=== PATIENT | female | born 1945 | race African-American/Black ===

== ENCOUNTER 2019-10-29 15:20 | Inpatient (IN) | payer MEDICAID, OTHER ==
[~2019-10-29] VITALS: Ht 157.5 cm; Wt 71.7 kg
[2019-10-29 15:49] LABS: BASO % 0 % (0-3); EOS # 0.1 x10^3/uL (0.0-0.7); EOS % 1 % (0-3); HEMATOCRIT 35.1 % (36.0-47.0); HEMOGLOBIN 12.1 g/dL (12.0-15.5); LYMPH # 2.5 x10^3/uL (1.0-4.8); LYMPH % 31 % (24-48); MEAN CORPUSCULAR HEMOGLOBIN 34 pg (25-35); MEAN CORPUSCULAR HGB CONC 34 g/dL (31-37); MEAN CORPUSCULAR VOLUME 97 fL (79-100); MONO # 0.8 x10^3/uL (0.0-1.1); MONO % 10 % (0-9); NEUT # 4.8 x10^3/uL (1.8-7.7); NEUT % 58 % (31-73); PLATELET COUNT 272 x10^3/uL (140-400); RED CELL DISTRIBUTION WIDTH 11.8 % (11.5-14.5); WHITE BLOOD COUNT 8.3 x10^3/uL (4.0-11.0)
--- NOTE | 2019-10-29 15:59 | RAD ---
CT CODE STROKE HEAD WO Clinical indications: Confusion and aphasia. Code stroke COMPARISON: None available. Technique: Noncontrast axial cross sectional scanning of the head was performed. PQRS compliance Statement One or more of the following individualized dose reduction techniques were utilized for this study: 1. Automated exposure control 2. Adjustment of the mA and/or kV according to patient size 3. Use of iterative reconstruction technique Findings: There is diffuse edema of the right cerebral hemisphere mainly involving the temporal and parietal lobes but also the posterior right frontal lobe and anterior right occipital lobe. Within the inferior aspect of this area of edema specifically within the right temporal lobe, there is hyperdense intraparenchymal hemorrhage measuring 23 mm in greatest transverse dimension. There is effacement of the right lateral ventricle. There is midline shift from right to left of 6 mm. No extra-axial fluid collection or hemorrhage is seen. No hyperdense MCA sign is evident. There is complete opacification of the upper left maxillary sinus with erosion of the medial wall and soft tissue extension into the lateral aspect of the left nasal passageway. The maxillary sinuses are not completely seen in this study. This could represent a mucocele or neoplasm. Mastoid sinuses and middle ear cavities are clear. No skull fracture or pneumocephalus is seen. IMPRESSION: Diffuse cerebral edema of the right cerebral hemisphere with an acute hemorrhagic component. Dependent on the clinical history, this could represent a hemorrhagic infarct in the MCA distribution (acute symptomatology only) or could represent hemorrhage within a glioblastoma (subacute or chronic symptomatology with acute onset of new neurologic findings related to hemorrhage). Complete opacification left maxillary sinus which may be due to mucocele or neoplasm. FOR INTERNAL CODING PURPOSES Critical result: Findings discussed with OWEN TELLEZ at 10/29/2019 3:49 PM. RESULT CODE: (C) Electronically signed by: Rufus Ríos MD (10/29/2019 3:56 PM) [facility]
[2019-10-29 16:06] LABS: PROTHROMBIN TIME PATIENT 13.2 SEC (11.7-14.0)
--- NOTE | 2019-10-29 16:16 | EKG ---
[facility] [address] [place] [address] Test Date: 2019-10-29 Test Time: 16:06:16 Pat Name: JEYSON KIM Department: Room: Gender: F [employer]er: : 1945 Requested By: OWEN TELLEZ Order Number: [id number] Reading MD: Measurements Intervals [place] Rate: 60 P: 48 NH: 178 QRS: 2 QRSD: 88 T: 82 QT: 448 QTc: 448 Interpretive Statements SINUS RHYTHM NO SPECIFIC ECG ABNORMALITIES RI6.01 No previous ECG available for comparison
--- NOTE | 2019-10-29 16:19 | PHYS DOC ---
Past Medical History Past Medical History: Hypertension Adult General Chief Complaint Chief Complaint: NEURO SYMPTOMS/DEFICITS HPI HPI Patient is a 74 year old female patient with history of hypertension who presents POV with complaint of confusion. Patient's granddaughter stated that she was confused while she was at work since 10 AM today but she did not have any focal neuro deficit. Patient did not have complaining of headache and blurred vision, fever and chills, nausea and vomiting. Patient had mild confusion several days ago after having cold symptom. Review of Systems Review of Systems Constitutional: Denies fever or chills [] Eyes: Denies change in visual acuity, redness, or eye pain [] HENT: Denies nasal congestion or sore throat [] Respiratory: Denies cough or shortness of breath [] Cardiovascular: No additional information not addressed in HPI [] GI: Denies abdominal pain, nausea, vomiting, bloody stools or diarrhea [] : Denies dysuria or hematuria [] Musculoskeletal: Denies back pain or joint pain [] Integument: Denies rash or skin lesions [] Neurologic: Denies headache, focal weakness or sensory changes [] Endocrine: Denies polyuria or polydipsia [] All other systems were reviewed and found to be within normal limits, except as documented in this note. Current Medications Current Medications Current Medications Medications (Trade) Dose Ordered Sig/[facility] Start Time Stop Time Status Last Admin Dose Admin Dexamethasone Sodium Phosphate (Decadron) 4 mg 1X ONCE 10/29/19 16:45 10/29/19 16:46 DC Allergies Allergies Allergies Coded Allergies Type Severity Reaction Last Updated Verified No Known Drug Allergies 10/29/19 No Physical Exam Physical Exam Constitutional: Well developed, well nourished, no acute distress, non-toxic appearance. [] HENT: Normocephalic, atraumatic, bilateral external ears normal, oropharynx moist, no oral exudates, nose normal. [] Eyes: PERRLA, EOMI, conjunctiva normal, no discharge. [] Neck: Normal range of motion, no tenderness, supple, no stridor. [] Cardiovascular:Heart rate regular rhythm, no murmur [] Lungs & Thorax: Bilateral breath sounds clear to auscultation [] Abdomen: Bowel sounds normal, soft, no tenderness, no masses, no pulsatile masses. [] Skin: Warm, dry, no erythema, no rash. [] Back: No tenderness, no CVA tenderness. [] Extremities: No tenderness, no cyanosis, no clubbing, ROM intact, no edema. [] Neurologic: Alert and oriented X 3 but slow to respond, normal motor function, normal sensory function, no focal deficits noted, NIHS of 3. [] Psychologic: Affect normal, mood normal. [] Current Patient Data Vital Signs Vital Signs Date Time Temp Pulse Resp B/P (MAP) Pulse Ox O2 Delivery O2 Flow Rate FiO2 10/29/19 15:30 98.6 64 16 128/69 (88) 100 Room Air 98.6 Lab Values Laboratory Tests Test 10/29/19 15:37 White Blood Count 8.3 x10^3/uL (4.0-11.0) Red Blood Count 3.60 x10^6/uL (3.50-5.40) Hemoglobin 12.1 g/dL (12.0-15.5) Hematocrit 35.1 % (36.0-47.0) L Mean Corpuscular Volume 97 fL (79-100) Mean Corpuscular Hemoglobin 34 pg (25-35) Mean Corpuscular Hemoglobin Concent 34 g/dL (31-37) Red Cell Distribution Width 11.8 % (11.5-14.5) Platelet Count 272 x10^3/uL (140-400) Neutrophils (%) (Auto) 58 % (31-73) Lymphocytes (%) (Auto) 31 % (24-48) Monocytes (%) (Auto) 10 % (0-9) H Eosinophils (%) (Auto) 1 % (0-3) Basophils (%) (Auto) 0 % (0-3) Neutrophils # (Auto) 4.8 x10^3/uL (1.8-7.7) Lymphocytes # (Auto) 2.5 x10^3/uL (1.0-4.8) Monocytes # (Auto) 0.8 x10^3/uL (0.0-1.1) Eosinophils # (Auto) 0.1 x10^3/uL (0.0-0.7) Basophils # (Auto) 0.0 x10^3/uL (0.0-0.2) Prothrombin Time 13.2 SEC (11.7-14.0) Prothrombin Time INR 1.0 (0.8-1.1) Activated Partial Thromboplast Time 30 SEC (24-38) Sodium Level 128 mmol/L (136-145) L Potassium Level 3.5 mmol/L (3.5-5.1) Chloride Level 90 mmol/L (98-107) L Carbon Dioxide Level 27 mmol/L (21-32) Anion Gap 11 (6-14) Blood Urea Nitrogen 16 mg/dL (7-20) Creatinine 1.2 mg/dL (0.6-1.0) H Estimated GFR (Cockcroft-Gault) 53.0 BUN/Creatinine Ratio 13 (6-20) Glucose Level 97 mg/dL (70-99) Calcium Level 9.3 mg/dL (8.5-10.1) Total Bilirubin 0.4 mg/dL (0.2-1.0) Aspartate Amino Transferase (AST) 20 U/L (15-37) Alanine Aminotransferase (ALT) 19 U/L (14-59) Alkaline Phosphatase 57 U/L (46-116) Troponin I Quantitative < 0.017 ng/mL (0.000-0.055) OK-Zzj-[id number]-Type Natriuretic Peptide 111 pg/mL (0-449) Total Protein 8.3 g/dL (6.4-8.2) H Albumin 3.7 g/dL (3.4-5.0) Albumin/Globulin Ratio 0.8 (1.0-1.7) L Laboratory Tests 10/29/19 15:37 Laboratory Tests 10/29/19 15:37 EKG EKG EKG interpreted at high she by me. EKG at 1606 showed normal sinus rhythm at rate of 60, normal LA and QT intervals, no acute ST and T-wave abnormalities. Radiology/Procedures Radiology/Procedures [][facility] [address] [place], [place] [id number] IMAGING REPORT Signed PATIENT: JEYSON KIM ACCOUNT: [id number] : 1945 LOCATION: ER AGE: 74 SEX: F EXAM STATUS: REG ER ORD. PHYSICIAN: OWEN TELLEZ MD REASON: CONFUSION, APHASIA. CODE STROKE PROCEDURE: CT CODE STROKE HEAD WO CT CODE STROKE HEAD WO Clinical indications: Confusion and aphasia. Code stroke COMPARISON: None available. Technique: Noncontrast axial cross sectional scanning of the head was performed. PQRS compliance Statement One or more of the following individualized dose reduction techniques were utilized for this study: 1. Automated exposure control 2. Adjustment of the mA and/or kV according to patient size 3. Use of iterative reconstruction technique Findings: There is diffuse edema of the right cerebral hemisphere mainly involving the temporal and parietal lobes but also the posterior right frontal lobe and anterior right occipital lobe. Within the inferior aspect of this area of edema specifically within the right temporal lobe, there is hyperdense intraparenchymal hemorrhage measuring 23 mm in greatest transverse dimension. There is effacement of the right lateral ventricle. There is midline shift from right to left of 6 mm. No extra-axial fluid collection or hemorrhage is seen. No hyperdense MCA sign is evident. There is complete opacification of the upper left maxillary sinus with erosion of the medial wall and soft tissue extension into the lateral aspect of the left nasal passageway. The maxillary sinuses are not completely seen in this study. This could represent a mucocele or neoplasm. Mastoid sinuses and middle ear cavities are clear. No skull fracture or pneumocephalus is seen. IMPRESSION: Diffuse cerebral edema of the right cerebral hemisphere with an acute hemorrhagic component. Dependent on the clinical history, this could represent a hemorrhagic infarct in the MCA distribution (acute symptomatology only) or could represent hemorrhage within a glioblastoma (subacute or chronic symptomatology with acute onset of new neurologic findings related to hemorrhage). Complete opacification left maxillary sinus which may be due to mucocele or neoplasm. FOR INTERNAL CODING PURPOSES Critical result: Findings discussed with OWEN TELLEZ at 10/29/2019 3:49 PM. RESULT CODE: (C) Electronically signed by: Kia Ríos MD (10/29/2019 3:56 PM) [facility] DICTATED and SIGNED BY: KIA RÍOS MD DATE: 10/29/19 1556 Course & Med Decision Making Course & Med Decision Making Pertinent Labs and Imaging studies reviewed. (See chart for details) Evaluation of patient in ER showed 74-year-old female patient with sudden onset of confusion for several hours earlier prior to arrival to ER. Patient had indigestion of PE without focal neuro deficit. CT of head showed intracranial he morrhage and cerebral edema and 6 mm midline shift with possible brain tumor or hemorrhagic CVA. On-call neurosurgeon Dr. Lopez was consulted at 16 0 to and recommended to admit patient to ICU, obtain with and without contrast and consult neurologist. Also he commented to keep Decadron 4 mg IV every [address] Meeks was consulted at 1648. Patient requiring admission for further evaluation and treatment. Discussed with Dr. Stevens who is in agreement with admission. Discussed findings and plan with patient and family, who acknowledge understanding and agreement. Dragon Disclaimer Dragon Disclaimer This electronic medical record was generated, in whole or in part, using a voice recognition dictation system. Departure Departure Impression: Primary Impression: Intracranial hemorrhage Additional Impressions: Confusion Hyponatremia Disposition: ADMITTED INPATIENT (at 1606) Admitting Physician: MANSI (Dr. Stevens accepted admission at 1605) Condition: GUARDED Referrals: LOLIS HURTADO MD (PCP) Critical Care Time Critical care time was 70 minutes exclusive of procedures. NIHSS Stroke Scale NIH Stroke Scale: NIH Stroke Scale Response (Comments) Value Level of Consciousness: 0 Alert/Responsive 0 LOC Questions: 0 Answers both correctly 0 LOC Commands: 0 Performs both tasks 0 Best Gaze: 0 Normal 0 Visual: 0 No visual loss 0 Facial Palsy: 0 Normal, symmetrical 0 Motor - Left Arm 0 No drift 0 Motor - Right Arm 0 No drift 0 Motor - Left Leg 0 No drift 0 Motor: Right Leg 0 No drift 0 Limb Ataxia: 1 One limb 1 Sensory: 0 No loss 0 Best Language: 1 Mild to mod aphasia 1 Dysathria: 1 Mild to moderate 1 Extinction and Inattention: 0 Normal 0 Total 3 Problem Qualifiers OWEN TELLEZ MD Oct 29, 2019 16:19
[2019-10-29 16:20] LABS: CALCIUM 9.3 mg/dL (8.5-10.1); CREATININE 1.2 mg/dL (0.6-1.0); POTASSIUM 3.5 mmol/L (3.5-5.1)
[2019-10-29 16:24] LABS: ALBUMIN 3.7 g/dL (3.4-5.0); ALBUMIN/GLOBULIN RATIO 0.8 (1.0-1.7); TOTAL BILIRUBIN 0.4 mg/dL (0.2-1.0); TOTAL PROTEIN 8.3 g/dL (6.4-8.2)
[2019-10-29] MEDS ORDERED: DEXAMETHASONE SOD PHOS 4 MG/ML VIAL IVP ONE (16:45)
[2019-10-29] MEDS ORDERED: ONDANSETRON PF 4 MG/2 ML VIAL. IVP PRN (17:00)
[2019-10-29] MEDS ORDERED: GADOTERATE 7.5 MMOL/15ML VIAL. IVP ONE (17:30)
[2019-10-29] MEDS: DEXAMETHASONE SOD PHOS 4 MG/ML VIAL IVP SCH (18:00)
[2019-10-29] MEDS ORDERED: IOHEXOL 350 MG/ML 100 ML VIAL. IV ONE (18:30)
[2019-10-29] MEDS ORDERED: CONTRAST GIVEN. MC PRN (18:30)
--- NOTE | 2019-10-29 18:45 | RAD ---
BRAIN WO/W CONTRAST History: Brain tumor possible. Intracranial hemorrhage Technique: Multiplanar, multi sequential pre and postcontrast MR imaging was performed of the brain. Comparison: CT October 29, 2019. Findings: Heterogeneously peripherally enhancing necrotic tumor within the right temporal lobe measures 5.7 x 4.1 cm. Enhancement extends towards the lateral ventricle. Decompressed right temporal horn. There is internal hemorrhage. T2/FLAIR hyperintensity adjacent to the mass extending into the right frontal lobe and basal ganglia region. Additional T2/FLAIR hyperintensity extends to the right middle cerebral peduncle. There is adjacent local mass effect. Additionally leftward midline shift measures up to 8 mm. Additional mild foci of T2/FLAIR hyperintensity within the hemispheric white matter, most often due to chronic microvascular ischemia. Imaged orbits are unremarkable. Moderate left maxillary sinus mucosal thickening. Scattered mild ethmoid sinus mucosal thickening. Mastoid air cells are clear. Impression: 1. 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 Electronically signed by: Zhao Choudhary DO (10/29/2019 6:42 PM) [facility]
[2019-10-29] MEDS: IV NORMAL SALINE 1000ML BAG 1,000 ML IV SCH (18:52)
[2019-10-29 19:01] LABS: BILIRUBIN,URINE NEGATIVE (NEG); CLARITY,URINE CLEAR; COLOR,URINE YELLOW; NITRITE,URINE NEGATIVE (NEG); PROTEIN,URINE NEGATIVE (NEG-TRACE); UROBILINOGEN,URINE 0.2 mg/dL (0.2 mg/dL)
--- NOTE | 2019-10-29 19:01 | RAD ---
CT ANGIOGRAPHY HEAD AND NECK History: Intracranial hemorrhage. Technique: After bolus of intravenous contrast, volumetric CT data acquisition was acquired of the head and neck. Multiplanar reconstruction images to include MIP and 3-D reconstruction images are submitted. Exposure: One or more of the following individualized dose reduction techniques were utilized for this examination: 1. Automated exposure control 2. Adjustment of the mA and/or kV according to patient size 3. Use of iterative reconstruction technique. Comparison: None Any determination of stenosis is based on NASCET criteria. Head CTA: ICA: No stenosis, occlusion or aneurysm. MCA: No stenosis, occlusion or aneurysm. SENAIT: 2 mm anterior communicating artery aneurysm (series 3 image #[id number] and series 6 image #24) MOLD STACKER: No stenosis, occlusion or aneurysm. Predominantly origin of the right posterior cerebral artery. Basilar artery: No stenosis, occlusion or aneurysm. Distal vertebral arteries: No stenosis, occlusion or aneurysm. Right temporal lobe a mass better characterized on prior imaging. Leftward midline shift, unchanged. There is displacement of right MCA branches anteriorly by the mass. Complete opacification of the left maxillary sinus Increased density material within the sinus, may represent specific secretions or fungal colonization. Mild ethmoid sinus mucosal thickening. Mastoid air cells are clear. CT angiogram neck: Aortic arch: Conventional arch anatomy. Common carotid arteries: No stenosis, occlusion or dissection. Internal carotid arteries: No stenosis, occlusion or dissection. External carotid arteries: Patent Vertebral arteries: No stenosis, occlusion or dissection. Left lower lobe calcified granuloma. Small subcentimeter thyroid nodules. Bones: No pathologic osseous lesions. Impression: 1. No intracranial arterial stenosis or occlusion. 2. 2 mm anterior communicating artery aneurysm. 3. Right temporal lobe mass with this placement of MCA branches anteriorly. The mass is better characterize on recently performed MRI. 4. Left maxillary sinus disease, as described. Electronically signed by: Zhao Choudhary DO (10/29/2019 6:58 PM) [facility]
[2019-10-29 19:12] LABS: BACTERIA,URINE 0 /HPF (0-FEW); RBC,URINE 0 /HPF (0-2); SQUAMOUS EPITHELIAL CELL,UR MOD /LPF; WBC,URINE OCC /HPF (0-4)
--- NOTE | 2019-10-29 19:20 | PDOC1 ---
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 CT shows hemorrhagic stroke with brain edema, MCA distribution, CT angio brain neck and MRI done at ER stat pending, IF CT angio neg, admit here, IF we find something, might need tertiary care where intervention can be done, Family at bedside, knows the plan, 1 younger individual seems familiar with medical field, Weak all 4s, no facial asymmetry, SLurring seems better but still difficulty finding words. Neuro and nS aware of the consults Past Medical History Cardiovascular: HTN Past Surgical History Past Surgical History: No pertinent history Family History Family History: Hypertension Social History Smoke: No ALCOHOL: none Drugs: None Current Problem List Problem List Problems Medical Problems: (1) Confusion Status: Acute (2) Hyponatremia Status: Acute (3) Intracranial hemorrhage Status: Acute Current Medications Current Medications Current Medications Dexamethasone Sodium Phosphate (Decadron) 4 mg 1X ONCE IVP Last administered on 10/29/19at 18:52; Start 10/29/19 at 16:45; Stop 10/29/19 at 16:46; Status DC Acetaminophen (Tylenol) 500 mg PRN Q6HRS PRN PO MILD PAIN / TEMP; Start 10/29/19 at 17:00 Ondansetron HCl (Zofran) 4 mg PRN Q6HRS PRN IVP NAUSEA/VOMITING; Start 10/29/19 at 17:00 Sodium Chloride 1,000 ml @ 80 mls/hr [id number] IV Last administered on 10/29/19at 18:52; Start 10/29/19 at 17:00 Famotidine (Pepcid Vial) 20 mg QHS IVP ; Start 10/29/19 at 21:00 Hydralazine HCl (Apresoline Inj) 10 mg PRN Q4HRS PRN IVP ELEVATED BP, SEE COMMENTS; Start 10/29/19 at 17:00 Dexamethasone Sodium Phosphate (Decadron) 4 mg Q6HRS IVP ; Start 10/29/19 at 18:00 Gadoterate Meglumine (Dotarem) 14 ml 1X ONCE IVP Last administered on 10/29/19at 17:55; Start 10/29/19 at 17:30; Stop 10/29/19 at 17:40; Status DC Iohexol (Omnipaque 350 Mg/ml) 60 ml 1X ONCE IV Last administered on 10/29/19at 18:46; Start 10/29/19 at 18:30; Stop 10/29/19 at 18:31; Status DC Info (CONTRAST GIVEN -- Rx MONITORING) 1 each PRN DAILY PRN MC SEE COMMENTS; Start 10/29/19 at 18:30; Stop 10/31/19 at 18:29 Allergies Allergies: Coded Allergies: No Known Drug Allergies (Unverified , 10/29/19) ROS Review of System headache , all else is limited Physical Exam General: Alert, Cooperative, No acute distress HEENT: Atraumatic, PERRLA, EOMI Lungs: Clear to auscultation, Normal air movement Heart: S1S2, RRR, no thrills, no rubs, no gallops, no murmurs Cardiovascular: S1, S2 Breasts: Normal, Rt breast nml w/o mass, Lt breast nml w/o mass, Nipples normal Abdomen: Normal bowel sounds, Soft, No tenderness, No hepatosplenomegaly, No masses Rectal Exam: not examined PELVIC: Nml ext genitalia Extremities: No clubbing, No cyanosis, No edema, Normal pulses Skin: No rashes, No breakdown, No significant lesion Neuro: Normal tone, Sensation intact, Reflexes 2+, Other (MMT 4.5 all 4s, no facial droop, weak shoulder shrug, difficulty finding words) Vitals Vitals Vital Signs Date Time Temp Pulse Resp B/P (MAP) Pulse Ox O2 Delivery O2 Flow Rate FiO2 10/29/19 18:55 65 16 100 10/29/19 15:30 98.6 128/69 (88) Room Air 98.6 Labs Labs Laboratory Tests Test 10/29/19 15:32 10/29/19 15:37 10/29/19 18:25 Glucose (Fingerstick) 95 mg/dL (70-99) White Blood Count 8.3 x10^3/uL (4.0-11.0) Red Blood Count 3.60 x10^6/uL (3.50-5.40) Hemoglobin 12.1 g/dL (12.0-15.5) Hematocrit 35.1 % (36.0-47.0) Mean Corpuscular Volume 97 fL (79-100) Mean Corpuscular Hemoglobin 34 pg (25-35) Mean Corpuscular Hemoglobin Concent 34 g/dL (31-37) Red Cell Distribution Width 11.8 % (11.5-14.5) Platelet Count 272 x10^3/uL (140-400) Neutrophils (%) (Auto) 58 % (31-73) Lymphocytes (%) (Auto) 31 % (24-48) Monocytes (%) (Auto) 10 % (0-9) Eosinophils (%) (Auto) 1 % (0-3) Basophils (%) (Auto) 0 % (0-3) Neutrophils # (Auto) 4.8 x10^3/uL (1.8-7.7) Lymphocytes # (Auto) 2.5 x10^3/uL (1.0-4.8) Monocytes # (Auto) 0.8 x10^3/uL (0.0-1.1) Eosinophils # (Auto) 0.1 x10^3/uL (0.0-0.7) Basophils # (Auto) 0.0 x10^3/uL (0.0-0.2) Prothrombin Time 13.2 SEC (11.7-14.0) Prothromb Time International Ratio 1.0 (0.8-1.1) Activated Partial Thromboplast Time 30 SEC (24-38) Sodium Level 128 mmol/L (136-145) Potassium Level 3.5 mmol/L (3.5-5.1) Chloride Level 90 mmol/L (98-107) Carbon Dioxide Level 27 mmol/L (21-32) Anion Gap 11 (6-14) Blood Urea Nitrogen 16 mg/dL (7-20) Creatinine 1.2 mg/dL (0.6-1.0) Estimated GFR (Cockcroft-Gault) 53.0 BUN/Creatinine Ratio 13 (6-20) Glucose Level 97 mg/dL (70-99) Calcium Level 9.3 mg/dL (8.5-10.1) Total Bilirubin 0.4 mg/dL (0.2-1.0) Aspartate Amino Transf (AST/SGOT) 20 U/L (15-37) Alanine Aminotransferase (ALT/SGPT) 19 U/L (14-59) Alkaline Phosphatase 57 U/L (46-116) Troponin I Quantitative < 0.017 ng/mL (0.000-0.055) DH-Xxg-Y-Type Natriuretic Peptide 111 pg/mL (0-449) Total Protein 8.3 g/dL (6.4-8.2) Albumin 3.7 g/dL (3.4-5.0) Albumin/Globulin Ratio 0.8 (1.0-1.7) Urine Collection Type Void Urine Color Yellow Urine Clarity Clear Urine pH 6.0 Urine Specific [place] 1.015 Urine Protein Negative mg/dL (NEG-TRACE) Urine Glucose (UA) Negative mg/dL (NEG) Urine Ketones (Stick) Negative mg/dL (NEG) Urine Blood Negative (NEG) Urine Nitrite Negative (NEG) Urine Bilirubin Negative (NEG) Urine Urobilinogen Dipstick 0.2 mg/dL (0.2 mg/dL) Urine Leukocyte Esterase Negative (NEG) Urine RBC 0 /HPF (0-2) Urine WBC Occ /HPF (0-4) Urine Squamous Epithelial Cells Mod /LPF Urine Bacteria 0 /HPF (0-FEW) Urine Mucus Slight /LPF Laboratory Tests Test 10/29/19 15:32 10/29/19 15:37 10/29/19 18:25 Glucose (Fingerstick) 95 mg/dL (70-99) White Blood Count 8.3 x10^3/uL (4.0-11.0) Red Blood Count 3.60 x10^6/uL (3.50-5.40) Hemoglobin 12.1 g/dL (12.0-15.5) Hematocrit 35.1 % (36.0-47.0) Mean Corpuscular Volume 97 fL (79-100) Mean Corpuscular Hemoglobin 34 pg (25-35) Mean Corpuscular Hemoglobin Concent 34 g/dL (31-37) Red Cell Distribution Width 11.8 % (11.5-14.5) Platelet Count 272 x10^3/uL (140-400) Neutrophils (%) (Auto) 58 % (31-73) Lymphocytes (%) (Auto) 31 % (24-48) Monocytes (%) (Auto) 10 % (0-9) Eosinophils (%) (Auto) 1 % (0-3) Basophils (%) (Auto) 0 % (0-3) Neutrophils # (Auto) 4.8 x10^3/uL (1.8-7.7) Lymphocytes # (Auto) 2.5 x10^3/uL (1.0-4.8) Monocytes # (Auto) 0.8 x10^3/uL (0.0-1.1) Eosinophils # (Auto) 0.1 x10^3/uL (0.0-0.7) Basophils # (Auto) 0.0 x10^3/uL (0.0-0.2) Prothrombin Time 13.2 SEC (11.7-14.0) Prothromb Time International Ratio 1.0 (0.8-1.1) Activated Partial Thromboplast Time 30 SEC (24-38) Sodium Level 128 mmol/L (136-145) Potassium Level 3.5 mmol/L (3.5-5.1) Chloride Level 90 mmol/L (98-107) Carbon Dioxide Level 27 mmol/L (21-32) Anion Gap 11 (6-14) Blood Urea Nitrogen 16 mg/dL (7-20) Creatinine 1.2 mg/dL (0.6-1.0) Estimated GFR (Cockcroft-Gault) 53.0 BUN/Creatinine Ratio 13 (6-20) Glucose Level 97 mg/dL (70-99) Calcium Level 9.3 mg/dL (8.5-10.1) Total Bilirubin 0.4 mg/dL (0.2-1.0) Aspartate Amino Transf (AST/SGOT) 20 U/L (15-37) Alanine Aminotransferase (ALT/SGPT) 19 U/L (14-59) Alkaline Phosphatase 57 U/L (46-116) Troponin I Quantitative < 0.017 ng/mL (0.000-0.055) YA-Nlt-D-Type Natriuretic Peptide 111 pg/mL (0-449) Total Protein 8.3 g/dL (6.4-8.2) Albumin 3.7 g/dL (3.4-5.0) Albumin/Globulin Ratio 0.8 (1.0-1.7) Urine Collection Type Void Urine Color Yellow Urine Clarity Clear Urine pH 6.0 Urine Specific [place] 1.015 Urine Protein Negative mg/dL (NEG-TRACE) Urine Glucose (UA) Negative mg/dL (NEG) Urine Ketones (Stick) Negative mg/dL (NEG) Urine Blood Negative (NEG) Urine Nitrite Negative (NEG) Urine Bilirubin Negative (NEG) Urine Urobilinogen Dipstick 0.2 mg/dL (0.2 mg/dL) Urine Leukocyte Esterase Negative (NEG) Urine RBC 0 /HPF (0-2) Urine WBC Occ /HPF (0-4) Urine Squamous Epithelial Cells Mod /LPF Urine Bacteria 0 /HPF (0-FEW) Urine Mucus Slight /LPF VTE Prophylaxis Ordered VTE Prophylaxis Devices: Contraindicated VTE Pharmacological Prophylaxi: Contraindicated Assessment/Plan Assessment/Plan HUge hemorrhagic CVA, MCA distribution with brain edema HTN controlled PLAN: ICU, decadron 4mg IV nestor NPO for now PT OT MARKETING CONTENT COORDINATOR IVF while NPO Await CTA brain neck and MRI brain Might need tertiary level pending above scans Dw ER, NS and neuro consulted dw dtr Seen at ER full code JANNET OCONNOR MD Oct 29, 2019 19:20
[2019-10-29 20:00] VITALS: BP 146/66
--- NOTE | 2019-10-29 20:35 | PDOC2 ---
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 Tumor necrotic hemorrhage. Cerebral vasogenic edema with midline shift 8 mm. Intermittent recurrent confusional episodes. Complex partial seizure likely. Left temporal field deficits. 2 mm anterior communicating artery aneurysm. Metabolic encephalopathy. Headaches x 1-2 weeks. HTN. Over weight. RECOMMENDATIONS/PLAN: Decadron 4 mg IV q6h. Keppra 500 mg IV bid. Treat medical diseases. Monitoring HR, BP, glucose level, and signs of GI bleeding. EEG. Lab: see orders. Please consult Neurosurgery. 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 He was at work today but developed symptoms of mental status changes, confusion, then slurred speech. She was brought to the ER of [facility] but she was still confused. Her HCT reveled a large low density changes with hemorrhage in right temporal area. Further evaluation revealed brain tumor as described above. Patient stated she has been having headaches that started before . Past Medical History Cardiovascular: HTN Past Surgical History No pertinent history Family History Hypertension Social History Smoke: No ALCOHOL: none Drugs: None ALLERGY: Unknown MEDICATIONS: Refer to MAR REVIEW OF SYSTEMS: Constitutional: No malnutrition, weight loss, cachexia. Head: No traumatic brain or head injury. Skin: No edema, or rash. Ear: No infection. Eyes: No vision loss or color blindness. Nose: No bleeding or purulent discharges. Hearing: No hearing decrease. Neck: No injury. Breast: No history of cancer, masses,or discharges. Cardiac: HTN. Pulmonary: No COPD. GI: No GI ulcer, GI bleeding. Urinary/genital: UTI. Endocrinologic: No cousin face, craniofacial dysmorphism, polydactyly. Skeletomuscular: No muscular atrophy. Neurological: see HP. Psychiatric: Denies drug use/abuse. Otherwise, not [id number] review of systems. PHYSICAL EXAMINATION: General appearance is in acute distress. HEENT: Normocephalic and nontraumatic. Eyes, nose, ears, and throat are unremarkable. Neck is supple. No lymphadenopathy. No crepitus. Cardiovascular: S1, S2, regular rate and rhythm. Pulmonary: Clear to auscultation bilaterally. Abdomen: Bowel sounds are positive. Extremities: No rash, lesions, or edema. No restriction of range of motion NEUROLOGICAL EXAMINATION: Awake. Intermittent confusion episodes noted. Not fully oriented to time, place and person. PERRL. EOMI. Left temporal field deficits. CN: no focal findings. Muscle tone: within normal. Muscle strength: 4 DTR: 1-2 Plantar reflex: Neutral response bilaterally Gait: not examined in bed. Sensory exam: no abnormal findings due to not able to answer questions accurately. No cerebellar signs elicited. F-T-N test fine. Current Medications Current Medications Current Medications Dexamethasone Sodium Phosphate (Decadron) 4 mg 1X ONCE IVP Last administered on 10/29/19at 18:52; Start 10/29/19 at 16:45; Stop 10/29/19 at 16:46; Status DC Acetaminophen (Tylenol) 500 mg PRN Q6HRS PRN PO MILD PAIN / TEMP; Start 10/29/19 at 17:00 Ondansetron HCl (Zofran) 4 mg PRN Q6HRS PRN IVP NAUSEA/VOMITING; Start 10/29/19 at 17:00 Sodium Chloride 1,000 ml @ 80 mls/hr [id number] IV Last administered on 10/29/19at 18:52; Start 10/29/19 at 17:00 Famotidine (Pepcid Vial) 20 mg QHS IVP ; Start 10/29/19 at 21:00 Hydralazine HCl (Apresoline Inj) 10 mg PRN Q4HRS PRN IVP ELEVATED BP, SEE COMMENTS; Start 10/29/19 at 17:00 Dexamethasone Sodium Phosphate (Decadron) 4 mg Q6HRS IVP ; Start 10/29/19 at 18:00 Gadoterate Meglumine (Dotarem) 14 ml 1X ONCE IVP Last administered on 10/29/19at 17:55; Start 10/29/19 at 17:30; Stop 10/29/19 at 17:40; Status DC Iohexol (Omnipaque 350 Mg/ml) 60 ml 1X ONCE IV Last administered on 10/29/19at 18:46; Start 10/29/19 at 18:30; Stop 10/29/19 at 18:31; Status DC Info (CONTRAST GIVEN -- Rx MONITORING) 1 each PRN DAILY PRN MC SEE COMMENTS; Start 10/29/19 at 18:30; Stop 10/31/19 at 18:29 Allergies Allergies: Allergies Coded Allergies Type Severity Reaction Last Updated Verified No Known Drug Allergies 10/29/19 No ROS Review of System The patient denies any associated fevers, chills, headache, ear pain, rhinorrhea, sore throat, stiff neck, productive cough, chest pain, shortness of breath, back or flank pain, abdominal pain, nausea, vomiting, diarrhea, constipation, dysuria, rash, numbness, weakness, tingling, incontinence, difficulty ambulating, or diaphoresis. Physical Exam Physical Exam General: Well developed, well nourished, no acute distress, well appearing HEENT: Pupils equally round and reactive to light, EOMI, no discharge, normal conjunctiva Neck: Supple, no nuchal rigidity, no JVD, trachea midline, no tenderness Cardiac: RRR, no murmurs, no gallops, no rubs Chest/Lungs: CTAB, no wheeze, no rhonchi, no crackles Abdomen: soft, non-distended, no guarding, no peritoneal signs, non-tender Back: No tenderness Extremities: no edema, pulses intact, non-tender,capillary refill <3 sec bilateral upper and lower extremities, Neuro: Alert and oriented x 4, no focal deficits, normal speech Vitals Vitals: Vital Signs Date Time Temp Pulse Resp B/P (MAP) Pulse Ox O2 Delivery O2 Flow Rate FiO2 10/29/19 18:55 65 16 100 10/29/19 15:30 98.6 128/69 (88) Room Air 98.6 Labs Labs Laboratory Tests Test 10/29/19 15:32 10/29/19 15:37 10/29/19 18:25 Glucose (Fingerstick) 95 mg/dL (70-99) White Blood Count 8.3 x10^3/uL (4.0-11.0) Red Blood Count 3.60 x10^6/uL (3.50-5.40) Hemoglobin 12.1 g/dL (12.0-15.5) Hematocrit 35.1 % (36.0-47.0) Mean Corpuscular Volume 97 fL (79-100) Mean Corpuscular Hemoglobin 34 pg (25-35) Mean Corpuscular Hemoglobin Concent 34 g/dL (31-37) Red Cell Distribution Width 11.8 % (11.5-14.5) Platelet Count 272 x10^3/uL (140-400) Neutrophils (%) (Auto) 58 % (31-73) Lymphocytes (%) (Auto) 31 % (24-48) Monocytes (%) (Auto) 10 % (0-9) Eosinophils (%) (Auto) 1 % (0-3) Basophils (%) (Auto) 0 % (0-3) Neutrophils # (Auto) 4.8 x10^3/uL (1.8-7.7) Lymphocytes # (Auto) 2.5 x10^3/uL (1.0-4.8) Monocytes # (Auto) 0.8 x10^3/uL (0.0-1.1) Eosinophils # (Auto) 0.1 x10^3/uL (0.0-0.7) Basophils # (Auto) 0.0 x10^3/uL (0.0-0.2) Prothrombin Time 13.2 SEC (11.7-14.0) Prothromb Time International Ratio 1.0 (0.8-1.1) Activated Partial Thromboplast Time 30 SEC (24-38) Sodium Level 128 mmol/L (136-145) Potassium Level 3.5 mmol/L (3.5-5.1) Chloride Level 90 mmol/L (98-107) Carbon Dioxide Level 27 mmol/L (21-32) Anion Gap 11 (6-14) Blood Urea Nitrogen 16 mg/dL (7-20) Creatinine 1.2 mg/dL (0.6-1.0) Estimated GFR (Cockcroft-Gault) 53.0 BUN/Creatinine Ratio 13 (6-20) Glucose Level 97 mg/dL (70-99) Calcium Level 9.3 mg/dL (8.5-10.1) Total Bilirubin 0.4 mg/dL (0.2-1.0) Aspartate Amino Transf (AST/SGOT) 20 U/L (15-37) Alanine Aminotransferase (ALT/SGPT) 19 U/L (14-59) Alkaline Phosphatase 57 U/L (46-116) Troponin I Quantitative < 0.017 ng/mL (0.000-0.055) VL-Lbk-A-Type Natriuretic Peptide 111 pg/mL (0-449) Total Protein 8.3 g/dL (6.4-8.2) Albumin 3.7 g/dL (3.4-5.0) Albumin/Globulin Ratio 0.8 (1.0-1.7) Urine Collection Type Void Urine Color Yellow Urine Clarity Clear Urine pH 6.0 Urine Specific [place] 1.015 Urine Protein Negative mg/dL (NEG-TRACE) Urine Glucose (UA) Negative mg/dL (NEG) Urine Ketones (Stick) Negative mg/dL (NEG) Urine Blood Negative (NEG) Urine Nitrite Negative (NEG) Urine Bilirubin Negative (NEG) Urine Urobilinogen Dipstick 0.2 mg/dL (0.2 mg/dL) Urine Leukocyte Esterase Negative (NEG) Urine RBC 0 /HPF (0-2) Urine WBC Occ /HPF (0-4) Urine Squamous Epithelial Cells Mod /LPF Urine Bacteria 0 /HPF (0-FEW) Urine Mucus Slight /LPF Laboratory Tests Test 10/29/19 15:32 10/29/19 15:37 10/29/19 18:25 Glucose (Fingerstick) 95 mg/dL (70-99) White Blood Count 8.3 x10^3/uL (4.0-11.0) Red Blood Count 3.60 x10^6/uL (3.50-5.40) Hemoglobin 12.1 g/dL (12.0-15.5) Hematocrit 35.1 % (36.0-47.0) Mean Corpuscular Volume 97 fL (79-100) Mean Corpuscular Hemoglobin 34 pg (25-35) Mean Corpuscular Hemoglobin Concent 34 g/dL (31-37) Red Cell Distribution Width 11.8 % (11.5-14.5) Platelet Count 272 x10^3/uL (140-400) Neutrophils (%) (Auto) 58 % (31-73) Lymphocytes (%) (Auto) 31 % (24-48) Monocytes (%) (Auto) 10 % (0-9) Eosinophils (%) (Auto) 1 % (0-3) Basophils (%) (Auto) 0 % (0-3) Neutrophils # (Auto) 4.8 x10^3/uL (1.8-7.7) Lymphocytes # (Auto) 2.5 x10^3/uL (1.0-4.8) Monocytes # (Auto) 0.8 x10^3/uL (0.0-1.1) Eosinophils # (Auto) 0.1 x10^3/uL (0.0-0.7) Basophils # (Auto) 0.0 x10^3/uL (0.0-0.2) Prothrombin Time 13.2 SEC (11.7-14.0) Prothromb Time International Ratio 1.0 (0.8-1.1) Activated Partial Thromboplast Time 30 SEC (24-38) Sodium Level 128 mmol/L (136-145) Potassium Level 3.5 mmol/L (3.5-5.1) Chloride Level 90 mmol/L (98-107) Carbon Dioxide Level 27 mmol/L (21-32) Anion Gap 11 (6-14) Blood Urea Nitrogen 16 mg/dL (7-20) Creatinine 1.2 mg/dL (0.6-1.0) Estimated GFR (Cockcroft-Gault) 53.0 BUN/Creatinine Ratio 13 (6-20) Glucose Level 97 mg/dL (70-99) Calcium Level 9.3 mg/dL (8.5-10.1) Total Bilirubin 0.4 mg/dL (0.2-1.0) Aspartate Amino Transf (AST/SGOT) 20 U/L (15-37) Alanine Aminotransferase (ALT/SGPT) 19 U/L (14-59) Alkaline Phosphatase 57 U/L (46-116) Troponin I Quantitative < 0.017 ng/mL (0.000-0.055) KP-Pqj-U-Type Natriuretic Peptide 111 pg/mL (0-449) Total Protein 8.3 g/dL (6.4-8.2) Albumin 3.7 g/dL (3.4-5.0) Albumin/Globulin Ratio 0.8 (1.0-1.7) Urine Collection Type Void Urine Color Yellow Urine Clarity Clear Urine pH 6.0 Urine Specific [place] 1.015 Urine Protein Negative mg/dL (NEG-TRACE) Urine Glucose (UA) Negative mg/dL (NEG) Urine Ketones (Stick) Negative mg/dL (NEG) Urine Blood Negative (NEG) Urine Nitrite Negative (NEG) Urine Bilirubin Negative (NEG) Urine Urobilinogen Dipstick 0.2 mg/dL (0.2 mg/dL) Urine Leukocyte Esterase Negative (NEG) Urine RBC 0 /HPF (0-2) Urine WBC Occ /HPF (0-4) Urine Squamous Epithelial Cells Mod /LPF Urine Bacteria 0 /HPF (0-FEW) Urine Mucus Slight /LPF CHELO SAVAGE MD Oct 29, 2019 20:35
[2019-10-29 21:00] VITALS: BP 132/65
--- NOTE | 2019-10-29 21:00 | NUR ---
Pt arrived to unit at 194, accompanied by an ED RN via patricio. Pt A&Ox2 but slightly drowsy, follows commands, reporting pain in her neck and head. VSS with heart rate bradycardic. Lung sounds clear in all perez and bowel sounds present in all four quadrants. Pt strength +2 in BUE aswell as +2 in BLE. Pt attached to monitor and settled into bed, while NS @ 80 mL/ hr was resumed. O2 saturation in high 90's and heart rhythm portrayed Sinus Bradycardia. Pt was educated on ICU routines, no smoking policy, safety policy, call light usage, security and visitation policy, food/ nutrition policy. Provider paged for brief update at 2053. Provider returned call at 2055. This RN updated provider on pt condition, vital signs, objective assessment data, pt's diet, medications taken at home, and pt's slight pain. Provider ordered for the pt to be on light liquid diet until 0000 12/04, after midnight, pt is supposed to be NPO. Provider also ordered 1 mg morphine IVP Q2H PRN. Will continue to assess and monitor for significant change in pt condition.
[2019-10-29] MEDS ORDERED: MORPHINE SULFATE 2 MG/ML VIAL. IV PRN (21:15)
[2019-10-29] MEDS: levETIRAcetam 500 MG in IV DEXTROSE 5% 100ML 100 ML IV SCH (21:24)
[2019-10-29] MEDS: FAMOTIDINE 20 MG/2 ML VIAL IVP SCH (21:25)
[2019-10-29 22:00] VITALS: BP 137/69
[2019-10-29 23:00] VITALS: BP 111/61
[2019-10-30] VITALS (14 sets, daily range): BP systolic 107–150; BP diastolic 55–73
[2019-10-30] MEDS: DEXAMETHASONE SOD PHOS 4 MG/ML VIAL IVP SCH ×5 (01:03→23:39)
--- NOTE | 2019-10-30 02:40 | NUR ---
NIH scale and finding went from original score in ER at 4 to repeat score in ICU at 8. NIH conducted again after suspicion of decline in mentation. This RN advised from charge nurse to repeat NIH and if a significant change, to notify the provider. Provider paged at 0224, provider called back 0230. Provider updated on mental status change and new NIH findings. Provider questioned this RN if the NIH score update was the only intent of the call. This RN confirmed and proceeded to mention the differences in areas of the NIH scales from the original to the most recent. Provider expressed to not call again in regards to change in NIH tonight, and expressed that all can be done for pt through the interventions already completed for the pt. Will continue to assess and monitor pt status and mentation for future significant negative changes.
[2019-10-30 08:03] LABS: BASO % 0 % (0-3); EOS % 0 % (0-3); HEMOGLOBIN 12.4 g/dL (12.0-15.5); LYMPH # 1.6 x10^3/uL (1.0-4.8); LYMPH % 23 % (24-48); MEAN CORPUSCULAR HEMOGLOBIN 34 pg (25-35); MEAN CORPUSCULAR HGB CONC 34 g/dL (31-37); MEAN CORPUSCULAR VOLUME 98 fL (79-100); MONO # 0.1 x10^3/uL (0.0-1.1); MONO % 2 % (0-9); NEUT # 5.3 x10^3/uL (1.8-7.7); NEUT % 75 % (31-73); PLATELET COUNT 272 x10^3/uL (140-400); RED BLOOD COUNT 3.67 x10^6/uL (3.50-5.40); RED CELL DISTRIBUTION WIDTH 11.9 % (11.5-14.5)
[2019-10-30 08:10] LABS: CALCIUM 8.9 mg/dL (8.5-10.1); CREATININE 1.1 mg/dL (0.6-1.0); GFR 58.6; POTASSIUM 3.8 mmol/L (3.5-5.1)
[2019-10-30] MEDS ORDERED: METOPROLOL TART IMMED RELEASE 50 MG TABLET. PO SCH (09:00)
--- NOTE | 2019-10-30 10:20 | PDOC ---
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74 PLAn: NPO, await NS rounds Cont decadron IV COnt keppra q12 started by neuro FULL CODE We resumed home BP regimen Close neuro checks Explained GBM< as a malignant brain tumor, will wait NS recs for tx signif time, pleasant family Vitals Vitals Vital Signs Date Time Temp Pulse Resp B/P (MAP) Pulse Ox O2 Delivery O2 Flow Rate FiO2 10/30/19 06:00 56 20 120/63 (82) 10/30/19 04:00 97.0 97.0 10/30/19 04:00 Room Air 10/29/19 18:55 100 Physical Exam General: Alert, Cooperative, No acute distress Abdomen: Normal bowel sounds, Soft, No tenderness, No hepatosplenomegaly, No masses Extremities: No clubbing, No cyanosis, No edema, Normal pulses Skin: No rashes, No breakdown, No significant lesion Labs LABS Laboratory Tests Test 10/29/19 15:32 10/29/19 15:37 10/29/19 18:25 10/30/19 07:40 Glucose (Fingerstick) 95 mg/dL (70-99) White Blood Count 8.3 x10^3/uL (4.0-11.0) 7.0 x10^3/uL (4.0-11.0) Red Blood Count 3.60 x10^6/uL (3.50-5.40) 3.67 x10^6/uL (3.50-5.40) Hemoglobin 12.1 g/dL (12.0-15.5) 12.4 g/dL (12.0-15.5) Hematocrit 35.1 % (36.0-47.0) 36.0 % (36.0-47.0) Mean Corpuscular Volume 97 fL (79-100) 98 fL (79-100) Mean Corpuscular Hemoglobin 34 pg (25-35) 34 pg (25-35) Mean Corpuscular Hemoglobin Concent 34 g/dL (31-37) 34 g/dL (31-37) Red Cell Distribution Width 11.8 % (11.5-14.5) 11.9 % (11.5-14.5) Platelet Count 272 x10^3/uL (140-400) 272 x10^3/uL (140-400) Neutrophils (%) (Auto) 58 % (31-73) 75 % (31-73) Lymphocytes (%) (Auto) 31 % (24-48) 23 % (24-48) Monocytes (%) (Auto) 10 % (0-9) 2 % (0-9) Eosinophils (%) (Auto) 1 % (0-3) 0 % (0-3) Basophils (%) (Auto) 0 % (0-3) 0 % (0-3) Neutrophils # (Auto) 4.8 x10^3/uL (1.8-7.7) 5.3 x10^3/uL (1.8-7.7) Lymphocytes # (Auto) 2.5 x10^3/uL (1.0-4.8) 1.6 x10^3/uL (1.0-4.8) Monocytes # (Auto) 0.8 x10^3/uL (0.0-1.1) 0.1 x10^3/uL (0.0-1.1) Eosinophils # (Auto) 0.1 x10^3/uL (0.0-0.7) 0.0 x10^3/uL (0.0-0.7) Basophils # (Auto) 0.0 x10^3/uL (0.0-0.2) 0.0 x10^3/uL (0.0-0.2) Prothrombin Time 13.2 SEC (11.7-14.0) Prothromb Time International Ratio 1.0 (0.8-1.1) Activated Partial Thromboplast Time 30 SEC (24-38) Sodium Level 128 mmol/L (136-145) 133 mmol/L (136-145) Potassium Level 3.5 mmol/L (3.5-5.1) 3.8 mmol/L (3.5-5.1) Chloride Level 90 mmol/L (98-107) 97 mmol/L (98-107) Carbon Dioxide Level 27 mmol/L (21-32) 24 mmol/L (21-32) Anion Gap 11 (6-14) 12 (6-14) Blood Urea Nitrogen 16 mg/dL (7-20) 14 mg/dL (7-20) Creatinine 1.2 mg/dL (0.6-1.0) 1.1 mg/dL (0.6-1.0) Estimated GFR (Cockcroft-Gault) 53.0 58.6 BUN/Creatinine Ratio 13 (6-20) Glucose Level 97 mg/dL (70-99) 143 mg/dL (70-99) Calcium Level 9.3 mg/dL (8.5-10.1) 8.9 mg/dL (8.5-10.1) Total Bilirubin 0.4 mg/dL (0.2-1.0) Aspartate Amino Transf (AST/SGOT) 20 U/L (15-37) Alanine Aminotransferase (ALT/SGPT) 19 U/L (14-59) Alkaline Phosphatase 57 U/L (46-116) Troponin I Quantitative < 0.017 ng/mL (0.000-0.055) [id number]-[id number]-Type Natriuretic Peptide 111 pg/mL (0-449) Total Protein 8.3 g/dL (6.4-8.2) Albumin 3.7 g/dL (3.4-5.0) Albumin/Globulin Ratio 0.8 (1.0-1.7) Urine Collection Type Void Urine Color Yellow Urine Clarity Clear Urine pH 6.0 Urine Specific Saline 1.015 Urine Protein Negative mg/dL (NEG-TRACE) Urine Glucose (UA) Negative mg/dL (NEG) Urine Ketones (Stick) Negative mg/dL (NEG) Urine Blood Negative (NEG) Urine Nitrite Negative (NEG) Urine Bilirubin Negative (NEG) Urine Urobilinogen Dipstick 0.2 mg/dL (0.2 mg/dL) Urine Leukocyte Esterase Negative (NEG) Urine RBC 0 /HPF (0-2) Urine WBC Occ /HPF (0-4) Urine Squamous Epithelial Cells Mod /LPF Urine Bacteria 0 /HPF (0-FEW) Urine Mucus Slight /LPF Review of Systems Review of Systems headache, alll else neg, neuro exma non focal Assessment and Plan Assessmemt and Plan Problems Medical Problems: (1) Confusion Status: Acute (2) Hyponatremia Status: Acute (3) Intracranial hemorrhage Status: Acute Comment Review of Relevant I have reviewed the following items ramin (where applicable) has been applied. Labs Laboratory Tests Test 10/29/19 15:32 10/29/19 15:37 10/29/19 18:25 10/30/19 07:40 Glucose (Fingerstick) 95 mg/dL (70-99) White Blood Count 8.3 x10^3/uL (4.0-11.0) 7.0 x10^3/uL (4.0-11.0) Red Blood Count 3.60 x10^6/uL (3.50-5.40) 3.67 x10^6/uL (3.50-5.40) Hemoglobin 12.1 g/dL (12.0-15.5) 12.4 g/dL (12.0-15.5) Hematocrit 35.1 % (36.0-47.0) 36.0 % (36.0-47.0) Mean Corpuscular Volume 97 fL (79-100) 98 fL (79-100) Mean Corpuscular Hemoglobin 34 pg (25-35) 34 pg (25-35) Mean Corpuscular Hemoglobin Concent 34 g/dL (31-37) 34 g/dL (31-37) Red Cell Distribution Width 11.8 % (11.5-14.5) 11.9 % (11.5-14.5) Platelet Count 272 x10^3/uL (140-400) 272 x10^3/uL (140-400) Neutrophils (%) (Auto) 58 % (31-73) 75 % (31-73) Lymphocytes (%) (Auto) 31 % (24-48) 23 % (24-48) Monocytes (%) (Auto) 10 % (0-9) 2 % (0-9) Eosinophils (%) (Auto) 1 % (0-3) 0 % (0-3) Basophils (%) (Auto) 0 % (0-3) 0 % (0-3) Neutrophils # (Auto) 4.8 x10^3/uL (1.8-7.7) 5.3 x10^3/uL (1.8-7.7) Lymphocytes # (Auto) 2.5 x10^3/uL (1.0-4.8) 1.6 x10^3/uL (1.0-4.8) Monocytes # (Auto) 0.8 x10^3/uL (0.0-1.1) 0.1 x10^3/uL (0.0-1.1) Eosinophils # (Auto) 0.1 x10^3/uL (0.0-0.7) 0.0 x10^3/uL (0.0-0.7) Basophils # (Auto) 0.0 x10^3/uL (0.0-0.2) 0.0 x10^3/uL (0.0-0.2) Prothrombin Time 13.2 SEC (11.7-14.0) Prothromb Time International Ratio 1.0 (0.8-1.1) Activated Partial Thromboplast Time 30 SEC (24-38) Sodium Level 128 mmol/L (136-145) 133 mmol/L (136-145) Potassium Level 3.5 mmol/L (3.5-5.1) 3.8 mmol/L (3.5-5.1) Chloride Level 90 mmol/L (98-107) 97 mmol/L (98-107) Carbon Dioxide Level 27 mmol/L (21-32) 24 mmol/L (21-32) Anion Gap 11 (6-14) 12 (6-14) Blood Urea Nitrogen 16 mg/dL (7-20) 14 mg/dL (7-20) Creatinine 1.2 mg/dL (0.6-1.0) 1.1 mg/dL (0.6-1.0) Estimated GFR (Cockcroft-Gault) 53.0 58.6 BUN/Creatinine Ratio 13 (6-20) Glucose Level 97 mg/dL (70-99) 143 mg/dL (70-99) Calcium Level 9.3 mg/dL (8.5-10.1) 8.9 mg/dL (8.5-10.1) Total Bilirubin 0.4 mg/dL (0.2-1.0) Aspartate Amino Transf (AST/SGOT) 20 U/L (15-37) Alanine Aminotransferase (ALT/SGPT) 19 U/L (14-59) Alkaline Phosphatase 57 U/L (46-116) Troponin I Quantitative < 0.017 ng/mL (0.000-0.055) NI-Pmr-S-Type Natriuretic Peptide 111 pg/mL (0-449) Total Protein 8.3 g/dL (6.4-8.2) Albumin 3.7 g/dL (3.4-5.0) Albumin/Globulin Ratio 0.8 (1.0-1.7) Urine Collection Type Void Urine Color Yellow Urine Clarity Clear Urine pH 6.0 Urine Specific [place] 1.015 Urine Protein Negative mg/dL (NEG-TRACE) Urine Glucose (UA) Negative mg/dL (NEG) Urine Ketones (Stick) Negative mg/dL (NEG) Urine Blood Negative (NEG) Urine Nitrite Negative (NEG) Urine Bilirubin Negative (NEG) Urine Urobilinogen Dipstick 0.2 mg/dL (0.2 mg/dL) Urine Leukocyte Esterase Negative (NEG) Urine RBC 0 /HPF (0-2) Urine WBC Occ /HPF (0-4) Urine Squamous Epithelial Cells Mod /LPF Urine Bacteria 0 /HPF (0-FEW) Urine Mucus Slight /LPF Laboratory Tests Test 10/29/19 15:32 10/29/19 15:37 10/29/19 18:25 10/30/19 07:40 Glucose (Fingerstick) 95 mg/dL (70-99) White Blood Count 8.3 x10^3/uL (4.0-11.0) 7.0 x10^3/uL (4.0-11.0) Red Blood Count 3.60 x10^6/uL (3.50-5.40) 3.67 x10^6/uL (3.50-5.40) Hemoglobin 12.1 g/dL (12.0-15.5) 12.4 g/dL (12.0-15.5) Hematocrit 35.1 % (36.0-47.0) 36.0 % (36.0-47.0) Mean Corpuscular Volume 97 fL (79-100) 98 fL (79-100) Mean Corpuscular Hemoglobin 34 pg (25-35) 34 pg (25-35) Mean Corpuscular Hemoglobin Concent 34 g/dL (31-37) 34 g/dL (31-37) Red Cell Distribution Width 11.8 % (11.5-14.5) 11.9 % (11.5-14.5) Platelet Count 272 x10^3/uL (140-400) 272 x10^3/uL (140-400) Neutrophils (%) (Auto) 58 % (31-73) 75 % (31-73) Lymphocytes (%) (Auto) 31 % (24-48) 23 % (24-48) Monocytes (%) (Auto) 10 % (0-9) 2 % (0-9) Eosinophils (%) (Auto) 1 % (0-3) 0 % (0-3) Basophils (%) (Auto) 0 % (0-3) 0 % (0-3) Neutrophils # (Auto) 4.8 x10^3/uL (1.8-7.7) 5.3 x10^3/uL (1.8-7.7) Lymphocytes # (Auto) 2.5 x10^3/uL (1.0-4.8) 1.6 x10^3/uL (1.0-4.8) Monocytes # (Auto) 0.8 x10^3/uL (0.0-1.1) 0.1 x10^3/uL (0.0-1.1) Eosinophils # (Auto) 0.1 x10^3/uL (0.0-0.7) 0.0 x10^3/uL (0.0-0.7) Basophils # (Auto) 0.0 x10^3/uL (0.0-0.2) 0.0 x10^3/uL (0.0-0.2) Prothrombin Time 13.2 SEC (11.7-14.0) Prothromb Time International Ratio 1.0 (0.8-1.1) Activated Partial Thromboplast Time 30 SEC (24-38) Sodium Level 128 mmol/L (136-145) 133 mmol/L (136-145) Potassium Level 3.5 mmol/L (3.5-5.1) 3.8 mmol/L (3.5-5.1) Chloride Level 90 mmol/L (98-107) 97 mmol/L (98-107) Carbon Dioxide Level 27 mmol/L (21-32) 24 mmol/L (21-32) Anion Gap 11 (6-14) 12 (6-14) Blood Urea Nitrogen 16 mg/dL (7-20) 14 mg/dL (7-20) Creatinine 1.2 mg/dL (0.6-1.0) 1.1 mg/dL (0.6-1.0) Estimated GFR (Cockcroft-Gault) 53.0 58.6 BUN/Creatinine Ratio 13 (6-20) Glucose Level 97 mg/dL (70-99) 143 mg/dL (70-99) Calcium Level 9.3 mg/dL (8.5-10.1) 8.9 mg/dL (8.5-10.1) Total Bilirubin 0.4 mg/dL (0.2-1.0) Aspartate Amino Transf (AST/SGOT) 20 U/L (15-37) Alanine Aminotransferase (ALT/SGPT) 19 U/L (14-59) Alkaline Phosphatase 57 U/L (46-116) Troponin I Quantitative < 0.017 ng/mL (0.000-0.055) HV-Uou-U-Type Natriuretic Peptide 111 pg/mL (0-449) Total Protein 8.3 g/dL (6.4-8.2) Albumin 3.7 g/dL (3.4-5.0) Albumin/Globulin Ratio 0.8 (1.0-1.7) Urine Collection Type Void Urine Color Yellow Urine Clarity Clear Urine pH 6.0 Urine Specific [place] 1.015 Urine Protein Negative mg/dL (NEG-TRACE) Urine Glucose (UA) Negative mg/dL (NEG) Urine Ketones (Stick) Negative mg/dL (NEG) Urine Blood Negative (NEG) Urine Nitrite Negative (NEG) Urine Bilirubin Negative (NEG) Urine Urobilinogen Dipstick 0.2 mg/dL (0.2 mg/dL) Urine Leukocyte Esterase Negative (NEG) Urine RBC 0 /HPF (0-2) Urine WBC Occ /HPF (0-4) Urine Squamous Epithelial Cells Mod /LPF Urine Bacteria 0 /HPF (0-FEW) Urine Mucus Slight /LPF Medications Current Medications Dexamethasone Sodium Phosphate (Decadron) 4 mg 1X ONCE IVP Last administered on 10/29/19at 18:52; Start 10/29/19 at 16:45; Stop 10/29/19 at 16:46; Status DC Acetaminophen (Tylenol) 500 mg PRN Q6HRS PRN PO MILD PAIN / TEMP; Start 10/29/19 at 17:00 Ondansetron HCl (Zofran) 4 mg PRN Q6HRS PRN IVP NAUSEA/VOMITING; Start 10/29/19 at 17:00 Sodium Chloride 1,000 ml @ 80 mls/hr [id number] IV Last administered on 10/29/19at 18:52; Start 10/29/19 at 17:00 Famotidine (Pepcid Vial) 20 mg QHS IVP Last administered on 10/29/19at 21:25; Start 10/29/19 at 21:00 Hydralazine HCl (Apresoline Inj) 10 mg PRN Q4HRS PRN IVP ELEVATED BP, SEE COMMENTS; Start 10/29/19 at 17:00 Dexamethasone Sodium Phosphate (Decadron) 4 mg Q6HRS IVP Last administered on 10/30/19at 06:40; Start 10/29/19 at 18:00 Gadoterate Meglumine (Dotarem) 14 ml 1X ONCE IVP Last administered on 10/29/19at 17:55; Start 10/29/19 at 17:30; Stop 10/29/19 at 17:40; Status DC Iohexol (Omnipaque 350 Mg/ml) 60 ml 1X ONCE IV Last administered on 10/29/19at 18:46; Start 10/29/19 at 18:30; Stop 10/29/19 at 18:31; Status DC Info (CONTRAST GIVEN -- Rx MONITORING) 1 each PRN DAILY PRN MC SEE COMMENTS; Start 10/29/19 at 18:30; Stop 10/31/19 at 18:29 Levetiracetam 500 mg/Dextrose 105 ml @ 440 mls/hr Q12HR IV Last administered o n 10/29/19at 21:24; Start 10/29/19 at 21:00 Metoprolol Tartrate (Lopressor) 50 mg DAILY PO ; Start 10/30/19 at 09:00 Hydrochlorothiazide (Microzide) 12.5 mg DAILY PO ; Start 10/30/19 at 09:00 Fish Oil (Fish Oil) 1,000 mg DAILY PO ; Start 10/30/19 at 09:00 Multivitamins (Thera M Plus) 1 tab DAILY PO ; Start 10/30/19 at 09:00 Morphine Sulfate (Morphine Sulfate) 1 mg PRN Q2HR PRN IV PAIN; Start 10/29/19 at 21:15 Vitals/I & O Vital Sign - Last 24 Hours 10/29/19 10/29/19 10/29/19 10/29/19 15:30 15:40 15:49 16:04 Temp 98.6 98.6 Pulse 64 64 64 60 Resp 16 16 16 16 B/P (MAP) 128/69 (88) Pulse Ox 100 100 100 97 O2 Delivery Room Air 10/29/19 10/29/19 10/29/19 10/29/19 16:19 16:34 16:49 17:04 Pulse 60 60 64 62 Resp 16 20 20 16 Pulse Ox 99 100 100 100 10/29/19 10/29/19 10/29/19 10/29/19 18:27 18:40 18:55 20:00 Temp 98.3 98.3 Pulse 64 65 65 Resp 16 16 16 16 B/P (MAP) 146/66 (92) Pulse Ox 100 100 100 10/29/19 10/29/19 10/29/19 10/29/19 20:00 21:00 22:00 23:00 Pulse 58 58 56 Resp 17 17 18 B/P (MAP) 132/65 (87) 137/69 (91) 111/61 (78) O2 Delivery Room Air 10/30/19 10/30/19 10/30/19 10/30/19 00:00 00:00 01:00 02:00 Temp 98.1 98.1 Pulse 56 60 60 Resp 17 19 B/P (MAP) 109/65 (80) 110/60 (77) 128/73 (91) O2 Delivery Room Air 10/30/19 10/30/19 10/30/19 10/30/19 03:00 04:00 04:00 05:00 Temp 97.0 97.0 Pulse 58 56 54 Resp 20 20 20 B/P (MAP) 110/57 (74) 113/55 (74) 107/55 (72) O2 Delivery Room Air 10/30/19 06:00 Pulse 56 Resp 20 B/P (MAP) 120/63 (82) Intake and Output 10/29/19 10/29/19 10/30/19 15:00 23:00 07:00 Intake Total 190 ml Output Total 0 ml Balance 190 ml 0 ml JANNET OCONNOR MD Oct 30, 2019 10:19
[2019-10-30] MEDS ORDERED: METO50TA4 PO (10:53)
[2019-10-30] MEDS ORDERED: LOSA1TAB25 PO (10:53)
[2019-10-30] MEDS: levETIRAcetam 500 MG in IV DEXTROSE 5% 100ML 100 ML IV SCH ×2 (11:09→20:54)
--- NOTE | 2019-10-30 12:00 | NUR ---
Pt has been up to void with standby only necessary. Balance ok. Family at bedside. Bedside swallow done and normal results. Pt ssen earlier by Dr osorio. DR Mcdonnell at bedside and viewed CT with family. Morphine for c/o headache. Pt went to sleep afterwards. DR Fenton and John called for consults.
[2019-10-30] MEDS ORDERED: MULT-245 PO (13:38)
[2019-10-30] MEDS ORDERED: OMEG1CAP38 PO (13:38)
--- NOTE | 2019-10-30 13:56 | NUR ---
SS following for discharge planning. SS reviewed pt chart. Pt is from home and is currently on room air. PT/OT ordered. SS will continue to follow for discharge planning.
--- NOTE | 2019-10-30 13:58 | PDOC ---
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 Tumor necrotic hemorrhage. Cerebral vasogenic edema with midline shift 8 mm. Intermittent recurrent confusional episodes. Complex partial seizure likely. Left temporal field deficits. 2 mm anterior communicating artery aneurysm. Metabolic encephalopathy. Headaches x 1-2 weeks. HTN. Over weight. RECOMMENDATIONS/PLAN: Continue Decadron 4 mg IV q6h. Continue Keppra 500 mg IV bid. Treat medical diseases. Monitoring HR, BP, glucose level, and signs of GI bleeding. EEG. Please consult Neurosurgery. Please consult Oncology. Discussed with her son, daughter, sisters, granddaughters in all detail in ICU and showed them MRI findings on 10/30/19. 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 He was at work today but developed symptoms of mental status changes, confusion, then slurred speech. She was brought to the ER of [facility] but she was still confused. Her HCT reveled a large low density changes with hemorrhage in right temporal area. Further evaluation revealed brain tumor as described above. Patient stated she has been having headaches that started before . Past Medical History Cardiovascular: HTN Past Surgical History No pertinent history Family History Hypertension Social History Smoke: No ALCOHOL: none Drugs: None ALLERGY: Unknown MEDICATIONS: Refer to MAR REVIEW OF SYSTEMS: Constitutional: No malnutrition, weight loss, cachexia. Head: No traumatic brain or head injury. Skin: No edema, or rash. Ear: No infection. Eyes: No vision loss or color blindness. Nose: No bleeding or purulent discharges. Hearing: No hearing decrease. Neck: No injury. Breast: No history of cancer, masses,or discharges. Cardiac: HTN. Pulmonary: No COPD. GI: No GI ulcer, GI bleeding. Urinary/genital: UTI. Endocrinologic: No cousin face, craniofacial dysmorphism, polydactyly. Skeletomuscular: No muscular atrophy. Neurological: see HP. Psychiatric: Denies drug use/abuse. Otherwise, not [id number] review of systems. PHYSICAL EXAMINATION: General appearance is in subacute distress. HEENT: Normocephalic and nontraumatic. Eyes, nose, ears, and throat are unremarkable. Neck is supple. No lymphadenopathy. No crepitus. Cardiovascular: S1, S2, regular rate and rhythm. Pulmonary: Clear to auscultation bilaterally. Abdomen: Bowel sounds are positive. Extremities: No rash, lesions, or edema. No restriction of range of motion NEUROLOGICAL EXAMINATION: Awake. Intermittent confusion improved. Not fully oriented to time, but knew place and person. PERRL. EOMI. Left temporal field deficits. CN: no focal findings. Muscle tone: within normal. Muscle strength: 4 DTR: 1-2 Plantar reflex: Neutral response bilaterally Gait: not examined in bed. Sensory exam: no acute abnormal findings due to not able to answer questions accurately. No cerebellar signs elicited. F-T-N test fine. Objective Objective Vital Signs Date Time Temp Pulse Resp B/P (MAP) Pulse Ox O2 Delivery O2 Flow Rate FiO2 10/30/19 12:00 62 18 10/30/19 11:00 150/70 (96) 10/30/19 08:00 98.3 98.3 10/30/19 04:00 Room Air 10/29/19 18:55 100 Intake and Output 10/30/19 07:00 Intake Total 190 ml Output Total 0 ml Balance 190 ml Intake Oral 140 ml IV Total 50 ml Output Urine Total 0 ml # Voids 3 Vitals Signs Vitals VS - Last 72 Hours, by Label Date Time Temp Pulse Resp B/P (MAP) Pulse Ox O2 Delivery O2 Flow Rate FiO2 10/30/19 12:00 62 18 10/30/19 11:00 62 18 150/70 (96) 10/30/19 10:00 64 18 10/30/19 09:00 60 18 10/30/19 08:00 98.3 60 18 128/65 (86) 98.3 10/30/19 07:00 58 20 109/57 (74) 10/30/19 06:00 56 20 120/63 (82) 10/30/19 05:00 54 20 107/55 (72) 10/30/19 04:00 97.0 56 20 113/55 (74) 97.0 10/30/19 04:00 Room Air 10/30/19 03:00 58 20 110/57 (74) 10/30/19 02:00 60 19 128/73 (91) 10/30/19 01:00 60 19 110/60 (77) 10/30/19 00:00 Room Air 10/30/19 00:00 98.1 56 17 109/65 (80) 98.1 10/29/19 23:00 56 18 111/61 (78) 10/29/19 22:00 58 17 137/69 (91) 10/29/19 21:00 58 17 132/65 (87) 10/29/19 20:00 Room Air 10/29/19 20:00 98.3 16 146/66 (92) 98.3 10/29/19 18:55 65 16 100 10/29/19 18:40 65 16 100 10/29/19 18:27 64 16 100 10/29/19 17:04 62 16 100 10/29/19 16:49 64 20 100 10/29/19 16:34 60 20 100 10/29/19 16:19 60 16 99 10/29/19 16:04 60 16 97 10/29/19 15:49 64 16 100 10/29/19 15:40 64 16 100 10/29/19 15:30 98.6 64 16 128/69 (88) 100 Room Air 98.6 Laboratory Laboratory Laboratory Tests Test 10/29/19 15:32 10/29/19 15:37 10/29/19 18:25 10/30/19 07:40 Glucose (Fingerstick) 95 mg/dL (70-99) White Blood Count 8.3 x10^3/uL (4.0-11.0) 7.0 x10^3/uL (4.0-11.0) Red Blood Count 3.60 x10^6/uL (3.50-5.40) 3.67 x10^6/uL (3.50-5.40) Hemoglobin 12.1 g/dL (12.0-15.5) 12.4 g/dL (12.0-15.5) Hematocrit 35.1 % (36.0-47.0) 36.0 % (36.0-47.0) Mean Corpuscular Volume 97 fL (79-100) 98 fL (79-100) Mean Corpuscular Hemoglobin 34 pg (25-35) 34 pg (25-35) Mean Corpuscular Hemoglobin Concent 34 g/dL (31-37) 34 g/dL (31-37) Red Cell Distribution Width 11.8 % (11.5-14.5) 11.9 % (11.5-14.5) Platelet Count 272 x10^3/uL (140-400) 272 x10^3/uL (140-400) Neutrophils (%) (Auto) 58 % (31-73) 75 % (31-73) Lymphocytes (%) (Auto) 31 % (24-48) 23 % (24-48) Monocytes (%) (Auto) 10 % (0-9) 2 % (0-9) Eosinophils (%) (Auto) 1 % (0-3) 0 % (0-3) Basophils (%) (Auto) 0 % (0-3) 0 % (0-3) Neutrophils # (Auto) 4.8 x10^3/uL (1.8-7.7) 5.3 x10^3/uL (1.8-7.7) Lymphocytes # (Auto) 2.5 x10^3/uL (1.0-4.8) 1.6 x10^3/uL (1.0-4.8) Monocytes # (Auto) 0.8 x10^3/uL (0.0-1.1) 0.1 x10^3/uL (0.0-1.1) Eosinophils # (Auto) 0.1 x10^3/uL (0.0-0.7) 0.0 x10^3/uL (0.0-0.7) Basophils # (Auto) 0.0 x10^3/uL (0.0-0.2) 0.0 x10^3/uL (0.0-0.2) Prothrombin Time 13.2 SEC (11.7-14.0) Prothromb Time International Ratio 1.0 (0.8-1.1) Activated Partial Thromboplast Time 30 SEC (24-38) Sodium Level 128 mmol/L (136-145) 133 mmol/L (136-145) Potassium Level 3.5 mmol/L (3.5-5.1) 3.8 mmol/L (3.5-5.1) Chloride Level 90 mmol/L (98-107) 97 mmol/L (98-107) Carbon Dioxide Level 27 mmol/L (21-32) 24 mmol/L (21-32) Anion Gap 11 (6-14) 12 (6-14) Blood Urea Nitrogen 16 mg/dL (7-20) 14 mg/dL (7-20) Creatinine 1.2 mg/dL (0.6-1.0) 1.1 mg/dL (0.6-1.0) Estimated GFR (Cockcroft-Gault) 53.0 58.6 BUN/Creatinine Ratio 13 (6-20) Glucose Level 97 mg/dL (70-99) 143 mg/dL (70-99) Calcium Level 9.3 mg/dL (8.5-10.1) 8.9 mg/dL (8.5-10.1) Total Bilirubin 0.4 mg/dL (0.2-1.0) Aspartate Amino Transf (AST/SGOT) 20 U/L (15-37) Alanine Aminotransferase (ALT/SGPT) 19 U/L (14-59) Alkaline Phosphatase 57 U/L (46-116) Troponin I Quantitative < 0.017 ng/mL (0.000-0.055) [id number]-[id number]-Type Natriuretic Peptide 111 pg/mL (0-449) Total Protein 8.3 g/dL (6.4-8.2) Albumin 3.7 g/dL (3.4-5.0) Albumin/Globulin Ratio 0.8 (1.0-1.7) Urine Collection Type Void Urine Color Yellow Urine Clarity Clear Urine pH 6.0 Urine Specific [place] 1.015 Urine Protein Negative mg/dL (NEG-TRACE) Urine Glucose (UA) Negative mg/dL (NEG) Urine Ketones (Stick) Negative mg/dL (NEG) Urine Blood Negative (NEG) Urine Nitrite Negative (NEG) Urine Bilirubin Negative (NEG) Urine Urobilinogen Dipstick 0.2 mg/dL (0.2 mg/dL) Urine Leukocyte Esterase Negative (NEG) Urine RBC 0 /HPF (0-2) Urine WBC Occ /HPF (0-4) Urine Squamous Epithelial Cells Mod /LPF Urine Bacteria 0 /HPF (0-FEW) Urine Mucus Slight /LPF Medication Medications Current Medications Acetaminophen (Tylenol) 500 mg PRN Q6HRS PRN PO MILD PAIN / TEMP; Start 10/29/19 at 17:00 Dexamethasone Sodium Phosphate (Decadron) 4 mg 1X ONCE IVP Last administered on 10/29/19at 18:52; Start 10/29/19 at 16:45; Stop 10/29/19 at 16:46; Status DC Dexamethasone Sodium Phosphate (Decadron) 4 mg Q6HRS IVP Last administered on 10/30/19at 06:40; Start 10/29/19 at 18:00 Famotidine (Pepcid Vial) 20 mg QHS IVP Last administered on 10/29/19at 21:25; Start 10/29/19 at 21:00 Fish Oil (Fish Oil) 1,000 mg DAILY PO ; Start 10/30/19 at 09:00 Gadoterate Meglumine (Dotarem) 14 ml 1X ONCE IVP Last administered on 10/29/19at 17:55; Start 10/29/19 at 17:30; Stop 10/29/19 at 17:40; Status DC Hydralazine HCl (Apresoline Inj) 10 mg PRN Q4HRS PRN IVP ELEVATED BP, SEE COMMENTS; Start 10/29/19 at 17:00 Hydrochlorothiazide (Microzide) 12.5 mg DAILY PO ; Start 10/30/19 at 09:00 Info (CONTRAST GIVEN -- Rx MONITORING) 1 each PRN DAILY PRN MC SEE COMMENTS; Start 10/29/19 at 18:30; Stop 10/31/19 at 18:29 Iohexol (Omnipaque 350 Mg/ml) 60 ml 1X ONCE IV Last administered on 10/29/19at 18:46; Start 10/29/19 at 18:30; Stop 10/29/19 at 18:31; Status DC Levetiracetam 500 mg/Dextrose 105 ml @ 440 mls/hr Q12HR IV Last administered on 10/30/19at 11:09; Start 10/29/19 at 21:00 Losartan Potassium (Cozaar) 100 mg DAILY PO ; Start 10/31/19 at 09:00 Metoprolol Succinate (Toprol Xl) 50 mg DAILY PO ; Start 10/31/19 at 09:00 Metoprolol Tartrate (Lopressor) 50 mg DAILY PO ; Start 10/30/19 at 09:00; Status Cancel Morphine Sulfate (Morphine Sulfate) 1 mg PRN Q2HR PRN IV PAIN; Start 10/29/19 at 21:15 Multivitamins (Thera M Plus) 1 tab DAILY PO ; Start 10/30/19 at 09:00 Non-Formulary Medication (Multivitamin (Multi Vitamin Daily)) 1 tab DAILY PO ; Start 10/31/19 at 09:00; Status UNV Non-Formulary Medication ([place]-3 Fatty Acids/Fish Oil ([place] 3 Fish Oil Softgel)) 1 each DAILY PO ; Start 10/31/19 at 09:00; Status UNV Ondansetron HCl (Zofran) 4 mg PRN Q6HRS PRN IVP NAUSEA/VOMITING; Start 10/29/19 at 17:00 Sodium Chloride 1,000 ml @ 80 mls/hr [id number] IV Last administered on 10/29/19at 18:52; Start 10/29/19 at 17:00 Comment Review of Relevant I have reviewed the following items ramin (where applicable) has been applied. CHELO SAVAGE MD Oct 30, 2019 13:58
--- NOTE | 2019-10-30 14:05 | PDOC ---
PROGRESS NOTES Subjective Subjective patient seen and examined admitted with slurred speech, headache and confusion Objective Objective Vital Signs Date Time Temp Pulse Resp B/P (MAP) Pulse Ox O2 Delivery O2 Flow Rate FiO2 10/30/19 13:49 Room Air 10/30/19 12:00 62 18 10/30/19 11:00 150/70 (96) 10/30/19 08:00 98.3 98.3 10/29/19 18:55 100 Intake and Output 10/30/19 07:00 Intake Total 190 ml Output Total 0 ml Balance 190 ml Intake Oral 140 ml IV Total 50 ml Output Urine Total 0 ml # Voids 3 Physical Exam General: Alert, Other (confused conversation) MUSCULOSKELETAL: Other (CONTRERAS right > left) Assessment Assessment Problems Medical Problems: (1) Confusion Status: Acute (2) Hyponatremia Status: Acute (3) Intracranial hemorrhage Status: Acute Plan Plan of Care CT/ MRI with 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 Contreras has been consulted, will consult Dr. Lambert d/w family and nurse Comment Review of Relevant I have reviewed the following items ramin (where applicable) has been applied. Labs Laboratory Tests Test 10/29/19 15:32 10/29/19 15:37 10/29/19 18:25 10/30/19 07:40 Glucose (Fingerstick) 95 mg/dL (70-99) White Blood Count 8.3 x10^3/uL (4.0-11.0) 7.0 x10^3/uL (4.0-11.0) Red Blood Count 3.60 x10^6/uL (3.50-5.40) 3.67 x10^6/uL (3.50-5.40) Hemoglobin 12.1 g/dL (12.0-15.5) 12.4 g/dL (12.0-15.5) Hematocrit 35.1 % (36.0-47.0) 36.0 % (36.0-47.0) Mean Corpuscular Volume 97 fL (79-100) 98 fL (79-100) Mean Corpuscular Hemoglobin 34 pg (25-35) 34 pg (25-35) Mean Corpuscular Hemoglobin Concent 34 g/dL (31-37) 34 g/dL (31-37) Red Cell Distribution Width 11.8 % (11.5-14.5) 11.9 % (11.5-14.5) Platelet Count 272 x10^3/uL (140-400) 272 x10^3/uL (140-400) Neutrophils (%) (Auto) 58 % (31-73) 75 % (31-73) Lymphocytes (%) (Auto) 31 % (24-48) 23 % (24-48) Monocytes (%) (Auto) 10 % (0-9) 2 % (0-9) Eosinophils (%) (Auto) 1 % (0-3) 0 % (0-3) Basophils (%) (Auto) 0 % (0-3) 0 % (0-3) Neutrophils # (Auto) 4.8 x10^3/uL (1.8-7.7) 5.3 x10^3/uL (1.8-7.7) Lymphocytes # (Auto) 2.5 x10^3/uL (1.0-4.8) 1.6 x10^3/uL (1.0-4.8) Monocytes # (Auto) 0.8 x10^3/uL (0.0-1.1) 0.1 x10^3/uL (0.0-1.1) Eosinophils # (Auto) 0.1 x10^3/uL (0.0-0.7) 0.0 x10^3/uL (0.0-0.7) Basophils # (Auto) 0.0 x10^3/uL (0.0-0.2) 0.0 x10^3/uL (0.0-0.2) Prothrombin Time 13.2 SEC (11.7-14.0) Prothromb Time International Ratio 1.0 (0.8-1.1) Activated Partial Thromboplast Time 30 SEC (24-38) Sodium Level 128 mmol/L (136-145) 133 mmol/L (136-145) Potassium Level 3.5 mmol/L (3.5-5.1) 3.8 mmol/L (3.5-5.1) Chloride Level 90 mmol/L (98-107) 97 mmol/L (98-107) Carbon Dioxide Level 27 mmol/L (21-32) 24 mmol/L (21-32) Anion Gap 11 (6-14) 12 (6-14) Blood Urea Nitrogen 16 mg/dL (7-20) 14 mg/dL (7-20) Creatinine 1.2 mg/dL (0.6-1.0) 1.1 mg/dL (0.6-1.0) Estimated GFR (Cockcroft-Gault) 53.0 58.6 BUN/Creatinine Ratio 13 (6-20) Glucose Level 97 mg/dL (70-99) 143 mg/dL (70-99) Calcium Level 9.3 mg/dL (8.5-10.1) 8.9 mg/dL (8.5-10.1) Total Bilirubin 0.4 mg/dL (0.2-1.0) Aspartate Amino Transf (AST/SGOT) 20 U/L (15-37) Alanine Aminotransferase (ALT/SGPT) 19 U/L (14-59) Alkaline Phosphatase 57 U/L (46-116) Troponin I Quantitative < 0.017 ng/mL (0.000-0.055) FW-Ydd-O-Type Natriuretic Peptide 111 pg/mL (0-449) Total Protein 8.3 g/dL (6.4-8.2) Albumin 3.7 g/dL (3.4-5.0) Albumin/Globulin Ratio 0.8 (1.0-1.7) Urine Collection Type Void Urine Color Yellow Urine Clarity Clear Urine pH 6.0 Urine Specific [place] 1.015 Urine Protein Negative mg/dL (NEG-TRACE) Urine Glucose (UA) Negative mg/dL (NEG) Urine Ketones (Stick) Negative mg/dL (NEG) Urine Blood Negative (NEG) Urine Nitrite Negative (NEG) Urine Bilirubin Negative (NEG) Urine Urobilinogen Dipstick 0.2 mg/dL (0.2 mg/dL) Urine Leukocyte Esterase Negative (NEG) Urine RBC 0 /HPF (0-2) Urine WBC Occ /HPF (0-4) Urine Squamous Epithelial Cells Mod /LPF Urine Bacteria 0 /HPF (0-FEW) Urine Mucus Slight /LPF Laboratory Tests Test 10/29/19 15:32 10/29/19 15:37 10/29/19 18:25 10/30/19 07:40 Glucose (Fingerstick) 95 mg/dL (70-99) White Blood Count 8.3 x10^3/uL (4.0-11.0) 7.0 x10^3/uL (4.0-11.0) Red Blood Count 3.60 x10^6/uL (3.50-5.40) 3.67 x10^6/uL (3.50-5.40) Hemoglobin 12.1 g/dL (12.0-15.5) 12.4 g/dL (12.0-15.5) Hematocrit 35.1 % (36.0-47.0) 36.0 % (36.0-47.0) Mean Corpuscular Volume 97 fL (79-100) 98 fL (79-100) Mean Corpuscular Hemoglobin 34 pg (25-35) 34 pg (25-35) Mean Corpuscular Hemoglobin Concent 34 g/dL (31-37) 34 g/dL (31-37) Red Cell Distribution Width 11.8 % (11.5-14.5) 11.9 % (11.5-14.5) Platelet Count 272 x10^3/uL (140-400) 272 x10^3/uL (140-400) Neutrophils (%) (Auto) 58 % (31-73) 75 % (31-73) Lymphocytes (%) (Auto) 31 % (24-48) 23 % (24-48) Monocytes (%) (Auto) 10 % (0-9) 2 % (0-9) Eosinophils (%) (Auto) 1 % (0-3) 0 % (0-3) Basophils (%) (Auto) 0 % (0-3) 0 % (0-3) Neutrophils # (Auto) 4.8 x10^3/uL (1.8-7.7) 5.3 x10^3/uL (1.8-7.7) Lymphocytes # (Auto) 2.5 x10^3/uL (1.0-4.8) 1.6 x10^3/uL (1.0-4.8) Monocytes # (Auto) 0.8 x10^3/uL (0.0-1.1) 0.1 x10^3/uL (0.0-1.1) Eosinophils # (Auto) 0.1 x10^3/uL (0.0-0.7) 0.0 x10^3/uL (0.0-0.7) Basophils # (Auto) 0.0 x10^3/uL (0.0-0.2) 0.0 x10^3/uL (0.0-0.2) Prothrombin Time 13.2 SEC (11.7-14.0) Prothromb Time International Ratio 1.0 (0.8-1.1) Activated Partial Thromboplast Time 30 SEC (24-38) Sodium Level 128 mmol/L (136-145) 133 mmol/L (136-145) Potassium Level 3.5 mmol/L (3.5-5.1) 3.8 mmol/L (3.5-5.1) Chloride Level 90 mmol/L (98-107) 97 mmol/L (98-107) Carbon Dioxide Level 27 mmol/L (21-32) 24 mmol/L (21-32) Anion Gap 11 (6-14) 12 (6-14) Blood Urea Nitrogen 16 mg/dL (7-20) 14 mg/dL (7-20) Creatinine 1.2 mg/dL (0.6-1.0) 1.1 mg/dL (0.6-1.0) Estimated GFR (Cockcroft-Gault) 53.0 58.6 BUN/Creatinine Ratio 13 (6-20) Glucose Level 97 mg/dL (70-99) 143 mg/dL (70-99) Calcium Level 9.3 mg/dL (8.5-10.1) 8.9 mg/dL (8.5-10.1) Total Bilirubin 0.4 mg/dL (0.2-1.0) Aspartate Amino Transf (AST/SGOT) 20 U/L (15-37) Alanine Aminotransferase (ALT/SGPT) 19 U/L (14-59) Alkaline Phosphatase 57 U/L (46-116) Troponin I Quantitative < 0.017 ng/mL (0.000-0.055) VH-Xzh-[id number]-Type Natriuretic Peptide 111 pg/mL (0-449) Total Protein 8.3 g/dL (6.4-8.2) Albumin 3.7 g/dL (3.4-5.0) Albumin/Globulin Ratio 0.8 (1.0-1.7) Urine Collection Type Void Urine Color Yellow Urine Clarity Clear Urine pH 6.0 Urine Specific [place] 1.015 Urine Protein Negative mg/dL (NEG-TRACE) Urine Glucose (UA) Negative mg/dL (NEG) Urine Ketones (Stick) Negative mg/dL (NEG) Urine Blood Negative (NEG) Urine Nitrite Negative (NEG) Urine Bilirubin Negative (NEG) Urine Urobilinogen Dipstick 0.2 mg/dL (0.2 mg/dL) Urine Leukocyte Esterase Negative (NEG) Urine RBC 0 /HPF (0-2) Urine WBC Occ /HPF (0-4) Urine Squamous Epithelial Cells Mod /LPF Urine Bacteria 0 /HPF (0-FEW) Urine Mucus Slight /LPF Medications Current Medications Dexamethasone Sodium Phosphate (Decadron) 4 mg 1X ONCE IVP Last administered on 10/29/19 18:52; Start 10/29/19 at 16:45; Stop 10/29/19 at 16:46; Status DC Acetaminophen (Tylenol) 500 mg PRN Q6HRS PRN PO MILD PAIN / TEMP; Start 10/29/19 at 17:00 Ondansetron HCl (Zofran) 4 mg PRN Q6HRS PRN IVP NAUSEA/VOMITING; Start 10/29/19 at 17:00 Sodium Chloride 1,000 ml @ 80 mls/hr [id number] IV Last administered on 10/29/19at 18:52; Start 10/29/19 at 17:00 Famotidine (Pepcid Vial) 20 mg QHS IVP Last administered on 10/29/19at 21:25; Start 10/29/19 at 21:00 Hydralazine HCl (Apresoline Inj) 10 mg PRN Q4HRS PRN IVP ELEVATED BP, SEE COMMENTS; Start 10/29/19 at 17:00 Dexamethasone Sodium Phosphate (Decadron) 4 mg Q6HRS IVP Last administered on 10/30/19at 13:49; Start 10/29/19 at 18:00 Gadoterate Meglumine (Dotarem) 14 ml 1X ONCE IVP Last administered on 10/29/19at 17:55; Start 10/29/19 at 17:30; Stop 10/29/19 at 17:40; Status DC Iohexol (Omnipaque 350 Mg/ml) 60 ml 1X ONCE IV Last administered on 10/29/19at 18:46; Start 10/29/19 at 18:30; Stop 10/29/19 at 18:31; Status DC Info (CONTRAST GIVEN -- Rx MONITORING) 1 each PRN DAILY PRN MC SEE COMMENTS; Start 10/29/19 at 18:30; Stop 10/31/19 at 18:29 Levetiracetam 500 mg/Dextrose 105 ml @ 440 mls/hr Q12HR IV Last administered on 10/30/19at 11:09; Start 10/29/19 at 21:00 Metoprolol Tartrate (Lopressor) 50 mg DAILY PO ; Start 10/30/19 at 09:00; Status Cancel Hydrochlorothiazide (Microzide) 12.5 mg DAILY PO ; Start 10/30/19 at 09:00 Fish Oil (Fish Oil) 1,000 mg DAILY PO ; Start 10/30/19 at 09:00 Multivitamins (Thera M Plus) 1 tab DAILY PO ; Start 10/30/19 at 09:00 Morphine Sulfate (Morphine Sulfate) 1 mg PRN Q2HR PRN IV PAIN Last administered on 10/30/19at 13:49; Start 10/29/19 at 21:15 Metoprolol Succinate (Toprol Xl) 50 mg DAILY PO ; Start 10/31/19 at 09:00 Losartan Potassium (Cozaar) 100 mg DAILY PO ; Start 10/31/19 at 09:00 Non-Formulary Medication (Multivitamin (Multi Vitamin Daily)) 1 tab DAILY PO ; Start 10/31/19 at 09:00; Status UNV Non-Formulary Medication (Phelan-3 Fatty Acids/Fish Oil (Phelan 3 Fish Oil Softgel)) 1 each DAILY PO ; Start 10/31/19 at 09:00; Status UNV Active Scripts Active Reported Multi Vitamin Daily (Multivitamin) 1 Each Tablet 1 Tab PO DAILY 30 Days Phelan 3 Fish Oil Softgel (Phelan-3 Fatty Acids/Fish Oil) 1 Each Capsule. 1 Each PO DAILY Losartan-Hctz 100-12.5 Mg Tab (Losartan/Hydrochlorothiazide) 1 Each Tablet 1 Tab PO DAILY Toprol XL (Metoprolol Succinate) 50 Mg Tab.er.24h 50 Mg PO DAILY Vitals/I & O Vital Sign - Last 24 Hours 10/29/19 10/29/19 10/29/19 12/3/19 15:30 15:40 15:49 16:04 Temp 98.6 98.6 Pulse 64 64 64 60 Resp 16 16 16 16 B/P (MAP) 128/69 (88) Pulse Ox 100 100 100 97 O2 Delivery Room Air 10/29/19 10/29/19 10/29/19 10/29/19 16:19 16:34 16:49 17:04 Pulse 60 60 64 62 Resp 16 20 20 16 Pulse Ox 99 100 100 100 10/29/19 10/29/19 10/29/19 10/29/19 18:27 18:40 18:55 20:00 Temp 98.3 98.3 Pulse 64 65 65 Resp 16 16 16 16 B/P (MAP) 146/66 (92) Pulse Ox 100 100 100 10/29/19 10/29/19 10/29/19 10/29/19 20:00 21:00 22:00 23:00 Pulse 58 58 56 Resp 17 17 18 B/P (MAP) 132/65 (87) 137/69 (91) 111/61 (78) O2 Delivery Room Air 10/30/19 10/30/19 10/30/19 10/30/19 00:00 00:00 01:00 02:00 Temp 98.1 98.1 Pulse 56 60 60 Resp 17 19 19 B/P (MAP) 109/65 (80) 110/60 (77) 128/73 (91) O2 Delivery Room Air 10/30/19 10/30/19 10/30/19 10/30/19 03:00 04:00 04:00 05:00 Temp 97.0 97.0 Pulse 58 56 54 Resp 20 20 20 B/P (MAP) 110/57 (74) 113/55 (74) 107/55 (72) O2 Delivery Room Air 10/30/19 10/30/19 10/30/19 10/30/19 06:00 07:00 08:00 09:00 Temp 98.3 98.3 Pulse 56 58 60 60 Resp 20 20 18 18 B/P (MAP) 120/63 (82) 109/57 (74) 128/65 (86) 10/30/19 10/30/19 10/30/19 10/30/19 10:00 11:00 12:00 13:49 Pulse 64 62 62 Resp 18 18 18 B/P (MAP) 150/70 (96) O2 Delivery Room Air Intake and Output 10/29/19 10/29/19 10/30/19 15:00 23:00 07:00 Intake Total 190 ml Output Total 0 ml Balance 190 ml 0 ml CHRISTIE CASILLAS MD Oct 30, 2019 14:04
[2019-10-30] MEDS: hydroCHLOROthiazide 12.5 MG CAPSULE PO SCH (16:21)
[2019-10-30] MEDS: MULTIVITAMIN with MINERAL TABLET. PO SCH (16:21)
[2019-10-30] MEDS: OMEGA-3 FATTY ACIDS/FISH OIL 1,000 MG CAPSULE. PO SCH (16:21)
--- NOTE | 2019-10-30 16:30 | NUR ---
transferred by w/c to 574 with glasses and cell phone and family. [facility]
[2019-10-30] MEDS: IV NORMAL SALINE 1000ML BAG 1,000 ML IV SCH ×2 (18:00→20:54)
--- NOTE | 2019-10-30 20:01 | PDOC2 ---
CONSULT Date of Consult Date of Consult DATE: 10/30/19 TIME: 19:53 Reason for consultation: Suspected GBM Consult: Hematology oncology, Dr. 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 We were consulted due to the concern for GBM. 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 Physical exam: Vitals reviewed Gen.: Elderly female resting in bed, having difficulty speaking HEENT: mucous membranes moist, head normocephalic atraumatic Neck: Supple, no lymphadenopathy Lymph nodes: No palpable lymphadenopathy neck or axilla Lungs: Breathing comfortably w/o respiratory distress Abdomen: Soft, nontender, nondistended Extremities: No cyanosis or signif edema Skin: No obvious rashes or skin breakdown Neuro: Alert but not oriented and unable to express her thoughts adequately, can get a few words out Psych: pleasant mood and affect Lab reviewed: White count 7, hemoglobin 12.4, platelets 272, INR 1.0, PTT 30, creatinine 1.1 Rads reviewed: Brain MRI showed heterogeneous peripherally enhancing centrally necrotic hemorrhagic tumor of the right temporal lobe with left midline shift Head and neck CT angio showed no arterial stenosis or occlusion, 2 mm SENAIT aneurysm, right temporal lobe mass, left maxillary sinus disease Case discussed with: Pt and her family, records reviewed in [email or web address] as available, including labs and radiology, please see note for summary details. Assessment and Plan: She is a 74-year-old female with suspected GBM on steroids, neurosurgery and neurology are involved and radiation oncology as well, w/ plans for debulking likely on Monday Suspected GBM: We will follow-up adjuvantly for treatment as able based on tumor characteristics and performance status postoperatively Memory loss, Aphasia: On dexamethasone, neurology is involved Thank you kindly for this consultation, I will return on Monday but Dr. Contreras is available in the interim should any questions arise between now and then. Past Medical History Cardiovascular: HTN Past Surgical History Past Surgical History: No pertinent history Family History Family History: Hypertension Social History No ALCOHOL: none Drugs: None Current Problem List Problem List Problems Medical Problems: (1) Confusion Status: Acute (2) Hyponatremia Status: Acute (3) Intracranial hemorrhage Status: Acute Current Medications Current Medications Current Medications Dexamethasone Sodium Phosphate (Decadron) 4 mg 1X ONCE IVP Last administered on 10/29/19 18:52; Start 10/29/19 at 16:45; Stop 10/29/19 at 16:46; Status DC Acetaminophen (Tylenol) 500 mg PRN Q6HRS PRN PO MILD PAIN / TEMP; Start 10/29/19 at 17:00 Ondansetron HCl (Zofran) 4 mg PRN Q6HRS PRN IVP NAUSEA/VOMITING; Start 10/29/19 at 17:00 Sodium Chloride 1,000 ml @ 80 mls/hr [id number] IV Last administered on 10/29/19 18:52; Start 10/29/19 at 17:00 Famotidine (Pepcid Vial) 20 mg QHS IVP Last administered on 10/29/19at 21:25; Start 10/29/19 at 21:00 Hydralazine HCl (Apresoline Inj) 10 mg PRN Q4HRS PRN IVP ELEVATED BP, SEE COMMENTS; Start 10/29/19 at 17:00 Dexamethasone Sodium Phosphate (Decadron) 4 mg Q6HRS IVP Last administered on 10/30/19 17:09; Start 10/29/19 at 18:00 Gadoterate Meglumine (Dotarem) 14 ml 1X ONCE IVP Last administered on 10/29/19at 17:55; Start 10/29/19 at 17:30; Stop 10/29/19 at 17:40; Status DC Iohexol (Omnipaque 350 Mg/ml) 60 ml 1X ONCE IV Last administered on 12/3/19at 18:46; Start 10/29/19 at 18:30; Stop 10/29/19 at 18:31; Status DC Info (CONTRAST GIVEN -- Rx MONITORING) 1 each PRN DAILY PRN MC SEE COMMENTS; Start 10/29/19 at 18:30; Stop 10/31/19 at 18:29 Levetiracetam 500 mg/Dextrose 105 ml @ 440 mls/hr Q12HR IV Last administered on 10/30/19at 11:09; Start 10/29/19 at 21:00 Metoprolol Tartrate (Lopressor) 50 mg DAILY PO ; Start 10/30/19 at 09:00; Status Cancel Hydrochlorothiazide (Microzide) 12.5 mg DAILY PO Last administered on 10/30/19 16:21; Start 10/30/19 at 09:00 Fish Oil (Fish Oil) 1,000 mg DAILY PO Last administered on 10/30/19 16:21; Start 10/30/19 at 09:00 Multivitamins (Thera M Plus) 1 tab DAILY PO Last administered on 10/30/19at 16:21; Start 10/30/19 at 09:00 Morphine Sulfate (Morphine Sulfate) 1 mg PRN Q2HR PRN IV PAIN Last administered on 10/30/19 13:49; Start 10/29/19 at 21:15 Metoprolol Succinate (Toprol Xl) 50 mg DAILY PO ; Start 10/31/19 at 09:00 Losartan Potassium (Cozaar) 100 mg DAILY PO ; Start 10/31/19 at 09:00 Non-Formulary Medication (Multivitamin (Multi Vitamin Daily)) 1 tab DAILY PO ; Start 10/31/19 at 09:00; Status UNV Non-Formulary Medication (Dewitt-3 Fatty Acids/Fish Oil (Dewitt 3 Fish Oil Softgel)) 1 each DAILY PO ; Start 10/31/19 at 09:00; Status UNV Active Scripts Active Reported Multi Vitamin Daily (Multivitamin) 1 Each Tablet 1 Tab PO DAILY 30 Days Dewitt 3 Fish Oil Softgel (Dewitt-3 Fatty Acids/Fish Oil) 1 Each Capsule. 1 Each PO DAILY Losartan-Hctz 100-12.5 Mg Tab (Losartan/Hydrochlorothiazide) 1 Each Tablet 1 Tab PO DAILY Toprol XL (Metoprolol Succinate) 50 Mg Tab.er.24h 50 Mg PO DAILY Allergies Allergies: Coded Allergies: No Known Drug Allergies (Unverified , 10/29/19) Vitals VITALS Vital Signs Date Time Temp Pulse Resp B/P (MAP) Pulse Ox O2 Delivery O2 Flow Rate FiO2 10/30/19 19:43 98.5 62 18 137/66 (89) 98 Room Air 98.5 Labs Labs Laboratory Tests Test 10/29/19 15:32 10/29/19 15:37 10/29/19 18:25 10/30/19 07:40 Glucose (Fingerstick) 95 mg/dL (70-99) White Blood Count 8.3 x10^3/uL (4.0-11.0) 7.0 x10^3/uL (4.0-11.0) Red Blood Count 3.60 x10^6/uL (3.50-5.40) 3.67 x10^6/uL (3.50-5.40) Hemoglobin 12.1 g/dL (12.0-15.5) 12.4 g/dL (12.0-15.5) Hematocrit 35.1 % (36.0-47.0) 36.0 % (36.0-47.0) Mean Corpuscular Volume 97 fL (79-100) 98 fL (79-100) Mean Corpuscular Hemoglobin 34 pg (25-35) 34 pg (25-35) Mean Corpuscular Hemoglobin Concent 34 g/dL (31-37) 34 g/dL (31-37) Red Cell Distribution Width 11.8 % (11.5-14.5) 11.9 % (11.5-14.5) Platelet Count 272 x10^3/uL (140-400) 272 x10^3/uL (140-400) Neutrophils (%) (Auto) 58 % (31-73) 75 % (31-73) Lymphocytes (%) (Auto) 31 % (24-48) 23 % (24-48) Monocytes (%) (Auto) 10 % (0-9) 2 % (0-9) Eosinophils (%) (Auto) 1 % (0-3) 0 % (0-3) Basophils (%) (Auto) 0 % (0-3) 0 % (0-3) Neutrophils # (Auto) 4.8 x10^3/uL (1.8-7.7) 5.3 x10^3/uL (1.8-7.7) Lymphocytes # (Auto) 2.5 x10^3/uL (1.0-4.8) 1.6 x10^3/uL (1.0-4.8) Monocytes # (Auto) 0.8 x10^3/uL (0.0-1.1) 0.1 x10^3/uL (0.0-1.1) Eosinophils # (Auto) 0.1 x10^3/uL (0.0-0.7) 0.0 x10^3/uL (0.0-0.7) Basophils # (Auto) 0.0 x10^3/uL (0.0-0.2) 0.0 x10^3/uL (0.0-0.2) Prothrombin Time 13.2 SEC (11.7-14.0) Prothromb Time International Ratio 1.0 (0.8-1.1) Activated Partial Thromboplast Time 30 SEC (24-38) Sodium Level 128 mmol/L (136-145) 133 mmol/L (136-145) Potassium Level 3.5 mmol/L (3.5-5.1) 3.8 mmol/L (3.5-5.1) Chloride Level 90 mmol/L (98-107) 97 mmol/L (98-107) Carbon Dioxide Level 27 mmol/L (21-32) 24 mmol/L (21-32) Anion Gap 11 (6-14) 12 (6-14) Blood Urea Nitrogen 16 mg/dL (7-20) 14 mg/dL (7-20) Creatinine 1.2 mg/dL (0.6-1.0) 1.1 mg/dL (0.6-1.0) Estimated GFR (Cockcroft-Gault) 53.0 58.6 BUN/Creatinine Ratio 13 (6-20) Glucose Level 97 mg/dL (70-99) 143 mg/dL (70-99) Calcium Level 9.3 mg/dL (8.5-10.1) 8.9 mg/dL (8.5-10.1) Total Bilirubin 0.4 mg/dL (0.2-1.0) Aspartate Amino Transf (AST/SGOT) 20 U/L (15-37) Alanine Aminotransferase (ALT/SGPT) 19 U/L (14-59) Alkaline Phosphatase 57 U/L (46-116) Troponin I Quantitative < 0.017 ng/mL (0.000-0.055) DL-[id number]-Type Natriuretic Peptide 111 pg/mL (0-449) Total Protein 8.3 g/dL (6.4-8.2) Albumin 3.7 g/dL (3.4-5.0) Albumin/Globulin Ratio 0.8 (1.0-1.7) Urine Collection Type Void Urine Color Yellow Urine Clarity Clear Urine pH 6.0 Urine Specific [place] 1.015 Urine Protein Negative mg/dL (NEG-TRACE) Urine Glucose (UA) Negative mg/dL (NEG) Urine Ketones (Stick) Negative mg/dL (NEG) Urine Blood Negative (NEG) Urine Nitrite Negative (NEG) Urine Bilirubin Negative (NEG) Urine Urobilinogen Dipstick 0.2 mg/dL (0.2 mg/dL) Urine Leukocyte Esterase Negative (NEG) Urine RBC 0 /HPF (0-2) Urine WBC Occ /HPF (0-4) Urine Squamous Epithelial Cells Mod /LPF Urine Bacteria 0 /HPF (0-FEW) Urine Mucus Slight /LPF Laboratory Tests Test 10/30/19 07:40 White Blood Count 7.0 x10^3/uL (4.0-11.0) Red Blood Count 3.67 x10^6/uL (3.50-5.40) Hemoglobin 12.4 g/dL (12.0-15.5) Hematocrit 36.0 % (36.0-47.0) Mean Corpuscular Volume 98 fL (79-100) Mean Corpuscular Hemoglobin 34 pg (25-35) Mean Corpuscular Hemoglobin Concent 34 g/dL (31-37) Red Cell Distribution Width 11.9 % (11.5-14.5) Platelet Count 272 x10^3/uL (140-400) Neutrophils (%) (Auto) 75 % (31-73) Lymphocytes (%) (Auto) 23 % (24-48) Monocytes (%) (Auto) 2 % (0-9) Eosinophils (%) (Auto) 0 % (0-3) Basophils (%) (Auto) 0 % (0-3) Neutrophils # (Auto) 5.3 x10^3/uL (1.8-7.7) Lymphocytes # (Auto) 1.6 x10^3/uL (1.0-4.8) Monocytes # (Auto) 0.1 x10^3/uL (0.0-1.1) Eosinophils # (Auto) 0.0 x10^3/uL (0.0-0.7) Basophils # (Auto) 0.0 x10^3/uL (0.0-0.2) Sodium Level 133 mmol/L (136-145) Potassium Level 3.8 mmol/L (3.5-5.1) Chloride Level 97 mmol/L (98-107) Carbon Dioxide Level 24 mmol/L (21-32) Anion Gap 12 (6-14) Blood Urea Nitrogen 14 mg/dL (7-20) Creatinine 1.1 mg/dL (0.6-1.0) Estimated GFR (Cockcroft-Gault) 58.6 Glucose Level 143 mg/dL (70-99) Calcium Level 8.9 mg/dL (8.5-10.1) JJ FENTON MD Oct 30, 2019 20:01
[2019-10-30] MEDS: FAMOTIDINE 20 MG/2 ML VIAL IVP SCH (20:54)
[2019-10-30] MEDS: ACETAMINOPHEN 500 MG TABLET PO PRN (20:54)
--- NOTE | 2019-10-30 22:48 | CONS ---
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 She developed a new onset of headaches, dizziness, slurred speech and confusion. Symptoms now have been stabilized with dexamethasone and prophylactic Keppra. She had no seizures, nausea or vomiting, headaches have improved. Her family actually noted some level of confusion as early as Monday when they all were in restoration together. CT angiogram of the head and neck from 10/29/2019 revealed no intracranial arterial stenosis or occlusion, 2 mm anterior communicating artery aneurysm, poorly seen enhancing right temporal lobe mass. MRI scan from 10/29/2019 with gadolinium revealed an irregular ring enhancing temporal lobe mass measuring approximately 6 x 4 x 4 cm associated with internal hemorrhage extending into the right frontal and basal ganglion regions with some leftward midline shift. Currently, she is oriented x 3 and has clear speech. She is unable to give much history outside of noting a previous history of dizziness and confusion. PAST MEDICAL HISTORY: Remarkable for hypertension. FAMILY HISTORY: Not obtained. ALLERGIES: Unknown. MEDICATIONS: See hospital list. 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 She is and was previously living alone. She has been a school admissions representative for 2 years. She has 1 son living in [facility] named Abdullahi Carmen. She has a large and supportive family. She is a nonsmoker and nondrinker. PHYSICAL EXAMINATION: GENERAL: Revealed a pleasant woman in no acute distress, able to answer simple questions, oriented x 3. HEENT: Unremarkable. LYMPH NODES: She had no palpable cervical or supraclavicular adenopathy. ABDOMEN: Unremarkable. NEUROLOGIC: Cranial nerves 2-12 are intact. Speech was clear. Strength and sensation in all extremities were intact. Gait was not tested. EXTREMITIES: Revealed no clubbing, cyanosis or edema. LABORATORY STUDIES: Hemoglobin 12.1, white count 8300, platelet count 272,000. Chemistry panel: Sodium 128, potassium 3.5, creatinine 1.2, normal liver function tests, calcium 9.3. 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 She has a bulky tumor with minimal symptoms. She should be considered for at least a biopsy if not a debulking surgical procedure, both to confirm diagnosis and to debulk the lesion prior to further treatment. The mainstay of her treatment would be regional radiation therapy with oral temozolomide. I discussed this with the patient in general as well as with her sister and [id number], Jesus Alves and Mohinder Rizvi. I await Dr. Mcdonnell's decision regarding biopsy versus limited debulking surgery. I await Dr. Fenton' opinion regarding chemotherapy in combination with radiation. I reviewed that is a treatable but incurable disease with the concept that treatment is likely to extend life and preserve neurologic function for some time versus supportive comfort care alone. Thank you for allowing us to participate in her evaluation. NILES KINNEY MD DR: ARTUR/tennille JOB#: [id number] / [id number] LOLIS Mcclellan MD, PENELOPE MD SHI, FERILYN MD MTDD
[2019-10-31 03:54] VITALS: BP 128/64
[2019-10-31] MEDS: DEXAMETHASONE SOD PHOS 4 MG/ML VIAL IVP SCH ×3 (05:33→18:22)
[2019-10-31 07:00] VITALS: BP 119/65
[2019-10-31] MEDS ORDERED: NON FORMULARY ITEM (Multivitamin (Multi Vitamin Daily) 1 TAB) PO SCH (09:00)
[2019-10-31] MEDS ORDERED: FATTY ACIDS PO SCH (09:00)
[2019-10-31] MEDS ORDERED: OMEGA PO SCH (09:00)
[2019-10-31] MEDS ORDERED: FISH OIL PO SCH (09:00)
--- NOTE | 2019-10-31 09:12 | PDOC ---
PROGRESS NOTES Subjective Subjective HPI - f/u of Brain tumor/Suspected GBM ROS - no SKELTON Objective Objective Vital Signs Date Time Temp Pulse Resp B/P (MAP) Pulse Ox O2 Delivery O2 Flow Rate FiO2 10/31/19 07:00 97.9 62 18 119/65 (83) 100 Room Air 97.9 Intake and Output 10/31/19 07:00 Intake Total 1360 ml Output Total 1850 ml Balance -490 ml Intake Oral 460 ml IV Total 900 ml Output Urine Total 1850 ml # Voids 1 Physical Exam Heart: Normal S1, Normal S2 General: Alert, No acute distress Lungs: Clear to auscultation Assessment Assessment Problems Medical Problems: (1) Confusion Status: Acute (2) Hyponatremia Status: Acute (3) Intracranial hemorrhage Status: Acute Assessment and Plan: She is a 74-year-old female with suspected GBM on steroids, neurosurgery and neurology are involved and radiation oncology as well, w/ plans for debulking likely on Monday 1. Brain tumor/Suspected GBM: We will follow-up adjuvantly for treatment as able based on tumor characteristics and performance status postoperatively 2. Memory loss, Aphasia: On dexamethasone, neurology is involved Comment Review of Relevant I have reviewed the following items ramin (where applicable) has been applied. Labs Laboratory Tests Test 10/29/19 15:32 10/29/19 15:37 10/29/19 18:25 10/30/19 07:40 Glucose (Fingerstick) 95 mg/dL (70-99) White Blood Count 8.3 x10^3/uL (4.0-11.0) 7.0 x10^3/uL (4.0-11.0) Red Blood Count 3.60 x10^6/uL (3.50-5.40) 3.67 x10^6/uL (3.50-5.40) Hemoglobin 12.1 g/dL (12.0-15.5) 12.4 g/dL (12.0-15.5) Hematocrit 35.1 % (36.0-47.0) 36.0 % (36.0-47.0) Mean Corpuscular Volume 97 fL (79-100) 98 fL (79-100) Mean Corpuscular Hemoglobin 34 pg (25-35) 34 pg (25-35) Mean Corpuscular Hemoglobin Concent 34 g/dL (31-37) 34 g/dL (31-37) Red Cell Distribution Width 11.8 % (11.5-14.5) 11.9 % (11.5-14.5) Platelet Count 272 x10^3/uL (140-400) 272 x10^3/uL (140-400) Neutrophils (%) (Auto) 58 % (31-73) 75 % (31-73) Lymphocytes (%) (Auto) 31 % (24-48) 23 % (24-48) Monocytes (%) (Auto) 10 % (0-9) 2 % (0-9) Eosinophils (%) (Auto) 1 % (0-3) 0 % (0-3) Basophils (%) (Auto) 0 % (0-3) 0 % (0-3) Neutrophils # (Auto) 4.8 x10^3/uL (1.8-7.7) 5.3 x10^3/uL (1.8-7.7) Lymphocytes # (Auto) 2.5 x10^3/uL (1.0-4.8) 1.6 x10^3/uL (1.0-4.8) Monocytes # (Auto) 0.8 x10^3/uL (0.0-1.1) 0.1 x10^3/uL (0.0-1.1) Eosinophils # (Auto) 0.1 x10^3/uL (0.0-0.7) 0.0 x10^3/uL (0.0-0.7) Basophils # (Auto) 0.0 x10^3/uL (0.0-0.2) 0.0 x10^3/uL (0.0-0.2) Prothrombin Time 13.2 SEC (11.7-14.0) Prothromb Time International Ratio 1.0 (0.8-1.1) Activated Partial Thromboplast Time 30 SEC (24-38) Sodium Level 128 mmol/L (136-145) 133 mmol/L (136-145) Potassium Level 3.5 mmol/L (3.5-5.1) 3.8 mmol/L (3.5-5.1) Chloride Level 90 mmol/L (98-107) 97 mmol/L (98-107) Carbon Dioxide Level 27 mmol/L (21-32) 24 mmol/L (21-32) Anion Gap 11 (6-14) 12 (6-14) Blood Urea Nitrogen 16 mg/dL (7-20) 14 mg/dL (7-20) Creatinine 1.2 mg/dL (0.6-1.0) 1.1 mg/dL (0.6-1.0) Estimated GFR (Cockcroft-Gault) 53.0 58.6 BUN/Creatinine Ratio 13 (6-20) Glucose Level 97 mg/dL (70-99) 143 mg/dL (70-99) Calcium Level 9.3 mg/dL (8.5-10.1) 8.9 mg/dL (8.5-10.1) Total Bilirubin 0.4 mg/dL (0.2-1.0) Aspartate Amino Transf (AST/SGOT) 20 U/L (15-37) Alanine Aminotransferase (ALT/SGPT) 19 U/L (14-59) Alkaline Phosphatase 57 U/L (46-116) Troponin I Quantitative < 0.017 ng/mL (0.000-0.055) GA-[id number]-Type Natriuretic Peptide 111 pg/mL (0-449) Total Protein 8.3 g/dL (6.4-8.2) Albumin 3.7 g/dL (3.4-5.0) Albumin/Globulin Ratio 0.8 (1.0-1.7) Urine Collection Type Void Urine Color Yellow Urine Clarity Clear Urine pH 6.0 Urine Specific [place] 1.015 Urine Protein Negative mg/dL (NEG-TRACE) Urine Glucose (UA) Negative mg/dL (NEG) Urine Ketones (Stick) Negative mg/dL (NEG) Urine Blood Negative (NEG) Urine Nitrite Negative (NEG) Urine Bilirubin Negative (NEG) Urine Urobilinogen Dipstick 0.2 mg/dL (0.2 mg/dL) Urine Leukocyte Esterase Negative (NEG) Urine RBC 0 /HPF (0-2) Urine WBC Occ /HPF (0-4) Urine Squamous Epithelial Cells Mod /LPF Urine Bacteria 0 /HPF (0-FEW) Urine Mucus Slight /LPF Medications Current Medications Dexamethasone Sodium Phosphate (Decadron) 4 mg 1X ONCE IVP Last administered on 10/29/19at 18:52; Start 10/29/19 at 16:45; Stop 10/29/19 at 16:46; Status DC Acetaminophen (Tylenol) 500 mg PRN Q6HRS PRN PO MILD PAIN / TEMP Last administered on 10/30/19at 20:54; Start 10/29/19 at 17:00 Ondansetron HCl (Zofran) 4 mg PRN Q6HRS PRN IVP NAUSEA/VOMITING; Start 10/29/19 at 17:00 Sodium Chloride 1,000 ml @ 80 mls/hr [id number] IV Last administered on 10/30/19 20:54; Start 10/29/19 at 17:00 Famotidine (Pepcid Vial) 20 mg QHS IVP Last administered on 10/30/19 20:54; Start 10/29/19 at 21:00 Hydralazine HCl (Apresoline Inj) 10 mg PRN Q4HRS PRN IVP ELEVATED BP, SEE COMMENTS; Start 10/29/19 at 17:00 Dexamethasone Sodium Phosphate (Decadron) 4 mg Q6HRS IVP Last administered on 10/31/19at 05:33; Start 10/29/19 at 18:00 Gadoterate Meglumine (Dotarem) 14 ml 1X ONCE IVP Last administered on 10/29/19 17:55; Start 10/29/19 at 17:30; Stop 10/29/19 at 17:40; Status DC Iohexol (Omnipaque 350 Mg/ml) 60 ml 1X ONCE IV Last administered on 10/29/19at 18:46; Start 10/29/19 at 18:30; Stop 10/29/19 at 18:31; Status DC Info (CONTRAST GIVEN -- Rx MONITORING) 1 each PRN DAILY PRN MC SEE COMMENTS; Start 10/29/19 at 18:30; Stop 10/31/19 at 18:29 Levetiracetam 500 mg/Dextrose 105 ml @ 440 mls/hr Q12HR IV Last administered on 10/30/19 20:54; Start 10/29/19 at 21:00 Metoprolol Tartrate (Lopressor) 50 mg DAILY PO ; Start 10/30/19 at 09:00; Status Cancel Hydrochlorothiazide (Microzide) 12.5 mg DAILY PO Last administered on 10/30/19at 16:21; Start 10/30/19 at 09:00 Fish Oil (Fish Oil) 1,000 mg DAILY PO Last administered on 10/30/19at 16:21; Start 10/30/19 at 09:00 Multivitamins (Thera M Plus) 1 tab DAILY PO Last administered on 10/30/19at 16:21; Start 10/30/19 at 09:00 Morphine Sulfate (Morphine Sulfate) 1 mg PRN Q2HR PRN IV PAIN Last administered on 10/30/19at 13:49; Start 10/29/19 at 21:15 Metoprolol Succinate (Toprol Xl) 50 mg DAILY PO ; Start 10/31/19 at 09:00 Losartan Potassium (Cozaar) 100 mg DAILY PO ; Start 10/31/19 at 09:00 Non-Formulary Medication (Multivitamin (Multi Vitamin Daily)) 1 tab DAILY PO ; Start 10/31/19 at 09:00; Status UNV Non-Formulary Medication ([place]-3 Fatty Acids/Fish Oil ([place] 3 Fish Oil Softgel)) 1 each DAILY PO ; Start 10/31/19 at 09:00; Status UNV Active Scripts Active Reported Multi Vitamin Daily (Multivitamin) 1 Each Tablet 1 Tab PO DAILY 30 Days [place] 3 Fish Oil Softgel ([place]-3 Fatty Acids/Fish Oil) 1 Each Capsule.dr 1 Each PO DAILY Losartan-Hctz 100-12.5 Mg Tab (Losartan/Hydrochlorothiazide) 1 Each Tablet 1 Tab PO DAILY Toprol XL (Metoprolol Succinate) 50 Mg Tab.er.24h 50 Mg PO DAILY Vitals/I & O Vital Sign - Last 24 Hours 10/30/19 10/30/19 10/30/19 10/30/19 10:00 11:00 12:00 12:00 Pulse 64 62 62 Resp 18 18 18 B/P (MAP) 150/70 (96) O2 Delivery Room Air 10/30/19 10/30/19 10/30/19 10/30/19 13:00 13:49 16:15 19:43 Temp 98.7 98.5 98.7 98.5 Pulse 64 65 62 Resp 18 16 18 B/P (MAP) 140/62 (88) 127/61 (83) 137/66 (89) Pulse Ox 100 98 O2 Delivery Room Air Room Air Room Air Room Air 10/30/19 10/30/19 10/31/19 12/5/19 20:00 23:34 03:54 07:00 Temp 98.3 98.0 97.9 98.3 98.0 97.9 Pulse 59 58 62 Resp 20 20 18 B/P (MAP) 125/64 (84) 128/64 (85) 119/65 (83) Pulse Ox 99 99 100 O2 Delivery Room Air Room Air Room Air Room Air Intake and Output 10/30/19 10/30/19 10/31/19 15:00 23:00 07:00 Intake Total 200 ml 1160 ml 0 ml Output Total 900 ml 700 ml 250 ml Balance -700 ml 460 ml -250 ml RACHELL MIRANDA MD Oct 31, 2019 09:12
--- NOTE | 2019-10-31 10:00 | PDOC ---
[facility] PROGRESS NOTE Chief Complaint Chief Complaint RT temporal lobe mass 5.7 x 4.1 cm concerning for GBM - new dx Hemorrhagic CVA with brain edema Headaches HTN controlled History of Present Illness History of Present Illness 10/31 Pt seen and examined Pt resting comfortably Pt pleasantly confused Vitals/I&O Vitals/I&O: Vital Signs Date Time Temp Pulse Resp B/P (MAP) Pulse Ox O2 Delivery O2 Flow Rate FiO2 10/31/19 07:00 97.9 62 18 119/65 (83) 100 Room Air 97.9 I & O 10/30/19 10/30/19 10/31/19 14:59 22:59 06:59 Intake Total 200 ml 1160 ml 0 ml Output Total 800 ml 800 ml 250 ml Balance -600 ml 360 ml -250 ml Physical Exam General: Alert, No acute distress Heart: Normal S1, Normal S2 Abdomen: Normal bowel sounds, Soft, No tenderness, No hepatosplenomegaly, No masses Extremities: No clubbing, No cyanosis, No edema, Normal pulses Skin: No rashes, No breakdown, No significant lesion Review of Systems Review of Systems: No CP, SOB Assessment and Plan Assessmemt and Plan Problems Medical Problems: (1) Confusion Status: Acute (2) Hyponatremia Status: Acute (3) Intracranial hemorrhage Status: Acute Assessment RT temporal lobe mass 5.7 x 4.1 cm concerning for GBM - new dx Hemorrhagic CVA with brain edema Headaches HTN controlled Plan GBM workup in progress, appreciate subspecialist input Brandy mustafa per neurology Labs DVT prophylaxis PT/OT Full code Comment Review of Relevant I have reviewed the following items ramin (where applicable) has been applied. PRAVIN ROSENTHAL III DO Oct 31, 2019 10:00
[2019-10-31] MEDS: hydroCHLOROthiazide 12.5 MG CAPSULE PO SCH (10:25)
[2019-10-31] MEDS: levETIRAcetam 500 MG in IV DEXTROSE 5% 100ML 100 ML IV SCH ×2 (10:25→22:11)
[2019-10-31] MEDS: IV NORMAL SALINE 1000ML BAG 1,000 ML IV SCH ×2 (10:25→22:11)
[2019-10-31] MEDS: MULTIVITAMIN with MINERAL TABLET. PO SCH (10:25)
[2019-10-31] MEDS: OMEGA-3 FATTY ACIDS/FISH OIL 1,000 MG CAPSULE. PO SCH (10:25)
[2019-10-31] MEDS: LOSARTAN POTASSIUM 50 MG TABLET. PO SCH (10:25)
[2019-10-31] MEDS: METOPROLOL SUCC 24HR ER 50 MG TAB.ER.24H. PO SCH (10:26)
[2019-10-31 11:00] VITALS: BP 122/56
--- NOTE | 2019-10-31 14:39 | PDOC ---
PROGRESS NOTES Subjective Subjective alert, confused denies pain Objective Objective Vital Signs Date Time Temp Pulse Resp B/P (MAP) Pulse Ox O2 Delivery O2 Flow Rate FiO2 10/31/19 11:00 98.2 60 18 122/56 (78) 98 Room Air 98.2 Intake and Output 10/31/19 07:00 Intake Total 1360 ml Output Total 1850 ml Balance -490 ml Intake Oral 460 ml IV Total 900 ml Output Urine Total 1850 ml # Voids 1 Physical Exam General: Alert, Cooperative, No acute distress MUSCULOSKELETAL: Other (CONTRERAS) Neuro: Normal speech Assessment Assessment Problems Medical Problems: (1) Confusion Status: Acute (2) Hyponatremia Status: Acute (3) Intracranial hemorrhage Status: Acute Plan Plan of Care large right temporal mass consistent with high grade glioma continue steroids plan for crani with debulking on Monday called grand daughter and answered questions Comment Review of Relevant I have reviewed the following items ramin (where applicable) has been applied. Labs Laboratory Tests Test 10/29/19 15:32 10/29/19 15:37 10/29/19 18:25 10/30/19 07:40 Glucose (Fingerstick) 95 mg/dL (70-99) White Blood Count 8.3 x10^3/uL (4.0-11.0) 7.0 x10^3/uL (4.0-11.0) Red Blood Count 3.60 x10^6/uL (3.50-5.40) 3.67 x10^6/uL (3.50-5.40) Hemoglobin 12.1 g/dL (12.0-15.5) 12.4 g/dL (12.0-15.5) Hematocrit 35.1 % (36.0-47.0) 36.0 % (36.0-47.0) Mean Corpuscular Volume 97 fL (79-100) 98 fL (79-100) Mean Corpuscular Hemoglobin 34 pg (25-35) 34 pg (25-35) Mean Corpuscular Hemoglobin Concent 34 g/dL (31-37) 34 g/dL (31-37) Red Cell Distribution Width 11.8 % (11.5-14.5) 11.9 % (11.5-14.5) Platelet Count 272 x10^3/uL (140-400) 272 x10^3/uL (140-400) Neutrophils (%) (Auto) 58 % (31-73) 75 % (31-73) Lymphocytes (%) (Auto) 31 % (24-48) 23 % (24-48) Monocytes (%) (Auto) 10 % (0-9) 2 % (0-9) Eosinophils (%) (Auto) 1 % (0-3) 0 % (0-3) Basophils (%) (Auto) 0 % (0-3) 0 % (0-3) Neutrophils # (Auto) 4.8 x10^3/uL (1.8-7.7) 5.3 x10^3/uL (1.8-7.7) Lymphocytes # (Auto) 2.5 x10^3/uL (1.0-4.8) 1.6 x10^3/uL (1.0-4.8) Monocytes # (Auto) 0.8 x10^3/uL (0.0-1.1) 0.1 x10^3/uL (0.0-1.1) Eosinophils # (Auto) 0.1 x10^3/uL (0.0-0.7) 0.0 x10^3/uL (0.0-0.7) Basophils # (Auto) 0.0 x10^3/uL (0.0-0.2) 0.0 x10^3/uL (0.0-0.2) Prothrombin Time 13.2 SEC (11.7-14.0) Prothromb Time International Ratio 1.0 (0.8-1.1) Activated Partial Thromboplast Time 30 SEC (24-38) Sodium Level 128 mmol/L (136-145) 133 mmol/L (136-145) Potassium Level 3.5 mmol/L (3.5-5.1) 3.8 mmol/L (3.5-5.1) Chloride Level 90 mmol/L (98-107) 97 mmol/L (98-107) Carbon Dioxide Level 27 mmol/L (21-32) 24 mmol/L (21-32) Anion Gap 11 (6-14) 12 (6-14) Blood Urea Nitrogen 16 mg/dL (7-20) 14 mg/dL (7-20) Creatinine 1.2 mg/dL (0.6-1.0) 1.1 mg/dL (0.6-1.0) Estimated GFR (Cockcroft-Gault) 53.0 58.6 BUN/Creatinine Ratio 13 (6-20) Glucose Level 97 mg/dL (70-99) 143 mg/dL (70-99) Calcium Level 9.3 mg/dL (8.5-10.1) 8.9 mg/dL (8.5-10.1) Total Bilirubin 0.4 mg/dL (0.2-1.0) Aspartate Amino Transf (AST/SGOT) 20 U/L (15-37) Alanine Aminotransferase (ALT/SGPT) 19 U/L (14-59) Alkaline Phosphatase 57 U/L (46-116) Troponin I Quantitative < 0.017 ng/mL (0.000-0.055) UD-Neg-Z-Type Natriuretic Peptide 111 pg/mL (0-449) Total Protein 8.3 g/dL (6.4-8.2) Albumin 3.7 g/dL (3.4-5.0) Albumin/Globulin Ratio 0.8 (1.0-1.7) Urine Collection Type Void Urine Color Yellow Urine Clarity Clear Urine pH 6.0 Urine Specific [place] 1.015 Urine Protein Negative mg/dL (NEG-TRACE) Urine Glucose (UA) Negative mg/dL (NEG) Urine Ketones (Stick) Negative mg/dL (NEG) Urine Blood Negative (NEG) Urine Nitrite Negative (NEG) Urine Bilirubin Negative (NEG) Urine Urobilinogen Dipstick 0.2 mg/dL (0.2 mg/dL) Urine Leukocyte Esterase Negative (NEG) Urine RBC 0 /HPF (0-2) Urine WBC Occ /HPF (0-4) Urine Squamous Epithelial Cells Mod /LPF Urine Bacteria 0 /HPF (0-FEW) Urine Mucus Slight /LPF Medications Current Medications Dexamethasone Sodium Phosphate (Decadron) 4 mg 1X ONCE IVP Last administered on 10/29/19at 18:52; Start 10/29/19 at 16:45; Stop 10/29/19 at 16:46; Status DC Acetaminophen (Tylenol) 500 mg PRN Q6HRS PRN PO MILD PAIN / TEMP Last administered on 10/30/19at 20:54; Start 10/29/19 at 17:00 Ondansetron HCl (Zofran) 4 mg PRN Q6HRS PRN IVP NAUSEA/VOMITING; Start 10/29/19 at 17:00 Sodium Chloride 1,000 ml @ 80 mls/hr [id number] IV Last administered on 10/31/19at 10:25; Start 10/29/19 at 17:00 Famotidine (Pepcid Vial) 20 mg QHS IVP Last administered on 10/30/19at 20:54; S tart 10/29/19 at 21:00 Hydralazine HCl (Apresoline Inj) 10 mg PRN Q4HRS PRN IVP ELEVATED BP, SEE COMMENTS; Start 10/29/19 at 17:00 Dexamethasone Sodium Phosphate (Decadron) 4 mg Q6HRS IVP Last administered on 10/31/19at 11:53; Start 10/29/19 at 18:00 Gadoterate Meglumine (Dotarem) 14 ml 1X ONCE IVP Last administered on 10/29/19at 17:55; Start 10/29/19 at 17:30; Stop 10/29/19 at 17:40; Status DC Iohexol (Omnipaque 350 Mg/ml) 60 ml 1X ONCE IV Last administered on 10/29/19 18:46; Start 10/29/19 at 18:30; Stop 10/29/19 at 18:31; Status DC Info (CONTRAST GIVEN -- Rx MONITORING) 1 each PRN DAILY PRN MC SEE COMMENTS; Start 10/29/19 at 18:30; Stop 10/31/19 at 18:29 Levetiracetam 500 mg/Dextrose 105 ml @ 440 mls/hr Q12HR IV Last administered on 10/31/19at 10:25; Start 10/29/19 at 21:00 Metoprolol Tartrate (Lopressor) 50 mg DAILY PO ; Start 10/30/19 at 09:00; Status Cancel Hydrochlorothiazide (Microzide) 12.5 mg DAILY PO Last administered on 10/31/19 10:25; Start 10/30/19 at 09:00 Fish Oil (Fish Oil) 1,000 mg DAILY PO Last administered on 10/31/19 10:25; Start 10/30/19 at 09:00 Multivitamins (Thera M Plus) 1 tab DAILY PO Last administered on 10/31/19at 10:25; Start 10/30/19 at 09:00 Morphine Sulfate (Morphine Sulfate) 1 mg PRN Q2HR PRN IV PAIN Last administered on 10/30/19at 13:49; Start 10/29/19 at 21:15 Metoprolol Succinate (Toprol Xl) 50 mg DAILY PO Last administered on 10/31/19at 10:26; Start 10/31/19 at 09:00 Losartan Potassium (Cozaar) 100 mg DAILY PO Last administered on 10/31/19at 10:25; Start 10/31/19 at 09:00 Non-Formulary Medication (Multivitamin (Multi Vitamin Daily)) 1 tab DAILY PO ; Start 10/31/19 at 09:00; Status UNV Non-Formulary Medication ([place]-3 Fatty Acids/Fish Oil ([place] 3 Fish Oil Softgel)) 1 each DAILY PO ; Start 10/31/19 at 09:00; Status UNV Active Scripts Active Reported Multi Vitamin Daily (Multivitamin) 1 Each Tablet 1 Tab PO DAILY 30 Days [place] 3 Fish Oil Softgel ([place]-3 Fatty Acids/Fish Oil) 1 Each Capsule.dr 1 Each PO DAILY Losartan-Hctz 100-12.5 Mg Tab (Losartan/Hydrochlorothiazide) 1 Each Tablet 1 Tab PO DAILY Toprol XL (Metoprolol Succinate) 50 Mg Tab.er.24h 50 Mg PO DAILY Vitals/I & O Vital Sign - Last 24 Hours 10/30/19 10/30/19 10/30/19 10/30/19 16:15 19:43 20:00 23:34 Temp 98.7 98.5 98.3 98.7 98.5 98.3 Pulse 65 62 59 Resp 16 18 20 B/P (MAP) 127/61 (83) 137/66 (89) 125/64 (84) Pulse Ox 100 98 99 O2 Delivery Room Air Room Air Room Air Room Air 10/31/19 10/31/19 10/31/19 10/31/19 03:54 07:00 10:25 10:26 Temp 98.0 97.9 98.0 97.9 Pulse 58 62 62 62 Resp 20 18 B/P (MAP) 128/64 (85) 119/65 (83) 119/65 119/65 Pulse Ox 99 100 O2 Delivery Room Air Room Air 10/31/19 11:00 Temp 98.2 98.2 Pulse 60 Resp 18 B/P (MAP) 122/56 (78) Pulse Ox 98 O2 Delivery Room Air Intake and Output 10/30/19 10/30/19 10/31/19 15:00 23:00 07:00 Intake Total 200 ml 1160 ml 0 ml Output Total 900 ml 700 ml 250 ml Balance -700 ml 460 ml -250 ml JANA MCNAMARA APRN Oct 31, 2019 14:39
[2019-10-31 15:00] VITALS: BP 125/58
--- NOTE | 2019-10-31 15:09 | PDOC ---
NILES KINNEY MD Oct 31, 2019 15:09
--- NOTE | 2019-10-31 15:12 | PDOC ---
Provider Note Provider Note 74 yo woman with clinical dx of right temporal lobe GBM. She had SKELTON, slurred speech and confusion. Now better after steroids with resolution of SKELTON and slurred speech. Still confused. Anticipate surgical debulking Monday11/04/2019. Then assess for post op RT and Temodar. Discussed with son, Venancio Carmen by phone and with sol Delgado today. NILES KINNEY MD Oct 31, 2019 15:11
--- NOTE | 2019-10-31 17:43 | PDOC ---
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 Tumor necrotic hemorrhage. Cerebral vasogenic edema with midline shift 8 mm. Intermittent recurrent confusional episodes. Complex partial seizure likely. Left temporal field deficits. 2 mm anterior communicating artery aneurysm. Metabolic encephalopathy. Headaches x 1-2 weeks. HTN. Over weight. RECOMMENDATIONS/PLAN: Continue Decadron 4 mg IV q6h. Continue Keppra 500 mg IV bid. Treat medical diseases. Monitoring HR, BP, glucose level, and signs of GI bleeding. EEG. Consulted Neurosurgery. Consulted Oncology. Discussed with her daughter and granddaughters again at bedside on 10/31/19. 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 He was at work today but developed symptoms of mental status changes, confusion, then slurred speech. She was brought to the ER of [facility] but she was still confused. Her HCT reveled a large low density changes with hemorrhage in right temporal area. Further evaluation revealed brain tumor as described above. Patient stated she has been having headaches that started before . 10/31/19: No headaches. Stating feeling better than the day before. Past Medical History Cardiovascular: HTN Past Surgical History No pertinent history Family History Hypertension Social History Smoke: No ALCOHOL: none Drugs: None ALLERGY: Unknown MEDICATIONS: Refer to MAR REVIEW OF SYSTEMS: Constitutional: No malnutrition, weight loss, cachexia. Head: No traumatic brain or head injury. Skin: No edema, or rash. Ear: No infection. Eyes: No vision loss or color blindness. Nose: No bleeding or purulent discharges. Hearing: No hearing decrease. Neck: No injury. Breast: No history of cancer, masses,or discharges. Cardiac: HTN. Pulmonary: No COPD. GI: No GI ulcer, GI bleeding. Urinary/genital: UTI. Endocrinologic: No cousin face, craniofacial dysmorphism, polydactyly. Skeletomuscular: No muscular atrophy. Neurological: see HP. Psychiatric: Denies drug use/abuse. Otherwise, not [id number] review of systems. PHYSICAL EXAMINATION: General appearance is in subacute distress. HEENT: Normocephalic and nontraumatic. Eyes, nose, ears, and throat are unremarkable. Neck is supple. No lymphadenopathy. No crepitus. Cardiovascular: S1, S2, regular rate and rhythm. Pulmonary: Clear to auscultation bilaterally. Abdomen: Bowel sounds are positive. Extremities: No rash, lesions, or edema. No restriction of range of motion NEUROLOGICAL EXAMINATION: Awake. Intermittent confusion improved. Not fully oriented to time, but knew place and person. PERRL. EOMI. Left temporal field deficits. CN: no focal findings. Muscle tone: within normal. Muscle strength: 4+ DTR: 1-2 Plantar reflex: Neutral response bilaterally Gait: not examined in bed. Sensory exam: no acute abnormal findings. No cerebellar signs elicited. F-T-N test fine. Objective Objective Vital Signs Date Time Temp Pulse Resp B/P (MAP) Pulse Ox O2 Delivery O2 Flow Rate FiO2 10/31/19 15:00 98.1 65 18 125/58 (80) 97 Room Air 98.1 Intake and Output 10/31/19 07:00 Intake Total 1360 ml Output Total 1850 ml Balance -490 ml Intake Oral 460 ml IV Total 900 ml Output Urine Total 1850 ml # Voids 1 Vitals Signs Vitals VS - Last 72 Hours, by Label Date Time Temp Pulse Resp B/P (MAP) Pulse Ox O2 Delivery O2 Flow Rate FiO2 10/31/19 15:00 98.1 65 18 125/58 (80) 97 Room Air 98.1 10/31/19 11:00 98.2 60 18 122/56 (78) 98 Room Air 98.2 10/31/19 10:26 62 119/65 10/31/19 10:25 62 119/65 10/31/19 07:00 97.9 62 18 119/65 (83) 100 Room Air 97.9 10/31/19 03:54 98.0 58 20 128/64 (85) 99 Room Air 98.0 10/30/19 23:34 98.3 59 20 125/64 (84) 99 Room Air 98.3 10/30/19 20:00 Room Air 10/30/19 19:43 98.5 62 18 137/66 (89) 98 Room Air 98.5 10/30/19 16:15 98.7 65 16 127/61 (83) 100 Room Air 98.7 10/30/19 13:49 Room Air 10/30/19 13:00 64 18 140/62 (88) Room Air 10/30/19 12:00 Room Air 10/30/19 12:00 62 18 10/30/19 11:00 62 18 150/70 (96) 10/30/19 10:00 64 18 10/30/19 09:00 60 18 10/30/19 08:00 98.3 60 18 128/65 (86) 98.3 10/30/19 08:00 Room Air 10/30/19 07:00 58 20 109/57 (74) Medication Medications Current Medications Losartan Potassium (Cozaar) 100 mg DAILY PO Last administered on 10/31/19at 10:25; Start 10/31/19 at 09:00 Metoprolol Succinate (Toprol Xl) 50 mg DAILY PO Last administered on 10/31/19at 10:26; Start 10/31/19 at 09:00 Non-Formulary Medication (Multivitamin (Multi Vitamin Daily)) 1 tab DAILY PO ; Start 10/31/19 at 09:00; Status UNV Non-Formulary Medication ([place]-3 Fatty Acids/Fish Oil ([place] 3 Fish Oil Softgel)) 1 each DAILY PO ; Start 10/31/19 at 09:00; Status UNV Comment Review of Relevant I have reviewed the following items ramin (where applicable) has been applied. CHELO SAVAGE MD Oct 31, 2019 17:43
[2019-10-31 19:53] VITALS: BP 129/56
[2019-10-31] MEDS: FAMOTIDINE 20 MG/2 ML VIAL IVP SCH (22:11)
[2019-10-31 23:40] VITALS: BP 112/58
[2019-11-01] MEDS: DEXAMETHASONE SOD PHOS 4 MG/ML VIAL IVP SCH ×5 (00:20→23:58)
[2019-11-01 03:49] VITALS: BP 138/62
[2019-11-01 07:54] VITALS: BP 157/71
[2019-11-01] MEDS: IV NORMAL SALINE 1000ML BAG 1,000 ML IV SCH ×2 (08:18→20:31)
[2019-11-01] MEDS: levETIRAcetam 500 MG in IV DEXTROSE 5% 100ML 100 ML IV SCH ×2 (08:19→20:32)
[2019-11-01] MEDS: hydroCHLOROthiazide 12.5 MG CAPSULE PO SCH (08:20)
[2019-11-01] MEDS: LOSARTAN POTASSIUM 50 MG TABLET. PO SCH (08:20)
[2019-11-01] MEDS: OMEGA-3 FATTY ACIDS/FISH OIL 1,000 MG CAPSULE. PO SCH (08:20)
[2019-11-01] MEDS: MULTIVITAMIN with MINERAL TABLET. PO SCH (08:20)
[2019-11-01 11:04] VITALS: BP 128/60
--- NOTE | 2019-11-01 11:08 | PDOC ---
[facility] PROGRESS NOTE Chief Complaint Chief Complaint RT temporal lobe mass 5.7 x 4.1 cm concerning for GBM - new dx Hemorrhagic CVA with brain edema Headaches HTN controlled History of Present Illness History of Present Illness 10/31 Pt seen and examined Pt resting comfortably Pt pleasantly confused 11/01 Pt seen and examined Pt resting comfortably Pt agrees with plan Vitals/I&O Vitals/I&O: Vital Signs Date Time Temp Pulse Resp B/P (MAP) Pulse Ox O2 Delivery O2 Flow Rate FiO2 11/01/19 11:04 97.7 64 20 128/60 (82) 99 Room Air 97.7 I & O 10/31/19 10/31/19 11/01/19 15:00 23:00 07:00 Output Total 850 ml 700 ml 1400 ml Balance -850 ml -700 ml -1400 ml Physical Exam General: Alert, Cooperative, No acute distress Heart: Normal S1, Normal S2 Abdomen: Normal bowel sounds, Soft, No tenderness, No hepatosplenomegaly, No masses Extremities: No clubbing, No cyanosis, No edema, Normal pulses Skin: No rashes, No breakdown, No significant lesion Review of Systems Review of Systems: No CP, SOB Assessment and Plan Assessmemt and Plan Problems Medical Problems: (1) Confusion Status: Acute (2) Hyponatremia Status: Acute (3) Intracranial hemorrhage Status: Acute Assessment RT temporal lobe mass 5.7 x 4.1 cm concerning for GBM - new dx Hemorrhagic CVA with brain edema Headaches HTN controlled Plan GBM workup in progress, appreciate subspecialist input Brandy mustafa per neurology Surgical debulking scheduled for Monday, 11/04 Labs DVT prophylaxis PT/OT Full code Comment Review of Relevant I have reviewed the following items ramin (where applicable) has been applied. PRAVIN ROSENTHAL III DO Nov 01, 2019 11:08
--- NOTE | 2019-11-01 11:17 | NUR ---
Consult for palliative care noted on EMR. Medical team will need to address goals of care. SW can assist with dc planning.
[2019-11-01] MEDS: METOPROLOL SUCC 24HR ER 50 MG TAB.ER.24H. PO SCH (11:57)
--- NOTE | 2019-11-01 12:35 | PDOC ---
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 Tumor necrotic hemorrhage. Cerebral vasogenic edema with midline shift 8 mm. Intermittent recurrent confusional episodes. Complex partial seizure likely. Left temporal field deficits. 2 mm anterior communicating artery aneurysm. Metabolic encephalopathy. Headaches x 1-2 weeks. HTN. Over weight. RECOMMENDATIONS/PLAN: Continue Decadron 4 mg IV q6h. Continue Keppra 500 mg IV bid. Treat medical diseases. Monitoring HR, BP, glucose level, and signs of GI bleeding. EEG. Consulted Neurosurgery. Consulted Oncology. 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 He was at work today but developed symptoms of mental status changes, confusion, then slurred speech. She was brought to the ER of [facility] but she was still confused. Her HCT reveled a large low density changes with hemorrhage in right temporal area. Further evaluation revealed brain tumor as described above. Patient stated she has been having headaches that started before . 11/01/19: No headaches. Walked in hallway. Past Medical History Cardiovascular: HTN Past Surgical History No pertinent history Family History Hypertension Social History Smoke: No ALCOHOL: none Drugs: None ALLERGY: Unknown MEDICATIONS: Refer to MAR REVIEW OF SYSTEMS: Constitutional: No malnutrition, weight loss, cachexia. Head: No traumatic brain or head injury. Skin: No edema, or rash. Ear: No infection. Eyes: No vision loss or color blindness. Nose: No bleeding or purulent discharges. Hearing: No hearing decrease. Neck: No injury. Breast: No history of cancer, masses,or discharges. Cardiac: HTN. Pulmonary: No COPD. GI: No GI ulcer, GI bleeding. Urinary/genital: UTI. Endocrinologic: No cousin face, craniofacial dysmorphism, polydactyly. Skeletomuscular: No muscular atrophy. Neurological: see HP. Psychiatric: Denies drug use/abuse. Otherwise, not [id number] review of systems. PHYSICAL EXAMINATION: General appearance is in subacute distress. HEENT: Normocephalic and nontraumatic. Eyes, nose, ears, and throat are unremarkable. Neck is supple. No lymphadenopathy. No crepitus. Cardiovascular: S1, S2, regular rate and rhythm. Pulmonary: Clear to auscultation bilaterally. Abdomen: Bowel sounds are positive. Extremities: No rash, lesions, or edema. No restriction of range of motion NEUROLOGICAL EXAMINATION: Awake. Intermittent confusion improved. Not fully oriented to time, but knew place and person. PERRL. EOMI. Left temporal field deficits. CN: no focal findings. Muscle tone: within normal. Muscle strength: 5- DTR: 1-2 Plantar reflex: Neutral response bilaterally Gait: able to walk with assistance. Sensory exam: no acute abnormal findings. No cerebellar signs elicited. F-T-N test fine. Objective Objective Vital Signs Date Time Temp Pulse Resp B/P (MAP) Pulse Ox O2 Delivery O2 Flow Rate FiO2 11/01/19 11:57 64 128/60 11/01/19 11:04 97.7 20 99 Room Air 97.7 Intake and Output 11/01/19 07:00 Output Total 2950 ml Balance -2950 ml Output Urine Total 2950 ml Vitals Signs Vitals VS - Last 72 Hours, by Label Date Time Temp Pulse Resp B/P (MAP) Pulse Ox O2 Delivery O2 Flow Rate FiO2 11/01/19 11:57 64 128/60 11/01/19 11:04 97.7 64 20 128/60 (82) 99 Room Air 97.7 11/01/19 08:20 56 157/71 11/01/19 08:00 Room Air 11/01/19 07:54 97.5 56 20 157/71 (99) 97 Room Air 97.5 11/01/19 03:49 97.5 53 20 138/62 (87) 98 Room Air 97.5 10/31/19 23:40 98.6 56 20 112/58 (76) 100 Room Air 98.6 10/31/19 20:05 Room Air 10/31/19 19:53 98.7 63 18 129/56 (80) 97 Room Air 98.7 10/31/19 15:00 98.1 65 18 125/58 (80) 97 Room Air 98.1 10/31/19 11:00 98.2 60 18 122/56 (78) 98 Room Air 98.2 10/31/19 10:26 62 119/65 10/31/19 10:25 62 119/65 10/31/19 08:30 Room Air 10/31/19 07:00 97.9 62 18 119/65 (83) 100 Room Air 97.9 Comment Review of Relevant I have reviewed the following items ramin (where applicable) has been applied. CHELO SAVAGE MD Nov 01, 2019 12:35
--- NOTE | 2019-11-01 14:02 | PDOC ---
PROGRESS NOTES Subjective Subjective HPI - f/u of Brain tumor/Suspected GBM ROS - headaches better Objective Objective Vital Signs Date Time Temp Pulse Resp B/P (MAP) Pulse Ox O2 Delivery O2 Flow Rate FiO2 11/01/19 11:57 64 128/60 11/01/19 11:04 97.7 20 99 Room Air 97.7 Intake and Output 11/01/19 07:00 Output Total 2950 ml Balance -2950 ml Output Urine Total 2950 ml Physical Exam Heart: Normal S1, Normal S2 General: Alert, No acute distress Lungs: Clear to auscultation Neuro: Normal speech Assessment Assessment Problems Medical Problems: (1) Confusion Status: Acute (2) Hyponatremia Status: Acute (3) Intracranial hemorrhage Status: Acute Assessment and Plan: She is a 74-year-old female with suspected GBM on steroids, neurosurgery and neurology are involved and radiation oncology as well, w/ plans for debulking likely on Monday. Brain tumor/Suspected GBM: We will follow-up adjuvantly for treatment as able based on tumor characteristics and performance status postoperatively 2. Headache/Memory loss, Aphasia: On dexamethasone, neurology is involved Comment Review of Relevant I have reviewed the following items ramin (where applicable) has been applied. Medications Current Medications Dexamethasone Sodium Phosphate (Decadron) 4 mg 1X ONCE IVP Last administered on 10/29/19at 18:52; Start 10/29/19 at 16:45; Stop 10/29/19 at 16:46; Status DC Acetaminophen (Tylenol) 500 mg PRN Q6HRS PRN PO MILD PAIN / TEMP Last administered on 10/30/19at 20:54; Start 10/29/19 at 17:00 Ondansetron HCl (Zofran) 4 mg PRN Q6HRS PRN IVP NAUSEA/VOMITING; Start 10/29/19 at 17:00 Sodium Chloride 1,000 ml @ 80 mls/hr [id number] IV Last administered on 11/01/19at 08:18; Start 10/29/19 at 17:00 Famotidine (Pepcid Vial) 20 mg QHS IVP Last administered on 10/31/19at 22:11; Start 10/29/19 at 21:00 Hydralazine HCl (Apresoline Inj) 10 mg PRN Q4HRS PRN IVP ELEVATED BP, SEE COMMENTS; Start 10/29/19 at 17:00 Dexamethasone Sodium Phosphate (Decadron) 4 mg Q6HRS IVP Last administered on 11/01/19 11:57; Start 10/29/19 at 18:00 Gadoterate Meglumine (Dotarem) 14 ml 1X ONCE IVP Last administered on 10/29/19at 17:55; Start 10/29/19 at 17:30; Stop 10/29/19 at 17:40; Status DC Iohexol (Omnipaque 350 Mg/ml) 60 ml 1X ONCE IV Last administered on 10/29/19at 18:46; Start 10/29/19 at 18:30; Stop 10/29/19 at 18:31; Status DC Info (CONTRAST GIVEN -- Rx MONITORING) 1 each PRN DAILY PRN MC SEE COMMENTS; Start 10/29/19 at 18:30; Stop 10/31/19 at 18:29; Status DC Levetiracetam 500 mg/Dextrose 105 ml @ 440 mls/hr Q12HR IV Last administered on 11/01/19 08:19; Start 10/29/19 at 21:00 Metoprolol Tartrate (Lopressor) 50 mg DAILY PO ; Start 10/30/19 at 09:00; Status Cancel Hydrochlorothiazide (Microzide) 12.5 mg DAILY PO Last administered on 11/01/19 08:20; Start 10/30/19 at 09:00 Fish Oil (Fish Oil) 1,000 mg DAILY PO Last administered on 11/01/19 08:20; Start 10/30/19 at 09:00 Multivitamins (Thera M Plus) 1 tab DAILY PO Last administered on 11/01/19 08:20; Start 10/30/19 at 09:00 Morphine Sulfate (Morphine Sulfate) 1 mg PRN Q2HR PRN IV PAIN Last administered on 10/30/19 13:49; Start 10/29/19 at 21:15 Metoprolol Succinate (Toprol Xl) 50 mg DAILY PO Last administered on 11/01/19 11:57; Start 10/31/19 at 09:00 Losartan Potassium (Cozaar) 100 mg DAILY PO Last administered on 11/01/19 08:20; Start 10/31/19 at 09:00 Non-Formulary Medication (Multivitamin (Multi Vitamin Daily)) 1 tab DAILY PO ; Start 10/31/19 at 09:00; Status UNV Non-Formulary Medication ([place]-3 Fatty Acids/Fish Oil ([place] 3 Fish Oil Softgel)) 1 each DAILY PO ; Start 10/31/19 at 09:00; Status UNV Active Scripts Active Reported Multi Vitamin Daily (Multivitamin) 1 Each Tablet 1 Tab PO DAILY 30 Days [place] 3 Fish Oil Softgel ([place]-3 Fatty Acids/Fish Oil) 1 Each Capsule.dr 1 Each PO DAILY Losartan-Hctz 100-12.5 Mg Tab (Losartan/Hydrochlorothiazide) 1 Each Tablet 1 Tab PO DAILY Toprol XL (Metoprolol Succinate) 50 Mg Tab.er.24h 50 Mg PO DAILY Vitals/I & O Vital Sign - Last 24 Hours 10/31/19 10/31/19 10/31/19 10/31/19 15:00 19:53 20:05 23:40 Temp 98.1 98.7 98.6 98.1 98.7 98.6 Pulse 65 63 56 Resp 18 18 20 B/P (MAP) 125/58 (80) 129/56 (80) 112/58 (76) Pulse Ox 97 97 100 O2 Delivery Room Air Room Air Room Air Room Air 11/01/19 11/01/19 11/01/19 11/01/19 03:49 07:54 08:00 08:20 Temp 97.5 97.5 97.5 97.5 Pulse 53 56 56 Resp 20 20 B/P (MAP) 138/62 (87) 157/71 (99) 157/71 Pulse Ox 98 97 O2 Delivery Room Air Room Air Room Air 11/01/19 11/01/19 11:04 11:57 Temp 97.7 97.7 Pulse 64 64 Resp 20 B/P (MAP) 128/60 (82) 128/60 Pulse Ox 99 O2 Delivery Room Air Intake and Output 10/31/19 10/31/19 11/01/19 15:00 23:00 07:00 Output Total 850 ml 700 ml 1400 ml Balance -850 ml -700 ml -1400 ml RACHELL MIRANDA MD Nov 01, 2019 14:01
--- NOTE | 2019-11-01 14:18 | PDOC ---
Provider Note Provider Note 74 yo woman with clinical dx of right temporal lobe GBM. She had SKELTON, slurred speech and confusion. Now better after steroids with resolution of SKELTON and slurred speech. Still confused. Anticipate surgical debulking Monday11/04/2019. Then assess for post op RT and Temodar. Reviewed imaging with son,Venancio Carmen today. NILES KINNEY MD Nov 01, 2019 14:18
--- NOTE | 2019-11-01 14:21 | PDOC ---
PROGRESS NOTES Subjective Subjective sitting up in chair preparing for EEG no complaints Objective Objective Vital Signs Date Time Temp Pulse Resp B/P (MAP) Pulse Ox O2 Delivery O2 Flow Rate FiO2 11/01/19 11:57 64 128/60 11/01/19 11:04 97.7 20 99 Room Air 97.7 Intake and Output 11/01/19 07:00 Output Total 2950 ml Balance -2950 ml Output Urine Total 2950 ml Physical Exam General: Alert, Cooperative, No acute distress MUSCULOSKELETAL: Other (CONTRERAS) Neuro: Other (confused) Assessment Assessment Problems Medical Problems: (1) Confusion Status: Acute (2) Hyponatremia Status: Acute (3) Intracranial hemorrhage Status: Acute Plan Plan of Care large right temporal mass consistent with high grade glioma plan for craniotomy and debulking on Monday continue steroids Comment Review of Relevant I have reviewed the following items ramin (where applicable) has been applied. Medications Current Medications Dexamethasone Sodium Phosphate (Decadron) 4 mg 1X ONCE IVP Last administered on 10/29/19 18:52; Start 10/29/19 at 16:45; Stop 10/29/19 at 16:46; Status DC Acetaminophen (Tylenol) 500 mg PRN Q6HRS PRN PO MILD PAIN / TEMP Last administered on 10/30/19at 20:54; Start 10/29/19 at 17:00 Ondansetron HCl (Zofran) 4 mg PRN Q6HRS PRN IVP NAUSEA/VOMITING; Start 10/29/19 at 17:00 Sodium Chloride 1,000 ml @ 80 mls/hr [id number] IV Last administered on 11/01/19at 08:18; Start 10/29/19 at 17:00 Famotidine (Pepcid Vial) 20 mg QHS IVP Last administered on 10/31/19at 22:11; Start 10/29/19 at 21:00 Hydralazine HCl (Apresoline Inj) 10 mg PRN Q4HRS PRN IVP ELEVATED BP, SEE COMMENTS; Start 10/29/19 at 17:00 Dexamethasone Sodium Phosphate (Decadron) 4 mg Q6HRS IVP Last administered on 11/01/19at 11:57; Start 10/29/19 at 18:00 Gadoterate Meglumine (Dotarem) 14 ml 1X ONCE IVP Last administered on 10/29/19at 17:55; Start 10/29/19 at 17:30; Stop 10/29/19 at 17:40; Status DC Iohexol (Omnipaque 350 Mg/ml) 60 ml 1X ONCE IV Last administered on 10/29/19at 18:46; Start 10/29/19 at 18:30; Stop 10/29/19 at 18:31; Status DC Info (CONTRAST GIVEN -- Rx MONITORING) 1 each PRN DAILY PRN MC SEE COMMENTS; Start 10/29/19 at 18:30; Stop 10/31/19 at 18:29; Status DC Levetiracetam 500 mg/Dextrose 105 ml @ 440 mls/hr Q12HR IV Last administered on 11/01/19 08:19; Start 10/29/19 at 21:00 Metoprolol Tartrate (Lopressor) 50 mg DAILY PO ; Start 10/30/19 at 09:00; Status Cancel Hydrochlorothiazide (Microzide) 12.5 mg DAILY PO Last administered on 11/01/19at 08:20; Start 10/30/19 at 09:00 Fish Oil (Fish Oil) 1,000 mg DAILY PO Last administered on 11/01/19 08:20; Start 10/30/19 at 09:00 Multivitamins (Thera M Plus) 1 tab DAILY PO Last administered on 11/01/19 08:20; Start 10/30/19 at 09:00 Morphine Sulfate (Morphine Sulfate) 1 mg PRN Q2HR PRN IV PAIN Last administered on 10/30/19 13:49; Start 10/29/19 at 21:15 Metoprolol Succinate (Toprol Xl) 50 mg DAILY PO Last administered on 11/01/19 11:57; Start 10/31/19 at 09:00 Losartan Potassium (Cozaar) 100 mg DAILY PO Last administered on 11/01/19 08:20; Start 10/31/19 at 09:00 Non-Formulary Medication (Multivitamin (Multi Vitamin Daily)) 1 tab DAILY PO ; Start 10/31/19 at 09:00; Status UNV Non-Formulary Medication ([place]-3 Fatty Acids/Fish Oil ([place] 3 Fish Oil Softgel)) 1 each DAILY PO ; Start 10/31/19 at 09:00; Status UNV Active Scripts Active Reported Multi Vitamin Daily (Multivitamin) 1 Each Tablet 1 Tab PO DAILY 30 Days [place] 3 Fish Oil Softgel ([place]-3 Fatty Acids/Fish Oil) 1 Each Capsule.dr 1 Each PO DAILY Losartan-Hctz 100-12.5 Mg Tab (Losartan/Hydrochlorothiazide) 1 Each Tablet 1 Tab PO DAILY Toprol XL (Metoprolol Succinate) 50 Mg Tab.er.24h 50 Mg PO DAILY Vitals/I & O Vital Sign - Last 24 Hours 10/31/19 10/31/19 10/31/19 10/31/19 15:00 19:53 20:05 23:40 Temp 98.1 98.7 98.6 98.1 98.7 98.6 Pulse 65 63 56 Resp 18 18 20 B/P (MAP) 125/58 (80) 129/56 (80) 112/58 (76) Pulse Ox 97 97 100 O2 Delivery Room Air Room Air Room Air Room Air 11/01/19 11/01/19 11/01/19 11/01/19 03:49 07:54 08:00 08:20 Temp 97.5 97.5 97.5 97.5 Pulse 53 56 56 Resp 20 20 B/P (MAP) 138/62 (87) 157/71 (99) 157/71 Pulse Ox 98 97 O2 Delivery Room Air Room Air Room Air 11/01/19 11/01/19 11:04 11:57 Temp 97.7 97.7 Pulse 64 64 Resp 20 B/P (MAP) 128/60 (82) 128/60 Pulse Ox 99 O2 Delivery Room Air Intake and Output 10/31/19 10/31/19 11/01/19 15:00 23:00 07:00 Output Total 850 ml 700 ml 1400 ml Balance -850 ml -700 ml -1400 ml JANA MCNAMARA APRN Nov 01, 2019 14:21
[2019-11-01 15:23] VITALS: BP 135/51
[2019-11-01 19:20] VITALS: BP 140/55
[2019-11-01] MEDS: FAMOTIDINE 20 MG/2 ML VIAL IVP SCH (20:38)
[2019-11-01 23:48] VITALS: BP 146/73
[2019-11-02 03:22] VITALS: BP 142/60
[2019-11-02] MEDS: DEXAMETHASONE SOD PHOS 4 MG/ML VIAL IVP SCH ×3 (06:38→18:33)
[2019-11-02 07:00] VITALS: BP 168/71
[2019-11-02] MEDS: levETIRAcetam 500 MG in IV DEXTROSE 5% 100ML 100 ML IV SCH ×2 (09:17→21:06)
[2019-11-02] MEDS: IV NORMAL SALINE 1000ML BAG 1,000 ML IV SCH ×2 (09:18→21:06)
[2019-11-02] MEDS: MULTIVITAMIN with MINERAL TABLET. PO SCH (09:19)
[2019-11-02] MEDS: hydroCHLOROthiazide 12.5 MG CAPSULE PO SCH (09:19)
[2019-11-02] MEDS: OMEGA-3 FATTY ACIDS/FISH OIL 1,000 MG CAPSULE. PO SCH (09:19)
[2019-11-02] MEDS: LOSARTAN POTASSIUM 50 MG TABLET. PO SCH (09:19)
[2019-11-02] MEDS: METOPROLOL SUCC 24HR ER 50 MG TAB.ER.24H. PO SCH (09:20)
--- NOTE | 2019-11-02 09:20 | PDOC ---
[employer] [facility] PROGRESS NOTE Chief Complaint Chief Complaint RT temporal lobe mass 5.7 x 4.1 cm concerning for GBM - new dx Hemorrhagic CVA with brain edema Headaches HTN controlled History of Present Illness History of Present Illness 10/31 Pt seen and examined Pt resting comfortably Pt pleasantly confused 11/01 Pt seen and examined Pt resting comfortably Pt agrees with plan 11/02 Pt seen and examined Pt resting comfortably Awaiting surg on Monday Vitals/I&O Vitals/I&O: Vital Signs Date Time Temp Pulse Resp B/P (MAP) Pulse Ox O2 Delivery O2 Flow Rate FiO2 11/02/19 07:00 98.3 48 18 168/71 (103) 98 Room Air 98.3 I & O 11/01/19 11/01/19 11/02/19 15:00 23:00 07:00 Intake Total 350 ml 200 ml Output Total 600 ml 700 ml Balance 350 ml -400 ml -700 ml Physical Exam General: Alert, Cooperative, No acute distress Heart: Normal S1, Normal S2 Abdomen: Normal bowel sounds, Soft, No tenderness, No hepatosplenomegaly, No masses Extremities: No clubbing, No cyanosis, No edema, Normal pulses Skin: No rashes, No breakdown, No significant lesion Review of Systems Review of Systems: No CP, SOB Assessment and Plan Assessmemt and Plan Problems Medical Problems: (1) Confusion Status: Acute (2) Hyponatremia Status: Acute (3) Intracranial hemorrhage Status: Acute Assessment RT temporal lobe mass 5.7 x 4.1 cm concerning for GBM - new dx Hemorrhagic CVA with brain edema Headaches HTN controlled Plan GBM workup in progress, appreciate subspecialist input Brandy mustafa per neurology Surgical debulking scheduled for Monday, 11/04 Labs DVT prophylaxis PT/OT Full code Comment Review of Relevant I have reviewed the following items ramin (where applicable) has been applied. PRAVIN ROSENTHAL III DO Nov 02, 2019 09:20
[2019-11-02 11:00] VITALS: BP 136/70
[2019-11-02 15:00] VITALS: BP 146/68
--- NOTE | 2019-11-02 17:38 | EEG ---
DATE OF SERVICE: 11/01/2019 EEG NUMBER: [id number]. OBJECTIVE: This is a 74-year-old -Malag[place] female patient with history of mental status changes and speech problems. She was diagnosed as having brain tumor, cerebral edema and possible complex partial seizure. EEG was requested to evaluate her seizure activity. METHODS: Twenty electrodes were applied according to the international 10-20 electrode placement system. EKG monitoring, hyperventilation, intermittent photic stimulation, monopolar and bipolar montages are routinely utilized. The record was obtained on a digital system with video monitoring. MEDICATIONS: Keppra and Decadron. FINDINGS: 1. Background: The patient was recorded in the awake, drowsy and sleep states. The overall background amplitude is 5-10 microvolts. A posterior dominant rhythm of 8 Hz is observed. 2. Abnormalities: No specific epileptiform discharge or electrographic seizure is seen. 3. Activation: Hyperventilation was not performed because the patient did not perform the technique. Intermittent photic stimulation was performed with photic driving. IMPRESSION: This EEG is a borderline study for the awake, drowsy, and sleep states. No focal, lateralizing, specific epileptiform discharge or electrographic seizure is seen. CHELO SAVAGE MD DR: CRISTIAN/tennille JOB#: [id number] / [id number] OSIRIS
--- NOTE | 2019-11-02 18:30 | PDOC ---
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 Tumor necrotic hemorrhage. Cerebral vasogenic edema with midline shift 8 mm. Intermittent recurrent confusional episodes. Complex partial seizure likely. Left temporal field deficits. 2 mm anterior communicating artery aneurysm. Metabolic encephalopathy. Headaches x 1-2 weeks. HTN. Over weight. RECOMMENDATIONS/PLAN: Continue Decadron 4 mg IV q6h. Continue Keppra 500 mg IV bid. Treat medical diseases. Monitoring HR, BP, glucose level, and signs of GI bleeding. Consulted Neurosurgery. Consulted Oncology. Discussed with her son and other family members at bedside on 11/02/19. EEG on 11/01/19: Borderline study. No seizure activity. 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 He was at work today but developed symptoms of mental status changes, confusion, then slurred speech. She was brought to the ER of [facility] but she was still confused. Her HCT reveled a large low density changes with hemorrhage in right temporal area. Further evaluation revealed brain tumor as described above. Patient stated she has been having headaches that started before . 11/02/19: No headaches. Stating feeling better. Past Medical History Cardiovascular: HTN Past Surgical History No pertinent history Family History Hypertension Social History Smoke: No ALCOHOL: none Drugs: None ALLERGY: Unknown MEDICATIONS: Refer to MAR REVIEW OF SYSTEMS: Constitutional: No malnutrition, weight loss, cachexia. Head: No traumatic brain or head injury. Skin: No edema, or rash. Ear: No infection. Eyes: No vision loss or color blindness. Nose: No bleeding or purulent discharges. Hearing: No hearing decrease. Neck: No injury. Breast: No history of cancer, masses,or discharges. Cardiac: HTN. Pulmonary: No COPD. GI: No GI ulcer, GI bleeding. Urinary/genital: UTI. Endocrinologic: No cousin face, craniofacial dysmorphism, polydactyly. Skeletomuscular: No muscular atrophy. Neurological: see HP. Psychiatric: Denies drug use/abuse. Otherwise, not [id number] review of systems. PHYSICAL EXAMINATION: General appearance is in subacute distress. HEENT: Normocephalic and nontraumatic. Eyes, nose, ears, and throat are unremarkable. Neck is supple. No lymphadenopathy. No crepitus. Cardiovascular: S1, S2, regular rate and rhythm. Pulmonary: Clear to auscultation bilaterally. Abdomen: Bowel sounds are positive. Extremities: No rash, lesions, or edema. No restriction of range of motion NEUROLOGICAL EXAMINATION: Awake. Intermittent confusion improved. Not fully oriented to time, but knew place and person. PERRL. EOMI. Left temporal field deficits. CN: no focal findings. Muscle tone: within normal. Muscle strength: 4+ DTR: 1-2 Plantar reflex: Neutral response bilaterally Gait: not examined in bed. Sensory exam: no acute abnormal findings. No cerebellar signs elicited. F-T-N test fine. Objective Objective Vital Signs Date Time Temp Pulse Resp B/P (MAP) Pulse Ox O2 Delivery O2 Flow Rate FiO2 11/02/19 15:00 98.4 54 18 146/68 (94) 98 Room Air 98.4 Intake and Output 11/02/19 07:00 Intake Total 550 ml Output Total 1300 ml Balance -750 ml Intake Oral 550 ml Output Urine Total 1300 ml # Voids 1 Vitals Signs Vitals VS - Last 72 Hours, by Label Date Time Temp Pulse Resp B/P (MAP) Pulse Ox O2 Delivery O2 Flow Rate FiO2 11/02/19 15:00 98.4 54 18 146/68 (94) 98 Room Air 98.4 11/02/19 11:00 98.1 57 18 136/70 (92) 97 Room Air 98.1 11/02/19 09:20 48 168/71 11/02/19 09:19 48 168/71 11/02/19 08:00 Room Air 11/02/19 07:00 98.3 48 18 168/71 (103) 98 Room Air 98.3 11/02/19 03:22 60 16 142/60 (87) 99 Room Air 11/01/19 23:48 97.7 56 16 146/73 (97) 99 Room Air 97.7 11/01/19 19:20 98.1 62 18 140/55 (83) 98 Room Air 98.1 11/01/19 15:23 97.7 63 20 135/51 (79) 99 Room Air 97.7 11/01/19 11:57 64 128/60 11/01/19 11:04 97.7 64 20 128/60 (82) 99 Room Air 97.7 11/01/19 08:20 56 157/71 11/01/19 08:00 Room Air 11/01/19 07:54 97.5 56 20 157/71 (99) 97 Room Air 97.5 Medication Medications Current Medications Fentanyl Citrate (Fentanyl 2ml Vial) 25 mcg PRN Q5MIN PRN IV MILD PAIN 1-3; Start 11/04/19 at 07:00; Stop 11/05/19 at 06:59 Fentanyl Citrate (Fentanyl 2ml Vial) 50 mcg PRN Q5MIN PRN IV MODERATE TO SEVERE PAIN; Start 11/04/19 at 07:00; Stop 11/05/19 at 06:59 Hydromorphone HCl (Dilaudid) 0.5 mg PRN Q10MIN PRN IV SEV PAIN, Second choice; Start 11/04/19 at 07:00; Stop 11/05/19 at 06:59 Lidocaine HCl (Xylocaine-Mpf 1% 2ml Vial) 2 ml PRN 1X PRN ID PRIOR TO IV START; Start 11/04/19 at 07:00; Stop 11/05/19 at 06:59 Morphine Sulfate (Morphine Sulfate) 1 mg PRN Q10MIN PRN IV SEVERE PAIN 7-10; Start 11/04/19 at 07:00; Stop 11/05/19 at 06:59 Ondansetron HCl (Zofran) 4 mg PRN Q6HRS PRN IV NAUSEA/VOMITING; Start 11/04/19 at 07:00; Stop 11/05/19 at 06:59 Prochlorperazine Edisylate (Compazine) 5 mg PACU PRN PRN IV NAUSEA, MRX1; Start 11/04/19 at 07:00; Stop 11/05/19 at 06:59 Ringer's Solution 1,000 ml @ 30 mls/hr Q24H IV ; Start 11/04/19 at 07:00; Stop 11/04/19 at 18:59 Comment Review of Relevant I have reviewed the following items ramin (where applicable) has been applied. CHELO SAVAGE MD Nov 02, 2019 18:30
[2019-11-02] MEDS: ACETAMINOPHEN 500 MG TABLET PO PRN (18:35)
[2019-11-02 19:43] VITALS: BP 159/63
[2019-11-02] MEDS: FAMOTIDINE 20 MG/2 ML VIAL IVP SCH (21:06)
[2019-11-02 23:40] VITALS: BP 159/73
[2019-11-03] MEDS: DEXAMETHASONE SOD PHOS 4 MG/ML VIAL IVP SCH ×4 (00:03→17:53)
[2019-11-03 03:25] VITALS: BP 167/66
[2019-11-03 07:00] VITALS: BP 133/64
[2019-11-03] MEDS: IV NORMAL SALINE 1000ML BAG 1,000 ML IV SCH (09:30)
[2019-11-03] MEDS: levETIRAcetam 500 MG in IV DEXTROSE 5% 100ML 100 ML IV SCH ×2 (10:32→20:38)
[2019-11-03] MEDS: METOPROLOL SUCC 24HR ER 50 MG TAB.ER.24H. PO SCH (10:33)
[2019-11-03] MEDS: LOSARTAN POTASSIUM 50 MG TABLET. PO SCH (10:33)
[2019-11-03] MEDS: hydroCHLOROthiazide 12.5 MG CAPSULE PO SCH (10:34)
[2019-11-03] MEDS: MULTIVITAMIN with MINERAL TABLET. PO SCH (10:34)
[2019-11-03] MEDS: OMEGA-3 FATTY ACIDS/FISH OIL 1,000 MG CAPSULE. PO SCH (10:34)
--- NOTE | 2019-11-03 10:36 | PDOC ---
[facility] [facility] PROGRESS NOTE Chief Complaint Chief Complaint RT temporal lobe mass 5.7 x 4.1 cm concerning for GBM - new dx Hemorrhagic CVA with brain edema Headaches HTN controlled History of Present Illness History of Present Illness 10/31 Pt seen and examined Pt resting comfortably Pt pleasantly confused 11/01 Pt seen and examined Pt resting comfortably Pt agrees with plan 11/02 Pt seen and examined Pt resting comfortably Awaiting surg on Saturday 11/03 Pt seen and examined Pt resting comfortably Awaiting surg on Monday Vitals/I&O Vitals/I&O: Vital Signs Date Time Temp Pulse Resp B/P (MAP) Pulse Ox O2 Delivery O2 Flow Rate FiO2 11/03/19 10:33 50 133/64 11/03/19 07:00 98.2 16 98 Room Air 98.2 I & O 11/02/19 11/02/19 11/03/19 15:00 23:00 07:00 Intake Total 550 ml 250 ml 110 ml Output Total 500 ml 800 ml Balance 50 ml 250 ml -690 ml Physical Exam General: Alert, Cooperative, No acute distress Heart: Normal S1, Normal S2 Abdomen: Normal bowel sounds, Soft, No tenderness, No hepatosplenomegaly, No masses Extremities: No clubbing, No cyanosis, No edema, Normal pulses Skin: No rashes, No breakdown, No significant lesion Review of Systems Review of Systems: No CP, SOB Assessment and Plan Assessmemt and Plan Problems Medical Problems: (1) Confusion Status: Acute (2) Hyponatremia Status: Acute (3) Intracranial hemorrhage Status: Acute Assessment RT temporal lobe mass 5.7 x 4.1 cm concerning for GBM - new dx Hemorrhagic CVA with brain edema Headaches HTN controlled Plan GBM workup in progress, appreciate subspecialist input Brandy mustafa per neurology Surgical debulking scheduled for Monday, 11/04 Labs DVT prophylaxis PT/OT Full code Comment Review of Relevant I have reviewed the following items ramin (where applicable) has been applied. PRAVIN ROSENTHAL III DO Nov 03, 2019 10:36
[2019-11-03 11:00] VITALS: BP 126/58
[2019-11-03 14:06] LABS: HEMATOCRIT 35.7 % (36.0-47.0); HEMOGLOBIN 12.1 g/dL (12.0-15.5); RED BLOOD COUNT 3.64 x10^6/uL (3.50-5.40); RED CELL DISTRIBUTION WIDTH 11.9 % (11.5-14.5); WHITE BLOOD COUNT 11.1 x10^3/uL (4.0-11.0)
[2019-11-03 14:23] LABS: CALCIUM 8.3 mg/dL (8.5-10.1); CREATININE 1.2 mg/dL (0.6-1.0); POTASSIUM 3.9 mmol/L (3.5-5.1)
--- NOTE | 2019-11-03 14:55 | PDOC ---
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 Tumor necrotic hemorrhage. Cerebral vasogenic edema with midline shift 8 mm. Intermittent recurrent confusional episodes. Complex partial seizure likely. Left temporal field deficits. 2 mm anterior communicating artery aneurysm. Metabolic encephalopathy. Headaches x 1-2 weeks. HTN. Over weight. RECOMMENDATIONS/PLAN: Continue Decadron 4 mg IV q6h. Continue Keppra 500 mg IV bid. Treat medical diseases. Monitoring HR, BP, glucose level, and signs of GI bleeding. Consulted Neurosurgery. Consulted Oncology. Discussed with her son and other family members at bedside on 11/02/19. EEG on 11/01/19: Borderline study. No seizure activity. 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 He was at work today but developed symptoms of mental status changes, confusion, then slurred speech. She was brought to the ER of [facility] but she was still confused. Her HCT reveled a large low density changes with hemorrhage in right temporal area. Further evaluation revealed brain tumor as described above. Patient stated she has been having headaches that started before . 11/03/19: No headaches. Stating as if having confusion like episode sometimes. Past Medical History Cardiovascular: HTN Past Surgical History No pertinent history Family History Hypertension Social History Smoke: No ALCOHOL: none Drugs: None ALLERGY: Unknown MEDICATIONS: Refer to MAR REVIEW OF SYSTEMS: Constitutional: No malnutrition, weight loss, cachexia. Head: No traumatic brain or head injury. Skin: No edema, or rash. Ear: No infection. Eyes: No vision loss or color blindness. Nose: No bleeding or purulent discharges. Hearing: No hearing decrease. Neck: No injury. Breast: No history of cancer, masses,or discharges. Cardiac: HTN. Pulmonary: No COPD. GI: No GI ulcer, GI bleeding. Urinary/genital: UTI. Endocrinologic: No cousin face, craniofacial dysmorphism, polydactyly. Skeletomuscular: No muscular atrophy. Neurological: see HP. Psychiatric: Denies drug use/abuse. Otherwise, not [id number] review of systems. PHYSICAL EXAMINATION: General appearance is in subacute distress. HEENT: Normocephalic and nontraumatic. Eyes, nose, ears, and throat are unremarkable. Neck is supple. No lymphadenopathy. No crepitus. Cardiovascular: S1, S2, regular rate and rhythm. Pulmonary: Clear to auscultation bilaterally. Abdomen: Bowel sounds are positive. Extremities: No rash, lesions, or edema. No restriction of range of motion NEUROLOGICAL EXAMINATION: Awake. Intermittent confusion improved. Not fully oriented to time, but knew place and person. PERRL. EOMI. Left temporal field deficits. CN: no focal findings. Muscle tone: within normal. Muscle strength: 4+ DTR: 1-2 Plantar reflex: Neutral response bilaterally Gait: not examined in bed. Sensory exam: no acute abnormal findings. No cerebellar signs elicited. F-T-N test fine. Objective Objective Vital Signs Date Time Temp Pulse Resp B/P (MAP) Pulse Ox O2 Delivery O2 Flow Rate FiO2 11/03/19 11:00 97.5 61 16 126/58 (80) 100 Room Air 97.5 Intake and Output 11/03/19 07:00 Intake Total 910 ml Output Total 1300 ml Balance -390 ml Intake Oral 910 ml Output Urine Total 1300 ml # Voids 4 # Bowel Movements 1 Vitals Signs Vitals VS - Last 72 Hours, by Label Date Time Temp Pulse Resp B/P (MAP) Pulse Ox O2 Delivery O2 Flow Rate FiO2 11/03/19 11:00 97.5 61 16 126/58 (80) 100 Room Air 97.5 11/03/19 10:33 50 133/64 11/03/19 10:33 50 133/64 11/03/19 08:00 Room Air 11/03/19 07:00 98.2 50 16 133/64 (87) 98 Room Air 98.2 11/03/19 03:25 97.9 54 20 167/66 (99) 100 Room Air 97.9 11/02/19 23:40 98.9 50 20 159/73 (101) 99 Room Air 98.9 11/02/19 20:15 Room Air 11/02/19 19:43 98.6 53 20 159/63 (95) 99 Room Air 98.6 11/02/19 15:00 98.4 54 18 146/68 (94) 98 Room Air 98.4 11/02/19 11:00 98.1 57 18 136/70 (92) 97 Room Air 98.1 11/02/19 09:20 48 168/71 12/7/19 09:19 48 168/71 11/02/19 08:00 Room Air 11/02/19 07:00 98.3 48 18 168/71 (103) 98 Room Air 98.3 Laboratory Laboratory Laboratory Tests Test 11/03/19 13:45 White Blood Count 11.1 x10^3/uL (4.0-11.0) Red Blood Count 3.64 x10^6/uL (3.50-5.40) Hemoglobin 12.1 g/dL (12.0-15.5) Hematocrit 35.7 % (36.0-47.0) Mean Corpuscular Volume 98 fL (79-100) Mean Corpuscular Hemoglobin 33 pg (25-35) Mean Corpuscular Hemoglobin Concent 34 g/dL (31-37) Red Cell Distribution Width 11.9 % (11.5-14.5) Platelet Count 240 x10^3/uL (140-400) Sodium Level 136 mmol/L (136-145) Potassium Level 3.9 mmol/L (3.5-5.1) Chloride Level 102 mmol/L (98-107) Carbon Dioxide Level 24 mmol/L (21-32) Anion Gap 10 (6-14) Blood Urea Nitrogen 24 mg/dL (7-20) Creatinine 1.2 mg/dL (0.6-1.0) Estimated GFR (Cockcroft-Gault) 53.0 Glucose Level 133 mg/dL (70-99) Calcium Level 8.3 mg/dL (8.5-10.1) Medication Medications Current Medications Bacitracin 47939 unit/Sodium Chloride 1,000 ml @ 1,000 mls/hr 1X ONCE IRR ; Start 11/04/19 at 06:00; Stop 11/04/19 at 06:59 Bupivacaine HCl/ Epinephrine Bitart (Sensorcain-Epi 0.5%-1:867817 Mpf) 30 ml 1X ONCE INJ ; Start 11/04/19 at 06:30; Stop 11/04/19 at 06:31 Cefazolin Sodium/ Dextrose 50 ml @ 100 mls/hr 1X PREOP ONCE IV ; Start 11/03/19 at 10:00; Stop 11/03/19 at 10:29; Status Cancel Cefazolin Sodium/ Dextrose 50 ml @ 100 mls/hr 1X PREOP ONCE IV ; Start 11/04/19 at 10:00; Stop 11/04/19 at 10:29 Fentanyl Citrate (Fentanyl 2ml Vial) 25 mcg PRN Q5MIN PRN IV MILD PAIN 1-3; Start 11/04/19 at 07:00; Stop 11/05/19 at 06:59 Fentanyl Citrate (Fentanyl 2ml Vial) 50 mcg PRN Q5MIN PRN IV MODERATE TO SEVERE PAIN; Start 11/04/19 at 07:00; Stop 11/05/19 at 06:59 Hydromorphone HCl (Dilaudid) 0.5 mg PRN Q10MIN PRN IV SEV PAIN, Second choice; Start 11/04/19 at 07:00; Stop 11/05/19 at 06:59 Lidocaine HCl (Xylocaine-Mpf 1% 2ml Vial) 2 ml PRN 1X PRN ID PRIOR TO IV START; Start 11/04/19 at 07:00; Stop 11/05/19 at 06:59 Morphine Sulfate (Morphine Sulfate) 1 mg PRN Q10MIN PRN IV SEVERE PAIN 7-10; Start 11/04/19 at 07:00; Stop 11/05/19 at 06:59 Ondansetron HCl (Zofran) 4 mg PRN Q6HRS PRN IV NAUSEA/VOMITING; Start 11/04/19 at 07:00; Stop 11/05/19 at 06:59 Prochlorperazine Edisylate (Compazine) 5 mg PACU PRN PRN IV NAUSEA, MRX1; Start 11/04/19 at 07:00; Stop 11/05/19 at 06:59 Ringer's Solution 1,000 ml @ 30 mls/hr Q24H IV ; Start 11/04/19 at 07:00; Stop 11/04/19 at 18:59 Comment Review of Relevant I have reviewed the following items ramin (where applicable) has been applied. CHELO SAVAGE MD Nov 03, 2019 14:55
[2019-11-03 15:00] VITALS: BP 128/54
[2019-11-03 19:55] VITALS: BP 115/58
[2019-11-03] MEDS: FAMOTIDINE 20 MG/2 ML VIAL IVP SCH (20:39)
[2019-11-03 23:57] VITALS: BP 164/69
[2019-11-04] VITALS (12 sets, daily range): BP systolic 125–174; BP diastolic 46–87
[2019-11-04] MEDS: DEXAMETHASONE SOD PHOS 4 MG/ML VIAL IVP SCH ×4 (00:28→18:00)
[2019-11-04] MEDS: IV NORMAL SALINE 1000ML BAG 1,000 ML IV SCH ×2 (00:29→17:53)
[2019-11-04] MEDS: hydrALAZINE 20 MG/ML VIAL. IVP PRN ×2 (04:24→17:52)
[2019-11-04] MEDS ORDERED: BACITRACIN 50,000 UNIT in IV NORMAL SALINE 1000ML BAG 1,000 ML IRR ONE (06:00)
[2019-11-04] MEDS ORDERED: BUPIVACAINE-EPI 0.5%-1:200000 MPF 30 ML VIAL. INJ ONE (06:30)
[2019-11-04] MEDS ORDERED: HYDROmorphone 2 MG/ML VIAL IV PRN (07:00)
[2019-11-04] MEDS ORDERED: PROCHLORPERAZINE 10 MG/2 ML VIAL. IV PRN (07:00)
[2019-11-04] MEDS ORDERED: IV RINGERS,LACTATED 1000ML 1,000 ML IV SCH (07:00)
[2019-11-04] MEDS ORDERED: ONDANSETRON PF 4 MG/2 ML VIAL. IV PRN (07:00)
[2019-11-04] MEDS ORDERED: LIDOCAINE 1% PF 2 ML VIAL. ID PRN (07:00)
[2019-11-04] MEDS ORDERED: MORPHINE SULFATE 2 MG/ML VIAL. IV PRN (07:00)
[2019-11-04] MEDS ORDERED: fentaNYL PF VIAL 100 MCG/2 ML VIAL IV PRN ×2 (07:00)
[2019-11-04] MEDS ORDERED: GELATIN SPONGE SIZE 100. ONE (07:48)
[2019-11-04] MEDS ORDERED: THROMBIN TOPICAL 20,000 UNIT SPRAY.SYRN KIT TP ONE (07:48)
[2019-11-04] MEDS ORDERED: KETOROLAC 60 MG/2 ML VIAL. ONE (07:48)
[2019-11-04] MEDS ORDERED: GADOTERATE 7.5 MMOL/15ML VIAL. IVP ONE (08:15)
[2019-11-04] MEDS: hydroCHLOROthiazide 12.5 MG CAPSULE PO SCH (09:00)
[2019-11-04] MEDS: LOSARTAN POTASSIUM 50 MG TABLET. PO SCH (09:00)
[2019-11-04] MEDS: OMEGA-3 FATTY ACIDS/FISH OIL 1,000 MG CAPSULE. PO SCH (09:00)
[2019-11-04] MEDS: MULTIVITAMIN with MINERAL TABLET. PO SCH (09:00)
[2019-11-04] MEDS: METOPROLOL SUCC 24HR ER 50 MG TAB.ER.24H. PO SCH (09:00)
[2019-11-04] MEDS ORDERED: LIDOCAINE 2% PF 5 ML VIAL. ONE (09:19)
[2019-11-04] MEDS ORDERED: REMIFENTANIL 2 MG VIAL. IV ONE (09:19)
[2019-11-04] MEDS ORDERED: PROPOFOL 20 ML IV ONE (09:19)
[2019-11-04] MEDS ORDERED: ROCURONIUM 50 MG/5 ML VIAL. ONE (09:19)
[2019-11-04] MEDS ORDERED: 0.9 % SODIUM CHLORIDE 20 ML VIAL. IJ ONE (09:19)
[2019-11-04] MEDS ORDERED: fentaNYL PF VIAL 100 MCG/2 ML VIAL ONE (09:19)
--- NOTE | 2019-11-04 10:08 | RAD ---
BRAIN LAB W CONTRAST History: Preoperative examination for brain tumor. Technique: MRI performed for treatment planning purposes. Post contrast T1 sequences and 3-D [id number] MRA sequences were obtained. 3-D reconstruction was performed. Comparison: October 29, 2019 CTA and MRI Findings: No significant interval change in heterogeneous peripherally enhancing right temporal lobe mass with adjacent edema. Unchanged local mass effect and leftward midline shift. Partial effacement of the right lateral ventricle, unchanged. Left maxillary sinus opacification, unchanged. Unchanged displacement of right MCA branches around the mass is seen on prior CTA. Impression: 1. Treatment planning study. 2. Heterogeneous enhancing centrally necrotic right temporal lobe mass, not significantly changed compared to prior. Electronically signed by: hZao Choudhary DO (11/04/2019 10:05 AM) [id number]
[2019-11-04] MEDS ORDERED: DEXAMETHASONE SOD PHOS 20 MG/5 ML VIAL. ONE (12:15)
[2019-11-04] MEDS ORDERED: DESFLURANE > 120 MINUTES IH ONE (12:15)
--- NOTE | 2019-11-04 12:41 | PDOC ---
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 ON MRI HEAD Hemorrhagic CVA with brain edema Headaches HTN controlled High grade glioma Complete opacification left maxillary sinus which may be due to mucocele or neoplasm. Cerebral vasogenic edema with midline shift 8 mm. Intermittent recurrent confusional episodes. Complex partial seizure Left temporal field deficits. 2 mm anterior communicating artery aneurysm. plan craniotomy and debulking on Sunday 11/04 oncology consult 37 min pt exam, chart review, > 50% of time spent with exam, chart review, pt care coordination History of Present Illness History of Present Illness 10/31 Pt seen and examined Pt resting comfortably Pt pleasantly confused 11/01 Pt seen and examined Pt resting comfortably Pt agrees with plan 11/02 Pt seen and examined Pt resting comfortably Awaiting surg on Saturday 11/03 Pt seen and examined Pt resting comfortably Awaiting surg on Monday Vitals Vitals Vital Signs Date Time Temp Pulse Resp B/P (MAP) Pulse Ox O2 Delivery O2 Flow Rate FiO2 11/04/19 09:30 97.9 61 19 187/84 100 Room Air 97.9 Physical Exam General: Alert, Cooperative, No acute distress Heart: Normal S1, Normal S2 Abdomen: Normal bowel sounds, Soft, No tenderness, No hepatosplenomegaly, No masses Extremities: No clubbing, No cyanosis, No edema, Normal pulses Skin: No rashes, No breakdown, No significant lesion Labs LABS : 1945 LOC: [address] [place] [id number] AGE: 74 SEX: F STATUS: ADM IN LOCATION: [address] [place] [address] DATE OF SERVICE: 11/01/2019 EEG NUMBER: [id number]. OBJECTIVE: This is a 74-year-old -[place] female patient with history of mental status changes and speech problems. She was diagnosed as having brain tumor, cerebral edema and possible complex partial seizure. EEG was requested to evaluate her seizure activity. METHODS: Twenty electrodes were applied according to the international 10-20 electrode placement system. EKG monitoring, hyperventilation, intermittent photic stimulation, monopolar and bipolar montages are routinely utilized. The record was obtained on a digital system with video monitoring. MEDICATIONS: Keppra and Decadron. FINDINGS: 1. Background: The patient was recorded in the awake, drowsy and sleep states. The overall background amplitude is 5-10 microvolts. A posterior dominant rhythm of 8 Hz is observed. 2. Abnormalities: No specific epileptiform discharge or electrographic seizure is seen. 3. Activation: Hyperventilation was not performed because the patient did not perform the technique. Intermittent photic stimulation was performed with photic driving. IMPRESSION: This EEG is a borderline study for the awake, drowsy, and sleep states. No focal, lateralizing, specific epileptiform discharge or electrographic seizure is seen. CHELO SAVAGE MD DR: CRISTIAN/tennille JOB#: [id number] / [id number] CT CODE STROKE HEAD WO Clinical indications: Confusion and aphasia. Code stroke COMPARISON: None available. Technique: Noncontrast axial cross sectional scanning of the head was performed. PQRS compliance Statement One or more of the following individualized dose reduction techniques were utilized for this study: 1. Automated exposure control 2. Adjustment of the mA and/or kV according to patient size 3. Use of iterative reconstruction technique Findings: There is diffuse edema of the right cerebral hemisphere mainly involving the temporal and parietal lobes but also the posterior right frontal lobe and anterior right occipital lobe. Within the inferior aspect of this area of edema specifically within the right temporal lobe, there is hyperdense intraparenchymal hemorrhage measuring 23 mm in greatest transverse dimension. There is effacement of the right lateral ventricle. There is midline shift from right to left of 6 mm. No extra-axial fluid collection or hemorrhage is seen. No hyperdense MCA sign is evident. There is complete opacification of the upper left maxillary sinus with erosion of the medial wall and soft tissue extension into the lateral aspect of the left nasal passageway. The maxillary sinuses are not completely seen in this study. This could represent a mucocele or neoplasm. Mastoid sinuses and middle ear cavities are clear. No skull fracture or pneumocephalus is seen. IMPRESSION: Diffuse cerebral edema of the right cerebral hemisphere with an acute hemorrhagic component. Dependent on the clinical history, this could represent a hemorrhagic infarct in the MCA distribution (acute symptomatology only) or could represent hemorrhage within a glioblastoma (subacute or chronic symptomatology with acute onset of new neurologic findings related to hemorrhage). Complete opacification left maxillary sinus which may be due to mucocele or neoplasm. FOR INTERNAL CODING PURPOSES Critical result: Findings discussed with OWEN TELLEZ at 10/29/2019 3:49 PM. RESULT CODE: (C) BRAIN LAB W CONTRAST History: Preoperative examination for brain tumor. Technique: MRI performed for treatment planning purposes. Post contrast T1 sequences and 3-D [id number] MRA sequences were obtained. 3-D reconstruction was performed. Comparison: October 29, 2019 CTA and MRI Findings: No significant interval change in heterogeneous peripherally enhancing right temporal lobe mass with adjacent edema. Unchanged local mass effect and leftward midline shift. Partial effacement of the right lateral ventricle, unchanged. Left maxillary sinus opacification, unchanged. Unchanged displacement of right MCA branches around the mass is seen on prior CTA. Impression: 1. Treatment planning study. 2. Heterogeneous enhancing centrally necrotic right temporal lobe mass, not significantly changed compared to prior. Electronically signed by: Zhao Blanc DO (11/04/2019 10:05 AM) [id number] DICTATED and SIGNED BY: ZHAO BLANC DO DATE: 11/04/19 1005 Laboratory Tests Test 11/03/19 13:45 White Blood Count 11.1 x10^3/uL (4.0-11.0) Red Blood Count 3.64 x10^6/uL (3.50-5.40) Hemoglobin 12.1 g/dL (12.0-15.5) Hematocrit 35.7 % (36.0-47.0) Mean Corpuscular Volume 98 fL (79-100) Mean Corpuscular Hemoglobin 33 pg (25-35) Mean Corpuscular Hemoglobin Concent 34 g/dL (31-37) Red Cell Distribution Width 11.9 % (11.5-14.5) Platelet Count 240 x10^3/uL (140-400) Sodium Level 136 mmol/L (136-145) Potassium Level 3.9 mmol/L (3.5-5.1) Chloride Level 102 mmol/L (98-107) Carbon Dioxide Level 24 mmol/L (21-32) Anion Gap 10 (6-14) Blood Urea Nitrogen 24 mg/dL (7-20) Creatinine 1.2 mg/dL (0.6-1.0) Estimated GFR (Cockcroft-Gault) 53.0 Glucose Level 133 mg/dL (70-99) Calcium Level 8.3 mg/dL (8.5-10.1) Assessment and Plan Assessmemt and Plan Problems Medical Problems: (1) Confusion Status: Acute (2) Hyponatremia Status: Acute (3) Intracranial hemorrhage Status: Acute Comment Review of Relevant I have reviewed the following items ramin (where applicable) has been applied. Labs Laboratory Tests Test 11/03/19 13:45 White Blood Count 11.1 x10^3/uL (4.0-11.0) Red Blood Count 3.64 x10^6/uL (3.50-5.40) Hemoglobin 12.1 g/dL (12.0-15.5) Hematocrit 35.7 % (36.0-47.0) Mean Corpuscular Volume 98 fL (79-100) Mean Corpuscular Hemoglobin 33 pg (25-35) Mean Corpuscular Hemoglobin Concent 34 g/dL (31-37) Red Cell Distribution Width 11.9 % (11.5-14.5) Platelet Count 240 x10^3/uL (140-400) Sodium Level 136 mmol/L (136-145) Potassium Level 3.9 mmol/L (3.5-5.1) Chloride Level 102 mmol/L (98-107) Carbon Dioxide Level 24 mmol/L (21-32) Anion Gap 10 (6-14) Blood Urea Nitrogen 24 mg/dL (7-20) Creatinine 1.2 mg/dL (0.6-1.0) Estimated GFR (Cockcroft-Gault) 53.0 Glucose Level 133 mg/dL (70-99) Calcium Level 8.3 mg/dL (8.5-10.1) Laboratory Tests Test 11/03/19 13:45 White Blood Count 11.1 x10^3/uL (4.0-11.0) Red Blood Count 3.64 x10^6/uL (3.50-5.40) Hemoglobin 12.1 g/dL (12.0-15.5) Hematocrit 35.7 % (36.0-47.0) Mean Corpuscular Volume 98 fL (79-100) Mean Corpuscular Hemoglobin 33 pg (25-35) Mean Corpuscular Hemoglobin Concent 34 g/dL (31-37) Red Cell Distribution Width 11.9 % (11.5-14.5) Platelet Count 240 x10^3/uL (140-400) Sodium Level 136 mmol/L (136-145) Potassium Level 3.9 mmol/L (3.5-5.1) Chloride Level 102 mmol/L (98-107) Carbon Dioxide Level 24 mmol/L (21-32) Anion Gap 10 (6-14) Blood Urea Nitrogen 24 mg/dL (7-20) Creatinine 1.2 mg/dL (0.6-1.0) Estimated GFR (Cockcroft-Gault) 53.0 Glucose Level 133 mg/dL (70-99) Calcium Level 8.3 mg/dL (8.5-10.1) Medications Current Medications Dexamethasone Sodium Phosphate (Decadron) 4 mg 1X ONCE IVP Last administered on 10/29/19 18:52; Start 10/29/19 at 16:45; Stop 10/29/19 at 16:46; Status DC Acetaminophen (Tylenol) 500 mg PRN Q6HRS PRN PO MILD PAIN / TEMP Last administered on 11/02/19 18:35; Start 10/29/19 at 17:00 Ondansetron HCl (Zofran) 4 mg PRN Q6HRS PRN IVP NAUSEA/VOMITING Last administered on 11/02/19 13:55; Start 10/29/19 at 17:00 Sodium Chloride 1,000 ml @ 80 mls/hr [id number] IV Last administered on 11/04/19 00:29; Start 10/29/19 at 17:00 Famotidine (Pepcid Vial) 20 mg QHS IVP Last administered on 11/03/19 20:39; Start 10/29/19 at 21:00 Hydralazine HCl (Apresoline Inj) 10 mg PRN Q4HRS PRN IVP ELEVATED BP, SEE COMMENTS Last administered on 11/04/19 04:24; Start 10/29/19 at 17:00 Dexamethasone Sodium Phosphate (Decadron) 4 mg Q6HRS IVP Last administered on 11/04/19 05:40; Start 10/29/19 at 18:00 Gadoterate Meglumine (Dotarem) 14 ml 1X ONCE IVP Last administered on 10/29/19 17:55; Start 10/29/19 at 17:30; Stop 10/29/19 at 17:40; Status DC Iohexol (Omnipaque 350 Mg/ml) 60 ml 1X ONCE IV Last administered on 10/29/19at 18:46; Start 10/29/19 at 18:30; Stop 10/29/19 at 18:31; Status DC Info (CONTRAST GIVEN -- Rx MONITORING) 1 each PRN DAILY PRN MC SEE COMMENTS; Start 10/29/19 at 18:30; Stop 10/31/19 at 18:29; Status DC Levetiracetam 500 mg/Dextrose 105 ml @ 440 mls/hr Q12HR IV Last administered on 11/03/19 20:38; Start 10/29/19 at 21:00 Metoprolol Tartrate (Lopressor) 50 mg DAILY PO ; Start 10/30/19 at 09:00; Status Cancel Hydrochlorothiazide (Microzide) 12.5 mg DAILY PO Last administered on 11/03/19 10:34; Start 10/30/19 at 09:00 Fish Oil (Fish Oil) 1,000 mg DAILY PO Last administered on 11/03/19 10:34; Start 10/30/19 at 09:00 Multivitamins (Thera M Plus) 1 tab DAILY PO Last administered on 11/03/19 10:34; Start 10/30/19 at 09:00 Morphine Sulfate (Morphine Sulfate) 1 mg PRN Q2HR PRN IV PAIN Last administered on 10/30/19 13:49; Start 10/29/19 at 21:15 Metoprolol Succinate (Toprol Xl) 50 mg DAILY PO Last administered on 11/04/19 09:00; Start 10/31/19 at 09:00 Losartan Potassium (Cozaar) 100 mg DAILY PO Last administered on 11/04/19 09:00; Start 10/31/19 at 09:00 Non-Formulary Medication (Multivitamin (Multi Vitamin Daily)) 1 tab DAILY PO ; Start 10/31/19 at 09:00; Status UNV Non-Formulary Medication ([place]-3 Fatty Acids/Fish Oil ([place] 3 Fish Oil Softgel)) 1 each DAILY PO ; Start 10/31/19 at 09:00; Status UNV Ondansetron HCl (Zofran) 4 mg PRN Q6HRS PRN IV NAUSEA/VOMITING; Start 11/04/19 at 07:00; Stop 11/05/19 at 06:59 Fentanyl Citrate (Fentanyl 2ml Vial) 25 mcg PRN Q5MIN PRN IV MILD PAIN 1-3; Start 11/04/19 at 07:00; Stop 11/05/19 at 06:59 Fentanyl Citrate (Fentanyl 2ml Vial) 50 mcg PRN Q5MIN PRN IV MODERATE TO SEVERE PAIN; Start 11/04/19 at 07:00; Stop 11/05/19 at 06:59 Morphine Sulfate (Morphine Sulfate) 1 mg PRN Q10MIN PRN IV SEVERE PAIN 7-10; Start 11/04/19 at 07:00; Stop 11/05/19 at 06:59 Ringer's Solution 1,000 ml @ 30 mls/hr Q24H IV ; Start 11/04/19 at 07:00; Stop 11/04/19 at 18:59 Lidocaine HCl (Xylocaine-Mpf 1% 2ml Vial) 2 ml PRN 1X PRN ID PRIOR TO IV START; Start 11/04/19 at 07:00; Stop 11/05/19 at 06:59 Hydromorphone HCl (Dilaudid) 0.5 mg PRN Q10MIN PRN IV SEV PAIN, Second choice; Start 11/04/19 at 07:00; Stop 11/05/19 at 06:59 Prochlorperazine Edisylate (Compazine) 5 mg PACU PRN PRN IV NAUSEA, MRX1; Start 11/04/19 at 07:00; Stop 11/05/19 at 06:59 Bacitracin [id number] unit/Sodium Chloride 1,000 ml @ 1,000 mls/hr 1X ONCE IRR ; Start 11/04/19 at 06:00; Stop 11/04/19 at 06:59; Status DC Bupivacaine HCl/ Epinephrine Bitart (Sensorcain-Epi 0.5%-1:894887 Mpf) 30 ml 1X ONCE INJ ; Start 11/04/19 at 06:30; Stop 11/04/19 at 06:31; Status DC Cefazolin Sodium/ Dextrose 50 ml @ 100 mls/hr 1X PREOP ONCE IV ; Start 11/03/19 at 10:00; Stop 11/03/19 at 10:29; Status Cancel Cefazolin Sodium/ Dextrose 50 ml @ 100 mls/hr 1X PREOP ONCE IV ; Start 11/04/19 at 10:00; Stop 11/04/19 at 10:29; Status DC Gelatin (Gelfoam Size 100) 1 each STK-MED ONCE .ROUTE ; Start 11/04/19 at 07:48; Stop 11/04/19 at 07:48; Status DC Ketorolac Tromethamine (Toradol Im) 60 mg STK-MED ONCE .ROUTE ; Start 11/04/19 at 07:48; Stop 11/04/19 at 07:48; Status DC Thrombin 20,000 unit STK-MED ONCE TP ; Start 11/04/19 at 07:48; Stop 11/04/19 at 07:48; Status DC Gadoterate Meglumine (Dotarem) 14 ml 1X ONCE IVP Last administered on 11/04/19at 08:15; Start 11/04/19 at 08:15; Stop 11/04/19 at 08:16; Status DC Propofol 20 ml @ As Directed STK-MED ONCE IV ; Start 11/04/19 at 09:19; Stop 11/04/19 at 09:19; Status DC Lidocaine HCl (Lidocaine Pf 2% Vial) 5 ml STK-MED ONCE .ROUTE ; Start 11/04/19 at 09:19; Stop 11/04/19 at 09:19; Status DC Fentanyl Citrate (Fentanyl 2ml Vial) 100 mcg STK-MED ONCE .ROUTE ; Start 11/04/19 at 09:19; Stop 11/04/19 at 09:19; Status DC Rocuronium [place] (Zemuron) 50 mg STK-MED ONCE .ROUTE ; Start 11/04/19 at 09:19; Stop 11/04/19 at 09:19; Status DC Remifentanil HCl (Ultiva) 2 mg STK-MED ONCE IV ; Start 11/04/19 at 09:19; Stop 11/04/19 at 09:19; Status DC Sodium Chloride (SODIUM CHLORIDE 20ml) 20 ml STK-MED ONCE IJ ; Start 11/04/19 at 09:19; Stop 11/04/19 at 09:20; Status DC Dexamethasone Sodium Phosphate (Decadron) 20 mg STK-MED ONCE .ROUTE ; Start 11/04/19 at 12:15; Stop 11/04/19 at 12:16; Status DC Desflurane (Suprane) 90 ml STK-MED ONCE IH ; Start 11/04/19 at 12:15; Stop 11/04/19 at 12:16; Status DC Active Scripts Active Reported Multi Vitamin Daily (Multivitamin) 1 Each Tablet 1 Tab PO DAILY 30 Days [place] 3 Fish Oil Softgel ([place]-3 Fatty Acids/Fish Oil) 1 Each Capsule.dr 1 Each PO DAILY Losartan-Hctz 100-12.5 Mg Tab (Losartan/Hydrochlorothiazide) 1 Each Tablet 1 Tab PO DAILY Toprol XL (Metoprolol Succinate) 50 Mg Tab.er.24h 50 Mg PO DAILY Vitals/I & O Vital Sign - Last 24 Hours 11/03/19 11/03/19 11/03/19 11/03/19 15:00 19:55 20:00 23:57 Temp 97.8 98.3 98.2 97.8 98.3 98.2 Pulse 63 61 51 Resp 20 20 B/P (MAP) 128/54 (78) 115/58 (77) 164/69 (100) Pulse Ox 100 98 98 O2 Delivery Room Air Room Air Room Air Room Air 11/04/19 11/04/19 11/04/19 11/04/19 03:58 04:24 07:39 08:00 Temp 98.6 97.8 98.6 97.8 Pulse 51 51 62 Resp 20 20 B/P (MAP) 174/87 (116) 174/87 154/75 (101) Pulse Ox 99 100 O2 Delivery Room Air Room Air Room Air 11/04/19 11/04/19 11/04/19 09:00 09:00 09:30 Temp 97.9 97.9 Pulse 57 61 61 Resp 19 B/P (MAP) 187/84 187/84 187/84 Pulse Ox 100 O2 Delivery Room Air Intake and Output 11/03/19 11/03/19 11/04/19 14:59 22:59 06:59 Intake Total 300 ml 105 ml 60 ml Output Total 1450 ml 1250 ml 1200 ml Balance -1150 ml -1145 ml -1140 ml POLI DIAL MD Nov 04, 2019 12:41
[2019-11-04] MEDS ORDERED: GLYCOPYRROLATE 1 MG/5 ML VIAL. ONE (12:42)
[2019-11-04] MEDS ORDERED: ONDANSETRON PF 4 MG/2 ML VIAL. ONE (12:42)
[2019-11-04] MEDS ORDERED: NEOSTIGMINE METHYLSULFATE 5 MG/5 ML SYRINGE. ONE (12:42)
[2019-11-04] MEDS: levETIRAcetam 500 MG in IV DEXTROSE 5% 100ML 100 ML IV SCH ×2 (12:51→21:20)
[2019-11-04] MEDS ORDERED: MANNITOL 20% PREMIX 500 ML IV ONE (12:53)
--- NOTE | 2019-11-04 13:07 | PDOC ---
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 Tumor necrotic hemorrhage. Cerebral vasogenic edema with midline shift 8 mm. Intermittent recurrent confusional episodes. Complex partial seizure likely. Left temporal field deficits. 2 mm anterior communicating artery aneurysm. Metabolic encephalopathy. Headaches x 1-2 weeks. HTN. Over weight. Plan Continue Decadron 4 mg IV q6h. Continue Keppra 500 mg IV bid. Treat medical diseases. Monitoring HR, BP, glucose level, and signs of GI bleeding. Consulted Neurosurgery, resection today, 11/04. Consulted Oncology. Discussed with her son and other family member Subjective Denies pain Objective Vital Signs Date Time Temp Pulse Resp B/P (MAP) Pulse Ox O2 Delivery O2 Flow Rate FiO2 11/04/19 09:30 97.9 61 19 187/84 100 Room Air 97.9 Intake and Output 11/04/19 07:00 Intake Total 465 ml Output Total 3900 ml Balance -3435 ml Intake Oral 360 ml IV Total 105 ml Output Urine Total 3900 ml PHYSICAL EXAM Physical Exam: Alert. Oriented to place and person. PERRL. EOMI. CN: Left homonymous hemianopsia Muscle tone: normal. Muscle strength: 4/5 DTR: 1+ Plantar reflex: flexor Gait: not examined in bed. Sensory exam: no abnormal findings. No cerebellar signs elicited. Review of Relevant I have reviewed the following items ramin (where applicable) has been applied. Labs Laboratory Tests Test 11/03/19 13:45 White Blood Count 11.1 x10^3/uL (4.0-11.0) Red Blood Count 3.64 x10^6/uL (3.50-5.40) Hemoglobin 12.1 g/dL (12.0-15.5) Hematocrit 35.7 % (36.0-47.0) Mean Corpuscular Volume 98 fL (79-100) Mean Corpuscular Hemoglobin 33 pg (25-35) Mean Corpuscular Hemoglobin Concent 34 g/dL (31-37) Red Cell Distribution Width 11.9 % (11.5-14.5) Platelet Count 240 x10^3/uL (140-400) Sodium Level 136 mmol/L (136-145) Potassium Level 3.9 mmol/L (3.5-5.1) Chloride Level 102 mmol/L (98-107) Carbon Dioxide Level 24 mmol/L (21-32) Anion Gap 10 (6-14) Blood Urea Nitrogen 24 mg/dL (7-20) Creatinine 1.2 mg/dL (0.6-1.0) Estimated GFR (Cockcroft-Gault) 53.0 Glucose Level 133 mg/dL (70-99) Calcium Level 8.3 mg/dL (8.5-10.1) Laboratory Tests Test 11/03/19 13:45 White Blood Count 11.1 x10^3/uL (4.0-11.0) Red Blood Count 3.64 x10^6/uL (3.50-5.40) Hemoglobin 12.1 g/dL (12.0-15.5) Hematocrit 35.7 % (36.0-47.0) Mean Corpuscular Volume 98 fL (79-100) Mean Corpuscular Hemoglobin 33 pg (25-35) Mean Corpuscular Hemoglobin Concent 34 g/dL (31-37) Red Cell Distribution Width 11.9 % (11.5-14.5) Platelet Count 240 x10^3/uL (140-400) Sodium Level 136 mmol/L (136-145) Potassium Level 3.9 mmol/L (3.5-5.1) Chloride Level 102 mmol/L (98-107) Carbon Dioxide Level 24 mmol/L (21-32) Anion Gap 10 (6-14) Blood Urea Nitrogen 24 mg/dL (7-20) Creatinine 1.2 mg/dL (0.6-1.0) Estimated GFR (Cockcroft-Gault) 53.0 Glucose Level 133 mg/dL (70-99) Calcium Level 8.3 mg/dL (8.5-10.1) Medications Current Medications Dexamethasone Sodium Phosphate (Decadron) 4 mg 1X ONCE IVP Last administered on 10/29/19at 18:52; Start 10/29/19 at 16:45; Stop 10/29/19 at 16:46; Status DC Acetaminophen (Tylenol) 500 mg PRN Q6HRS PRN PO MILD PAIN / TEMP Last administered on 11/02/19at 18:35; Start 10/29/19 at 17:00 Ondansetron HCl (Zofran) 4 mg PRN Q6HRS PRN IVP NAUSEA/VOMITING Last administered on 11/02/19 13:55; Start 10/29/19 at 17:00 Sodium Chloride 1,000 ml @ 80 mls/hr [id number] IV Last administered on 11/04/19 00:29; Start 10/29/19 at 17:00 Famotidine (Pepcid Vial) 20 mg QHS IVP Last administered on 11/03/19 20:39; Start 10/29/19 at 21:00 Hydralazine HCl (Apresoline Inj) 10 mg PRN Q4HRS PRN IVP ELEVATED BP, SEE COMMENTS Last administered on 11/04/19 04:24; Start 10/29/19 at 17:00 Dexamethasone Sodium Phosphate (Decadron) 4 mg Q6HRS IVP Last administered on 11/04/19 05:40; Start 10/29/19 at 18:00 Gadoterate Meglumine (Dotarem) 14 ml 1X ONCE IVP Last administered on 10/29/19 17:55; Start 10/29/19 at 17:30; Stop 10/29/19 at 17:40; Status DC Iohexol (Omnipaque 350 Mg/ml) 60 ml 1X ONCE IV Last administered on 10/29/19 18:46; Start 10/29/19 at 18:30; Stop 10/29/19 at 18:31; Status DC Info (CONTRAST GIVEN -- Rx MONITORING) 1 each PRN DAILY PRN MC SEE COMMENTS; Start 10/29/19 at 18:30; Stop 10/31/19 at 18:29; Status DC Levetiracetam 500 mg/Dextrose 105 ml @ 440 mls/hr Q12HR IV Last administered on 11/04/19 12:51; Start 10/29/19 at 21:00 Metoprolol Tartrate (Lopressor) 50 mg DAILY PO ; Start 10/30/19 at 09:00; Status Cancel Hydrochlorothiazide (Microzide) 12.5 mg DAILY PO Last administered on 11/03/19 10:34; Start 10/30/19 at 09:00 Fish Oil (Fish Oil) 1,000 mg DAILY PO Last administered on 12/8/19at 10:34; Start 10/30/19 at 09:00 Multivitamins (Thera M Plus) 1 tab DAILY PO Last administered on 11/03/19 10:34; Start 10/30/19 at 09:00 Morphine Sulfate (Morphine Sulfate) 1 mg PRN Q2HR PRN IV PAIN Last administered on 10/30/19 13:49; Start 10/29/19 at 21:15 Metoprolol Succinate (Toprol Xl) 50 mg DAILY PO Last administered on 11/04/19at 09:00; Start 10/31/19 at 09:00 Losartan Potassium (Cozaar) 100 mg DAILY PO Last administered on 11/04/19at 09:00; Start 10/31/19 at 09:00 Non-Formulary Medication (Multivitamin (Multi Vitamin Daily)) 1 tab DAILY PO ; Start 10/31/19 at 09:00; Status UNV Non-Formulary Medication (Dearborn-3 Fatty Acids/Fish Oil (Dearborn 3 Fish Oil Softgel)) 1 each DAILY PO ; Start 10/31/19 at 09:00; Status UNV Ondansetron HCl (Zofran) 4 mg PRN Q6HRS PRN IV NAUSEA/VOMITING; Start 11/04/19 at 07:00; Stop 11/05/19 at 06:59 Fentanyl Citrate (Fentanyl 2ml Vial) 25 mcg PRN Q5MIN PRN IV MILD PAIN 1-3; Start 11/04/19 at 07:00; Stop 11/05/19 at 06:59 Fentanyl Citrate (Fentanyl 2ml Vial) 50 mcg PRN Q5MIN PRN IV MODERATE TO SEVERE PAIN; Start 11/04/19 at 07:00; Stop 11/05/19 at 06:59 Morphine Sulfate (Morphine Sulfate) 1 mg PRN Q10MIN PRN IV SEVERE PAIN 7-10; Start 11/04/19 at 07:00; Stop 11/05/19 at 06:59 Ringer's Solution 1,000 ml @ 30 mls/hr Q24H IV ; Start 11/04/19 at 07:00; Stop 11/04/19 at 18:59 Lidocaine HCl (Xylocaine-Mpf 1% 2ml Vial) 2 ml PRN 1X PRN ID PRIOR TO IV START; Start 11/04/19 at 07:00; Stop 11/05/19 at 06:59 Hydromorphone HCl (Dilaudid) 0.5 mg PRN Q10MIN PRN IV SEV PAIN, Second choice; Start 11/04/19 at 07:00; Stop 11/05/19 at 06:59 Prochlorperazine Edisylate (Compazine) 5 mg PACU PRN PRN IV NAUSEA, MRX1; Start 11/04/19 at 07:00; Stop 11/05/19 at 06:59 Bacitracin 32624 unit/Sodium Chloride 1,000 ml @ 1,000 mls/hr 1X ONCE IRR ; Start 11/04/19 at 06:00; Stop 11/04/19 at 06:59; Status DC Bupivacaine HCl/ Epinephrine Bitart (Sensorcain-Epi 0.5%-1:207190 Mpf) 30 ml 1X ONCE INJ ; Start 11/04/19 at 06:30; Stop 11/04/19 at 06:31; Status DC Cefazolin Sodium/ Dextrose 50 ml @ 100 mls/hr 1X PREOP ONCE IV ; Start 11/03/19 at 10:00; Stop 11/03/19 at 10:29; Status Cancel Cefazolin Sodium/ Dextrose 50 ml @ 100 mls/hr 1X PREOP ONCE IV Last administered on 11/04/19at 12:15; Start 11/04/19 at 10:00; Stop 11/04/19 at 10:29; Status DC Gelatin (Gelfoam Size 100) 1 each STK-MED ONCE .ROUTE ; Start 11/04/19 at 07:4 8; Stop 11/04/19 at 07:48; Status DC Ketorolac Tromethamine (Toradol Im) 60 mg STK-MED ONCE .ROUTE ; Start 11/04/19 at 07:48; Stop 11/04/19 at 07:48; Status DC Thrombin 20,000 unit STK-MED ONCE TP ; Start 11/04/19 at 07:48; Stop 11/04/19 at 07:48; Status DC Gadoterate Meglumine (Dotarem) 14 ml 1X ONCE IVP Last administered on 11/04/19at 08:15; Start 11/04/19 at 08:15; Stop 11/04/19 at 08:16; Status DC Propofol 20 ml @ As Directed STK-MED ONCE IV ; Start 11/04/19 at 09:19; Stop 11/04/19 at 09:19; Status DC Lidocaine HCl (Lidocaine Pf 2% Vial) 5 ml STK-MED ONCE .ROUTE ; Start 11/04/19 at 09:19; Stop 11/04/19 at 09:19; Status DC Fentanyl Citrate (Fentanyl 2ml Vial) 100 mcg STK-MED ONCE .ROUTE ; Start 11/04/19 at 09:19; Stop 11/04/19 at 09:19; Status DC Rocuronium [place] (Zemuron) 50 mg STK-MED ONCE .ROUTE ; Start 11/04/19 at 09:19; Stop 11/04/19 at 09:19; Status DC Remifentanil HCl (Ultiva) 2 mg STK-MED ONCE IV ; Start 11/04/19 at 09:19; Stop 11/04/19 at 09:19; Status DC Sodium Chloride (SODIUM CHLORIDE 20ml) 20 ml STK-MED ONCE IJ ; Start 11/04/19 at 09:19; Stop 11/04/19 at 09:20; Status DC Dexamethasone Sodium Phosphate (Decadron) 20 mg STK-MED ONCE .ROUTE ; Start 11/04/19 at 12:15; Stop 11/04/19 at 12:16; Status DC Desflurane (Suprane) 90 ml STK-MED ONCE IH ; Start 11/04/19 at 12:15; Stop 11/04/19 at 12:16; Status DC Ondansetron HCl (Zofran) 4 mg STK-MED ONCE .ROUTE ; Start 11/04/19 at 12:42; Stop 11/04/19 at 12:42; Status DC Glycopyrrolate (Robinul) 1 mg STK-MED ONCE .ROUTE ; Start 11/04/19 at 12:42; Stop 11/04/19 at 12:42; Status DC Neostigmine Methylsulfate (Neostigmine Methylsulfate) 5 mg STK-MED ONCE .ROUTE ; Start 11/04/19 at 12:42; Stop 11/04/19 at 12:42; Status DC Mannitol 500 ml @ As Directed STK-MED ONCE IV ; Start 11/04/19 at 12:53; Stop 11/04/19 at 12:53; Status DC Active Scripts Active Reported Multi Vitamin Daily (Multivitamin) 1 Each Tablet 1 Tab PO DAILY 30 Days Dearborn 3 Fish Oil Softgel (Dearborn-3 Fatty Acids/Fish Oil) 1 Each Capsule.dr 1 Each PO DAILY Losartan-Hctz 100-12.5 Mg Tab (Losartan/Hydrochlorothiazide) 1 Each Tablet 1 Tab PO DAILY Toprol XL (Metoprolol Succinate) 50 Mg Tab.er.24h 50 Mg PO DAILY Vitals/I & O Vital Sign - Last 24 Hours 11/03/19 11/03/19 11/03/19 11/03/19 15:00 19:55 20:00 23:57 Temp 97.8 98.3 98.2 97.8 98.3 98.2 Pulse 63 61 51 Resp 20 20 B/P (MAP) 128/54 (78) 115/58 (77) 164/69 (100) Pulse Ox 100 98 98 O2 Delivery Room Air Room Air Room Air Room Air 11/04/19 11/04/19 11/04/19 11/04/19 03:58 04:24 07:39 08:00 Temp 98.6 97.8 98.6 97.8 Pulse 51 51 62 Resp 20 20 B/P (MAP) 174/87 (116) 174/87 154/75 (101) Pulse Ox 99 100 O2 Delivery Room Air Room Air Room Air 11/04/19 11/04/19 11/04/19 09:00 09:00 09:30 Temp 97.9 97.9 Pulse 57 61 61 Resp 19 B/P (MAP) 187/84 187/84 187/84 Pulse Ox 100 O2 Delivery Room Air Intake and Output 11/03/19 11/03/19 11/04/19 15:00 23:00 07:00 Intake Total 300 ml 105 ml 60 ml Output Total 1450 ml 1250 ml 1200 ml Balance -1150 ml -1145 ml -1140 ml TRICIA ROSS MD Nov 04, 2019 13:06
[2019-11-04] MEDS ORDERED: ceFAZolin SODIUM 1 GM VIAL ONE (13:19)
[2019-11-04] MEDS ORDERED: PHENYLEPHRINE in 0.9% NACL PF 1 MG/10 ML SYRINGE. IV ONE (14:18)
[2019-11-04] MEDS ORDERED: SURGICEL HEMOSTAT 4X8 EACH. ONE (14:45)
--- NOTE | 2019-11-04 18:17 | NUR ---
Pt arrived to [facility] @ 1654. Pt awake, but confused. Hooked up to ICU monitors. Arterial line in place. Surgical dressing has a small amount of drainage. Family at bedside, questions answered. Pt resting comfortably in bed.
[2019-11-04] MEDS: FAMOTIDINE 20 MG/2 ML VIAL IVP SCH (21:19)
[2019-11-04] MEDS: fentaNYL PF VIAL 100 MCG/2 ML VIAL IVP PRN (22:01)
[2019-11-05] VITALS (24 sets, daily range): BP systolic 92–167; BP diastolic 46–72
[2019-11-05] MEDS: DEXAMETHASONE SOD PHOS 4 MG/ML VIAL IVP SCH ×4 (00:22→18:38)
--- NOTE | 2019-11-05 00:25 | NUR ---
Dose of Decadron given by day shift RN at 1753 but e[facility] did not register this as 1800 dose. Would not allow this RN to scan 0000 dose without doing something about the 1800 one. Documented as "nonadministered", but patient did receive medication at 1753 as shown in [facility] records.
[2019-11-05] MEDS: fentaNYL PF VIAL 100 MCG/2 ML VIAL IVP PRN ×2 (01:33→08:18)
[2019-11-05] MEDS: IV NORMAL SALINE 1000ML BAG 1,000 ML IV SCH ×2 (03:33→17:06)
[2019-11-05] MEDS: hydrALAZINE 20 MG/ML VIAL. IVP PRN (03:33)
[2019-11-05 05:56] LABS: BASO % 0 % (0-3); EOS % 0 % (0-3); HEMATOCRIT 32.7 % (36.0-47.0); HEMOGLOBIN 11.2 g/dL (12.0-15.5); LYMPH # 1.5 x10^3/uL (1.0-4.8); LYMPH % 9 % (24-48); MEAN CORPUSCULAR HEMOGLOBIN 33 pg (25-35); MEAN CORPUSCULAR HGB CONC 34 g/dL (31-37); MEAN CORPUSCULAR VOLUME 98 fL (79-100); MONO # 1.1 x10^3/uL (0.0-1.1); MONO % 7 % (0-9); NEUT # 14.4 x10^3/uL (1.8-7.7); NEUT % 85 % (31-73); PLATELET COUNT 218 x10^3/uL (140-400); RED BLOOD COUNT 3.35 x10^6/uL (3.50-5.40); RED CELL DISTRIBUTION WIDTH 11.8 % (11.5-14.5); WHITE BLOOD COUNT 17.1 x10^3/uL (4.0-11.0)
[2019-11-05 06:12] LABS: CALCIUM 7.9 mg/dL (8.5-10.1); CREATININE 1.1 mg/dL (0.6-1.0); GFR 58.6; POTASSIUM 4.1 mmol/L (3.5-5.1)
[2019-11-05 07:21] LABS: % BANDS 1 % (0-9); % LYMPHS 6 % (24-48); % MONOS 2 % (0-10); % SEGS 91 % (35-66)
[2019-11-05 07:22] LABS: ANISOCYTOSIS SLIGHT; PLT ESTIMATE ADEQUATE (ADEQUATE); TOXIC VACUOLATION PRESENT
--- NOTE | 2019-11-05 08:57 | PDOC ---
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 Tumor necrotic hemorrhage. Cerebral vasogenic edema with midline shift 8 mm. Intermittent recurrent confusional episodes. Complex partial seizure likely. Left temporal field deficits. 2 mm anterior communicating artery aneurysm. Metabolic encephalopathy. Headaches x 1-2 weeks. HTN. Plan Decadron taper per neurosurgery. Continue Keppra 500 mg IV bid. Discussed with her son Subjective Denies pain Objective Vital Signs Date Time Temp Pulse Resp B/P (MAP) Pulse Ox O2 Delivery O2 Flow Rate FiO2 11/05/19 08:48 16 99 Room Air 11/05/19 07:00 64 131/55 (80) 11/05/19 04:00 98.8 98.8 11/04/19 16:04 8 Intake and Output 11/05/19 07:00 Intake Total 2335 ml Output Total 3270 ml Balance -935 ml IV Total 2335 ml Output Urine Total 3170 ml Estimated Blood Loss 100 ml PHYSICAL EXAM Physical Exam: Alert. Oriented to place and person. PERRL. EOMI. CN: Left homonymous hemianopsia, slight left central facial palsy Muscle tone: normal. Muscle strength: 4/5 DTR: 1+ Plantar reflex: flexor Gait: not examined in bed. Sensory exam: no abnormal findings. No cerebellar signs elicited. Review of Relevant I have reviewed the following items ramin (where applicable) has been applied. Labs Laboratory Tests Test 11/03/19 13:45 11/05/19 05:30 White Blood Count 11.1 x10^3/uL (4.0-11.0) 17.1 x10^3/uL (4.0-11.0) Red Blood Count 3.64 x10^6/uL (3.50-5.40) 3.35 x10^6/uL (3.50-5.40) Hemoglobin 12.1 g/dL (12.0-15.5) 11.2 g/dL (12.0-15.5) Hematocrit 35.7 % (36.0-47.0) 32.7 % (36.0-47.0) Mean Corpuscular Volume 98 fL (79-100) 98 fL (79-100) Mean Corpuscular Hemoglobin 33 pg (25-35) 33 pg (25-35) Mean Corpuscular Hemoglobin Concent 34 g/dL (31-37) 34 g/dL (31-37) Red Cell Distribution Width 11.9 % (11.5-14.5) 11.8 % (11.5-14.5) Platelet Count 240 x10^3/uL (140-400) 218 x10^3/uL (140-400) Sodium Level 136 mmol/L (136-145) 138 mmol/L (136-145) Potassium Level 3.9 mmol/L (3.5-5.1) 4.1 mmol/L (3.5-5.1) Chloride Level 102 mmol/L (98-107) 106 mmol/L (98-107) Carbon Dioxide Level 24 mmol/L (21-32) 22 mmol/L (21-32) Anion Gap 10 (6-14) 10 (6-14) Blood Urea Nitrogen 24 mg/dL (7-20) 24 mg/dL (7-20) Creatinine 1.2 mg/dL (0.6-1.0) 1.1 mg/dL (0.6-1.0) Estimated GFR (Cockcroft-Gault) 53.0 58.6 Glucose Level 133 mg/dL (70-99) 123 mg/dL (70-99) Calcium Level 8.3 mg/dL (8.5-10.1) 7.9 mg/dL (8.5-10.1) Neutrophils (%) (Auto) 85 % (31-73) Lymphocytes (%) (Auto) 9 % (24-48) Monocytes (%) (Auto) 7 % (0-9) Eosinophils (%) (Auto) 0 % (0-3) Basophils (%) (Auto) 0 % (0-3) Neutrophils # (Auto) 14.4 x10^3/uL (1.8-7.7) Lymphocytes # (Auto) 1.5 x10^3/uL (1.0-4.8) Monocytes # (Auto) 1.1 x10^3/uL (0.0-1.1) Eosinophils # (Auto) 0.0 x10^3/uL (0.0-0.7) Basophils # (Auto) 0.0 x10^3/uL (0.0-0.2) Segmented Neutrophils % 91 % (35-66) Band Neutrophils % 1 % (0-9) Lymphocytes % 6 % (24-48) Monocytes % 2 % (0-10) Toxic Vacuolation Present Platelet Estimate Adequate (ADEQUATE) Anisocytosis Slight Laboratory Tests Test 11/05/19 05:30 White Blood Count 17.1 x10^3/uL (4.0-11.0) Red Blood Count 3.35 x10^6/uL (3.50-5.40) Hemoglobin 11.2 g/dL (12.0-15.5) Hematocrit 32.7 % (36.0-47.0) Mean Corpuscular Volume 98 fL (79-100) Mean Corpuscular Hemoglobin 33 pg (25-35) Mean Corpuscular Hemoglobin Concent 34 g/dL (31-37) Red Cell Distribution Width 11.8 % (11.5-14.5) Platelet Count 218 x10^3/uL (140-400) Neutrophils (%) (Auto) 85 % (31-73) Lymphocytes (%) (Auto) 9 % (24-48) Monocytes (%) (Auto) 7 % (0-9) Eosinophils (%) (Auto) 0 % (0-3) Basophils (%) (Auto) 0 % (0-3) Neutrophils # (Auto) 14.4 x10^3/uL (1.8-7.7) Lymphocytes # (Auto) 1.5 x10^3/uL (1.0-4.8) Monocytes # (Auto) 1.1 x10^3/uL (0.0-1.1) Eosinophils # (Auto) 0.0 x10^3/uL (0.0-0.7) Basophils # (Auto) 0.0 x10^3/uL (0.0-0.2) Segmented Neutrophils % 91 % (35-66) Band Neutrophils % 1 % (0-9) Lymphocytes % 6 % (24-48) Monocytes % 2 % (0-10) Toxic Vacuolation Present Platelet Estimate Adequate (ADEQUATE) Anisocytosis Slight Sodium Level 138 mmol/L (136-145) Potassium Level 4.1 mmol/L (3.5-5.1) Chloride Level 106 mmol/L (98-107) Carbon Dioxide Level 22 mmol/L (21-32) Anion Gap 10 (6-14) Blood Urea Nitrogen 24 mg/dL (7-20) Creatinine 1.1 mg/dL (0.6-1.0) Estimated GFR (Cockcroft-Gault) 58.6 Glucose Level 123 mg/dL (70-99) Calcium Level 7.9 mg/dL (8.5-10.1) Medications Current Medications Dexamethasone Sodium Phosphate (Decadron) 4 mg 1X ONCE IVP Last administered on 10/29/19 18:52; Start 10/29/19 at 16:45; Stop 10/29/19 at 16:46; Status DC Acetaminophen (Tylenol) 500 mg PRN Q6HRS PRN PO MILD PAIN / TEMP Last administered on 11/02/19 18:35; Start 10/29/19 at 17:00 Ondansetron HCl (Zofran) 4 mg PRN Q6HRS PRN IVP NAUSEA/VOMITING Last administered on 11/02/19 13:55; Start 10/29/19 at 17:00 Sodium Chloride 1,000 ml @ 80 mls/hr [id number] IV Last administered on 11/05/19 03:33; Start 10/29/19 at 17:00 Famotidine (Pepcid Vial) 20 mg QHS IVP Last administered on 11/04/19 21:19; Start 10/29/19 at 21:00 Hydralazine HCl (Apresoline Inj) 10 mg PRN Q4HRS PRN IVP ELEVATED BP, SEE COMMENTS Last administered on 11/05/19 03:33; Start 10/29/19 at 17:00 Dexamethasone Sodium Phosphate (Decadron) 4 mg Q6HRS IVP Last administered on 11/05/19 05:38; Start 10/29/19 at 18:00 Gadoterate Meglumine (Dotarem) 14 ml 1X ONCE IVP Last administered on 10/29/19 17:55; Start 10/29/19 at 17:30; Stop 10/29/19 at 17:40; Status DC Iohexol (Omnipaque 350 Mg/ml) 60 ml 1X ONCE IV Last administered on 10/29/19 18:46; Start 10/29/19 at 18:30; Stop 10/29/19 at 18:31; Status DC Info (CONTRAST GIVEN -- Rx MONITORING) 1 each PRN DAILY PRN MC SEE COMMENTS; Start 10/29/19 at 18:30; Stop 10/31/19 at 18:29; Status DC Levetiracetam 500 mg/Dextrose 105 ml @ 440 mls/hr Q12HR IV Last administered on 11/04/19at 21:20; Start 10/29/19 at 21:00 Metoprolol Tartrate (Lopressor) 50 mg DAILY PO ; Start 10/30/19 at 09:00; Status Cancel Hydrochlorothiazide (Microzide) 12.5 mg DAILY PO Last administered on 11/03/19 10:34; Start 10/30/19 at 09:00 Fish Oil (Fish Oil) 1,000 mg DAILY PO Last administered on 11/03/19 10:34; Start 10/30/19 at 09:00 Multivitamins (Thera M Plus) 1 tab DAILY PO Last administered on 11/03/19 10:3 4; Start 10/30/19 at 09:00 Morphine Sulfate (Morphine Sulfate) 1 mg PRN Q2HR PRN IV PAIN Last administered on 10/30/19 13:49; Start 10/29/19 at 21:15 Metoprolol Succinate (Toprol Xl) 50 mg DAILY PO Last administered on 11/04/19at 09:00; Start 10/31/19 at 09:00 Losartan Potassium (Cozaar) 100 mg DAILY PO Last administered on 11/04/19at 09:00; Start 10/31/19 at 09:00 Non-Formulary Medication (Multivitamin (Multi Vitamin Daily)) 1 tab DAILY PO ; Start 10/31/19 at 09:00; Status UNV Non-Formulary Medication (Nimitz-3 Fatty Acids/Fish Oil (Nimitz 3 Fish Oil Softgel)) 1 each DAILY PO ; Start 10/31/19 at 09:00; Status UNV Ondansetron HCl (Zofran) 4 mg PRN Q6HRS PRN IV NAUSEA/VOMITING; Start 11/04/19 at 07:00; Stop 11/05/19 at 06:59; Status DC Fentanyl Citrate (Fentanyl 2ml Vial) 25 mcg PRN Q5MIN PRN IV MILD PAIN 1-3 Last administered on 11/04/19at 18:31; Start 11/04/19 at 07:00; Stop 11/05/19 at 06:59; Status DC Fentanyl Citrate (Fentanyl 2ml Vial) 50 mcg PRN Q5MIN PRN IV MODERATE TO SEVERE PAIN; Start 11/04/19 at 07:00; Stop 11/05/19 at 06:59; Status DC Morphine Sulfate (Morphine Sulfate) 1 mg PRN Q10MIN PRN IV SEVERE PAIN 7-10; Start 11/04/19 at 07:00; Stop 11/05/19 at 06:59; Status DC Ringer's Solution 1,000 ml @ 30 mls/hr Q24H IV ; Start 11/04/19 at 07:00; Stop 11/04/19 at 18:59; Status DC Lidocaine HCl (Xylocaine-Mpf 1% 2ml Vial) 2 ml PRN 1X PRN ID PRIOR TO IV START; Start 11/04/19 at 07:00; Stop 11/05/19 at 06:59; Status DC Hydromorphone HCl (Dilaudid) 0.5 mg PRN Q10MIN PRN IV SEV PAIN, Second choice; Start 11/04/19 at 07:00; Stop 11/05/19 at 06:59; Status DC Prochlorperazine Edisylate (Compazine) 5 mg PACU PRN PRN IV NAUSEA, MRX1; Start 11/04/19 at 07:00; Stop 11/05/19 at 06:59; Status DC Bacitracin 26758 unit/Sodium Chloride 1,000 ml @ 1,000 mls/hr 1X ONCE IRR Last administered on 11/04/19at 13:22; Start 11/04/19 at 06:00; Stop 11/04/19 at 06:59; Status DC Bupivacaine HCl/ Epinephrine Bitart (Sensorcain-Epi 0.5%-1:991627 Mpf) 30 ml 1X ONCE INJ Last administered on 11/04/19at 13:22; Start 11/04/19 at 06:30; Stop 11/04/19 at 06:31; Status DC Cefazolin Sodium/ Dextrose 50 ml @ 100 mls/hr 1X PREOP ONCE IV ; Start 11/03/19 at 10:00; Stop 11/03/19 at 10:29; Status Cancel Cefazolin Sodium/ Dextrose 50 ml @ 100 mls/hr 1X PREOP ONCE IV Last administered on 11/04/19at 12:15; Start 11/04/19 at 10:00; Stop 11/04/19 at 10:29; Status DC Gelatin (Gelfoam Size 100) 1 each STK-MED ONCE .ROUTE Last administered on 11/04/19at 13:22; Start 11/04/19 at 07:48; Stop 11/04/19 at 07:48; Status DC Ketorolac Tromethamine (Toradol Im) 60 mg STK-MED ONCE .ROUTE ; Start 11/04/19 at 07:48; Stop 11/04/19 at 07:48; Status DC Thrombin 20,000 unit STK-MED ONCE TP Last administered on 11/04/19at 13:22; Start 11/04/19 at 07:48; Stop 11/04/19 at 07:48; Status DC Gadoterate Meglumine (Dotarem) 14 ml 1X ONCE IVP Last administered on 11/04/19at 08:15; Start 11/04/19 at 08:15; Stop 11/04/19 at 08:16; Status DC Propofol 20 ml @ As Directed STK-MED ONCE IV ; Start 11/04/19 at 09:19; Stop 11/04/19 at 09:19; Status DC Lidocaine HCl (Lidocaine Pf 2% Vial) 5 ml STK-MED ONCE .ROUTE ; Start 11/04/19 at 09:19; Stop 11/04/19 at 09:19; Status DC Fentanyl Citrate (Fentanyl 2ml Vial) 100 mcg STK-MED ONCE .ROUTE ; Start 11/04/19 at 09:19; Stop 11/04/19 at 09:19; Status DC Rocuronium [place] (Zemuron) 50 mg STK-MED ONCE .ROUTE ; Start 11/04/19 at 09:19; Stop 11/04/19 at 09:19; Status DC Remifentanil HCl (Ultiva) 2 mg STK-MED ONCE IV ; Start 11/04/19 at 09:19; Stop 11/04/19 at 09:19; Status DC Sodium Chloride (SODIUM CHLORIDE 20ml) 20 ml STK-MED ONCE IJ ; Start 11/04/19 at 09:19; Stop 11/04/19 at 09:20; Status DC Dexamethasone Sodium Phosphate (Decadron) 20 mg STK-MED ONCE .ROUTE ; Start 11/04/19 at 12:15; Stop 11/04/19 at 12:16; Status DC Desflurane (Suprane) 90 ml STK-MED ONCE IH ; Start 11/04/19 at 12:15; Stop 11/04/19 at 12:16; Status DC Ondansetron HCl (Zofran) 4 mg STK-MED ONCE .ROUTE ; Start 11/04/19 at 12:42; Stop 11/04/19 at 12:42; Status DC Glycopyrrolate (Robinul) 1 mg STK-MED ONCE .ROUTE ; Start 11/04/19 at 12:42; S top 11/04/19 at 12:42; Status DC Neostigmine Methylsulfate (Neostigmine Methylsulfate) 5 mg STK-MED ONCE .ROUTE ; Start 11/04/19 at 12:42; Stop 11/04/19 at 12:42; Status DC Mannitol 500 ml @ As Directed STK-MED ONCE IV ; Start 11/04/19 at 12:53; Stop 11/04/19 at 12:53; Status DC Cefazolin Sodium (Ancef) 1 gm STK-MED ONCE .ROUTE ; Start 11/04/19 at 13:19; Stop 11/04/19 at 13:19; Status DC Phenylephrine HCl (PHENYLEPHRINE in 0.9% NACL PF) 1 mg STK-MED ONCE IV ; Start 11/04/19 at 14:18; Stop 11/04/19 at 14:18; Status DC Cellulose (Surgicel Hemostat 4x8) 1 each STK-MED ONCE .ROUTE Last administered on 11/04/19at 14:50; Start 11/04/19 at 14:45; Stop 11/04/19 at 14:46; Status DC Fentanyl Citrate (Fentanyl 2ml Vial) 50 mcg PRN Q2HR PRN IVP PAIN Last administ ered on 11/05/19at 08:18; Start 11/04/19 at 16:15 Active Scripts Active Reported Multi Vitamin Daily (Multivitamin) 1 Each Tablet 1 Tab PO DAILY 30 Days Nimitz 3 Fish Oil Softgel (Nimitz-3 Fatty Acids/Fish Oil) 1 Each Capsule. 1 Each PO DAILY Losartan-Hctz 100-12.5 Mg Tab (Losartan/Hydrochlorothiazide) 1 Each Tablet 1 Tab PO DAILY Toprol XL (Metoprolol Succinate) 50 Mg Tab.er.24h 50 Mg PO DAILY Vitals/I & O Vital Sign - Last 24 Hours 11/04/19 11/04/19 11/04/19 11/04/19 09:00 09:00 09:30 15:48 Temp 97.9 97.9 Pulse 57 61 61 Resp 19 B/P (MAP) 187/84 187/84 187/84 Pulse Ox 100 O2 Delivery Room Air Room Air 11/04/19 11/04/19 11/04/19 11/04/19 15:49 16:04 16:19 16:34 Temp 97.2 97.2 97.2 97.6 97.2 97.2 97.2 97.6 Pulse 94 58 48 48 Resp 17 18 18 19 B/P (MAP) 143/82 145/59 141/58 134/59 Pulse Ox 100 100 100 99 O2 Delivery Simple Mask Simple Mask Room Air Room Air O2 Flow Rate 8 8 11/04/19 11/04/19 11/04/19 11/04/19 17:00 17:00 17:00 17:15 Temp 97.4 97.4 Pulse 50 50 Resp 13 10 B/P (MAP) 170/60 (96) 170/60 (96) Pulse Ox 100 100 O2 Delivery Room Air Room Air Room Air 11/04/19 11/04/19 11/04/19 11/04/19 17:30 17:45 17:52 18:00 Pulse 56 46 48 59 Resp 15 9 20 B/P (MAP) 160/60 (93) 168/62 (97) 162/59 142/49 (80) Pulse Ox 100 100 100 O2 Delivery Room Air Room Air Room Air 11/04/19 11/04/19 11/04/19 11/04/19 18:31 19:00 20:00 20:00 Pulse 54 54 Resp 20 12 B/P (MAP) 151/46 (81) 148/50 (82) Pulse Ox 100 98 O2 Delivery Room Air Room Air Room Air 11/04/19 11/04/19 11/04/19 11/04/19 20:00 21:00 22:00 23:00 Temp 98.0 98.0 Pulse 54 63 52 54 Resp 15 25 14 29 B/P (MAP) 148/50 (82) 150/57 (88) 125/51 (75) 146/58 (87) Pulse Ox 98 99 97 99 O2 Delivery Room Air Room Air Room Air Room Air 11/05/19 11/05/19 11/05/19 11/05/19 00:00 00:00 00:00 01:00 Temp 98.6 98.6 Pulse 54 54 56 Resp 14 17 B/P (MAP) 155/55 (88) 155/55 (88) 167/60 (95) Pulse Ox 99 95 O2 Delivery Room Air Room Air Room Air 11/05/19 11/05/19 11/05/19 11/05/19 02:00 03:00 03:33 04:00 Temp 98.8 98.8 Pulse 53 54 56 55 Resp 14 15 14 B/P (MAP) 156/56 (89) 158/56 (90) 173/66 139/52 (81) Pulse Ox 97 98 98 O2 Delivery Room Air Room Air Room Air 11/05/19 11/05/19 11/05/19 11/05/19 04:00 04:00 05:00 06:00 Pulse 55 63 66 Resp 14 17 B/P (MAP) 139/52 (81) 150/58 (88) 145/58 (87) Pulse Ox 98 98 O2 Delivery Room Air Room Air Room Air 11/05/19 11/05/19 11/05/19 07:00 08:18 08:48 Pulse 64 Resp 20 20 16 B/P (MAP) 131/55 (80) Pulse Ox 99 100 99 O2 Delivery Room Air Room Air Room Air Intake and Output 11/04/19 11/04/19 11/05/19 15:00 23:00 07:00 Intake Total 1050 ml 390 ml 895 ml Output Total 1100 ml 1715 ml 455 ml Balance -50 ml -1325 ml 440 ml TRICIA ROSS MD Nov 05, 2019 08:57
--- NOTE | 2019-11-05 09:12 | PDOC ---
PROGRESS NOTES Subjective Subjective HPI - f/u of GBM Objective Objective Vital Signs Date Time Temp Pulse Resp B/P (MAP) Pulse Ox O2 Delivery O2 Flow Rate FiO2 11/05/19 08:48 16 99 Room Air 11/05/19 07:00 64 131/55 (80) 11/05/19 04:00 98.8 98.8 11/04/19 16:04 8 Intake and Output 11/05/19 07:00 Intake Total 2335 ml Output Total 3270 ml Balance -935 ml IV Total 2335 ml Output Urine Total 3170 ml Estimated Blood Loss 100 ml Physical Exam Heart: Normal S1, Normal S2 General: No acute distress Lungs: Clear to auscultation Assessment Assessment Problems Medical Problems: (1) Confusion Status: Acute (2) Hyponatremia Status: Acute (3) Intracranial hemorrhage Status: Acute Assessment and Plan: She is a 74-year-old female with suspected GBM on steroids, neurosurgery and neurology are involved and radiation oncology as well, s/p debulking 11/04/19. 1. GBM (per frozen section): We will follow-up adjuvantly for treatment as able based on performance status postoperatively. s/p debulking 11/04/19. I d/w pt's son Abdullahi. 2. Headache/Memory loss, Aphasia: On dexamethasone, neurology is involved Comment Review of Relevant I have reviewed the following items ramin (where applicable) has been applied. Labs Laboratory Tests Test 11/03/19 13:45 11/05/19 05:30 White Blood Count 11.1 x10^3/uL (4.0-11.0) 17.1 x10^3/uL (4.0-11.0) Red Blood Count 3.64 x10^6/uL (3.50-5.40) 3.35 x10^6/uL (3.50-5.40) Hemoglobin 12.1 g/dL (12.0-15.5) 11.2 g/dL (12.0-15.5) Hematocrit 35.7 % (36.0-47.0) 32.7 % (36.0-47.0) Mean Corpuscular Volume 98 fL (79-100) 98 fL (79-100) Mean Corpuscular Hemoglobin 33 pg (25-35) 33 pg (25-35) Mean Corpuscular Hemoglobin Concent 34 g/dL (31-37) 34 g/dL (31-37) Red Cell Distribution Width 11.9 % (11.5-14.5) 11.8 % (11.5-14.5) Platelet Count 240 x10^3/uL (140-400) 218 x10^3/uL (140-400) Sodium Level 136 mmol/L (136-145) 138 mmol/L (136-145) Potassium Level 3.9 mmol/L (3.5-5.1) 4.1 mmol/L (3.5-5.1) Chloride Level 102 mmol/L (98-107) 106 mmol/L (98-107) Carbon Dioxide Level 24 mmol/L (21-32) 22 mmol/L (21-32) Anion Gap 10 (6-14) 10 (6-14) Blood Urea Nitrogen 24 mg/dL (7-20) 24 mg/dL (7-20) Creatinine 1.2 mg/dL (0.6-1.0) 1.1 mg/dL (0.6-1.0) Estimated GFR (Cockcroft-Gault) 53.0 58.6 Glucose Level 133 mg/dL (70-99) 123 mg/dL (70-99) Calcium Level 8.3 mg/dL (8.5-10.1) 7.9 mg/dL (8.5-10.1) Neutrophils (%) (Auto) 85 % (31-73) Lymphocytes (%) (Auto) 9 % (24-48) Monocytes (%) (Auto) 7 % (0-9) Eosinophils (%) (Auto) 0 % (0-3) Basophils (%) (Auto) 0 % (0-3) Neutrophils # (Auto) 14.4 x10^3/uL (1.8-7.7) Lymphocytes # (Auto) 1.5 x10^3/uL (1.0-4.8) Monocytes # (Auto) 1.1 x10^3/uL (0.0-1.1) Eosinophils # (Auto) 0.0 x10^3/uL (0.0-0.7) Basophils # (Auto) 0.0 x10^3/uL (0.0-0.2) Segmented Neutrophils % 91 % (35-66) Band Neutrophils % 1 % (0-9) Lymphocytes % 6 % (24-48) Monocytes % 2 % (0-10) Toxic Vacuolation Present Platelet Estimate Adequate (ADEQUATE) Anisocytosis Slight Laboratory Tests Test 11/05/19 05:30 White Blood Count 17.1 x10^3/uL (4.0-11.0) Red Blood Count 3.35 x10^6/uL (3.50-5.40) Hemoglobin 11.2 g/dL (12.0-15.5) Hematocrit 32.7 % (36.0-47.0) Mean Corpuscular Volume 98 fL (79-100) Mean Corpuscular Hemoglobin 33 pg (25-35) Mean Corpuscular Hemoglobin Concent 34 g/dL (31-37) Red Cell Distribution Width 11.8 % (11.5-14.5) Platelet Count 218 x10^3/uL (140-400) Neutrophils (%) (Auto) 85 % (31-73) Lymphocytes (%) (Auto) 9 % (24-48) Monocytes (%) (Auto) 7 % (0-9) Eosinophils (%) (Auto) 0 % (0-3) Basophils (%) (Auto) 0 % (0-3) Neutrophils # (Auto) 14.4 x10^3/uL (1.8-7.7) Lymphocytes # (Auto) 1.5 x10^3/uL (1.0-4.8) Monocytes # (Auto) 1.1 x10^3/uL (0.0-1.1) Eosinophils # (Auto) 0.0 x10^3/uL (0.0-0.7) Basophils # (Auto) 0.0 x10^3/uL (0.0-0.2) Segmented Neutrophils % 91 % (35-66) Band Neutrophils % 1 % (0-9) Lymphocytes % 6 % (24-48) Monocytes % 2 % (0-10) Toxic Vacuolation Present Platelet Estimate Adequate (ADEQUATE) Anisocytosis Slight Sodium Level 138 mmol/L (136-145) Potassium Level 4.1 mmol/L (3.5-5.1) Chloride Level 106 mmol/L (98-107) Carbon Dioxide Level 22 mmol/L (21-32) Anion Gap 10 (6-14) Blood Urea Nitrogen 24 mg/dL (7-20) Creatinine 1.1 mg/dL (0.6-1.0) Estimated GFR (Cockcroft-Gault) 58.6 Glucose Level 123 mg/dL (70-99) Calcium Level 7.9 mg/dL (8.5-10.1) Medications Current Medications Dexamethasone Sodium Phosphate (Decadron) 4 mg 1X ONCE IVP Last administered on 10/29/19 18:52; Start 10/29/19 at 16:45; Stop 10/29/19 at 16:46; Status DC Acetaminophen (Tylenol) 500 mg PRN Q6HRS PRN PO MILD PAIN / TEMP Last administered on 11/02/19 18:35; Start 10/29/19 at 17:00 Ondansetron HCl (Zofran) 4 mg PRN Q6HRS PRN IVP NAUSEA/VOMITING Last administered on 11/02/19 13:55; Start 10/29/19 at 17:00 Sodium Chloride 1,000 ml @ 80 mls/hr [id number] IV Last administered on 11/05/19 03:33; Start 10/29/19 at 17:00 Famotidine (Pepcid Vial) 20 mg QHS IVP Last administered on 11/04/19 21:19; Start 10/29/19 at 21:00 Hydralazine HCl (Apresoline Inj) 10 mg PRN Q4HRS PRN IVP ELEVATED BP, SEE COMMENTS Last administered on 11/05/19 03:33; Start 10/29/19 at 17:00 Dexamethasone Sodium Phosphate (Decadron) 4 mg Q6HRS IVP Last administered on 11/05/19 05:38; Start 10/29/19 at 18:00 Gadoterate Meglumine (Dotarem) 14 ml 1X ONCE IVP Last administered on 10/29/19 17:55; Start 10/29/19 at 17:30; Stop 10/29/19 at 17:40; Status DC Iohexol (Omnipaque 350 Mg/ml) 60 ml 1X ONCE IV Last administered on 10/29/19 18:46; Start 10/29/19 at 18:30; Stop 10/29/19 at 18:31; Status DC Info (CONTRAST GIVEN -- Rx MONITORING) 1 each PRN DAILY PRN MC SEE COMMENTS; Start 10/29/19 at 18:30; Stop 10/31/19 at 18:29; Status DC Levetiracetam 500 mg/Dextrose 105 ml @ 440 mls/hr Q12HR IV Last administered on 11/04/19at 21:20; Start 10/29/19 at 21:00 Metoprolol Tartrate (Lopressor) 50 mg DAILY PO ; Start 10/30/19 at 09:00; Status Cancel Hydrochlorothiazide (Microzide) 12.5 mg DAILY PO Last administered on 11/03/19 10:34; Start 10/30/19 at 09:00 Fish Oil (Fish Oil) 1,000 mg DAILY PO Last administered on 11/03/19 10:34; Start 10/30/19 at 09:00 Multivitamins (Thera M Plus) 1 tab DAILY PO Last administered on 11/03/19 10:34; Start 10/30/19 at 09:00 Morphine Sulfate (Morphine Sulfate) 1 mg PRN Q2HR PRN IV PAIN Last administered on 10/30/19 13:49; Start 10/29/19 at 21:15 Metoprolol Succinate (Toprol Xl) 50 mg DAILY PO Last administered on 11/04/19 09:00; Start 10/31/19 at 09:00 Losartan Potassium (Cozaar) 100 mg DAILY PO Last administered on 11/04/19at 09:00; Start 10/31/19 at 09:00 Non-Formulary Medication (Multivitamin (Multi Vitamin Daily)) 1 tab DAILY PO ; Start 10/31/19 at 09:00; Status UNV Non-Formulary Medication ([place]-3 Fatty Acids/Fish Oil ([place] 3 Fish Oil Softgel)) 1 each DAILY PO ; Start 10/31/19 at 09:00; Status UNV Ondansetron HCl (Zofran) 4 mg PRN Q6HRS PRN IV NAUSEA/VOMITING; Start 11/04/19 at 07:00; Stop 11/05/19 at 06:59; Status DC Fentanyl Citrate (Fentanyl 2ml Vial) 25 mcg PRN Q5MIN PRN IV MILD PAIN 1-3 Last administered on 11/04/19 18:31; Start 11/04/19 at 07:00; Stop 11/05/19 at 06:59; Status DC Fentanyl Citrate (Fentanyl 2ml Vial) 50 mcg PRN Q5MIN PRN IV MODERATE TO SEVERE PAIN; Start 11/04/19 at 07:00; Stop 11/05/19 at 06:59; Status DC Morphine Sulfate (Morphine Sulfate) 1 mg PRN Q10MIN PRN IV SEVERE PAIN 7-10; Start 11/04/19 at 07:00; Stop 11/05/19 at 06:59; Status DC Ringer's Solution 1,000 ml @ 30 mls/hr Q24H IV ; Start 11/04/19 at 07:00; Stop 11/04/19 at 18:59; Status DC Lidocaine HCl (Xylocaine-Mpf 1% 2ml Vial) 2 ml PRN 1X PRN ID PRIOR TO IV START; Start 11/04/19 at 07:00; Stop 11/05/19 at 06:59; Status DC Hydromorphone HCl (Dilaudid) 0.5 mg PRN Q10MIN PRN IV SEV PAIN, Second choice; Start 11/04/19 at 07:00; Stop 11/05/19 at 06:59; Status DC Prochlorperazine Edisylate (Compazine) 5 mg PACU PRN PRN IV NAUSEA, MRX1; Start 11/04/19 at 07:00; Stop 11/05/19 at 06:59; Status DC Bacitracin 36536 unit/Sodium Chloride 1,000 ml @ 1,000 mls/hr 1X ONCE IRR Last administered on 11/04/19at 13:22; Start 11/04/19 at 06:00; Stop 11/04/19 at 06:59; Status DC Bupivacaine HCl/ Epinephrine Bitart (Sensorcain-Epi 0.5%-1:313072 Mpf) 30 ml 1X ONCE INJ Last administered on 11/04/19at 13:22; Start 11/04/19 at 06:30; Stop 11/04/19 at 06:31; Status DC Cefazolin Sodium/ Dextrose 50 ml @ 100 mls/hr 1X PREOP ONCE IV ; Start 11/03/19 at 10:00; Stop 11/03/19 at 10:29; Status Cancel Cefazolin Sodium/ Dextrose 50 ml @ 100 mls/hr 1X PREOP ONCE IV Last administered on 11/04/19at 12:15; Start 11/04/19 at 10:00; Stop 11/04/19 at 10:29; Status DC Gelatin (Gelfoam Size 100) 1 each STK-MED ONCE .ROUTE Last administered on 11/04/19at 13:22; Start 11/04/19 at 07:48; Stop 11/04/19 at 07:48; Status DC Ketorolac Tromethamine (Toradol Im) 60 mg STK-MED ONCE .ROUTE ; Start 11/04/19 at 07:48; Stop 11/04/19 at 07:48; Status DC Thrombin 20,000 unit STK-MED ONCE TP Last administered on 11/04/19at 13:22; Start 11/04/19 at 07:48; Stop 11/04/19 at 07:48; Status DC Gadoterate Meglumine (Dotarem) 14 ml 1X ONCE IVP Last administered on 11/04/19at 08:15; Start 11/04/19 at 08:15; Stop 11/04/19 at 08:16; Status DC Propofol 20 ml @ As Directed STK-MED ONCE IV ; Start 11/04/19 at 09:19; Stop 11/04/19 at 09:19; Status DC Lidocaine HCl (Lidocaine Pf 2% Vial) 5 ml STK-MED ONCE .ROUTE ; Start 11/04/19 at 09:19; Stop 11/04/19 at 09:19; Status DC Fentanyl Citrate (Fentanyl 2ml Vial) 100 mcg STK-MED ONCE .ROUTE ; Start 11/04/19 at 09:19; Stop 11/04/19 at 09:19; Status DC Rocuronium [place] (Zemuron) 50 mg STK-MED ONCE .ROUTE ; Start 11/04/19 at 09:19; Stop 11/04/19 at 09:19; Status DC Remifentanil HCl (Ultiva) 2 mg STK-MED ONCE IV ; Start 11/04/19 at 09:19; Stop 11/04/19 at 09:19; Status DC Sodium Chloride (SODIUM CHLORIDE 20ml) 20 ml STK-MED ONCE IJ ; Start 11/04/19 at 09:19; Stop 11/04/19 at 09:20; Status DC Dexamethasone Sodium Phosphate (Decadron) 20 mg STK-MED ONCE .ROUTE ; Start 11/04/19 at 12:15; Stop 11/04/19 at 12:16; Status DC Desflurane (Suprane) 90 ml STK-MED ONCE IH ; Start 11/04/19 at 12:15; Stop 11/04/19 at 12:16; Status DC Ondansetron HCl (Zofran) 4 mg STK-MED ONCE .ROUTE ; Start 11/04/19 at 12:42; Stop 11/04/19 at 12:42; Status DC Glycopyrrolate (Robinul) 1 mg STK-MED ONCE .ROUTE ; Start 11/04/19 at 12:42; Stop 11/04/19 at 12:42; Status DC Neostigmine Methylsulfate (Neostigmine Methylsulfate) 5 mg STK-MED ONCE .ROUTE ; Start 11/04/19 at 12:42; Stop 11/04/19 at 12:42; Status DC Mannitol 500 ml @ As Directed STK-MED ONCE IV ; Start 11/04/19 at 12:53; Stop 11/04/19 at 12:53; Status DC Cefazolin Sodium (Ancef) 1 gm STK-MED ONCE .ROUTE ; Start 11/04/19 at 13:19; Stop 11/04/19 at 13:19; Status DC Phenylephrine HCl (PHENYLEPHRINE in 0.9% NACL PF) 1 mg STK-MED ONCE IV ; Start 11/04/19 at 14:18; Stop 11/04/19 at 14:18; Status DC Cellulose (Surgicel Hemostat 4x8) 1 each STK-MED ONCE .ROUTE Last administered on 11/04/19at 14:50; Start 11/04/19 at 14:45; Stop 11/04/19 at 14:46; Status DC Fentanyl Citrate (Fentanyl 2ml Vial) 50 mcg PRN Q2HR PRN IVP PAIN Last administered on 11/05/19at 08:18; Start 11/04/19 at 16:15 Active Scripts Active Reported Multi Vitamin Daily (Multivitamin) 1 Each Tablet 1 Tab PO DAILY 30 Days [place] 3 Fish Oil Softgel ([place]-3 Fatty Acids/Fish Oil) 1 Each Capsule.dr 1 Each PO DAILY Losartan-Hctz 100-12.5 Mg Tab (Losartan/Hydrochlorothiazide) 1 Each Tablet 1 Tab PO DAILY Toprol XL (Metoprolol Succinate) 50 Mg Tab.er.24h 50 Mg PO DAILY Vitals/I & O Vital Sign - Last 24 Hours 11/04/19 11/04/19 11/04/19 11/04/19 09:30 15:48 15:49 16:04 Temp 97.9 97.2 97.2 97.9 97.2 97.2 Pulse 61 94 58 Resp 19 17 18 B/P (MAP) 187/84 143/82 145/59 Pulse Ox 100 100 100 O2 Delivery Room Air Room Air Simple Mask Simple Mask O2 Flow Rate 8 8 11/04/19 11/04/19 11/04/19 11/04/19 16:19 16:34 17:00 17:00 Temp 97.2 97.6 97.4 97.2 97.6 97.4 Pulse 48 48 50 Resp 18 19 13 B/P (MAP) 141/58 134/59 170/60 (96) Pulse Ox 100 99 100 O2 Delivery Room Air Room Air Room Air Room Air 11/04/19 11/04/19 11/04/19 11/04/19 17:00 17:15 17:30 17:45 Pulse 50 56 46 Resp 10 15 9 B/P (MAP) 170/60 (96) 160/60 (93) 168/62 (97) Pulse Ox 100 100 100 O2 Delivery Room Air Room Air Room Air 11/04/19 11/04/19 11/04/19 11/04/19 17:52 18:00 18:31 19:00 Pulse 48 59 54 Resp 20 20 12 B/P (MAP) 162/59 142/49 (80) 151/46 (81) Pulse Ox 100 100 98 O2 Delivery Room Air Room Air Room Air 11/04/19 11/04/19 11/04/19 11/04/19 20:00 20:00 20:00 21:00 Temp 98.0 98.0 Pulse 54 54 63 Resp 15 25 B/P (MAP) 148/50 (82) 148/50 (82) 150/57 (88) Pulse Ox 98 99 O2 Delivery Room Air Room Air Room Air 11/04/19 11/04/19 11/05/19 11/05/19 22:00 23:00 00:00 00:00 Temp 98.6 98.6 Pulse 52 54 54 Resp 14 29 14 B/P (MAP) 125/51 (75) 146/58 (87) 155/55 (88) Pulse Ox 97 99 99 O2 Delivery Room Air Room Air Room Air Room Air 11/05/19 11/05/19 11/05/19 11/05/19 00:00 01:00 02:00 03:00 Pulse 54 56 53 54 Resp 17 14 15 B/P (MAP) 155/55 (88) 167/60 (95) 156/56 (89) 158/56 (90) Pulse Ox 95 97 98 O2 Delivery Room Air Room Air Room Air 11/05/19 11/05/19 11/05/19 11/05/19 03:33 04:00 04:00 04:00 Temp 98.8 98.8 Pulse 56 55 55 Resp 14 B/P (MAP) 173/66 139/52 (81) 139/52 (81) Pulse Ox 98 O2 Delivery Room Air Room Air 11/05/19 11/05/19 11/05/19 11/05/19 05:00 06:00 07:00 08:18 Pulse 63 66 64 Resp 14 17 20 20 B/P (MAP) 150/58 (88) 145/58 (87) 131/55 (80) Pulse Ox 98 98 99 100 O2 Delivery Room Air Room Air Room Air Room Air 11/05/19 08:48 Resp 16 Pulse Ox 99 O2 Delivery Room Air Intake and Output 11/04/19 11/04/19 11/05/19 15:00 23:00 07:00 Intake Total 1050 ml 390 ml 895 ml Output Total 1100 ml 1715 ml 455 ml Balance -50 ml -1325 ml 440 ml RACHELL MIRANDA MD Nov 05, 2019 09:12
[2019-11-05] MEDS: hydroCHLOROthiazide 12.5 MG CAPSULE PO SCH (09:14)
[2019-11-05] MEDS: levETIRAcetam 500 MG in IV DEXTROSE 5% 100ML 100 ML IV SCH ×2 (09:14→20:46)
[2019-11-05] MEDS: MULTIVITAMIN with MINERAL TABLET. PO SCH (09:14)
[2019-11-05] MEDS: OMEGA-3 FATTY ACIDS/FISH OIL 1,000 MG CAPSULE. PO SCH (09:14)
[2019-11-05] MEDS: LOSARTAN POTASSIUM 50 MG TABLET. PO SCH (09:15)
[2019-11-05] MEDS: METOPROLOL SUCC 24HR ER 50 MG TAB.ER.24H. PO SCH (09:21)
--- NOTE | 2019-11-05 10:11 | PDOC ---
PROGRESS NOTES Chief Complaint Chief Complaint A/P: RT temporal lobe mass 5.7 x 4.1 cm concerning for GBM - new dx. Recommended oral temozolamide and radiation therapy. GBM is a terminal diagnosis as currently ga dical research shows it as recurrent despite treatments ("incurable") Hemorrhagic CVA with brain edema Headaches HTN controlled Complete opacification left maxillary sinus which may be due to mucocele or neoplasm. Cerebral vasogenic edema with midline shift 8 mm. Intermittent recurrent confusional episodes. Complex partial seizure Left temporal field deficits. 2 mm anterior communicating artery aneurysm. plan S/p craniotomy and debulking on Sunday 11/04 neurology, neurosurgery, oncology, rad/onc consults 37 min pt exam, chart review, > 50% of time spent with exam, chart review, pt care coordination History of Present Illness History of Present Illness Ms Sargent is a 74yo F w/ PMHx HTN admitted with new onset of headaches, dizziness, slurred speech and confusion. Started on dexamethasone and prophylactic Keppra for intracranial mass. CT angiogram of the head and neck from 10/29/2019 revealed no intracranial arterial stenosis or occlusion, 2 mm anterior communicating artery aneurysm, poorly seen enhancing right temporal lobe mass. MRI scan from 10/29/2019 with gadolinium revealed an irregular ring enhancing temporal lobe mass measuring approximately 6 x 4 x 4 cm associated with internal hemorrhage extending into the right frontal and basal ganglion regions with some leftward midline shift. S/p debulking 11/04/2019 with frozen section confirming suspected glioblastoma multiforme. Seen by neurology, neurosurgery, hematology/oncology and radiation oncology. She is seen in ICU, states she is still "waking up". Eating breakfast. Still having right sided headache. able to follow commands, move extremities. 10/31 Pt seen and examined Pt resting comfortably Pt pleasantly confused 11/01 Pt seen and examined Pt resting comfortably Pt agrees with plan 11/02 Pt seen and examined Pt resting comfortably Awaiting surg on Saturday 11/03 Pt seen and examined Pt resting comfortably Awaiting surg on Monday Vitals Vitals Vital Signs Date Time Temp Pulse Resp B/P (MAP) Pulse Ox O2 Delivery O2 Flow Rate FiO2 11/05/19 09:21 74 162/57 11/05/19 08:48 16 99 Room Air 11/05/19 04:00 98.8 98.8 11/04/19 16:04 8 Physical Exam General: No acute distress Heart: Normal S1, Normal S2 Abdomen: Normal bowel sounds, Soft, No tenderness, No hepatosplenomegaly, No masses Extremities: No clubbing, No cyanosis, No edema, Normal pulses Skin: No rashes, No breakdown, No significant lesion Labs LABS Laboratory Tests Test 11/05/19 05:30 White Blood Count 17.1 x10^3/uL (4.0-11.0) Red Blood Count 3.35 x10^6/uL (3.50-5.40) Hemoglobin 11.2 g/dL (12.0-15.5) Hematocrit 32.7 % (36.0-47.0) Mean Corpuscular Volume 98 fL (79-100) Mean Corpuscular Hemoglobin 33 pg (25-35) Mean Corpuscular Hemoglobin Concent 34 g/dL (31-37) Red Cell Distribution Width 11.8 % (11.5-14.5) Platelet Count 218 x10^3/uL (140-400) Neutrophils (%) (Auto) 85 % (31-73) Lymphocytes (%) (Auto) 9 % (24-48) Monocytes (%) (Auto) 7 % (0-9) Eosinophils (%) (Auto) 0 % (0-3) Basophils (%) (Auto) 0 % (0-3) Neutrophils # (Auto) 14.4 x10^3/uL (1.8-7.7) Lymphocytes # (Auto) 1.5 x10^3/uL (1.0-4.8) Monocytes # (Auto) 1.1 x10^3/uL (0.0-1.1) Eosinophils # (Auto) 0.0 x10^3/uL (0.0-0.7) Basophils # (Auto) 0.0 x10^3/uL (0.0-0.2) Segmented Neutrophils % 91 % (35-66) Band Neutrophils % 1 % (0-9) Lymphocytes % 6 % (24-48) Monocytes % 2 % (0-10) Toxic Vacuolation Present Platelet Estimate Adequate (ADEQUATE) Anisocytosis Slight Sodium Level 138 mmol/L (136-145) Potassium Level 4.1 mmol/L (3.5-5.1) Chloride Level 106 mmol/L (98-107) Carbon Dioxide Level 22 mmol/L (21-32) Anion Gap 10 (6-14) Blood Urea Nitrogen 24 mg/dL (7-20) Creatinine 1.1 mg/dL (0.6-1.0) Estimated GFR (Cockcroft-Gault) 58.6 Glucose Level 123 mg/dL (70-99) Calcium Level 7.9 mg/dL (8.5-10.1) Assessment and Plan Assessmemt and Plan Problems Medical Problems: (1) Confusion Status: Acute (2) Hyponatremia Status: Acute (3) Intracranial hemorrhage Status: Acute Comment Review of Relevant I have reviewed the following items ramin (where applicable) has been applied. Labs Laboratory Tests Test 11/03/19 13:45 11/05/19 05:30 White Blood Count 11.1 x10^3/uL (4.0-11.0) 17.1 x10^3/uL (4.0-11.0) Red Blood Count 3.64 x10^6/uL (3.50-5.40) 3.35 x10^6/uL (3.50-5.40) Hemoglobin 12.1 g/dL (12.0-15.5) 11.2 g/dL (12.0-15.5) Hematocrit 35.7 % (36.0-47.0) 32.7 % (36.0-47.0) Mean Corpuscular Volume 98 fL (79-100) 98 fL (79-100) Mean Corpuscular Hemoglobin 33 pg (25-35) 33 pg (25-35) Mean Corpuscular Hemoglobin Concent 34 g/dL (31-37) 34 g/dL (31-37) Red Cell Distribution Width 11.9 % (11.5-14.5) 11.8 % (11.5-14.5) Platelet Count 240 x10^3/uL (140-400) 218 x10^3/uL (140-400) Sodium Level 136 mmol/L (136-145) 138 mmol/L (136-145) Potassium Level 3.9 mmol/L (3.5-5.1) 4.1 mmol/L (3.5-5.1) Chloride Level 102 mmol/L (98-107) 106 mmol/L (98-107) Carbon Dioxide Level 24 mmol/L (21-32) 22 mmol/L (21-32) Anion Gap 10 (6-14) 10 (6-14) Blood Urea Nitrogen 24 mg/dL (7-20) 24 mg/dL (7-20) Creatinine 1.2 mg/dL (0.6-1.0) 1.1 mg/dL (0.6-1.0) Estimated GFR (Cockcroft-Gault) 53.0 58.6 Glucose Level 133 mg/dL (70-99) 123 mg/dL (70-99) Calcium Level 8.3 mg/dL (8.5-10.1) 7.9 mg/dL (8.5-10.1) Neutrophils (%) (Auto) 85 % (31-73) Lymphocytes (%) (Auto) 9 % (24-48) Monocytes (%) (Auto) 7 % (0-9) Eosinophils (%) (Auto) 0 % (0-3) Basophils (%) (Auto) 0 % (0-3) Neutrophils # (Auto) 14.4 x10^3/uL (1.8-7.7) Lymphocytes # (Auto) 1.5 x10^3/uL (1.0-4.8) Monocytes # (Auto) 1.1 x10^3/uL (0.0-1.1) Eosinophils # (Auto) 0.0 x10^3/uL (0.0-0.7) Basophils # (Auto) 0.0 x10^3/uL (0.0-0.2) Segmented Neutrophils % 91 % (35-66) Band Neutrophils % 1 % (0-9) Lymphocytes % 6 % (24-48) Monocytes % 2 % (0-10) Toxic Vacuolation Present Platelet Estimate Adequate (ADEQUATE) Anisocytosis Slight Laboratory Tests Test 11/05/19 05:30 White Blood Count 17.1 x10^3/uL (4.0-11.0) Red Blood Count 3.35 x10^6/uL (3.50-5.40) Hemoglobin 11.2 g/dL (12.0-15.5) Hematocrit 32.7 % (36.0-47.0) Mean Corpuscular Volume 98 fL (79-100) Mean Corpuscular Hemoglobin 33 pg (25-35) Mean Corpuscular Hemoglobin Concent 34 g/dL (31-37) Red Cell Distribution Width 11.8 % (11.5-14.5) Platelet Count 218 x10^3/uL (140-400) Neutrophils (%) (Auto) 85 % (31-73) Lymphocytes (%) (Auto) 9 % (24-48) Monocytes (%) (Auto) 7 % (0-9) Eosinophils (%) (Auto) 0 % (0-3) Basophils (%) (Auto) 0 % (0-3) Neutrophils # (Auto) 14.4 x10^3/uL (1.8-7.7) Lymphocytes # (Auto) 1.5 x10^3/uL (1.0-4.8) Monocytes # (Auto) 1.1 x10^3/uL (0.0-1.1) Eosinophils # (Auto) 0.0 x10^3/uL (0.0-0.7) Basophils # (Auto) 0.0 x10^3/uL (0.0-0.2) Segmented Neutrophils % 91 % (35-66) Band Neutrophils % 1 % (0-9) Lymphocytes % 6 % (24-48) Monocytes % 2 % (0-10) Toxic Vacuolation Present Platelet Estimate Adequate (ADEQUATE) Anisocytosis Slight Sodium Level 138 mmol/L (136-145) Potassium Level 4.1 mmol/L (3.5-5.1) Chloride Level 106 mmol/L (98-107) Carbon Dioxide Level 22 mmol/L (21-32) Anion Gap 10 (6-14) Blood Urea Nitrogen 24 mg/dL (7-20) Creatinine 1.1 mg/dL (0.6-1.0) Estimated GFR (Cockcroft-Gault) 58.6 Glucose Level 123 mg/dL (70-99) Calcium Level 7.9 mg/dL (8.5-10.1) Medications Current Medications Dexamethasone Sodium Phosphate (Decadron) 4 mg 1X ONCE IVP Last administered on 10/29/19at 18:52; Start 10/29/19 at 16:45; Stop 10/29/19 at 16:46; Status DC Acetaminophen (Tylenol) 500 mg PRN Q6HRS PRN PO MILD PAIN / TEMP Last administered on 11/02/19at 18:35; Start 10/29/19 at 17:00 Ondansetron HCl (Zofran) 4 mg PRN Q6HRS PRN IVP NAUSEA/VOMITING Last administered on 11/02/19 13:55; Start 10/29/19 at 17:00 Sodium Chloride 1,000 ml @ 80 mls/hr [id number] IV Last administered on 11/05/19 03:33; Start 10/29/19 at 17:00 Famotidine (Pepcid Vial) 20 mg QHS IVP Last administered on 11/04/19 21:19; Start 10/29/19 at 21:00 Hydralazine HCl (Apresoline Inj) 10 mg PRN Q4HRS PRN IVP ELEVATED BP, SEE COMMENTS Last administered on 11/05/19 03:33; Start 10/29/19 at 17:00 Dexamethasone Sodium Phosphate (Decadron) 4 mg Q6HRS IVP Last administered on 11/05/19 05:38; Start 10/29/19 at 18:00 Gadoterate Meglumine (Dotarem) 14 ml 1X ONCE IVP Last administered on 10/29/19 17:55; Start 10/29/19 at 17:30; Stop 10/29/19 at 17:40; Status DC Iohexol (Omnipaque 350 Mg/ml) 60 ml 1X ONCE IV Last administered on 10/29/19 18:46; Start 10/29/19 at 18:30; Stop 10/29/19 at 18:31; Status DC Info (CONTRAST GIVEN -- Rx MONITORING) 1 each PRN DAILY PRN MC SEE COMMENTS; Start 10/29/19 at 18:30; Stop 10/31/19 at 18:29; Status DC Levetiracetam 500 mg/Dextrose 105 ml @ 440 mls/hr Q12HR IV Last administered on 11/05/19 09:14; Start 10/29/19 at 21:00 Metoprolol Tartrate (Lopressor) 50 mg DAILY PO ; Start 10/30/19 at 09:00; Status Cancel Hydrochlorothiazide (Microzide) 12.5 mg DAILY PO Last administered on 11/05/19 09:14; Start 10/30/19 at 09:00 Fish Oil (Fish Oil) 1,000 mg DAILY PO Last administered on 11/05/19 09:14; Start 10/30/19 at 09:00 Multivitamins (Thera M Plus) 1 tab DAILY PO Last administered on 11/05/19at 09:14; Start 10/30/19 at 09:00 Morphine Sulfate (Morphine Sulfate) 1 mg PRN Q2HR PRN IV PAIN Last administered on 10/30/19at 13:49; Start 10/29/19 at 21:15 Metoprolol Succinate (Toprol Xl) 50 mg DAILY PO Last administered on 11/05/19at 09:21; Start 10/31/19 at 09:00 Losartan Potassium (Cozaar) 100 mg DAILY PO Last administered on 11/05/19at 09:15; Start 10/31/19 at 09:00 Non-Formulary Medication (Multivitamin (Multi Vitamin Daily)) 1 tab DAILY PO ; Start 10/31/19 at 09:00; Status UNV Non-Formulary Medication ([place]-3 Fatty Acids/Fish Oil ([place] 3 Fish Oil Softgel)) 1 each DAILY PO ; Start 10/31/19 at 09:00; Status UNV Ondansetron HCl (Zofran) 4 mg PRN Q6HRS PRN IV NAUSEA/VOMITING; Start 11/04/19 at 07:00; Stop 11/05/19 at 06:59; Status DC Fentanyl Citrate (Fentanyl 2ml Vial) 25 mcg PRN Q5MIN PRN IV MILD PAIN 1-3 Last administered on 11/04/19at 18:31; Start 11/04/19 at 07:00; Stop 11/05/19 at 06:59; Status DC Fentanyl Citrate (Fentanyl 2ml Vial) 50 mcg PRN Q5MIN PRN IV MODERATE TO SEVERE PAIN; Start 11/04/19 at 07:00; Stop 11/05/19 at 06:59; Status DC Morphine Sulfate (Morphine Sulfate) 1 mg PRN Q10MIN PRN IV SEVERE PAIN 7-10; Start 11/04/19 at 07:00; Stop 11/05/19 at 06:59; Status DC Ringer's Solution 1,000 ml @ 30 mls/hr Q24H IV ; Start 11/04/19 at 07:00; Stop 11/04/19 at 18:59; Status DC Lidocaine HCl (Xylocaine-Mpf 1% 2ml Vial) 2 ml PRN 1X PRN ID PRIOR TO IV START; Start 11/04/19 at 07:00; Stop 11/05/19 at 06:59; Status DC Hydromorphone HCl (Dilaudid) 0.5 mg PRN Q10MIN PRN IV SEV PAIN, Second choice; Start 11/04/19 at 07:00; Stop 11/05/19 at 06:59; Status DC Prochlorperazine Edisylate (Compazine) 5 mg PACU PRN PRN IV NAUSEA, MRX1; Start 11/04/19 at 07:00; Stop 11/05/19 at 06:59; Status DC Bacitracin 98312 unit/Sodium Chloride 1,000 ml @ 1,000 mls/hr 1X ONCE IRR Last administered on 11/04/19at 13:22; Start 11/04/19 at 06:00; Stop 11/04/19 at 06:59; Status DC Bupivacaine HCl/ Epinephrine Bitart (Sensorcain-Epi 0.5%-1:[id number] Mpf) 30 ml 1X ONCE INJ Last administered on 11/04/19at 13:22; Start 11/04/19 at 06:30; Stop 11/04/19 at 06:31; Status DC Cefazolin Sodium/ Dextrose 50 ml @ 100 mls/hr 1X PREOP ONCE IV ; Start at 10:00; Stop 11/03/19 at 10:29; Status Cancel Cefazolin Sodium/ Dextrose 50 ml @ 100 mls/hr 1X PREOP ONCE IV Last admin istered on 11/04/19at 12:15; Start 11/04/19 at 10:00; Stop 11/04/19 at 10:29; Status DC Gelatin (Gelfoam Size 100) 1 each STK-MED ONCE .ROUTE Last administered on 11/04/19at 13:22; Start 11/04/19 at 07:48; Stop 11/04/19 at 07:48; Status DC Ketorolac Tromethamine (Toradol Im) 60 mg STK-MED ONCE .ROUTE ; Start 11/04/19 at 07:48; Stop 11/04/19 at 07:48; Status DC Thrombin 20,000 unit STK-MED ONCE TP Last administered on 11/04/19at 13:22; Start 11/04/19 at 07:48; Stop 11/04/19 at 07:48; Status DC Gadoterate Meglumine (Dotarem) 14 ml 1X ONCE IVP Last administered on 11/04/19at 08:15; Start 11/04/19 at 08:15; Stop 11/04/19 at 08:16; Status DC Propofol 20 ml @ As Directed STK-MED ONCE IV ; Start 11/04/19 at 09:19; Stop 11/04/19 at 09:19; Status DC Lidocaine HCl (Lidocaine Pf 2% Vial) 5 ml STK-MED ONCE .ROUTE ; Start 11/04/19 at 09:19; Stop 11/04/19 at 09:19; Status DC Fentanyl Citrate (Fentanyl 2ml Vial) 100 mcg STK-MED ONCE .ROUTE ; Start 11/04/19 at 09:19; Stop 11/04/19 at 09:19; Status DC Rocuronium [place] (Zemuron) 50 mg STK-MED ONCE .ROUTE ; Start 11/04/19 at 09:19; Stop 11/04/19 at 09:19; Status DC Remifentanil HCl (Ultiva) 2 mg STK-MED ONCE IV ; Start 11/04/19 at 09:19; Stop 11/04/19 at 09:19; Status DC Sodium Chloride (SODIUM CHLORIDE 20ml) 20 ml STK-MED ONCE IJ ; Start 11/04/19 at 09:19; Stop 11/04/19 at 09:20; Status DC Dexamethasone Sodium Phosphate (Decadron) 20 mg STK-MED ONCE .ROUTE ; Start 11/04/19 at 12:15; Stop 11/04/19 at 12:16; Status DC Desflurane (Suprane) 90 ml STK-MED ONCE IH ; Start 11/04/19 at 12:15; Stop 11/04/19 at 12:16; Status DC Ondansetron HCl (Zofran) 4 mg STK-MED ONCE .ROUTE ; Start 11/04/19 at 12:42; Stop 11/04/19 at 12:42; Status DC Glycopyrrolate (Robinul) 1 mg STK-MED ONCE .ROUTE ; Start 11/04/19 at 12:42; Stop 11/04/19 at 12:42; Status DC Neostigmine Methylsulfate (Neostigmine Methylsulfate) 5 mg STK-MED ONCE .ROUTE ; Start 11/04/19 at 12:42; Stop 11/04/19 at 12:42; Status DC Mannitol 500 ml @ As Directed STK-MED ONCE IV ; Start 11/04/19 at 12:53; Stop 11/04/19 at 12:53; Status DC Cefazolin Sodium (Ancef) 1 gm STK-MED ONCE .ROUTE ; Start 11/04/19 at 13:19; Stop 11/04/19 at 13:19; Status DC Phenylephrine HCl (PHENYLEPHRINE in 0.9% NACL PF) 1 mg STK-MED ONCE IV ; Start 11/04/19 at 14:18; Stop 11/04/19 at 14:18; Status DC Cellulose (Surgicel Hemostat 4x8) 1 each STK-MED ONCE .ROUTE Last administered on 11/04/19at 14:50; Start 11/04/19 at 14:45; Stop 11/04/19 at 14:46; Status DC Fentanyl Citrate (Fentanyl 2ml Vial) 50 mcg PRN Q2HR PRN IVP PAIN Last administered on 11/05/19at 08:18; Start 11/04/19 at 16:15 Active Scripts Active Reported Multi Vitamin Daily (Multivitamin) 1 Each Tablet 1 Tab PO DAILY 30 Days [place] 3 Fish Oil Softgel ([place]-3 Fatty Acids/Fish Oil) 1 Each Capsule. 1 Each PO DAILY Losartan-Hctz 100-12.5 Mg Tab (Losartan/Hydrochlorothiazide) 1 Each Tablet 1 Tab PO DAILY Toprol XL (Metoprolol Succinate) 50 Mg Tab.er.24h 50 Mg PO DAILY Vitals/I & O Vital Sign - Last 24 Hours 11/04/19 11/04/19 11/04/19 11/04/19 15:48 15:49 16:04 16:19 Temp 97.2 97.2 97.2 97.2 97.2 97.2 Pulse 94 58 48 Resp 17 18 18 B/P (MAP) 143/82 145/59 141/58 Pulse Ox 100 100 100 O2 Delivery Room Air Simple Mask Simple Mask Room Air O2 Flow Rate 8 8 11/04/19 11/04/19 11/04/19 11/04/19 16:34 17:00 17:00 17:00 Temp 97.6 97.4 97.6 97.4 Pulse 48 50 Resp 19 13 B/P (MAP) 134/59 170/60 (96) Pulse Ox 99 100 O2 Delivery Room Air Room Air Room Air 11/04/19 11/04/19 11/04/19 11/04/19 17:15 17:30 17:45 17:52 Pulse 50 56 46 48 Resp 10 15 9 B/P (MAP) 170/60 (96) 160/60 (93) 168/62 (97) 162/59 Pulse Ox 100 100 100 O2 Delivery Room Air Room Air Room Air 11/04/19 11/04/19 11/04/19 11/04/19 18:00 18:31 19:00 20:00 Pulse 59 54 54 Resp 20 20 12 B/P (MAP) 142/49 (80) 151/46 (81) 148/50 (82) Pulse Ox 100 100 98 O2 Delivery Room Air Room Air Room Air 11/04/19 11/04/19 11/04/19 11/04/19 20:00 20:00 21:00 22:00 Temp 98.0 98.0 Pulse 54 63 52 Resp 15 25 14 B/P (MAP) 148/50 (82) 150/57 (88) 125/51 (75) Pulse Ox 98 99 97 O2 Delivery Room Air Room Air Room Air Room Air 11/04/19 11/05/19 11/05/19 11/05/19 23:00 00:00 00:00 00:00 Temp 98.6 98.6 Pulse 54 54 54 Resp 29 14 B/P (MAP) 146/58 (87) 155/55 (88) 155/55 (88) Pulse Ox 99 99 O2 Delivery Room Air Room Air Room Air 11/05/19 11/05/19 11/05/19 11/05/19 01:00 02:00 03:00 03:33 Pulse 56 53 54 56 Resp 17 14 15 B/P (MAP) 167/60 (95) 156/56 (89) 158/56 (90) 173/66 Pulse Ox 95 97 98 O2 Delivery Room Air Room Air Room Air 11/05/19 11/05/19 11/05/19 11/05/19 04:00 04:00 04:00 05:00 Temp 98.8 98.8 Pulse 55 55 63 Resp 14 14 B/P (MAP) 139/52 (81) 139/52 (81) 150/58 (88) Pulse Ox 98 98 O2 Delivery Room Air Room Air Room Air 11/05/19 11/05/19 11/05/19 11/05/19 06:00 07:00 08:00 08:18 Pulse 66 64 Resp 17 20 20 B/P (MAP) 145/58 (87) 131/55 (80) Pulse Ox 98 99 100 O2 Delivery Room Air Room Air Room Air 11/05/19 11/05/19 11/05/19 08:48 09:15 09:21 Pulse 61 74 Resp 16 B/P (MAP) 150/58 162/57 Pulse Ox 99 O2 Delivery Room Air Intake and Output 11/04/19 11/04/19 11/05/19 15:00 23:00 07:00 Intake Total 1050 ml 390 ml 895 ml Output Total 1100 ml 1715 ml 455 ml Balance -50 ml -1325 ml 440 ml NEAL RED MD Nov 05, 2019 10:11
--- NOTE | 2019-11-05 10:25 | NUR ---
SS following up with discharge planning. PT/OT recommended acute rehabilitation. Per notes radiation therapy recommended. SS will continue to follow for discharge planning.
--- NOTE | 2019-11-05 10:30 | NUR ---
Dr. Lee ordered for 12.5 mg Metoprolol to be given for morning medications instead of full dose 50mg. Pt very Bradycardic last evening post op. Will administer and re-assess.
[2019-11-05] MEDS: HYDROcodone/APAP 5/325MG 1 TAB TABLET PO PRN (12:10)
--- NOTE | 2019-11-05 12:21 | PDOC ---
PROGRESS NOTES Subjective Subjective POD #1 awake, alert no complaints Objective Objective Vital Signs Date Time Temp Pulse Resp B/P (MAP) Pulse Ox O2 Delivery O2 Flow Rate FiO2 11/05/19 12:10 20 100 Room Air 11/05/19 11:00 66 109/61 (77) 11/05/19 08:00 98.9 98.9 11/04/19 16:04 8 Intake and Output 11/05/19 07:00 Intake Total 2335 ml Output Total 3270 ml Balance -935 ml IV Total 2335 ml Output Urine Total 3170 ml Estimated Blood Loss 100 ml Physical Exam General: Alert, Cooperative, No acute distress, Other (follows commands) Neuro: Other (strength 4/5, Left homonymous hemianopsia) Skin: Other (dressing changed per RN, dry and intact) Assessment Assessment Problems Medical Problems: (1) Confusion Status: Acute (2) Hyponatremia Status: Acute (3) Intracranial hemorrhage Status: Acute Plan Plan of Care keep in ICU today ok to get OOB continue steroids, same dose today SCDs Comment Review of Relevant I have reviewed the following items ramin (where applicable) has been applied. Labs Laboratory Tests Test 11/03/19 13:45 11/05/19 05:30 White Blood Count 11.1 x10^3/uL (4.0-11.0) 17.1 x10^3/uL (4.0-11.0) Red Blood Count 3.64 x10^6/uL (3.50-5.40) 3.35 x10^6/uL (3.50-5.40) Hemoglobin 12.1 g/dL (12.0-15.5) 11.2 g/dL (12.0-15.5) Hematocrit 35.7 % (36.0-47.0) 32.7 % (36.0-47.0) Mean Corpuscular Volume 98 fL (79-100) 98 fL (79-100) Mean Corpuscular Hemoglobin 33 pg (25-35) 33 pg (25-35) Mean Corpuscular Hemoglobin Concent 34 g/dL (31-37) 34 g/dL (31-37) Red Cell Distribution Width 11.9 % (11.5-14.5) 11.8 % (11.5-14.5) Platelet Count 240 x10^3/uL (140-400) 218 x10^3/uL (140-400) Sodium Level 136 mmol/L (136-145) 138 mmol/L (136-145) Potassium Level 3.9 mmol/L (3.5-5.1) 4.1 mmol/L (3.5-5.1) Chloride Level 102 mmol/L (98-107) 106 mmol/L (98-107) Carbon Dioxide Level 24 mmol/L (21-32) 22 mmol/L (21-32) Anion Gap 10 (6-14) 10 (6-14) Blood Urea Nitrogen 24 mg/dL (7-20) 24 mg/dL (7-20) Creatinine 1.2 mg/dL (0.6-1.0) 1.1 mg/dL (0.6-1.0) Estimated GFR (Cockcroft-Gault) 53.0 58.6 Glucose Level 133 mg/dL (70-99) 123 mg/dL (70-99) Calcium Level 8.3 mg/dL (8.5-10.1) 7.9 mg/dL (8.5-10.1) Neutrophils (%) (Auto) 85 % (31-73) Lymphocytes (%) (Auto) 9 % (24-48) Monocytes (%) (Auto) 7 % (0-9) Eosinophils (%) (Auto) 0 % (0-3) Basophils (%) (Auto) 0 % (0-3) Neutrophils # (Auto) 14.4 x10^3/uL (1.8-7.7) Lymphocytes # (Auto) 1.5 x10^3/uL (1.0-4.8) Monocytes # (Auto) 1.1 x10^3/uL (0.0-1.1) Eosinophils # (Auto) 0.0 x10^3/uL (0.0-0.7) Basophils # (Auto) 0.0 x10^3/uL (0.0-0.2) Segmented Neutrophils % 91 % (35-66) Band Neutrophils % 1 % (0-9) Lymphocytes % 6 % (24-48) Monocytes % 2 % (0-10) Toxic Vacuolation Present Platelet Estimate Adequate (ADEQUATE) Anisocytosis Slight Laboratory Tests Test 11/05/19 05:30 White Blood Count 17.1 x10^3/uL (4.0-11.0) Red Blood Count 3.35 x10^6/uL (3.50-5.40) Hemoglobin 11.2 g/dL (12.0-15.5) Hematocrit 32.7 % (36.0-47.0) Mean Corpuscular Volume 98 fL (79-100) Mean Corpuscular Hemoglobin 33 pg (25-35) Mean Corpuscular Hemoglobin Concent 34 g/dL (31-37) Red Cell Distribution Width 11.8 % (11.5-14.5) Platelet Count 218 x10^3/uL (140-400) Neutrophils (%) (Auto) 85 % (31-73) Lymphocytes (%) (Auto) 9 % (24-48) Monocytes (%) (Auto) 7 % (0-9) Eosinophils (%) (Auto) 0 % (0-3) Basophils (%) (Auto) 0 % (0-3) Neutrophils # (Auto) 14.4 x10^3/uL (1.8-7.7) Lymphocytes # (Auto) 1.5 x10^3/uL (1.0-4.8) Monocytes # (Auto) 1.1 x10^3/uL (0.0-1.1) Eosinophils # (Auto) 0.0 x10^3/uL (0.0-0.7) Basophils # (Auto) 0.0 x10^3/uL (0.0-0.2) Segmented Neutrophils % 91 % (35-66) Band Neutrophils % 1 % (0-9) Lymphocytes % 6 % (24-48) Monocytes % 2 % (0-10) Toxic Vacuolation Present Platelet Estimate Adequate (ADEQUATE) Anisocytosis Slight Sodium Level 138 mmol/L (136-145) Potassium Level 4.1 mmol/L (3.5-5.1) Chloride Level 106 mmol/L (98-107) Carbon Dioxide Level 22 mmol/L (21-32) Anion Gap 10 (6-14) Blood Urea Nitrogen 24 mg/dL (7-20) Creatinine 1.1 mg/dL (0.6-1.0) Estimated GFR (Cockcroft-Gault) 58.6 Glucose Level 123 mg/dL (70-99) Calcium Level 7.9 mg/dL (8.5-10.1) Medications Current Medications Dexamethasone Sodium Phosphate (Decadron) 4 mg 1X ONCE IVP Last administered on 10/29/19 18:52; Start 10/29/19 at 16:45; Stop 10/29/19 at 16:46; Status DC Acetaminophen (Tylenol) 500 mg PRN Q6HRS PRN PO MILD PAIN / TEMP Last admini stered on 11/02/19at 18:35; Start 10/29/19 at 17:00 Ondansetron HCl (Zofran) 4 mg PRN Q6HRS PRN IVP NAUSEA/VOMITING Last adminis tered on 11/02/19 13:55; Start 10/29/19 at 17:00 Sodium Chloride 1,000 ml @ 80 mls/hr [id number] IV Last administered on 9at 03:33; Start 10/29/19 at 17:00 Famotidine (Pepcid Vial) 20 mg QHS IVP Last administered on 11/04/19 21:19; Start 10/29/19 at 21:00 Hydralazine HCl (Apresoline Inj) 10 mg PRN Q4HRS PRN IVP ELEVATED BP, SEE COMMENTS Last administered on 11/05/19 03:33; Start 10/29/19 at 17:00 Dexamethasone Sodium Phosphate (Decadron) 4 mg Q6HRS IVP Last administered on 11/05/19at 12:10; Start 10/29/19 at 18:00 Gadoterate Meglumine (Dotarem) 14 ml 1X ONCE IVP Last administered on 10/29/19at 17:55; Start 10/29/19 at 17:30; Stop 10/29/19 at 17:40; Status DC Iohexol (Omnipaque 350 Mg/ml) 60 ml 1X ONCE IV Last administered on 10/29/19at 18:46; Start 10/29/19 at 18:30; Stop 10/29/19 at 18:31; Status DC Info (CONTRAST GIVEN -- Rx MONITORING) 1 each PRN DAILY PRN MC SEE COMMENTS; Start 10/29/19 at 18:30; Stop 10/31/19 at 18:29; Status DC Levetiracetam 500 mg/Dextrose 105 ml @ 440 mls/hr Q12HR IV Last administered on 11/05/19 09:14; Start 10/29/19 at 21:00 Metoprolol Tartrate (Lopressor) 50 mg DAILY PO ; Start 10/30/19 at 09:00; Status Cancel Hydrochlorothiazide (Microzide) 12.5 mg DAILY PO Last administered on 11/05/19 09:14; Start 10/30/19 at 09:00 Fish Oil (Fish Oil) 1,000 mg DAILY PO Last administered on 11/05/19 09:14; Start 10/30/19 at 09:00 Multivitamins (Thera M Plus) 1 tab DAILY PO Last administered on 11/05/19 09:14; Start 10/30/19 at 09:00 Morphine Sulfate (Morphine Sulfate) 1 mg PRN Q2HR PRN IV PAIN Last administered on 10/30/19 13:49; Start 10/29/19 at 21:15 Metoprolol Succinate (Toprol Xl) 50 mg DAILY PO Last administered on 11/05/19 09:21; Start 10/31/19 at 09:00 Losartan Potassium (Cozaar) 100 mg DAILY PO Last administered on 11/05/19 09:15; Start 10/31/19 at 09:00 Non-Formulary Medication (Multivitamin (Multi Vitamin Daily)) 1 tab DAILY PO ; Start 10/31/19 at 09:00; Status UNV Non-Formulary Medication ([place]-3 Fatty Acids/Fish Oil ([place] 3 Fish Oil Softgel)) 1 each DAILY PO ; Start 10/31/19 at 09:00; Status UNV Ondansetron HCl (Zofran) 4 mg PRN Q6HRS PRN IV NAUSEA/VOMITING; Start 11/04/19 at 07:00; Stop 11/05/19 at 06:59; Status DC Fentanyl Citrate (Fentanyl 2ml Vial) 25 mcg PRN Q5MIN PRN IV MILD PAIN 1-3 Last administered on 11/04/19at 18:31; Start 11/04/19 at 07:00; Stop 11/05/19 at 06:59; Status DC Fentanyl Citrate (Fentanyl 2ml Vial) 50 mcg PRN Q5MIN PRN IV MODERATE TO SEVERE PAIN; Start 11/04/19 at 07:00; Stop 11/05/19 at 06:59; Status DC Morphine Sulfate (Morphine Sulfate) 1 mg PRN Q10MIN PRN IV SEVERE PAIN 7-10; Start 11/04/19 at 07:00; Stop 11/05/19 at 06:59; Status DC Ringer's Solution 1,000 ml @ 30 mls/hr Q24H IV ; Start 11/04/19 at 07:00; Stop 11/04/19 at 18:59; Status DC Lidocaine HCl (Xylocaine-Mpf 1% 2ml Vial) 2 ml PRN 1X PRN ID PRIOR TO IV START; Start 11/04/19 at 07:00; Stop 11/05/19 at 06:59; Status DC Hydromorphone HCl (Dilaudid) 0.5 mg PRN Q10MIN PRN IV SEV PAIN, Second choice; Start 11/04/19 at 07:00; Stop 11/05/19 at 06:59; Status DC Prochlorperazine Edisylate (Compazine) 5 mg PACU PRN PRN IV NAUSEA, MRX1; Start 11/04/19 at 07:00; Stop 11/05/19 at 06:59; Status DC Bacitracin 82412 unit/Sodium Chloride 1,000 ml @ 1,000 mls/hr 1X ONCE IRR Last administered on 11/04/19at 13:22; Start 11/04/19 at 06:00; Stop 11/04/19 at 06:59; Status DC Bupivacaine HCl/ Epinephrine Bitart (Sensorcain-Epi 0.5%-1:647091 Mpf) 30 ml 1X ONCE INJ Last administered on 11/04/19at 13:22; Start 11/04/19 at 06:30; Stop 11/04/19 at 06:31; Status DC Cefazolin Sodium/ Dextrose 50 ml @ 100 mls/hr 1X PREOP ONCE IV ; Start 11/03/19 at 10:00; Stop 11/03/19 at 10:29; Status Cancel Cefazolin Sodium/ Dextrose 50 ml @ 100 mls/hr 1X PREOP ONCE IV Last administered on 11/04/19at 12:15; Start 11/04/19 at 10:00; Stop 11/04/19 at 10:29; Status DC Gelatin (Gelfoam Size 100) 1 each STK-MED ONCE .ROUTE Last administered on 11/04/19at 13:22; Start 11/04/19 at 07:48; Stop 11/04/19 at 07:48; Status DC Ketorolac Tromethamine (Toradol Im) 60 mg STK-MED ONCE .ROUTE ; Start 11/04/19 at 07:48; Stop 11/04/19 at 07:48; Status DC Thrombin 20,000 unit STK-MED ONCE TP Last administered on 11/04/19at 13:22; Start 11/04/19 at 07:48; Stop 11/04/19 at 07:48; Status DC Gadoterate Meglumine (Dotarem) 14 ml 1X ONCE IVP Last administered on 11/04/19at 08:15; Start 11/04/19 at 08:15; Stop 11/04/19 at 08:16; Status DC Propofol 20 ml @ As Directed STK-MED ONCE IV ; Start 11/04/19 at 09:19; Stop 11/04/19 at 09:19; Status DC Lidocaine HCl (Lidocaine Pf 2% Vial) 5 ml STK-MED ONCE .ROUTE ; Start 11/04/19 at 09:19; Stop 11/04/19 at 09:19; Status DC Fentanyl Citrate (Fentanyl 2ml Vial) 100 mcg STK-MED ONCE .ROUTE ; Start 11/04/19 at 09:19; Stop 11/04/19 at 09:19; Status DC Rocuronium [place] (Zemuron) 50 mg STK-MED ONCE .ROUTE ; Start 11/04/19 at 09:19; Stop 11/04/19 at 09:19; Status DC Remifentanil HCl (Ultiva) 2 mg STK-MED ONCE IV ; Start 11/04/19 at 09:19; Stop 11/04/19 at 09:19; Status DC Sodium Chloride (SODIUM CHLORIDE 20ml) 20 ml STK-MED ONCE IJ ; Start 11/04/19 at 09:19; Stop 11/04/19 at 09:20; Status DC Dexamethasone Sodium Phosphate (Decadron) 20 mg STK-MED ONCE .ROUTE ; Start 11/04/19 at 12:15; Stop 11/04/19 at 12:16; Status DC Desflurane (Suprane) 90 ml STK-MED ONCE IH ; Start 11/04/19 at 12:15; Stop 11/04/19 at 12:16; Status DC Ondansetron HCl (Zofran) 4 mg STK-MED ONCE .ROUTE ; Start 11/04/19 at 12:42; Stop 11/04/19 at 12:42; Status DC Glycopyrrolate (Robinul) 1 mg STK-MED ONCE .ROUTE ; Start 11/04/19 at 12:42; Stop 11/04/19 at 12:42; Status DC Neostigmine Methylsulfate (Neostigmine Methylsulfate) 5 mg STK-MED ONCE .ROUTE ; Start 11/04/19 at 12:42; Stop 11/04/19 at 12:42; Status DC Mannitol 500 ml @ As Directed STK-MED ONCE IV ; Start 11/04/19 at 12:53; Stop 11/04/19 at 12:53; Status DC Cefazolin Sodium (Ancef) 1 gm STK-MED ONCE .ROUTE ; Start 11/04/19 at 13:19; Stop 11/04/19 at 13:19; Status DC Phenylephrine HCl (PHENYLEPHRINE in 0.9% NACL PF) 1 mg STK-MED ONCE IV ; Start 11/04/19 at 14:18; Stop 11/04/19 at 14:18; Status DC Cellulose (Surgicel Hemostat 4x8) 1 each STK-MED ONCE .ROUTE Last administered on 11/04/19at 14:50; Start 11/04/19 at 14:45; Stop 11/04/19 at 14:46; Status DC Fentanyl Citrate (Fentanyl 2ml Vial) 50 mcg PRN Q2HR PRN IVP PAIN Last administered on 11/05/19at 08:18; Start 11/04/19 at 16:15 Acetaminophen/ Hydrocodone Bitart (Lortab 5/325) 1 tab PRN Q6HRS PRN PO MODERATE PAIN, SEVERE PAIN Last administered on 11/05/19at 12:10; Start 11/05/19 at 10:15 Active Scripts Active Reported Multi Vitamin Daily (Multivitamin) 1 Each Tablet 1 Tab PO DAILY 30 Days [place] 3 Fish Oil Softgel ([place]-3 Fatty Acids/Fish Oil) 1 Each Capsule.dr 1 Each PO DAILY Losartan-Hctz 100-12.5 Mg Tab (Losartan/Hydrochlorothiazide) 1 Each Tablet 1 Tab PO DAILY Toprol XL (Metoprolol Succinate) 50 Mg Tab.er.24h 50 Mg PO DAILY Vitals/I & O Vital Sign - Last 24 Hours 11/04/19 11/04/19 11/04/19 11/04/19 15:48 15:49 16:04 16:19 Temp 97.2 97.2 97.2 97.2 97.2 97.2 Pulse 94 58 48 Resp 17 18 18 B/P (MAP) 143/82 145/59 141/58 Pulse Ox 100 100 100 O2 Delivery Room Air Simple Mask Simple Mask Room Air O2 Flow Rate 8 8 11/04/19 11/04/19 11/04/19 11/04/19 16:34 17:00 17:00 17:00 Temp 97.6 97.4 97.6 97.4 Pulse 48 50 Resp 19 13 B/P (MAP) 134/59 170/60 (96) Pulse Ox 99 100 O2 Delivery Room Air Room Air Room Air 11/04/19 11/04/19 11/04/19 11/04/19 17:15 17:30 17:45 17:52 Pulse 50 56 46 48 Resp 10 15 9 B/P (MAP) 170/60 (96) 160/60 (93) 168/62 (97) 162/59 Pulse Ox 100 100 100 O2 Delivery Room Air Room Air Room Air 11/04/19 11/04/19 11/04/19 11/04/19 18:00 18:31 19:00 20:00 Pulse 59 54 54 Resp 20 20 12 B/P (MAP) 142/49 (80) 151/46 (81) 148/50 (82) Pulse Ox 100 100 98 O2 Delivery Room Air Room Air Room Air 11/04/19 11/04/19 11/04/19 11/04/19 20:00 20:00 21:00 22:00 Temp 98.0 98.0 Pulse 54 63 52 Resp 15 25 14 B/P (MAP) 148/50 (82) 150/57 (88) 125/51 (75) Pulse Ox 98 99 97 O2 Delivery Room Air Room Air Room Air Room Air 11/04/19 11/05/19 11/05/19 11/05/19 23:00 00:00 00:00 00:00 Temp 98.6 98.6 Pulse 54 54 54 Resp 29 14 B/P (MAP) 146/58 (87) 155/55 (88) 155/55 (88) Pulse Ox 99 99 O2 Delivery Room Air Room Air Room Air 11/05/19 11/05/19 11/05/19 11/05/19 01:00 02:00 03:00 03:33 Pulse 56 53 54 56 Resp 17 14 15 B/P (MAP) 167/60 (95) 156/56 (89) 158/56 (90) 173/66 Pulse Ox 95 97 98 O2 Delivery Room Air Room Air Room Air 11/05/19 11/05/19 11/05/19 11/05/19 04:00 04:00 04:00 05:00 Temp 98.8 98.8 Pulse 55 55 63 Resp 14 14 B/P (MAP) 139/52 (81) 139/52 (81) 150/58 (88) Pulse Ox 98 98 O2 Delivery Room Air Room Air Room Air 11/05/19 11/05/19 11/05/19 11/05/19 06:00 07:00 08:00 08:00 Temp 98.9 98.9 Pulse 66 64 58 Resp 17 20 17 B/P (MAP) 145/58 (87) 131/55 (80) 150/56 (87) Pulse Ox 98 99 100 O2 Delivery Room Air Room Air Room Air Room Air 11/05/19 11/05/19 11/05/19 11/05/19 08:00 08:18 08:48 09:00 Pulse 63 Resp 20 16 17 B/P (MAP) 120/48 (72) Pulse Ox 100 99 99 O2 Delivery Room Air Room Air Room Air 11/05/19 11/05/19 11/05/19 11/05/19 09:15 09:21 10:00 11:00 Pulse 61 74 66 66 Resp 20 19 B/P (MAP) 150/58 162/57 118/51 (73) 109/61 (77) Pulse Ox 100 100 O2 Delivery Room Air Room Air 11/05/19 12:10 Resp 20 Pulse Ox 100 O2 Delivery Room Air Intake and Output 11/04/19 11/04/19 11/05/19 15:00 23:00 07:00 Intake Total 1050 ml 390 ml 895 ml Output Total 1100 ml 1715 ml 455 ml Balance -50 ml -1325 ml 440 ml JANA MCNAMARA APRN Nov 05, 2019 12:21
--- NOTE | 2019-11-05 14:52 | NUR ---
PT/OT request for orders Pt transferred to ICU after craniotomy. When pt appropriate, please order PT/OT evaluate and treat. Thanks, Bereket Whitt PT
--- NOTE | 2019-11-05 15:32 | PDOC ---
Provider Note Provider Note 74 yo now post op day 1 of debulking of right temporal lobe tumor. doing well post op . Conversant and alert with no specific complaints now. F/S noted to be GBM. Will discuss with family when they are available about further treatment recommendations. NILES KINNEY MD Nov 05, 2019 15:32
[2019-11-05] MEDS: FAMOTIDINE 20 MG/2 ML VIAL IVP SCH (20:46)
[2019-11-06] VITALS (19 sets, daily range): BP systolic 117–171; BP diastolic 54–86
[2019-11-06] MEDS: DEXAMETHASONE SOD PHOS 4 MG/ML VIAL IVP SCH ×4 (00:53→18:28)
[2019-11-06] MEDS: IV NORMAL SALINE 1000ML BAG 1,000 ML IV SCH ×2 (07:15→12:30)
[2019-11-06] MEDS: OMEGA-3 FATTY ACIDS/FISH OIL 1,000 MG CAPSULE. PO SCH (08:29)
[2019-11-06] MEDS: MULTIVITAMIN with MINERAL TABLET. PO SCH (08:29)
[2019-11-06] MEDS: METOPROLOL SUCC 24HR ER 50 MG TAB.ER.24H. PO SCH (08:30)
[2019-11-06] MEDS: LOSARTAN POTASSIUM 50 MG TABLET. PO SCH (08:30)
[2019-11-06] MEDS: hydroCHLOROthiazide 12.5 MG CAPSULE PO SCH (08:31)
[2019-11-06] MEDS: levETIRAcetam 500 MG in IV DEXTROSE 5% 100ML 100 ML IV SCH (08:31)
[2019-11-06] MEDS: ACETAMINOPHEN 500 MG TABLET PO PRN ×2 (09:22→16:16)
--- NOTE | 2019-11-06 09:33 | PDOC ---
SUBJECTIVE Subjective S: doing great, eating, thinking clearly and speaking clearly for me today O: Gen: NAD, resting in bed HEENT: facial swelling Neuro: A&O Psych: pleasant mood and affect Labs: wbc 17, Hb 11.2, plt 218, MCV of 98, creatinine 1.1 A/P: She is a 74-year-old female with suspected GBM on steroids, neurosurgery an d neurology are involved and radiation oncology as well, s/p debulking 11/04/19. 1. GBM (per frozen section): We will follow-up adjuvantly for treatment as able based on recovery postoperatively. s/p debulking 11/04/19. final path pending. 2. Headache/Memory loss, Aphasia: On dexamethasone 4 mg every 6 hours, neurology is involved, seems much improved then when i first met Dispo: per others, to f/u w/ us as outpt. thank you kindly, and please don't hesitate to call with questions. OBJECTIVE Vital Signs Vital Signs Date Time Temp Pulse Resp B/P (MAP) Pulse Ox O2 Delivery O2 Flow Rate FiO2 11/06/19 09:15 67 18 147/72 (97) Room Air 11/06/19 08:30 62 171/76 11/06/19 08:30 63 171/76 11/06/19 08:02 62 17 171/76 (107) Room Air 11/06/19 07:15 Room Air 11/06/19 07:00 81 17 159/77 (104) 100 Room Air 11/06/19 07:00 97.9 62 16 159/77 (104) Room Air 97.9 11/06/19 06:00 61 18 137/61 (86) 100 Room Air 11/06/19 05:00 58 10 152/72 (98) 100 Room Air 11/06/19 04:00 Room Air 11/06/19 04:00 98.5 57 13 153/81 (105) 100 Room Air 98.5 11/06/19 03:00 58 13 140/66 (90) 98 Room Air 11/06/19 02:00 56 24 140/86 (104) 98 Room Air 11/06/19 01:00 54 15 127/58 (81) 99 Room Air 11/06/19 00:00 98.4 56 14 125/72 (89) 98 Room Air 98.4 11/06/19 00:00 Room Air 11/05/19 23:00 56 13 150/72 (98) 100 Room Air 11/05/19 22:00 60 21 136/69 (91) 100 Room Air 11/05/19 21:00 98.3 56 13 144/69 (94) 99 Room Air 98.3 11/05/19 20:00 65 20 119/64 (82) 100 Room Air 11/05/19 20:00 Room Air 11/05/19 19:00 62 18 121/58 (79) 98 Room Air 11/05/19 18:00 61 20 135/62 (86) 100 Room Air 11/05/19 17:00 60 17 116/58 (77) 99 Room Air 11/05/19 16:00 98.6 58 14 103/54 (70) 99 Room Air 98.6 11/05/19 16:00 Room Air 11/05/19 15:00 56 13 102/54 (70) 98 Room Air 11/05/19 14:00 57 15 104/54 (71) 99 Room Air 11/05/19 13:00 61 14 92/54 (67) 98 Room Air 11/05/19 12:10 20 100 Room Air 11/05/19 12:00 Room Air 11/05/19 12:00 98.9 77 20 96/46 (63) 100 Room Air 98.9 11/05/19 11:00 66 19 109/61 (77) 100 Room Air 11/05/19 10:00 66 20 118/51 (73) 100 Room Air I & O Intake and Output 11/06/19 06:59 Intake Total 2900 ml Output Total 140 ml Balance 2760 ml Intake Oral 918 ml IV Total 1982 ml Output Urine Total 140 ml # Voids 7 JJ PAL MD Nov 06, 2019 09:32
--- NOTE | 2019-11-06 10:27 | PDOC ---
PROGRESS NOTES Chief Complaint Chief Complaint A/P: RT temporal lobe mass 5.7 x 4.1 cm concerning for GBM - new dx. Recommended oral temozolamide and radiation therapy. GBM is a terminal diagnosis as currently ne dical research shows it as recurrent despite treatments ("incurable") Hemorrhagic CVA with brain edema Headaches HTN controlled Complete opacification left maxillary sinus which may be due to mucocele or neoplasm. Cerebral vasogenic edema with midline shift 8 mm. Intermittent recurrent confusional episodes. Complex partial seizure Left temporal field deficits. 2 mm anterior communicating artery aneurysm. plan S/p craniotomy and debulking on Sunday 11/04 neurology, neurosurgery, oncology, rad/onc consults 37 min pt exam, chart review, > 50% of time spent with exam, chart review, pt care coordination History of Present Illness History of Present Illness Ms Sargent is a 74yo F w/ PMHx HTN admitted with new onset of headaches, dizziness, slurred speech and confusion. Started on dexamethasone and prophylactic Keppra for intracranial mass. CT angiogram of the head and neck from 10/29/2019 revealed no intracranial arterial stenosis or occlusion, 2 mm anterior communicating artery aneurysm, poorly seen enhancing right temporal lobe mass. MRI scan from 10/29/2019 with gadolinium revealed an irregular ring enhancing temporal lobe mass measuring approximately 6 x 4 x 4 cm associated with internal hemorrhage extending into the right frontal and basal ganglion regions with some leftward midline shift. S/p debulking 11/04/2019 with frozen section confirming suspected glioblastoma multiforme. Seen by neurology, neurosurgery, hematology/oncology and radiation oncology. 11/05: She is seen in ICU, states she is still "waking up". Eating breakfast. Still having right sided headache. able to follow commands, move extremities. Overnight no events. still with decreased strength 4/5, Left homonymous hemianopsia and now with some right periorbital swelling. She is more alert, in better spirits. Still a bit confused, however. BP WNL. Plan: Can return to med/surg when ok with neurosurgery. Would have [facility]ER/PT/OT reevaluate now. Vitals Vitals Vital Signs Date Time Temp Pulse Resp B/P (MAP) Pulse Ox O2 Delivery O2 Flow Rate FiO2 11/06/19 10:02 69 14 117/54 (75) 100 Room Air 11/06/19 07:00 97.9 97.9 Physical Exam General: Alert, Cooperative, No acute distress, Other (follows commands) Heart: Normal S1, Normal S2 Abdomen: Normal bowel sounds, Soft, No tenderness, No hepatosplenomegaly, No masses Extremities: No clubbing, No cyanosis, No edema, Normal pulses Skin: Other (dressing changed per RN, dry and intact) Assessment and Plan Assessmemt and Plan Problems Medical Problems: (1) Confusion Status: Acute (2) Hyponatremia Status: Acute (3) Intracranial hemorrhage Status: Acute Comment Review of Relevant I have reviewed the following items ramin (where applicable) has been applied. Labs Laboratory Tests Test 11/05/19 05:30 White Blood Count 17.1 x10^3/uL (4.0-11.0) Red Blood Count 3.35 x10^6/uL (3.50-5.40) Hemoglobin 11.2 g/dL (12.0-15.5) Hematocrit 32.7 % (36.0-47.0) Mean Corpuscular Volume 98 fL (79-100) Mean Corpuscular Hemoglobin 33 pg (25-35) Mean Corpuscular Hemoglobin Concent 34 g/dL (31-37) Red Cell Distribution Width 11.8 % (11.5-14.5) Platelet Count 218 x10^3/uL (140-400) Neutrophils (%) (Auto) 85 % (31-73) Lymphocytes (%) (Auto) 9 % (24-48) Monocytes (%) (Auto) 7 % (0-9) Eosinophils (%) (Auto) 0 % (0-3) Basophils (%) (Auto) 0 % (0-3) Neutrophils # (Auto) 14.4 x10^3/uL (1.8-7.7) Lymphocytes # (Auto) 1.5 x10^3/uL (1.0-4.8) Monocytes # (Auto) 1.1 x10^3/uL (0.0-1.1) Eosinophils # (Auto) 0.0 x10^3/uL (0.0-0.7) Basophils # (Auto) 0.0 x10^3/uL (0.0-0.2) Segmented Neutrophils % 91 % (35-66) Band Neutrophils % 1 % (0-9) Lymphocytes % 6 % (24-48) Monocytes % 2 % (0-10) Toxic Vacuolation Present Platelet Estimate Adequate (ADEQUATE) Anisocytosis Slight Sodium Level 138 mmol/L (136-145) Potassium Level 4.1 mmol/L (3.5-5.1) Chloride Level 106 mmol/L (98-107) Carbon Dioxide Level 22 mmol/L (21-32) Anion Gap 10 (6-14) Blood Urea Nitrogen 24 mg/dL (7-20) Creatinine 1.1 mg/dL (0.6-1.0) Estimated GFR (Cockcroft-Gault) 58.6 Glucose Level 123 mg/dL (70-99) Calcium Level 7.9 mg/dL (8.5-10.1) Medications Current Medications Dexamethasone Sodium Phosphate (Decadron) 4 mg 1X ONCE IVP Last administered on 10/29/19 18:52; Start 10/29/19 at 16:45; Stop 10/29/19 at 16:46; Status DC Acetaminophen (Tylenol) 500 mg PRN Q6HRS PRN PO MILD PAIN / TEMP Last administered on 11/06/19 09:22; Start 10/29/19 at 17:00 Ondansetron HCl (Zofran) 4 mg PRN Q6HRS PRN IVP NAUSEA/VOMITING Last administered on 11/02/19 13:55; Start 10/29/19 at 17:00 Sodium Chloride 1,000 ml @ 80 mls/hr [id number] IV Last administered on 11/06/19 07:15; Start 10/29/19 at 17:00 Famotidine (Pepcid Vial) 20 mg QHS IVP Last administered on 11/05/19 20:46; Start 10/29/19 at 21:00 Hydralazine HCl (Apresoline Inj) 10 mg PRN Q4HRS PRN IVP ELEVATED BP, SEE COMMENTS Last administered on 11/05/19 03:33; Start 10/29/19 at 17:00 Dexamethasone Sodium Phosphate (Decadron) 4 mg Q6HRS IVP Last administered on 11/06/19 05:32; Start 10/29/19 at 18:00 Gadoterate Meglumine (Dotarem) 14 ml 1X ONCE IVP Last administered on 10/29/19 17:55; Start 10/29/19 at 17:30; Stop 10/29/19 at 17:40; Status DC Iohexol (Omnipaque 350 Mg/ml) 60 ml 1X ONCE IV Last administered on 10/29/19 18:46; Start 10/29/19 at 18:30; Stop 10/29/19 at 18:31; Status DC Info (CONTRAST GIVEN -- Rx MONITORING) 1 each PRN DAILY PRN MC SEE COMMENTS; Start 10/29/19 at 18:30; Stop 10/31/19 at 18:29; Status DC Levetiracetam 500 mg/Dextrose 105 ml @ 440 mls/hr Q12HR IV Last administered on 11/06/19 08:31; Start 10/29/19 at 21:00 Metoprolol Tartrate (Lopressor) 50 mg DAILY PO ; Start 10/30/19 at 09:00; Status Cancel Hydrochlorothiazide (Microzide) 12.5 mg DAILY PO Last administered on 11/06/19 08:31; Start 10/30/19 at 09:00 Fish Oil (Fish Oil) 1,000 mg DAILY PO Last administered on 11/06/19 08:29; Start 10/30/19 at 09:00 Multivitamins (Thera M Plus) 1 tab DAILY PO Last administered on 11/06/19 08:29; Start 10/30/19 at 09:00 Morphine Sulfate (Morphine Sulfate) 1 mg PRN Q2HR PRN IV PAIN Last administered on 10/30/19 13:49; Start 10/29/19 at 21:15 Metoprolol Succinate (Toprol Xl) 50 mg DAILY PO Last administered on 11/06/19 08:30; Start 10/31/19 at 09:00 Losartan Potassium (Cozaar) 100 mg DAILY PO Last administered on 11/06/19 08:30; Start 10/31/19 at 09:00 Non-Formulary Medication (Multivitamin (Multi Vitamin Daily)) 1 tab DAILY PO ; Start 10/31/19 at 09:00; Status UNV Non-Formulary Medication ([facility]-3 Fatty Acids/Fish Oil ([facility] 3 Fish Oil Softgel)) 1 each DAILY PO ; Start 10/31/19 at 09:00; Status UNV Ondansetron HCl (Zofran) 4 mg PRN Q6HRS PRN IV NAUSEA/VOMITING; Start 11/04/19 at 07:00; Stop 11/05/19 at 06:59; Status DC Fentanyl Citrate (Fentanyl 2ml Vial) 25 mcg PRN Q5MIN PRN IV MILD PAIN 1-3 Last administered on 11/04/19at 18:31; Start 11/04/19 at 07:00; Stop 11/05/19 at 06:59; Status DC Fentanyl Citrate (Fentanyl 2ml Vial) 50 mcg PRN Q5MIN PRN IV MODERATE TO SEVERE PAIN; Start 11/04/19 at 07:00; Stop 11/05/19 at 06:59; Status DC Morphine Sulfate (Morphine Sulfate) 1 mg PRN Q10MIN PRN IV SEVERE PAIN 7-10; Start 11/04/19 at 07:00; Stop 11/05/19 at 06:59; Status DC Ringer's Solution 1,000 ml @ 30 mls/hr Q24H IV ; Start 11/04/19 at 07:00; Stop 11/04/19 at 18:59; Status DC Lidocaine HCl (Xylocaine-Mpf 1% 2ml Vial) 2 ml PRN 1X PRN ID PRIOR TO IV START; Start 11/04/19 at 07:00; Stop 11/05/19 at 06:59; Status DC Hydromorphone HCl (Dilaudid) 0.5 mg PRN Q10MIN PRN IV SEV PAIN, Second choice; Start 11/04/19 at 07:00; Stop 11/05/19 at 06:59; Status DC Prochlorperazine Edisylate (Compazine) 5 mg PACU PRN PRN IV NAUSEA, MRX1; Start 11/04/19 at 07:00; Stop 11/05/19 at 06:59; Status DC Bacitracin 90130 unit/Sodium Chloride 1,000 ml @ 1,000 mls/hr 1X ONCE IRR Last administered on 11/04/19at 13:22; Start 11/04/19 at 06:00; Stop 11/04/19 at 06:59; Status DC Bupivacaine HCl/ Epinephrine Bitart (Sensorcain-Epi 0.5%-1:220872 Mpf) 30 ml 1X ONCE INJ Last administered on 11/04/19at 13:22; Start 11/04/19 at 06:30; Stop 11/04/19 at 06:31; Status DC Cefazolin Sodium/ Dextrose 50 ml @ 100 mls/hr 1X PREOP ONCE IV ; Start 11/03/19 at 10:00; Stop 11/03/19 at 10:29; Status Cancel Cefazolin Sodium/ Dextrose 50 ml @ 100 mls/hr 1X PREOP ONCE IV Last administered on 11/04/19at 12:15; Start 11/04/19 at 10:00; Stop 11/04/19 at 10:29; Status DC Gelatin (Gelfoam Size 100) 1 each STK-MED ONCE .ROUTE Last administered on 11/04/19at 13:22; Start 11/04/19 at 07:48; Stop 11/04/19 at 07:48; Status DC Ketorolac Tromethamine (Toradol Im) 60 mg STK-MED ONCE .ROUTE ; Start 11/04/19 at 07:48; Stop 11/04/19 at 07:48; Status DC Thrombin 20,000 unit STK-MED ONCE TP Last administered on 11/04/19at 13:22; Start 11/04/19 at 07:48; Stop 11/04/19 at 07:48; Status DC Gadoterate Meglumine (Dotarem) 14 ml 1X ONCE IVP Last administered on 11/04/19at 08:15; Start 11/04/19 at 08:15; Stop 11/04/19 at 08:16; Status DC Propofol 20 ml @ As Directed STK-MED ONCE IV ; Start 11/04/19 at 09:19; Stop 11/04/19 at 09:19; Status DC Lidocaine HCl (Lidocaine Pf 2% Vial) 5 ml STK-MED ONCE .ROUTE ; Start 11/04/19 at 09:19; Stop 11/04/19 at 09:19; Status DC Fentanyl Citrate (Fentanyl 2ml Vial) 100 mcg STK-MED ONCE .ROUTE ; Start 11/04/19 at 09:19; Stop 11/04/19 at 09:19; Status DC Rocuronium Reasnor (Zemuron) 50 mg STK-MED ONCE .ROUTE ; Start 11/04/19 at 09:19; Stop 11/04/19 at 09:19; Status DC Remifentanil HCl (Ultiva) 2 mg STK-MED ONCE IV ; Start 12/9/19 at 09:19; Stop 11/04/19 at 09:19; Status DC Sodium Chloride (SODIUM CHLORIDE 20ml) 20 ml STK-MED ONCE IJ ; Start 11/04/19 at 09:19; Stop 11/04/19 at 09:20; Status DC Dexamethasone Sodium Phosphate (Decadron) 20 mg STK-MED ONCE .ROUTE ; Start 11/04/19 at 12:15; Stop 11/04/19 at 12:16; Status DC Desflurane (Suprane) 90 ml STK-MED ONCE IH ; Start 11/04/19 at 12:15; Stop 11/04/19 at 12:16; Status DC Ondansetron HCl (Zofran) 4 mg STK-MED ONCE .ROUTE ; Start 11/04/19 at 12:42; Stop 11/04/19 at 12:42; Status DC Glycopyrrolate (Robinul) 1 mg STK-MED ONCE .ROUTE ; Start 11/04/19 at 12:42; Stop 11/04/19 at 12:42; Status DC Neostigmine Methylsulfate (Neostigmine Methylsulfate) 5 mg STK-MED ONCE .ROUTE ; Start 11/04/19 at 12:42; Stop 11/04/19 at 12:42; Status DC Mannitol 500 ml @ As Directed STK-MED ONCE IV ; Start 11/04/19 at 12:53; Stop 11/04/19 at 12:53; Status DC Cefazolin Sodium (Ancef) 1 gm STK-MED ONCE .ROUTE ; Start 11/04/19 at 13:19; Stop 11/04/19 at 13:19; Status DC Phenylephrine HCl (PHENYLEPHRINE in 0.9% NACL PF) 1 mg STK-MED ONCE IV ; Start 11/04/19 at 14:18; Stop 11/04/19 at 14:18; Status DC Cellulose (Surgicel Hemostat 4x8) 1 each STK-MED ONCE .ROUTE Last administered on 11/04/19at 14:50; Start 11/04/19 at 14:45; Stop 11/04/19 at 14:46; Status DC Fentanyl Citrate (Fentanyl 2ml Vial) 50 mcg PRN Q2HR PRN IVP PAIN Last administered on 11/05/19at 08:18; Start 11/04/19 at 16:15 Acetaminophen/ Hydrocodone Bitart (Lortab 5/325) 1 tab PRN Q6HRS PRN PO MODERATE PAIN, SEVERE PAIN Last administered on 11/05/19at 12:10; Start 11/05/19 at 10:15 Active Scripts Active Reported Multi Vitamin Daily (Multivitamin) 1 Each Tablet 1 Tab PO DAILY 30 Days [facility] 3 Fish Oil Softgel ([facility]-3 Fatty Acids/Fish Oil) 1 Each Capsule.dr 1 Each PO DAILY Losartan-Hctz 100-12.5 Mg Tab (Losartan/Hydrochlorothiazide) 1 Each Tablet 1 Tab PO DAILY Toprol XL (Metoprolol Succinate) 50 Mg Tab.er.24h 50 Mg PO DAILY Vitals/I & O Vital Sign - Last 24 Hours 11/05/19 11/05/19 11/05/19 11/05/19 11:00 12:00 12:00 12:10 Temp 98.9 98.9 Pulse 66 77 Resp 19 20 20 B/P (MAP) 109/61 (77) 96/46 (63) Pulse Ox 100 100 100 O2 Delivery Room Air Room Air Room Air Room Air 11/05/19 11/05/19 11/05/19 11/05/19 13:00 14:00 15:00 16:00 Pulse 61 57 56 Resp 14 15 13 B/P (MAP) 92/54 (67) 104/54 (71) 102/54 (70) Pulse Ox 98 99 98 O2 Delivery Room Air Room Air Room Air Room Air 11/05/19 11/05/19 11/05/19 11/05/19 16:00 17:00 18:00 19:00 Temp 98.6 98.6 Pulse 58 60 61 62 Resp 14 17 20 18 B/P (MAP) 103/54 (70) 116/58 (77) 135/62 (86) 121/58 (79) Pulse Ox 99 99 100 98 O2 Delivery Room Air Room Air Room Air Room Air 11/05/19 11/05/19 11/05/19 11/05/19 20:00 20:00 21:00 22:00 Temp 98.3 98.3 Pulse 65 56 60 Resp 20 13 21 B/P (MAP) 119/64 (82) 144/69 (94) 136/69 (91) Pulse Ox 100 99 100 O2 Delivery Room Air Room Air Room Air Room Air 12/09/1411/06/19 11/06/19 11/06/19 23:00 00:00 00:00 01:00 Temp 98.4 98.4 Pulse 56 56 54 Resp 13 14 15 B/P (MAP) 150/72 (98) 125/72 (89) 127/58 (81) Pulse Ox 100 98 99 O2 Delivery Room Air Room Air Room Air Room Air 11/06/19 11/06/19 11/06/19 11/06/19 02:00 03:00 04:00 04:00 Temp 98.5 98.5 Pulse 56 58 57 Resp 24 13 13 B/P (MAP) 140/86 (104) 140/66 (90) 153/81 (105) Pulse Ox 98 98 100 O2 Delivery Room Air Room Air Room Air Room Air 11/06/19 11/06/19 11/06/19 11/06/19 05:00 06:00 07:00 07:00 Temp 97.9 97.9 Pulse 58 61 62 81 Resp 10 18 16 17 B/P (MAP) 152/72 (98) 137/61 (86) 159/77 (104) 159/77 (104) Pulse Ox 100 100 100 O2 Delivery Room Air Room Air Room Air Room Air 11/06/19 11/06/19 11/06/19 11/06/19 07:15 08:02 08:30 08:30 Pulse 62 63 62 Resp 17 B/P (MAP) 171/76 (107) 171/76 171/76 O2 Delivery Room Air Room Air 11/06/19 11/06/19 09:15 10:02 Pulse 67 69 Resp 18 14 B/P (MAP) 147/72 (97) 117/54 (75) Pulse Ox 100 O2 Delivery Room Air Room Air Intake and Output 11/05/19 11/05/19 11/06/19 15:00 23:00 07:00 Intake Total 623 ml 1396 ml 881 ml Output Total 140 ml 0 ml 0 ml Balance 483 ml 1396 ml 881 ml NEAL RED MD Nov 06, 2019 10:27
--- NOTE | 2019-11-06 11:21 | PDOC ---
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 Tumor necrotic hemorrhage. Cerebral vasogenic edema with midline shift 8 mm. Intermittent recurrent confusional episodes. Complex partial seizure likely. Left temporal field deficits. 2 mm anterior communicating artery aneurysm. Metabolic encephalopathy. Headaches x 1-2 weeks. HTN. Plan Decadron taper per neurosurgery. Continue Keppra 500 mg, switch to oral Subjective No complaints Objective Vital Signs Date Time Temp Pulse Resp B/P (MAP) Pulse Ox O2 Delivery O2 Flow Rate FiO2 11/06/19 11:03 73 18 119/62 (81) 100 Room Air 11/06/19 07:00 97.9 97.9 Intake and Output 11/06/19 07:00 Intake Total 2900 ml Output Total 140 ml Balance 2760 ml Intake Oral 918 ml IV Total 1982 ml Output Urine Total 140 ml # Voids 7 PHYSICAL EXAM Physical Exam: Alert. Oriented to place and person. PERRL. EOMI. CN: Left homonymous hemianopsia, no longer has left central facial palsy Muscle tone: normal. Muscle strength: 4/5 DTR: 1+ Plantar reflex: flexor Gait: not examined in bed. Sensory exam: no abnormal findings. No cerebellar signs elicited. Review of Relevant I have reviewed the following items ramin (where applicable) has been applied. Labs Laboratory Tests Test 11/05/19 05:30 White Blood Count 17.1 x10^3/uL (4.0-11.0) Red Blood Count 3.35 x10^6/uL (3.50-5.40) Hemoglobin 11.2 g/dL (12.0-15.5) Hematocrit 32.7 % (36.0-47.0) Mean Corpuscular Volume 98 fL (79-100) Mean Corpuscular Hemoglobin 33 pg (25-35) Mean Corpuscular Hemoglobin Concent 34 g/dL (31-37) Red Cell Distribution Width 11.8 % (11.5-14.5) Platelet Count 218 x10^3/uL (140-400) Neutrophils (%) (Auto) 85 % (31-73) Lymphocytes (%) (Auto) 9 % (24-48) Monocytes (%) (Auto) 7 % (0-9) Eosinophils (%) (Auto) 0 % (0-3) Basophils (%) (Auto) 0 % (0-3) Neutrophils # (Auto) 14.4 x10^3/uL (1.8-7.7) Lymphocytes # (Auto) 1.5 x10^3/uL (1.0-4.8) Monocytes # (Auto) 1.1 x10^3/uL (0.0-1.1) Eosinophils # (Auto) 0.0 x10^3/uL (0.0-0.7) Basophils # (Auto) 0.0 x10^3/uL (0.0-0.2) Segmented Neutrophils % 91 % (35-66) Band Neutrophils % 1 % (0-9) Lymphocytes % 6 % (24-48) Monocytes % 2 % (0-10) Toxic Vacuolation Present Platelet Estimate Adequate (ADEQUATE) Anisocytosis Slight Sodium Level 138 mmol/L (136-145) Potassium Level 4.1 mmol/L (3.5-5.1) Chloride Level 106 mmol/L (98-107) Carbon Dioxide Level 22 mmol/L (21-32) Anion Gap 10 (6-14) Blood Urea Nitrogen 24 mg/dL (7-20) Creatinine 1.1 mg/dL (0.6-1.0) Estimated GFR (Cockcroft-Gault) 58.6 Glucose Level 123 mg/dL (70-99) Calcium Level 7.9 mg/dL (8.5-10.1) Medications Current Medications Dexamethasone Sodium Phosphate (Decadron) 4 mg 1X ONCE IVP Last administered on 10/29/19at 18:52; Start 10/29/19 at 16:45; Stop 10/29/19 at 16:46; Status DC Acetaminophen (Tylenol) 500 mg PRN Q6HRS PRN PO MILD PAIN / TEMP Last administered on 11/06/19at 09:22; Start 10/29/19 at 17:00 Ondansetron HCl (Zofran) 4 mg PRN Q6HRS PRN IVP NAUSEA/VOMITING Last administered on 11/02/19at 13:55; Start 10/29/19 at 17:00 Sodium Chloride 1,000 ml @ 80 mls/hr [id number] IV Last administered on 11/06/19 07:15; Start 10/29/19 at 17:00 Famotidine (Pepcid Vial) 20 mg QHS IVP Last administered on 11/05/19 20:46; Start 10/29/19 at 21:00 Hydralazine HCl (Apresoline Inj) 10 mg PRN Q4HRS PRN IVP ELEVATED BP, SEE COMMENTS Last administered on 11/05/19 03:33; Start 10/29/19 at 17:00 Dexamethasone Sodium Phosphate (Decadron) 4 mg Q6HRS IVP Last administered on 11/06/19 05:32; Start 10/29/19 at 18:00 Gadoterate Meglumine (Dotarem) 14 ml 1X ONCE IVP Last administered on 10/29/19 17:55; Start 10/29/19 at 17:30; Stop 10/29/19 at 17:40; Status DC Iohexol (Omnipaque 350 Mg/ml) 60 ml 1X ONCE IV Last administered on 10/29/19 18:46; Start 10/29/19 at 18:30; Stop 10/29/19 at 18:31; Status DC Info (CONTRAST GIVEN -- Rx MONITORING) 1 each PRN DAILY PRN MC SEE COMMENTS; S tart 10/29/19 at 18:30; Stop 10/31/19 at 18:29; Status DC Levetiracetam 500 mg/Dextrose 105 ml @ 440 mls/hr Q12HR IV Last administered on 11/06/19at 08:31; Start 10/29/19 at 21:00 Metoprolol Tartrate (Lopressor) 50 mg DAILY PO ; Start 10/30/19 at 09:00; Status Cancel Hydrochlorothiazide (Microzide) 12.5 mg DAILY PO Last administered on 11/06/19 08:31; Start 10/30/19 at 09:00 Fish Oil (Fish Oil) 1,000 mg DAILY PO Last administered on 11/06/19 08:29; Start 10/30/19 at 09:00 Multivitamins (Thera M Plus) 1 tab DAILY PO Last administered on 11/06/19 08:29; Start 10/30/19 at 09:00 Morphine Sulfate (Morphine Sulfate) 1 mg PRN Q2HR PRN IV PAIN Last administered on 10/30/19at 13:49; Start 10/29/19 at 21:15 Metoprolol Succinate (Toprol Xl) 50 mg DAILY PO Last administered on 11/06/19at 08:30; Start 10/31/19 at 09:00 Losartan Potassium (Cozaar) 100 mg DAILY PO Last administered on 11/06/19at 08:30; Start 10/31/19 at 09:00 Non-Formulary Medication (Multivitamin (Multi Vitamin Daily)) 1 tab DAILY PO ; Start 10/31/19 at 09:00; Status UNV Non-Formulary Medication ([place]-3 Fatty Acids/Fish Oil ([place] 3 Fish Oil Softgel)) 1 each DAILY PO ; Start 10/31/19 at 09:00; Status UNV Ondansetron HCl (Zofran) 4 mg PRN Q6HRS PRN IV NAUSEA/VOMITING; Start 11/04/19 at 07:00; Stop 11/05/19 at 06:59; Status DC Fentanyl Citrate (Fentanyl 2ml Vial) 25 mcg PRN Q5MIN PRN IV MILD PAIN 1-3 Last administered on 11/04/19at 18:31; Start 11/04/19 at 07:00; Stop 11/05/19 at 06:59; Status DC Fentanyl Citrate (Fentanyl 2ml Vial) 50 mcg PRN Q5MIN PRN IV MODERATE TO SEVERE PAIN; Start 11/04/19 at 07:00; Stop 11/05/19 at 06:59; Status DC Morphine Sulfate (Morphine Sulfate) 1 mg PRN Q10MIN PRN IV SEVERE PAIN 7-10; Start 11/04/19 at 07:00; Stop 11/05/19 at 06:59; Status DC Ringer's Solution 1,000 ml @ 30 mls/hr Q24H IV ; Start 11/04/19 at 07:00; Stop 11/04/19 at 18:59; Status DC Lidocaine HCl (Xylocaine-Mpf 1% 2ml Vial) 2 ml PRN 1X PRN ID PRIOR TO IV START; Start 11/04/19 at 07:00; Stop 11/05/19 at 06:59; Status DC Hydromorphone HCl (Dilaudid) 0.5 mg PRN Q10MIN PRN IV SEV PAIN, Second choice; Start 11/04/19 at 07:00; Stop 11/05/19 at 06:59; Status DC Prochlorperazine Edisylate (Compazine) 5 mg PACU PRN PRN IV NAUSEA, MRX1; Start 11/04/19 at 07:00; Stop 11/05/19 at 06:59; Status DC Bacitracin 84492 unit/Sodium Chloride 1,000 ml @ 1,000 mls/hr 1X ONCE IRR Last administered on 11/04/19 13:22; Start 11/04/19 at 06:00; Stop 11/04/19 at 06:59; Status DC Bupivacaine HCl/ Epinephrine Bitart (Sensorcain-Epi 0.5%-1:439012 Mpf) 30 ml 1X ONCE INJ Last administered on 11/04/19 13:22; Start 11/04/19 at 06:30; Stop 11/04/19 at 06:31; Status DC Cefazolin Sodium/ Dextrose 50 ml @ 100 mls/hr 1X PREOP ONCE IV ; Start 11/03/19 at 10:00; Stop 11/03/19 at 10:29; Status Cancel Cefazolin Sodium/ Dextrose 50 ml @ 100 mls/hr 1X PREOP ONCE IV Last administered on 11/04/19at 12:15; Start 11/04/19 at 10:00; Stop 11/04/19 at 10:29; Status DC Gelatin (Gelfoam Size 100) 1 each STK-MED ONCE .ROUTE Last administered on 11/04/19 13:22; Start 11/04/19 at 07:48; Stop 11/04/19 at 07:48; Status DC Ketorolac Tromethamine (Toradol Im) 60 mg STK-MED ONCE .ROUTE ; Start 11/04/19 at 07:48; Stop 11/04/19 at 07:48; Status DC Thrombin 20,000 unit STK-MED ONCE TP Last administered on 11/04/19 13:22; Start 11/04/19 at 07:48; Stop 11/04/19 at 07:48; Status DC Gadoterate Meglumine (Dotarem) 14 ml 1X ONCE IVP Last administered on 1 01/05/19at 08:15; Start 11/04/19 at 08:15; Stop 11/04/19 at 08:16; Status DC Propofol 20 ml @ As Directed STK-MED ONCE IV ; Start 11/04/19 at 09:19; Stop 11/04/19 at 09:19; Status DC Lidocaine HCl (Lidocaine Pf 2% Vial) 5 ml STK-MED ONCE .ROUTE ; Start 11/04/19 at 09:19; Stop 11/04/19 at 09:19; Status DC Fentanyl Citrate (Fentanyl 2ml Vial) 100 mcg STK-MED ONCE .ROUTE ; Start 11/04/19 at 09:19; Stop 11/04/19 at 09:19; Status DC Rocuronium Pearl (Zemuron) 50 mg STK-MED ONCE .ROUTE ; Start 11/04/19 at 09: 19; Stop 11/04/19 at 09:19; Status DC Remifentanil HCl (Ultiva) 2 mg STK-MED ONCE IV ; Start 11/04/19 at 09:19; Stop 11/04/19 at 09:19; Status DC Sodium Chloride (SODIUM CHLORIDE 20ml) 20 ml STK-MED ONCE IJ ; Start 11/04/19 at 09:19; Stop 11/04/19 at 09:20; Status DC Dexamethasone Sodium Phosphate (Decadron) 20 mg STK-MED ONCE .ROUTE ; Start 11/04/19 at 12:15; Stop 11/04/19 at 12:16; Status DC Desflurane (Suprane) 90 ml STK-MED ONCE IH ; Start 11/04/19 at 12:15; Stop 11/04/19 at 12:16; Status DC Ondansetron HCl (Zofran) 4 mg STK-MED ONCE .ROUTE ; Start 11/04/19 at 12:42; Stop 11/04/19 at 12:42; Status DC Glycopyrrolate (Robinul) 1 mg STK-MED ONCE .ROUTE ; Start 11/04/19 at 12:42; Stop 11/04/19 at 12:42; Status DC Neostigmine Methylsulfate (Neostigmine Methylsulfate) 5 mg STK-MED ONCE .ROUTE ; Start 11/04/19 at 12:42; Stop 11/04/19 at 12:42; Status DC Mannitol 500 ml @ As Directed STK-MED ONCE IV ; Start 11/04/19 at 12:53; Stop 11/04/19 at 12:53; Status DC Cefazolin Sodium (Ancef) 1 gm STK-MED ONCE .ROUTE ; Start 11/04/19 at 13:19; Stop 11/04/19 at 13:19; Status DC Phenylephrine HCl (PHENYLEPHRINE in 0.9% NACL PF) 1 mg STK-MED ONCE IV ; Start 11/04/19 at 14:18; Stop 11/04/19 at 14:18; Status DC Cellulose (Surgicel Hemostat 4x8) 1 each STK-MED ONCE .ROUTE Last administered on 11/04/19at 14:50; Start 11/04/19 at 14:45; Stop 11/04/19 at 14:46; Status DC Fentanyl Citrate (Fentanyl 2ml Vial) 50 mcg PRN Q2HR PRN IVP PAIN Last administered on 11/05/19at 08:18; Start 11/04/19 at 16:15 Acetaminophen/ Hydrocodone Bitart (Lortab 5/325) 1 tab PRN Q6HRS PRN PO MODERATE PAIN, SEVERE PAIN Last administered on 11/05/19at 12:10; Start 09/14 at 10:15 Active Scripts Active Reported Multi Vitamin Daily (Multivitamin) 1 Each Tablet 1 Tab PO DAILY 30 Days [place] 3 Fish Oil Softgel ([place]-3 Fatty Acids/Fish Oil) 1 Each Capsule. 1 Each PO DAILY Losartan-Hctz 100-12.5 Mg Tab (Losartan/Hydrochlorothiazide) 1 Each Tablet 1 Tab PO DAILY Toprol XL (Metoprolol Succinate) 50 Mg Tab.er.24h 50 Mg PO DAILY Vitals/I & O Vital Sign - Last 24 Hours 11/05/19 11/05/19 11/05/19 11/05/19 12:00 12:00 12:10 13:00 Temp 98.9 98.9 Pulse 77 61 Resp 20 20 14 B/P (MAP) 96/46 (63) 92/54 (67) Pulse Ox 100 100 98 O2 Delivery Room Air Room Air Room Air Room Air 11/05/19 11/05/19 11/05/19 11/05/19 14:00 15:00 16:00 16:00 Temp 98.6 98.6 Pulse 57 56 58 Resp 15 13 14 B/P (MAP) 104/54 (71) 102/54 (70) 103/54 (70) Pulse Ox 99 98 99 O2 Delivery Room Air Room Air Room Air Room Air 11/05/19 11/05/19 11/05/19 11/05/19 17:00 18:00 19:00 20:00 Pulse 60 61 62 Resp 17 20 18 B/P (MAP) 116/58 (77) 135/62 (86) 121/58 (79) Pulse Ox 99 100 98 O2 Delivery Room Air Room Air Room Air Room Air 11/05/19 11/05/19 11/05/19 11/05/19 20:00 21:00 22:00 23:00 Temp 98.3 98.3 Pulse 65 56 60 56 Resp 20 13 21 13 B/P (MAP) 119/64 (82) 144/69 (94) 136/69 (91) 150/72 (98) Pulse Ox 100 99 100 100 O2 Delivery Room Air Room Air Room Air Room Air 11/06/19 11/06/19 11/06/19 11/06/19 00:00 00:00 01:00 02:00 Temp 98.4 98.4 Pulse 56 54 56 Resp 14 15 24 B/P (MAP) 125/72 (89) 127/58 (81) 140/86 (104) Pulse Ox 98 99 98 O2 Delivery Room Air Room Air Room Air Room Air 11/06/19 11/06/19 11/06/19 11/06/19 03:00 04:00 04:00 05:00 Temp 98.5 98.5 Pulse 58 57 58 Resp 13 13 10 B/P (MAP) 140/66 (90) 153/81 (105) 152/72 (98) Pulse Ox 98 100 100 O2 Delivery Room Air Room Air Room Air Room Air 11/06/19 11/06/19 11/06/19 11/06/19 06:00 07:00 07:00 07:15 Temp 97.9 97.9 Pulse 61 62 81 Resp 18 16 17 B/P (MAP) 137/61 (86) 159/77 (104) 159/77 (104) Pulse Ox 100 100 O2 Delivery Room Air Room Air Room Air Room Air 11/06/19 11/06/19 11/06/19 11/06/19 08:02 08:30 08:30 09:15 Pulse 62 63 62 67 Resp 17 18 B/P (MAP) 171/76 (107) 171/76 171/76 147/72 (97) O2 Delivery Room Air Room Air 11/06/19 11/06/19 10:02 11:03 Pulse 69 73 Resp 14 18 B/P (MAP) 117/54 (75) 119/62 (81) Pulse Ox 100 100 O2 Delivery Room Air Room Air Intake and Output 11/05/19 11/05/19 11/06/19 15:00 23:00 07:00 Intake Total 623 ml 1396 ml 881 ml Output Total 140 ml 0 ml 0 ml Balance 483 ml 1396 ml 881 ml TRICIA ROSS MD Nov 06, 2019 11:20
--- NOTE | 2019-11-06 14:10 | PDOC ---
PROGRESS NOTES Subjective Subjective POD #2 status-post resection glioblastoma on frozen section, on 11/04 Awake, alert eating lunch denies pain family at bedside Objective Objective Vital Signs Date Time Temp Pulse Resp B/P (MAP) Pulse Ox O2 Delivery O2 Flow Rate FiO2 11/06/19 13:01 58 16 129/68 (88) 100 Room Air 11/06/19 12:10 98.0 98.0 11/04/19 16:04 8 Intake and Output 11/06/19 07:00 Intake Total 2900 ml Output Total 140 ml Balance 2760 ml Intake Oral 918 ml IV Total 1982 ml Output Urine Total 140 ml # Voids 7 Physical Exam General: Alert, Cooperative, No acute distress, Other Neuro: Normal speech, Other (CONTRERAS) Skin: Other (dressing C,D,I) Assessment Assessment Problems Medical Problems: (1) Confusion Status: Acute (2) Hyponatremia Status: Acute (3) Intracranial hemorrhage Status: Acute Plan Plan of Care Large right temporal lobe mass, glioblastoma on frozen section, s/p resection 11/04 wean steroids up as tolerated, PT ok to transfer to floor SCDs CT before DC Comment Review of Relevant I have reviewed the following items ramin (where applicable) has been applied. Labs Laboratory Tests Test 11/05/19 05:30 White Blood Count 17.1 x10^3/uL (4.0-11.0) Red Blood Count 3.35 x10^6/uL (3.50-5.40) Hemoglobin 11.2 g/dL (12.0-15.5) Hematocrit 32.7 % (36.0-47.0) Mean Corpuscular Volume 98 fL (79-100) Mean Corpuscular Hemoglobin 33 pg (25-35) Mean Corpuscular Hemoglobin Concent 34 g/dL (31-37) Red Cell Distribution Width 11.8 % (11.5-14.5) Platelet Count 218 x10^3/uL (140-400) Neutrophils (%) (Auto) 85 % (31-73) Lymphocytes (%) (Auto) 9 % (24-48) Monocytes (%) (Auto) 7 % (0-9) Eosinophils (%) (Auto) 0 % (0-3) Basophils (%) (Auto) 0 % (0-3) Neutrophils # (Auto) 14.4 x10^3/uL (1.8-7.7) Lymphocytes # (Auto) 1.5 x10^3/uL (1.0-4.8) Monocytes # (Auto) 1.1 x10^3/uL (0.0-1.1) Eosinophils # (Auto) 0.0 x10^3/uL (0.0-0.7) Basophils # (Auto) 0.0 x10^3/uL (0.0-0.2) Segmented Neutrophils % 91 % (35-66) Band Neutrophils % 1 % (0-9) Lymphocytes % 6 % (24-48) Monocytes % 2 % (0-10) Toxic Vacuolation Present Platelet Estimate Adequate (ADEQUATE) Anisocytosis Slight Sodium Level 138 mmol/L (136-145) Potassium Level 4.1 mmol/L (3.5-5.1) Chloride Level 106 mmol/L (98-107) Carbon Dioxide Level 22 mmol/L (21-32) Anion Gap 10 (6-14) Blood Urea Nitrogen 24 mg/dL (7-20) Creatinine 1.1 mg/dL (0.6-1.0) Estimated GFR (Cockcroft-Gault) 58.6 Glucose Level 123 mg/dL (70-99) Calcium Level 7.9 mg/dL (8.5-10.1) Medications Current Medications Dexamethasone Sodium Phosphate (Decadron) 4 mg 1X ONCE IVP Last administered on 10/29/19 18:52; Start 10/29/19 at 16:45; Stop 10/29/19 at 16:46; Status DC Acetaminophen (Tylenol) 500 mg PRN Q6HRS PRN PO MILD PAIN / TEMP Last administered on 11/06/19 09:22; Start 10/29/19 at 17:00 Ondansetron HCl (Zofran) 4 mg PRN Q6HRS PRN IVP NAUSEA/VOMITING Last administered on 11/02/19 13:55; Start 10/29/19 at 17:00 Sodium Chloride 1,000 ml @ 80 mls/hr [id number] IV Last administered on 11/06/19 07:15; Start 10/29/19 at 17:00 Famotidine (Pepcid Vial) 20 mg QHS IVP Last administered on 11/05/19 20:46; Start 10/29/19 at 21:00 Hydralazine HCl (Apresoline Inj) 10 mg PRN Q4HRS PRN IVP ELEVATED BP, SEE COMMENTS Last administered on 11/05/19at 03:33; Start 10/29/19 at 17:00 Dexamethasone Sodium Phosphate (Decadron) 4 mg Q6HRS IVP Last administered on 11/06/19at 12:06; Start 10/29/19 at 18:00 Gadoterate Meglumine (Dotarem) 14 ml 1X ONCE IVP Last administered on 10/29/19at 17:55; Start 10/29/19 at 17:30; Stop 10/29/19 at 17:40; Status DC Iohexol (Omnipaque 350 Mg/ml) 60 ml 1X ONCE IV Last administered on 10/29/19at 18:46; Start 10/29/19 at 18:30; Stop 10/29/19 at 18:31; Status DC Info (CONTRAST GIVEN -- Rx MONITORING) 1 each PRN DAILY PRN MC SEE COMMENTS; Start 10/29/19 at 18:30; Stop 10/31/19 at 18:29; Status DC Levetiracetam 500 mg/Dextrose 105 ml @ 440 mls/hr Q12HR IV Last administered on 11/06/19 08:31; Start 10/29/19 at 21:00; Stop 11/06/19 at 11:22; Status DC Metoprolol Tartrate (Lopressor) 50 mg DAILY PO ; Start 10/30/19 at 09:00; Status Cancel Hydrochlorothiazide (Microzide) 12.5 mg DAILY PO Last administered on 11/06/19 08:31; Start 10/30/19 at 09:00 Fish Oil (Fish Oil) 1,000 mg DAILY PO Last administered on 11/06/19 08:29; Start 10/30/19 at 09:00 Multivitamins (Thera M Plus) 1 tab DAILY PO Last administered on 11/06/19 08:29; Start 10/30/19 at 09:00 Morphine Sulfate (Morphine Sulfate) 1 mg PRN Q2HR PRN IV PAIN Last administered on 10/30/19 13:49; Start 10/29/19 at 21:15 Metoprolol Succinate (Toprol Xl) 50 mg DAILY PO Last administered on 12/11/19at 08:30; Start 10/31/19 at 09:00 Losartan Potassium (Cozaar) 100 mg DAILY PO Last administered on 11/06/19at 08:30; Start 10/31/19 at 09:00 Non-Formulary Medication (Multivitamin (Multi Vitamin Daily)) 1 tab DAILY PO ; Start 10/31/19 at 09:00; Status UNV Non-Formulary Medication ([place]-3 Fatty Acids/Fish Oil ([place] 3 Fish Oil Softgel)) 1 each DAILY PO ; Start 10/31/19 at 09:00; Status UNV Ondansetron HCl (Zofran) 4 mg PRN Q6HRS PRN IV NAUSEA/VOMITING; Start 11/04/19 at 07:00; Stop 11/05/19 at 06:59; Status DC Fentanyl Citrate (Fentanyl 2ml Vial) 25 mcg PRN Q5MIN PRN IV MILD PAIN 1-3 Last administered on 11/04/19at 18:31; Start 11/04/19 at 07:00; Stop 11/05/19 at 06:59; Status DC Fentanyl Citrate (Fentanyl 2ml Vial) 50 mcg PRN Q5MIN PRN IV MODERATE TO SEVERE PAIN; Start 11/04/19 at 07:00; Stop 11/05/19 at 06:59; Status DC Morphine Sulfate (Morphine Sulfate) 1 mg PRN Q10MIN PRN IV SEVERE PAIN 7-10; Start 11/04/19 at 07:00; Stop 11/05/19 at 06:59; Status DC Ringer's Solution 1,000 ml @ 30 mls/hr Q24H IV ; Start 11/04/19 at 07:00; Stop 11/04/19 at 18:59; Status DC Lidocaine HCl (Xylocaine-Mpf 1% 2ml Vial) 2 ml PRN 1X PRN ID PRIOR TO IV START; Start 11/04/19 at 07:00; Stop 11/05/19 at 06:59; Status DC Hydromorphone HCl (Dilaudid) 0.5 mg PRN Q10MIN PRN IV SEV PAIN, Second choice; Start 11/04/19 at 07:00; Stop 11/05/19 at 06:59; Status DC Prochlorperazine Edisylate (Compazine) 5 mg PACU PRN PRN IV NAUSEA, MRX1; Start 11/04/19 at 07:00; Stop 11/05/19 at 06:59; Status DC Bacitracin 29783 unit/Sodium Chloride 1,000 ml @ 1,000 mls/hr 1X ONCE IRR Last administered on 11/04/19at 13:22; Start 11/04/19 at 06:00; Stop 11/04/19 at 06:59; Status DC Bupivacaine HCl/ Epinephrine Bitart (Sensorcain-Epi 0.5%-1:706648 Mpf) 30 ml 1X ONCE INJ Last administered on 11/04/19at 13:22; Start 11/04/19 at 06:30; Stop 11/04/19 at 06:31; Status DC Cefazolin Sodium/ Dextrose 50 ml @ 100 mls/hr 1X PREOP ONCE IV ; Start 11/03/19 at 10:00; Stop 11/03/19 at 10:29; Status Cancel Cefazolin Sodium/ Dextrose 50 ml @ 100 mls/hr 1X PREOP ONCE IV Last administered on 11/04/19at 12:15; Start 11/04/19 at 10:00; Stop 11/04/19 at 10:29; Status DC Gelatin (Gelfoam Size 100) 1 each STK-MED ONCE .ROUTE Last administered on 11/04/19at 13:22; Start 11/04/19 at 07:48; Stop 11/04/19 at 07:48; Status DC Ketorolac Tromethamine (Toradol Im) 60 mg STK-MED ONCE .ROUTE ; Start 11/04/19 at 07:48; Stop 11/04/19 at 07:48; Status DC Thrombin 20,000 unit STK-MED ONCE TP Last administered on 11/04/19at 13:22; Start 11/04/19 at 07:48; Stop 11/04/19 at 07:48; Status DC Gadoterate Meglumine (Dotarem) 14 ml 1X ONCE IVP Last administered on 11/04/19at 08:15; Start 11/04/19 at 08:15; Stop 11/04/19 at 08:16; Status DC Propofol 20 ml @ As Directed STK-MED ONCE IV ; Start 11/04/19 at 09:19; Stop 11/04/19 at 09:19; Status DC Lidocaine HCl (Lidocaine Pf 2% Vial) 5 ml STK-MED ONCE .ROUTE ; Start 11/04/19 at 09:19; Stop 11/04/19 at 09:19; Status DC Fentanyl Citrate (Fentanyl 2ml Vial) 100 mcg STK-MED ONCE .ROUTE ; Start 11/04/19 at 09:19; Stop 11/04/19 at 09:19; Status DC Rocuronium [place] (Zemuron) 50 mg STK-MED ONCE .ROUTE ; Start 11/04/19 at 09:19; Stop 11/04/19 at 09:19; Status DC Remifentanil HCl (Ultiva) 2 mg STK-MED ONCE IV ; Start 11/04/19 at 09:19; Stop 11/04/19 at 09:19; Status DC Sodium Chloride (SODIUM CHLORIDE 20ml) 20 ml STK-MED ONCE IJ ; Start 11/04/19 at 09:19; Stop 11/04/19 at 09:20; Status DC Dexamethasone Sodium Phosphate (Decadron) 20 mg STK-MED ONCE .ROUTE ; Start 11/04/19 at 12:15; Stop 11/04/19 at 12:16; Status DC Desflurane (Suprane) 90 ml STK-MED ONCE IH ; Start 11/04/19 at 12:15; Stop 11/04/19 at 12:16; Status DC Ondansetron HCl (Zofran) 4 mg STK-MED ONCE .ROUTE ; Start 11/04/19 at 12:42; Stop 11/04/19 at 12:42; Status DC Glycopyrrolate (Robinul) 1 mg STK-MED ONCE .ROUTE ; Start 11/04/19 at 12:42; Stop 11/04/19 at 12:42; Status DC Neostigmine Methylsulfate (Neostigmine Methylsulfate) 5 mg STK-MED ONCE .ROUTE ; Start 11/04/19 at 12:42; Stop 11/04/19 at 12:42; Status DC Mannitol 500 ml @ As Directed STK-MED ONCE IV ; Start 11/04/19 at 12:53; Stop 11/04/19 at 12:53; Status DC Cefazolin Sodium (Ancef) 1 gm STK-MED ONCE .ROUTE ; Start 11/04/19 at 13:19; Stop 11/04/19 at 13:19; Status DC Phenylephrine HCl (PHENYLEPHRINE in 0.9% NACL PF) 1 mg STK-MED ONCE IV ; Start 11/04/19 at 14:18; Stop 11/04/19 at 14:18; Status DC Cellulose (Surgicel Hemostat 4x8) 1 each STK-MED ONCE .ROUTE Last administered on 11/04/19at 14:50; Start 11/04/19 at 14:45; Stop 11/04/19 at 14:46; Status DC Fentanyl Citrate (Fentanyl 2ml Vial) 50 mcg PRN Q2HR PRN IVP PAIN Last administered on 11/05/19at 08:18; Start 11/04/19 at 16:15 Acetaminophen/ Hydrocodone Bitart (Lortab 5/325) 1 tab PRN Q6HRS PRN PO MODERATE PAIN, SEVERE PAIN Last administered on 11/05/19at 12:10; Start 11/05/19 at 10:15 Levetiracetam (Keppra) 500 mg BID PO ; Start 11/06/19 at 21:00 Active Scripts Active Reported Multi Vitamin Daily (Multivitamin) 1 Each Tablet 1 Tab PO DAILY 30 Days [place] 3 Fish Oil Softgel ([place]-3 Fatty Acids/Fish Oil) 1 Each Capsule.dr 1 Each PO DAILY Losartan-Hctz 100-12.5 Mg Tab (Losartan/Hydrochlorothiazide) 1 Each Tablet 1 Tab PO DAILY Toprol XL (Metoprolol Succinate) 50 Mg Tab.er.24h 50 Mg PO DAILY Vitals/I & O Vital Sign - Last 24 Hours 11/05/19 11/05/19 11/05/19 11/05/19 15:00 16:00 16:00 17:00 Temp 98.6 98.6 Pulse 56 58 60 Resp 13 14 17 B/P (MAP) 102/54 (70) 103/54 (70) 116/58 (77) Pulse Ox 98 99 99 O2 Delivery Room Air Room Air Room Air Room Air 11/05/19 11/05/19 11/05/19 11/05/19 18:00 19:00 20:00 20:00 Pulse 61 62 65 Resp 20 18 20 B/P (MAP) 135/62 (86) 121/58 (79) 119/64 (82) Pulse Ox 100 98 100 O2 Delivery Room Air Room Air Room Air Room Air 11/05/19 11/05/19 11/05/19/11/19 21:00 22:00 23:00 00:00 Temp 98.3 98.3 Pulse 56 60 56 Resp 13 21 13 B/P (MAP) 144/69 (94) 136/69 (91) 150/72 (98) Pulse Ox 99 100 100 O2 Delivery Room Air Room Air Room Air Room Air 11/06/19 11/06/19 11/06/19 11/06/19 00:00 01:00 02:00 03:00 Temp 98.4 98.4 Pulse 56 54 56 58 Resp 14 15 24 13 B/P (MAP) 125/72 (89) 127/58 (81) 140/86 (104) 140/66 (90) Pulse Ox 98 99 98 98 O2 Delivery Room Air Room Air Room Air Room Air 11/06/19 11/06/19 11/06/19 11/06/19 04:00 04:00 05:00 06:00 Temp 98.5 98.5 Pulse 57 58 61 Resp 13 10 18 B/P (MAP) 153/81 (105) 152/72 (98) 137/61 (86) Pulse Ox 100 100 100 O2 Delivery Room Air Room Air Room Air Room Air 11/06/19 11/06/19 11/06/19 11/06/19 07:00 07:00 07:15 08:02 Temp 97.9 97.9 Pulse 62 81 62 Resp 16 17 17 B/P (MAP) 159/77 (104) 159/77 (104) 171/76 (107) Pulse Ox 100 O2 Delivery Room Air Room Air Room Air Room Air 11/06/19 11/06/19 11/06/19 11/06/19 08:30 08:30 09:15 10:02 Pulse 63 62 67 69 Resp 18 14 B/P (MAP) 171/76 171/76 147/72 (97) 117/54 (75) Pulse Ox 100 O2 Delivery Room Air Room Air 11/06/19 11/06/19 11/06/19 11/06/19 11:03 12:10 12:10 13:01 Temp 98.0 98.0 Pulse 73 60 58 Resp 18 14 16 B/P (MAP) 119/62 (81) 133/68 (89) 129/68 (88) Pulse Ox 100 100 100 O2 Delivery Room Air Room Air Room Air Room Air Intake and Output 11/05/19 11/05/19 11/06/19 15:00 23:00 07:00 Intake Total 623 ml 1396 ml 881 ml Output Total 140 ml 0 ml 0 ml Balance 483 ml 1396 ml 881 ml JANA MCNAMARA APRN Nov 06, 2019 14:10
--- NOTE | 2019-11-06 14:54 | PDOC ---
Provider Note Provider Note 74 yo now post op day 1 of debulking of right temporal lobe tumor. Doing well post op . Conversant and alert with no specific complaints now. Final path is confirmed as GBM. Discussed treatment overall recommendations of post op treatment with patient and son. NILES KINNEY MD Nov 06, 2019 14:54
--- NOTE | 2019-11-06 16:30 | NUR ---
Assumed pt care at this time. Pt arrived via wheelchair from ICU with RN. Assisted pt to chair. Oriented to room. Call light within reach. Meal tray ordered. Will continue to monitor.
[2019-11-06] MEDS: levETIRAcetam 500 MG TABLET PO SCH (22:03)
[2019-11-06] MEDS: FAMOTIDINE 20 MG/2 ML VIAL IVP SCH (22:04)
[2019-11-07] MEDS: DEXAMETHASONE SOD PHOS 4 MG/ML VIAL IVP SCH ×5 (00:21→23:34)
[2019-11-07 03:00] VITALS: BP 147/66
[2019-11-07] MEDS: IV NORMAL SALINE 1000ML BAG 1,000 ML IV SCH ×2 (04:29→12:22)
[2019-11-07 05:20] LABS: BASO % 0 % (0-3); EOS % 0 % (0-3); HEMATOCRIT 29.5 % (36.0-47.0); HEMOGLOBIN 9.8 g/dL (12.0-15.5); LYMPH % 15 % (24-48); MEAN CORPUSCULAR HEMOGLOBIN 33 pg (25-35); MEAN CORPUSCULAR HGB CONC 33 g/dL (31-37); MEAN CORPUSCULAR VOLUME 100 fL (79-100); MONO # 0.9 x10^3/uL (0.0-1.1); MONO % 7 % (0-9); NEUT % 79 % (31-73); PLATELET COUNT 177 x10^3/uL (140-400); RED BLOOD COUNT 2.96 x10^6/uL (3.50-5.40); WHITE BLOOD COUNT 13.9 x10^3/uL (4.0-11.0)
[2019-11-07 05:47] LABS: CALCIUM 8.1 mg/dL (8.5-10.1); CREATININE 0.9 mg/dL (0.6-1.0); GFR 73.9; POTASSIUM 4.1 mmol/L (3.5-5.1)
[2019-11-07 07:00] VITALS: BP 162/70
--- NOTE | 2019-11-07 09:06 | PDOC ---
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 Tumor necrotic hemorrhage. Cerebral vasogenic edema with midline shift 8 mm. Intermittent recurrent confusional episodes. Complex partial seizure likely. Left temporal field deficits. 2 mm anterior communicating artery aneurysm. Metabolic encephalopathy. Headaches x 1-2 weeks. HTN. Plan Decadron taper per neurosurgery. Continue Keppra 500 mg, switch to oral As per oncology and radiation oncology Subjective no complaints, denies headache Objective Vital Signs Date Time Temp Pulse Resp B/P (MAP) Pulse Ox O2 Delivery O2 Flow Rate FiO2 11/07/19 07:00 98.1 57 16 162/70 (100) 100 Room Air 98.1 Intake and Output 11/07/19 07:00 Intake Total 1050 ml Balance 1050 ml Intake Oral 1050 ml # Voids 8 PHYSICAL EXAM Alert. Oriented to place and person. PERRL. EOMI. CN: Left homonymous hemianopsia, no longer has left central facial palsy Muscle tone: normal. Muscle strength: 4/5 DTR: 1+ Plantar reflex: flexor Gait: not examined in bed. Sensory exam: no abnormal findings. No cerebellar signs elicited. Review of Relevant I have reviewed the following items ramin (where applicable) has been applied. Labs Laboratory Tests Test 11/06/19 17:00 11/07/19 03:34 Glucose (Fingerstick) 166 mg/dL (70-99) White Blood Count 13.9 x10^3/uL (4.0-11.0) Red Blood Count 2.96 x10^6/uL (3.50-5.40) Hemoglobin 9.8 g/dL (12.0-15.5) Hematocrit 29.5 % (36.0-47.0) Mean Corpuscular Volume 100 fL (79-100) Mean Corpuscular Hemoglobin 33 pg (25-35) Mean Corpuscular Hemoglobin Concent 33 g/dL (31-37) Red Cell Distribution Width 12.0 % (11.5-14.5) Platelet Count 177 x10^3/uL (140-400) Neutrophils (%) (Auto) 79 % (31-73) Lymphocytes (%) (Auto) 15 % (24-48) Monocytes (%) (Auto) 7 % (0-9) Eosinophils (%) (Auto) 0 % (0-3) Basophils (%) (Auto) 0 % (0-3) Neutrophils # (Auto) 11.0 x10^3/uL (1.8-7.7) Lymphocytes # (Auto) 2.0 x10^3/uL (1.0-4.8) Monocytes # (Auto) 0.9 x10^3/uL (0.0-1.1) Eosinophils # (Auto) 0.0 x10^3/uL (0.0-0.7) Basophils # (Auto) 0.0 x10^3/uL (0.0-0.2) Sodium Level 137 mmol/L (136-145) Potassium Level 4.1 mmol/L (3.5-5.1) Chloride Level 105 mmol/L (98-107) Carbon Dioxide Level 24 mmol/L (21-32) Anion Gap 8 (6-14) Blood Urea Nitrogen 25 mg/dL (7-20) Creatinine 0.9 mg/dL (0.6-1.0) Estimated GFR (Cockcroft-Gault) 73.9 Glucose Level 129 mg/dL (70-99) Calcium Level 8.1 mg/dL (8.5-10.1) Laboratory Tests Test 11/06/19 17:00 11/07/19 03:34 Glucose (Fingerstick) 166 mg/dL (70-99) White Blood Count 13.9 x10^3/uL (4.0-11.0) Red Blood Count 2.96 x10^6/uL (3.50-5.40) Hemoglobin 9.8 g/dL (12.0-15.5) Hematocrit 29.5 % (36.0-47.0) Mean Corpuscular Volume 100 fL (79-100) Mean Corpuscular Hemoglobin 33 pg (25-35) Mean Corpuscular Hemoglobin Concent 33 g/dL (31-37) Red Cell Distribution Width 12.0 % (11.5-14.5) Platelet Count 177 x10^3/uL (140-400) Neutrophils (%) (Auto) 79 % (31-73) Lymphocytes (%) (Auto) 15 % (24-48) Monocytes (%) (Auto) 7 % (0-9) Eosinophils (%) (Auto) 0 % (0-3) Basophils (%) (Auto) 0 % (0-3) Neutrophils # (Auto) 11.0 x10^3/uL (1.8-7.7) Lymphocytes # (Auto) 2.0 x10^3/uL (1.0-4.8) Monocytes # (Auto) 0.9 x10^3/uL (0.0-1.1) Eosinophils # (Auto) 0.0 x10^3/uL (0.0-0.7) Basophils # (Auto) 0.0 x10^3/uL (0.0-0.2) Sodium Level 137 mmol/L (136-145) Potassium Level 4.1 mmol/L (3.5-5.1) Chloride Level 105 mmol/L (98-107) Carbon Dioxide Level 24 mmol/L (21-32) Anion Gap 8 (6-14) Blood Urea Nitrogen 25 mg/dL (7-20) Creatinine 0.9 mg/dL (0.6-1.0) Estimated GFR (Cockcroft-Gault) 73.9 Glucose Level 129 mg/dL (70-99) Calcium Level 8.1 mg/dL (8.5-10.1) Medications Current Medications Dexamethasone Sodium Phosphate (Decadron) 4 mg 1X ONCE IVP Last administered on 10/29/19at 18:52; Start 10/29/19 at 16:45; Stop 10/29/19 at 16:46; Status DC Acetaminophen (Tylenol) 500 mg PRN Q6HRS PRN PO MILD PAIN / TEMP Last administ ered on 11/06/19at 16:16; Start 10/29/19 at 17:00 Ondansetron HCl (Zofran) 4 mg PRN Q6HRS PRN IVP NAUSEA/VOMITING Last administ ered on 11/02/19at 13:55; Start 10/29/19 at 17:00 Sodium Chloride 1,000 ml @ 80 mls/hr [id number] IV Last administered on 11/07/19 at 04:29; Start 10/29/19 at 17:00 Famotidine (Pepcid Vial) 20 mg QHS IVP Last administered on 11/06/19 22:04; Start 10/29/19 at 21:00 Hydralazine HCl (Apresoline Inj) 10 mg PRN Q4HRS PRN IVP ELEVATED BP, SEE COMMENTS Last administered on 11/05/19at 03:33; Start 10/29/19 at 17:00 Dexamethasone Sodium Phosphate (Decadron) 4 mg Q6HRS IVP Last administered on 11/06/19 12:06; Start 10/29/19 at 18:00; Stop 11/06/19 at 14:11; Status DC Gadoterate Meglumine (Dotarem) 14 ml 1X ONCE IVP Last administered on 10/29/19 17:55; Start 10/29/19 at 17:30; Stop 10/29/19 at 17:40; Status DC Iohexol (Omnipaque 350 Mg/ml) 60 ml 1X ONCE IV Last administered on 10/29/19 18:46; Start 10/29/19 at 18:30; Stop 10/29/19 at 18:31; Status DC Info (CONTRAST GIVEN -- Rx MONITORING) 1 each PRN DAILY PRN MC SEE COMMENTS; Start 10/29/19 at 18:30; Stop 10/31/19 at 18:29; Status DC Levetiracetam 500 mg/Dextrose 105 ml @ 440 mls/hr Q12HR IV Last administered on 11/06/19 08:31; Start 10/29/19 at 21:00; Stop 11/06/19 at 11:22; Status DC Metoprolol Tartrate (Lopressor) 50 mg DAILY PO ; Start 10/30/19 at 09:00; Status Cancel Hydrochlorothiazide (Microzide) 12.5 mg DAILY PO Last administered on 11/06/19 08:31; Start 10/30/19 at 09:00 Fish Oil (Fish Oil) 1,000 mg DAILY PO Last administered on 11/06/19 08:29; Start 10/30/19 at 09:00 Multivitamins (Thera M Plus) 1 tab DAILY PO Last administered on 11/06/19 08:29; Start 10/30/19 at 09:00 Morphine Sulfate (Morphine Sulfate) 1 mg PRN Q2HR PRN IV PAIN Last administered on 12/4/19at 13:49; Start 10/29/19 at 21:15 Metoprolol Succinate (Toprol Xl) 50 mg DAILY PO Last administered on 11/06/19at 08:30; Start 10/31/19 at 09:00 Losartan Potassium (Cozaar) 100 mg DAILY PO Last administered on 11/06/19at 08:30; Start 10/31/19 at 09:00 Non-Formulary Medication (Multivitamin (Multi Vitamin Daily)) 1 tab DAILY PO ; Start 10/31/19 at 09:00; Status UNV Non-Formulary Medication ([place]-3 Fatty Acids/Fish Oil ([place] 3 Fish Oil Softgel)) 1 each DAILY PO ; Start 10/31/19 at 09:00; Status UNV Ondansetron HCl (Zofran) 4 mg PRN Q6HRS PRN IV NAUSEA/VOMITING; Start 11/04/19 at 07:00; Stop 11/05/19 at 06:59; Status DC Fentanyl Citrate (Fentanyl 2ml Vial) 25 mcg PRN Q5MIN PRN IV MILD PAIN 1-3 Last administered on 11/04/19at 18:31; Start 11/04/19 at 07:00; Stop 11/05/19 at 06:59; Status DC Fentanyl Citrate (Fentanyl 2ml Vial) 50 mcg PRN Q5MIN PRN IV MODERATE TO SEVERE PAIN; Start 11/04/19 at 07:00; Stop 11/05/19 at 06:59; Status DC Morphine Sulfate (Morphine Sulfate) 1 mg PRN Q10MIN PRN IV SEVERE PAIN 7-10; Start 11/04/19 at 07:00; Stop 11/05/19 at 06:59; Status DC Ringer's Solution 1,000 ml @ 30 mls/hr Q24H IV ; Start 11/04/19 at 07:00; Stop 11/04/19 at 18:59; Status DC Lidocaine HCl (Xylocaine-Mpf 1% 2ml Vial) 2 ml PRN 1X PRN ID PRIOR TO IV START; Start 11/04/19 at 07:00; Stop 11/05/19 at 06:59; Status DC Hydromorphone HCl (Dilaudid) 0.5 mg PRN Q10MIN PRN IV SEV PAIN, Second choice; Start 11/04/19 at 07:00; Stop 11/05/19 at 06:59; Status DC Prochlorperazine Edisylate (Compazine) 5 mg PACU PRN PRN IV NAUSEA, MRX1; Start 11/04/19 at 07:00; Stop 11/05/19 at 06:59; Status DC Bacitracin 43369 unit/Sodium Chloride 1,000 ml @ 1,000 mls/hr 1X ONCE IRR Last administered on 11/04/19at 13:22; Start 11/04/19 at 06:00; Stop 11/04/19 at 06:59; Status DC Bupivacaine HCl/ Epinephrine Bitart (Sensorcain-Epi 0.5%-1:807177 Mpf) 30 ml 1X ONCE INJ Last administered on 11/04/19at 13:22; Start 11/04/19 at 06:30; Stop 11/04/19 at 06:31; Status DC Cefazolin Sodium/ Dextrose 50 ml @ 100 mls/hr 1X PREOP ONCE IV ; Start 11/03/19 at 10:00; Stop 11/03/19 at 10:29; Status Cancel Cefazolin Sodium/ Dextrose 50 ml @ 100 mls/hr 1X PREOP ONCE IV Last administered on 11/04/19at 12:15; Start 11/04/19 at 10:00; Stop 11/04/19 at 10:29; Status DC Gelatin (Gelfoam Size 100) 1 each STK-MED ONCE .ROUTE Last administered on 11/04/19 13:22; Start 11/04/19 at 07:48; Stop 11/04/19 at 07:48; Status DC Ketorolac Tromethamine (Toradol Im) 60 mg STK-MED ONCE .ROUTE ; Start 11/04/19 at 07:48; Stop 11/04/19 at 07:48; Status DC Thrombin 20,000 unit STK-MED ONCE TP Last administered on 11/04/19at 13:22; Start 11/04/19 at 07:48; Stop 11/04/19 at 07:48; Status DC Gadoterate Meglumine (Dotarem) 14 ml 1X ONCE IVP Last administered on 11/04/19at 08:15; Start 11/04/19 at 08:15; Stop 11/04/19 at 08:16; Status DC Propofol 20 ml @ As Directed STK-MED ONCE IV ; Start 11/04/19 at 09:19; Stop 11/04/19 at 09:19; Status DC Lidocaine HCl (Lidocaine Pf 2% Vial) 5 ml STK-MED ONCE .ROUTE ; Start 11/04/19 at 09:19; Stop 11/04/19 at 09:19; Status DC Fentanyl Citrate (Fentanyl 2ml Vial) 100 mcg STK-MED ONCE .ROUTE ; Start 11/04/19 at 09:19; Stop 11/04/19 at 09:19; Status DC Rocuronium [place] (Zemuron) 50 mg STK-MED ONCE .ROUTE ; Start 11/04/19 at 09:19; Stop 11/04/19 at 09:19; Status DC Remifentanil HCl (Ultiva) 2 mg STK-MED ONCE IV ; Start 11/04/19 at 09:19; Stop 11/04/19 at 09:19; Status DC Sodium Chloride (SODIUM CHLORIDE 20ml) 20 ml STK-MED ONCE IJ ; Start 11/04/19 at 09:19; Stop 11/04/19 at 09:20; Status DC Dexamethasone Sodium Phosphate (Decadron) 20 mg STK-MED ONCE .ROUTE ; Start 11/04/19 at 12:15; Stop 11/04/19 at 12:16; Status DC Desflurane (Suprane) 90 ml STK-MED ONCE IH ; Start 11/04/19 at 12:15; Stop 11/04/19 at 12:16; Status DC Ondansetron HCl (Zofran) 4 mg STK-MED ONCE .ROUTE ; Start 11/04/19 at 12:42; Stop 11/04/19 at 12:42; Status DC Glycopyrrolate (Robinul) 1 mg STK-MED ONCE .ROUTE ; Start 11/04/19 at 12:42; Stop 11/04/19 at 12:42; Status DC Neostigmine Methylsulfate (Neostigmine Methylsulfate) 5 mg STK-MED ONCE .ROUTE ; Start 11/04/19 at 12:42; Stop 11/04/19 at 12:42; Status DC Mannitol 500 ml @ As Directed STK-MED ONCE IV ; Start 11/04/19 at 12:53; Stop 11/04/19 at 12:53; Status DC Cefazolin Sodium (Ancef) 1 gm STK-MED ONCE .ROUTE ; Start 11/04/19 at 13:19; Stop 11/04/19 at 13:19; Status DC Phenylephrine HCl (PHENYLEPHRINE in 0.9% NACL PF) 1 mg STK-MED ONCE IV ; Start 11/04/19 at 14:18; Stop 11/04/19 at 14:18; Status DC Cellulose (Surgicel Hemostat 4x8) 1 each STK-MED ONCE .ROUTE Last administered on 11/04/19at 14:50; Start 11/04/19 at 14:45; Stop 11/04/19 at 14:46; Status DC Fentanyl Citrate (Fentanyl 2ml Vial) 50 mcg PRN Q2HR PRN IVP PAIN Last administered on 11/05/19at 08:18; Start 11/04/19 at 16:15 Acetaminophen/ Hydrocodone Bitart (Lortab 5/325) 1 tab PRN Q6HRS PRN PO MODERATE PAIN, SEVERE PAIN Last administered on 11/05/19at 12:10; Start 11/05/19 at 10:15 Levetiracetam (Keppra) 500 mg BID PO Last administered on 11/06/19at 22:03; Start 11/06/19 at 21:00 Dexamethasone Sodium Phosphate (Decadron) 2 mg Q6HRS IVP Last administered on 11/07/19at 05:34; Start 11/06/19 at 18:00 Active Scripts Active Reported Multi Vitamin Daily (Multivitamin) 1 Each Tablet 1 Tab PO DAILY 30 Days [place] 3 Fish Oil Softgel ([place]-3 Fatty Acids/Fish Oil) 1 Each Capsule. 1 Each PO DAILY Losartan-Hctz 100-12.5 Mg Tab (Losartan/Hydrochlorothiazide) 1 Each Tablet 1 Tab PO DAILY Toprol XL (Metoprolol Succinate) 50 Mg Tab.er.24h 50 Mg PO DAILY Vitals/I & O Vital Sign - Last 24 Hours 11/06/19 11/06/19 11/06/19 11/06/19 09:15 10:02 11:03 12:10 Temp 98.0 98.0 Pulse 67 69 73 60 Resp 18 14 18 14 B/P (MAP) 147/72 (97) 117/54 (75) 119/62 (81) 133/68 (89) Pulse Ox 100 100 100 O2 Delivery Room Air Room Air Room Air Room Air 11/06/19 11/06/19 11/06/19 11/06/19 12:10 13:01 14:00 15:20 Pulse 58 68 66 Resp 16 14 14 B/P (MAP) 129/68 (88) 127/63 (84) 129/59 (82) Pulse Ox 100 100 100 O2 Delivery Room Air Room Air Room Air Room Air 11/06/19 11/06/19 11/06/19 11/06/19 16:00 16:18 19:00 20:00 Temp 98.6 98.6 Pulse 61 66 Resp 14 16 B/P (MAP) 129/65 (86) 148/65 (92) Pulse Ox 100 98 O2 Delivery Room Air Room Air Room Air Room Air 11/06/19 11/07/19 11/07/19 23:00 03:00 07:00 Temp 98.0 97.8 98.1 98.0 97.8 98.1 Pulse 56 61 57 Resp 16 16 16 B/P (MAP) 158/74 (102) 147/66 (93) 162/70 (100) Pulse Ox 100 98 100 O2 Delivery Room Air Room Air Room Air Intake and Output 11/06/19 11/06/19 11/07/19 15:00 23:00 07:00 Intake Total 550 ml 500 ml Balance 550 ml 500 ml TRICIA ROSS MD Nov 07, 2019 09:06
[2019-11-07] MEDS: levETIRAcetam 500 MG TABLET PO SCH ×2 (10:04→20:23)
[2019-11-07] MEDS: OMEGA-3 FATTY ACIDS/FISH OIL 1,000 MG CAPSULE. PO SCH (10:04)
[2019-11-07] MEDS: MULTIVITAMIN with MINERAL TABLET. PO SCH (10:04)
[2019-11-07] MEDS: hydroCHLOROthiazide 12.5 MG CAPSULE PO SCH (10:05)
[2019-11-07] MEDS: LOSARTAN POTASSIUM 50 MG TABLET. PO SCH (10:05)
[2019-11-07] MEDS: METOPROLOL SUCC 24HR ER 50 MG TAB.ER.24H. PO SCH (10:06)
[2019-11-07 11:00] VITALS: BP 129/72
--- NOTE | 2019-11-07 13:35 | PDOC ---
Provider Note Provider Note 74 yo now post op day 3 of debulking of right temporal lobe tumor. Doing well post op . Conversant and alert with no specific complaints now. Final path is confirmed as GBM as discussed with pathology. Discussed treatment overall recommendations of post op treatment with patient. NILES KINNEY MD Nov 07, 2019 13:35
--- NOTE | 2019-11-07 14:07 | PATHOLOGY ---
[facility] Accession Number: [id number] . 01 Material submitted: . PART A: [facility]eterian - TEMPORAL MASS - FS PART B: [facility]y[employer]eterian - RIGHT TEMPORAL MASS. Modifiers: right . 01 Clinical history: . Right temporal mass; intracranial hemorrhage . 02 Frozen section diagnosis: . INTRAOPERATIVE CONSULTATION WITH FROZEN SECTION DIAGNOSIS: FSA1. Temporal mass biopsy: - Malignant neoplasm, favor glioblastoma multiforme. - The results are reported to Dr. Mcdonnell in the operating room. . (JPM:pit 11/04/2019) . FROZEN SECTION GROSS DESCRIPTION: The specimen is received fresh for intraoperative consultation and is designated "temporal mass". This consists of a roughly ovoid shaped segment of focally hemorrhagic reddish-brown soft tissue measuring up to 2.8 x 1.5 x 0.7 cm. Sectioning reveals a matos to red somewhat gelatinous appearing cut surface. A credit and collections representative portion is submitted for frozen section as FSA1. The tissue remaining from frozen section is submitted for permanent sections as A1. The remainder of the specimen is submitted for microscopy as A2. (JPM:[facility] 11/04/2019) . Frozen section performed at [facility], [address] [place] [address]. JOIE/NICHOLAS . 02 Diagnosis: A. Right temporal lobe brain mass, biopsy: - GLIOBLASTOMA MULTIFORME (WHO GRADE 4). . B. Right temporal lobe brain mass, biopsy: - GLIOBLASTOMA MUTIFORME (WHO GRADE 4). [facility] 11/07/2019 0920 Local . 02 Comment: Sections of the right temporal lobe brain mass biopsy reveal a highly cellular malignant neoplasm composed of what appears to be poorly differentiated astrocytic cells having rounded to irregular hyperchromatic nuclei. There are focal irregular serpentine areas of tumor necrosis which are bordered by a palisaded layer of malignant cells. Mitotic figures are present. A limited panel of immunoperoxidase stains is obtained on block A2 and yields the following results: . GFAP: Diffusely positive in the tumor cells. AE1/AE3: Negative in the tumor cells. CD45: Positive in scattered background lymphocytes but negative in the tumor cells. Ki-67: Markedly increased staining in the tumor cells (approximately half of the tumor cells are positive). . The morphologic and immunophenotypic findings are supportive of the diagnosis of glioblastoma multiforme, (WHO Grade 4). (SKM/db/ab; 11/07/2019) . Special stain performed: Immunoperoxidase stains for GFAP, AE1/AE3, CD45 and Ki-67 on A2 . Review/Concur: Dr. Carvajal . The findings in this case were discussed with Dr. Drew Lopez on 11/06/2019. . 02 Electronically signed: . Buster Hemphill MD, Pathologist NPI- [id number] . 01 Gross description: . A. SEE FROZEN SECTION GROSS DESCRIPTION. . B. The specimen is received in formalin, labeled "Ceci Major, right temporal mass". Received are multiple segments of pale matos soft tissue measuring 1.8 x 1.8 x 0.4 cm in aggregate dimensions. The specimen is filtered and entirely submitted in cassette B1. (CAA; 11/05/2019) QAC/SYC 11/05/2019 1736 Local . 02 Pathologist provided ICD-10: C71.2 . 02 CPT . 040509, [id number], [id number], [id number], [id number] Specimen Comment: A courtesy copy of this report has been sent to [phone], [phone] Specimen Comment: [id number], Specimen Comment: Report sent to , and Performed at: 01 [facility] [address] [facility] [address], [place] [id number] MD Bereket Matthews MD Phone: [phone] Performed at: 02 [facility] [address] [place], [place] [id number] MD Dontrell Carvajal MD Phone: [phone]
--- NOTE | 2019-11-07 14:49 | NUR ---
SW following for discharge planning. Chart reviewed, discussed with RN. Pt is from home. POD:3 from a craniotomy. PT/OT recommending home health upon discharge. SW to meet with pt to discuss home health options. SW will continue to follow. RN notified.
[2019-11-07 15:00] VITALS: BP 136/64
--- NOTE | 2019-11-07 15:32 | PDOC ---
PROGRESS NOTES Subjective Subjective POD #3 Patient seen and examined at 1245 just finished lunch denies headaches, no complaints Objective Objective Vital Signs Date Time Temp Pulse Resp B/P (MAP) Pulse Ox O2 Delivery O2 Flow Rate FiO2 11/07/19 15:00 98.0 70 16 136/64 (88) 99 Room Air 98.0 11/04/19 16:04 8 Intake and Output 11/07/19 07:00 Intake Total 1050 ml Balance 1050 ml Intake Oral 1050 ml # Voids 8 Physical Exam General: Alert, Cooperative, No acute distress MUSCULOSKELETAL: Other (CONTRERAS) Neuro: Normal speech, Strength at 5/5 X4 ext Skin: Other (dressing C,D,I) Assessment Assessment Problems Medical Problems: (1) Confusion Status: Acute (2) Hyponatremia Status: Acute (3) Intracranial hemorrhage Status: Acute Plan Plan of Care Final path- GBM continue steroids, same dose CT head before dc, ordered for tomorrow increase activity as tolerated Comment Review of Relevant I have reviewed the following items ramin (where applicable) has been applied. Labs Laboratory Tests Test 11/06/19 17:00 11/07/19 03:34 Glucose (Fingerstick) 166 mg/dL (70-99) White Blood Count 13.9 x10^3/uL (4.0-11.0) Red Blood Count 2.96 x10^6/uL (3.50-5.40) Hemoglobin 9.8 g/dL (12.0-15.5) Hematocrit 29.5 % (36.0-47.0) Mean Corpuscular Volume 100 fL (79-100) Mean Corpuscular Hemoglobin 33 pg (25-35) Mean Corpuscular Hemoglobin Concent 33 g/dL (31-37) Red Cell Distribution Width 12.0 % (11.5-14.5) Platelet Count 177 x10^3/uL (140-400) Neutrophils (%) (Auto) 79 % (31-73) Lymphocytes (%) (Auto) 15 % (24-48) Monocytes (%) (Auto) 7 % (0-9) Eosinophils (%) (Auto) 0 % (0-3) Basophils (%) (Auto) 0 % (0-3) Neutrophils # (Auto) 11.0 x10^3/uL (1.8-7.7) Lymphocytes # (Auto) 2.0 x10^3/uL (1.0-4.8) Monocytes # (Auto) 0.9 x10^3/uL (0.0-1.1) Eosinophils # (Auto) 0.0 x10^3/uL (0.0-0.7) Basophils # (Auto) 0.0 x10^3/uL (0.0-0.2) Sodium Level 137 mmol/L (136-145) Potassium Level 4.1 mmol/L (3.5-5.1) Chloride Level 105 mmol/L (98-107) Carbon Dioxide Level 24 mmol/L (21-32) Anion Gap 8 (6-14) Blood Urea Nitrogen 25 mg/dL (7-20) Creatinine 0.9 mg/dL (0.6-1.0) Estimated GFR (Cockcroft-Gault) 73.9 Glucose Level 129 mg/dL (70-99) Calcium Level 8.1 mg/dL (8.5-10.1) Laboratory Tests Test 11/06/19 17:00 11/07/19 03:34 Glucose (Fingerstick) 166 mg/dL (70-99) White Blood Count 13.9 x10^3/uL (4.0-11.0) Red Blood Count 2.96 x10^6/uL (3.50-5.40) Hemoglobin 9.8 g/dL (12.0-15.5) Hematocrit 29.5 % (36.0-47.0) Mean Corpuscular Volume 100 fL (79-100) Mean Corpuscular Hemoglobin 33 pg (25-35) Mean Corpuscular Hemoglobin Concent 33 g/dL (31-37) Red Cell Distribution Width 12.0 % (11.5-14.5) Platelet Count 177 x10^3/uL (140-400) Neutrophils (%) (Auto) 79 % (31-73) Lymphocytes (%) (Auto) 15 % (24-48) Monocytes (%) (Auto) 7 % (0-9) Eosinophils (%) (Auto) 0 % (0-3) Basophils (%) (Auto) 0 % (0-3) Neutrophils # (Auto) 11.0 x10^3/uL (1.8-7.7) Lymphocytes # (Auto) 2.0 x10^3/uL (1.0-4.8) Monocytes # (Auto) 0.9 x10^3/uL (0.0-1.1) Eosinophils # (Auto) 0.0 x10^3/uL (0.0-0.7) Basophils # (Auto) 0.0 x10^3/uL (0.0-0.2) Sodium Level 137 mmol/L (136-145) Potassium Level 4.1 mmol/L (3.5-5.1) Chloride Level 105 mmol/L (98-107) Carbon Dioxide Level 24 mmol/L (21-32) Anion Gap 8 (6-14) Blood Urea Nitrogen 25 mg/dL (7-20) Creatinine 0.9 mg/dL (0.6-1.0) Estimated GFR (Cockcroft-Gault) 73.9 Glucose Level 129 mg/dL (70-99) Calcium Level 8.1 mg/dL (8.5-10.1) Medications Current Medications Dexamethasone Sodium Phosphate (Decadron) 4 mg 1X ONCE IVP Last administered on 10/29/19 18:52; Start 10/29/19 at 16:45; Stop 10/29/19 at 16:46; Status DC Acetaminophen (Tylenol) 500 mg PRN Q6HRS PRN PO MILD PAIN / TEMP Last admi nistered on 11/06/19 16:16; Start 10/29/19 at 17:00 Ondansetron HCl (Zofran) 4 mg PRN Q6HRS PRN IVP NAUSEA/VOMITING Last admi nistered on 11/02/19 13:55; Start 10/29/19 at 17:00 Sodium Chloride 1,000 ml @ 80 mls/hr [id number] IV Last administered on 10/27 12:22; Start 10/29/19 at 17:00 Famotidine (Pepcid Vial) 20 mg QHS IVP Last administered on 11/06/19 22:04; Start 10/29/19 at 21:00 Hydralazine HCl (Apresoline Inj) 10 mg PRN Q4HRS PRN IVP ELEVATED BP, SEE COMMENTS Last administered on 11/05/19 03:33; Start 10/29/19 at 17:00 Dexamethasone Sodium Phosphate (Decadron) 4 mg Q6HRS IVP Last administered on 11/06/19 12:06; Start 10/29/19 at 18:00; Stop 11/06/19 at 14:11; Status DC Gadoterate Meglumine (Dotarem) 14 ml 1X ONCE IVP Last administered on 10/29/19at 17:55; Start 10/29/19 at 17:30; Stop 10/29/19 at 17:40; Status DC Iohexol (Omnipaque 350 Mg/ml) 60 ml 1X ONCE IV Last administered on 10/29/19at 18:46; Start 10/29/19 at 18:30; Stop 10/29/19 at 18:31; Status DC Info (CONTRAST GIVEN -- Rx MONITORING) 1 each PRN DAILY PRN MC SEE COMMENTS; Start 10/29/19 at 18:30; Stop 10/31/19 at 18:29; Status DC Levetiracetam 500 mg/Dextrose 105 ml @ 440 mls/hr Q12HR IV Last administered on 11/06/19 08:31; Start 10/29/19 at 21:00; Stop 11/06/19 at 11:22; Status DC Metoprolol Tartrate (Lopressor) 50 mg DAILY PO ; Start 10/30/19 at 09:00; Status Cancel Hydrochlorothiazide (Microzide) 12.5 mg DAILY PO Last administered on 11/07/19 10:05; Start 10/30/19 at 09:00 Fish Oil (Fish Oil) 1,000 mg DAILY PO Last administered on 11/07/19 10:04; Start 10/30/19 at 09:00 Multivitamins (Thera M Plus) 1 tab DAILY PO Last administered on 11/07/19 10:04; Start 10/30/19 at 09:00 Morphine Sulfate (Morphine Sulfate) 1 mg PRN Q2HR PRN IV PAIN Last administered on 10/30/19 13:49; Start 10/29/19 at 21:15 Metoprolol Succinate (Toprol Xl) 50 mg DAILY PO Last administered on 11/07/19 10:06; Start 10/31/19 at 09:00 Losartan Potassium (Cozaar) 100 mg DAILY PO Last administered on 11/07/19 10:05; Start 10/31/19 at 09:00 Non-Formulary Medication (Multivitamin (Multi Vitamin Daily)) 1 tab DAILY PO ; Start 10/31/19 at 09:00; Status UNV Non-Formulary Medication ([place]-3 Fatty Acids/Fish Oil ([place] 3 Fish Oil Softgel)) 1 each DAILY PO ; Start 10/31/19 at 09:00; Status UNV Ondansetron HCl (Zofran) 4 mg PRN Q6HRS PRN IV NAUSEA/VOMITING; Start 11/04/19 at 07:00; Stop 11/05/19 at 06:59; Status DC Fentanyl Citrate (Fentanyl 2ml Vial) 25 mcg PRN Q5MIN PRN IV MILD PAIN 1-3 Last administered on 11/04/19at 18:31; Start 11/04/19 at 07:00; Stop 11/05/19 at 06:59; Status DC Fentanyl Citrate (Fentanyl 2ml Vial) 50 mcg PRN Q5MIN PRN IV MODERATE TO SEVERE PAIN; Start 11/04/19 at 07:00; Stop 11/05/19 at 06:59; Status DC Morphine Sulfate (Morphine Sulfate) 1 mg PRN Q10MIN PRN IV SEVERE PAIN 7-10; Start 11/04/19 at 07:00; Stop 11/05/19 at 06:59; Status DC Ringer's Solution 1,000 ml @ 30 mls/hr Q24H IV ; Start 11/04/19 at 07:00; Stop 11/04/19 at 18:59; Status DC Lidocaine HCl (Xylocaine-Mpf 1% 2ml Vial) 2 ml PRN 1X PRN ID PRIOR TO IV START; Start 11/04/19 at 07:00; Stop 11/05/19 at 06:59; Status DC Hydromorphone HCl (Dilaudid) 0.5 mg PRN Q10MIN PRN IV SEV PAIN, Second choice; Start 11/04/19 at 07:00; Stop 11/05/19 at 06:59; Status DC Prochlorperazine Edisylate (Compazine) 5 mg PACU PRN PRN IV NAUSEA, MRX1; Start 11/04/19 at 07:00; Stop 11/05/19 at 06:59; Status DC Bacitracin 03553 unit/Sodium Chloride 1,000 ml @ 1,000 mls/hr 1X ONCE IRR Last administered on 11/04/19at 13:22; Start 11/04/19 at 06:00; Stop 11/04/19 at 06:59; Status DC Bupivacaine HCl/ Epinephrine Bitart (Sensorcain-Epi 0.5%-1:432397 Mpf) 30 ml 1X ONCE INJ Last administered on 11/04/19at 13:22; Start 11/04/19 at 06:30; Stop 11/04/19 at 06:31; Status DC Cefazolin Sodium/ Dextrose 50 ml @ 100 mls/hr 1X PREOP ONCE IV ; Start 11/03/19 at 10:00; Stop 11/03/19 at 10:29; Status Cancel Cefazolin Sodium/ Dextrose 50 ml @ 100 mls/hr 1X PREOP ONCE IV Last administered on 11/04/19at 12:15; Start 11/04/19 at 10:00; Stop 11/04/19 at 10:29; Status DC Gelatin (Gelfoam Size 100) 1 each STK-MED ONCE .ROUTE Last administered on 11/04/19at 13:22; Start 11/04/19 at 07:48; Stop 11/04/19 at 07:48; Status DC Ketorolac Tromethamine (Toradol Im) 60 mg STK-MED ONCE .ROUTE ; Start 11/04/19 at 07:48; Stop 11/04/19 at 07:48; Status DC Thrombin 20,000 unit STK-MED ONCE TP Last administered on 11/04/19at 13:22; Start 11/04/19 at 07:48; Stop 11/04/19 at 07:48; Status DC Gadoterate Meglumine (Dotarem) 14 ml 1X ONCE IVP Last administered on 11/04/19at 08:15; Start 11/04/19 at 08:15; Stop 11/04/19 at 08:16; Status DC Propofol 20 ml @ As Directed STK-MED ONCE IV ; Start 11/04/19 at 09:19; Stop 11/04/19 at 09:19; Status DC Lidocaine HCl (Lidocaine Pf 2% Vial) 5 ml STK-MED ONCE .ROUTE ; Start 11/04/19 at 09:19; Stop 11/04/19 at 09:19; Status DC Fentanyl Citrate (Fentanyl 2ml Vial) 100 mcg STK-MED ONCE .ROUTE ; Start 11/04/19 at 09:19; Stop 11/04/19 at 09:19; Status DC Rocuronium [place] (Zemuron) 50 mg STK-MED ONCE .ROUTE ; Start 11/04/19 at 09:19; Stop 11/04/19 at 09:19; Status DC Remifentanil HCl (Ultiva) 2 mg STK-MED ONCE IV ; Start 11/04/19 at 09:19; Stop 11/04/19 at 09:19; Status DC Sodium Chloride (SODIUM CHLORIDE 20ml) 20 ml STK-MED ONCE IJ ; Start 11/04/19 at 09:19; Stop 11/04/19 at 09:20; Status DC Dexamethasone Sodium Phosphate (Decadron) 20 mg STK-MED ONCE .ROUTE ; Start 11/04/19 at 12:15; Stop 11/04/19 at 12:16; Status DC Desflurane (Suprane) 90 ml STK-MED ONCE IH ; Start 11/04/19 at 12:15; Stop 11/04/19 at 12:16; Status DC Ondansetron HCl (Zofran) 4 mg STK-MED ONCE .ROUTE ; Start 11/04/19 at 12:42; Stop 11/04/19 at 12:42; Status DC Glycopyrrolate (Robinul) 1 mg STK-MED ONCE .ROUTE ; Start 11/04/19 at 12:42; Stop 11/04/19 at 12:42; Status DC Neostigmine Methylsulfate (Neostigmine Methylsulfate) 5 mg STK-MED ONCE .ROUTE ; Start 11/04/19 at 12:42; Stop 11/04/19 at 12:42; Status DC Mannitol 500 ml @ As Directed STK-MED ONCE IV ; Start 11/04/19 at 12:53; Stop 11/04/19 at 12:53; Status DC Cefazolin Sodium (Ancef) 1 gm STK-MED ONCE .ROUTE ; Start 11/04/19 at 13:19; Stop 11/04/19 at 13:19; Status DC Phenylephrine HCl (PHENYLEPHRINE in 0.9% NACL PF) 1 mg STK-MED ONCE IV ; Start 11/04/19 at 14:18; Stop 11/04/19 at 14:18; Status DC Cellulose (Surgicel Hemostat 4x8) 1 each STK-MED ONCE .ROUTE Last administered on 11/04/19at 14:50; Start 11/04/19 at 14:45; Stop 11/04/19 at 14:46; Status DC Fentanyl Citrate (Fentanyl 2ml Vial) 50 mcg PRN Q2HR PRN IVP PAIN Last administered on 11/05/19at 08:18; Start 11/04/19 at 16:15 Acetaminophen/ Hydrocodone Bitart (Lortab 5/325) 1 tab PRN Q6HRS PRN PO MODERATE PAIN, SEVERE PAIN Last administered on 11/05/19at 12:10; Start 11/05/19 at 10:15 Levetiracetam (Keppra) 500 mg BID PO Last administered on 11/07/19at 10:04; Start 11/06/19 at 21:00 Dexamethasone Sodium Phosphate (Decadron) 2 mg Q6HRS IVP Last administered on 11/07/19at 12:21; Start 11/06/19 at 18:00 Active Scripts Active Reported Multi Vitamin Daily (Multivitamin) 1 Each Tablet 1 Tab PO DAILY 30 Days [place] 3 Fish Oil Softgel ([place]-3 Fatty Acids/Fish Oil) 1 Each Capsule.dr 1 Each PO DAILY Losartan-Hctz 100-12.5 Mg Tab (Losartan/Hydrochlorothiazide) 1 Each Tablet 1 Tab PO DAILY Toprol XL (Metoprolol Succinate) 50 Mg Tab.er.24h 50 Mg PO DAILY Vitals/I & O Vital Sign - Last 24 Hours 11/06/19 11/06/19 11/06/19 11/06/19 16:00 16:18 19:00 20:00 Temp 98.6 98.6 Pulse 61 66 Resp 14 16 B/P (MAP) 129/65 (86) 148/65 (92) Pulse Ox 100 98 O2 Delivery Room Air Room Air Room Air Room Air 11/06/19 11/07/19 11/07/19 11/07/19 23:00 03:00 07:00 10:05 Temp 98.0 97.8 98.1 98.0 97.8 98.1 Pulse 56 61 57 57 Resp 16 16 16 B/P (MAP) 158/74 (102) 147/66 (93) 162/70 (100) 162/70 Pulse Ox 100 98 100 O2 Delivery Room Air Room Air Room Air 11/07/19 11/07/19 11/07/19 10:06 11:00 15:00 Temp 98.0 98.0 98.0 98.0 Pulse 57 65 70 Resp 16 16 B/P (MAP) 162/70 129/72 (91) 136/64 (88) Pulse Ox 100 99 O2 Delivery Room Air Room Air Intake and Output 11/06/19 11/06/19 11/07/19 15:00 23:00 07:00 Intake Total 550 ml 500 ml Balance 550 ml 500 ml JANA MCNAMARA APRN Nov 07, 2019 15:32
[2019-11-07 19:00] VITALS: BP 142/57
[2019-11-07] MEDS: FAMOTIDINE 20 MG/2 ML VIAL IVP SCH (20:23)
[2019-11-07 23:00] VITALS: BP 169/71
[2019-11-08] MEDS: IV NORMAL SALINE 1000ML BAG 1,000 ML IV SCH ×2 (02:53→15:27)
[2019-11-08] MEDS: HYDROcodone/APAP 5/325MG 1 TAB TABLET PO PRN (02:57)
[2019-11-08 03:00] VITALS: BP 105/60
[2019-11-08] MEDS: DEXAMETHASONE SOD PHOS 4 MG/ML VIAL IVP SCH ×4 (05:45→23:16)
[2019-11-08 07:00] VITALS: BP 151/76
--- NOTE | 2019-11-08 08:25 | PDOC ---
SUBJECTIVE Subjective S: doing well, mental status improves each time I see her, asking clear qu estions today, decreased swelling of the right face O: Gen: NAD, resting in bed HEENT: facial swelling dec on the right Neuro: A&O Psych: pleasant mood and affect Labs: wbc 13.9, Hb 9.8, plt 177 A/P: She is a 74-year-old female with GBM debulked on Oct, on steroids, neurosurgery and neurology are involved and radiation oncology as well 1. GBM: We will follow-up adjuvantly for treatment as able based on recovery postoperatively, and asking for tumor methylation testing. s/p debulking 11/04/19 2. Headache/Memory loss, Aphasia: On dexamethasone, improving Dispo: per others, to f/u w/ us as outpt, we will arrange. thank you kindly, and please don't hesitate to call with questions. OBJECTIVE Vital Signs Vital Signs Date Time Temp Pulse Resp B/P (MAP) Pulse Ox O2 Delivery O2 Flow Rate FiO2 11/08/19 07:00 98.0 55 18 151/76 (101) 100 Room Air 98.0 11/08/19 04:00 20 98 Room Air 11/08/19 03:00 97.8 70 18 105/60 (75) 100 Room Air 97.8 11/08/19 02:57 20 98 Room Air 11/07/19 23:00 98.1 56 16 169/71 (103) 98 Room Air 98.1 11/07/19 20:00 Room Air 11/07/19 19:00 98.2 61 18 142/57 (85) 100 Room Air 98.2 11/07/19 15:00 98.0 70 16 136/64 (88) 99 Room Air 98.0 11/07/19 11:00 98.0 65 16 129/72 (91) 100 Room Air 98.0 11/07/19 10:06 57 162/70 11/07/19 10:05 57 162/70 I & O Intake and Output 11/08/19 07:00 Intake Total 1150 ml Output Total 2 ml Balance 1148 ml Intake Oral 1150 ml Output Urine Total 2 ml # Voids 1 JJ PAL MD Nov 08, 2019 08:25
[2019-11-08] MEDS: LOSARTAN POTASSIUM 50 MG TABLET. PO SCH (08:31)
[2019-11-08] MEDS: MULTIVITAMIN with MINERAL TABLET. PO SCH (08:31)
[2019-11-08] MEDS: hydroCHLOROthiazide 12.5 MG CAPSULE PO SCH (08:31)
[2019-11-08] MEDS: OMEGA-3 FATTY ACIDS/FISH OIL 1,000 MG CAPSULE. PO SCH (08:31)
[2019-11-08] MEDS: levETIRAcetam 500 MG TABLET PO SCH ×2 (08:31→20:33)
[2019-11-08] MEDS: METOPROLOL SUCC 24HR ER 50 MG TAB.ER.24H. PO SCH (08:32)
--- NOTE | 2019-11-08 09:29 | NUR ---
TIA following for discharge planning. Chart reviewed, discussed with RN. PT/OT recommending home health, but do not think it is safe for pt to be alone as she has some confusion. TIA spoke with pt's son Abdullahi ([phone]) to discuss discharge planning. Abdullahi advised someone will be able to stay with pt after discharge, but was not aware the plan was to discharge today after CT scan. Abdullahi is agreeable to home health but is not sure if pt has had in the past. Pt is currently showering, TIA to check with pt re home health. RN notified. Addendum: 11/08/19 at 1235 by ОЛЬГА WEBER TIA spoke with pt's granddaughter, Jessika. They are agreeable to [facility] Nur RN visiting with pt prior to discharge. Family understand pt is not safe to be home alone at this time, per PT/OT. Pt needing PT/OT/ SP/ RN upon discharge. TIA will continue to follow.
--- NOTE | 2019-11-08 10:19 | PDOC ---
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 Tumor necrotic hemorrhage. Cerebral vasogenic edema with midline shift 8 mm. Intermittent recurrent confusional episodes. Complex partial seizure likely. Left temporal field deficits, better. 2 mm anterior communicating artery aneurysm. Metabolic encephalopathy. Headaches x 1-2 weeks. HTN. Plan Decadron taper per neurosurgery. Continue Keppra 500 mg, switch to oral As per oncology and radiation oncology Awaiting PT/OT reassessment Subjective no complaints Objective Vital Signs Date Time Temp Pulse Resp B/P (MAP) Pulse Ox O2 Delivery O2 Flow Rate FiO2 11/08/19 08:32 55 151/76 11/08/19 08:00 Room Air 11/08/19 07:00 98.0 18 100 98.0 11/07/19 08:00 8.0 Intake and Output 11/08/19 07:00 Intake Total 1150 ml Output Total 2 ml Balance 1148 ml Intake Oral 1150 ml Output Urine Total 2 ml # Voids 1 PHYSICAL EXAM Alert. Oriented to place and person. PERRL. EOMI. CN: Left homonymous hemianopsia much better, no longer has left central facial palsy Muscle tone: normal. Muscle strength: 4/5 DTR: 1+ Plantar reflex: flexor Gait: not examined in bed. Sensory exam: no abnormal findings. No cerebellar signs elicited. Review of Relevant I have reviewed the following items ramin (where applicable) has been applied. Labs Laboratory Tests Test 11/06/19 17:00 11/07/19 03:34 Glucose (Fingerstick) 166 mg/dL (70-99) White Blood Count 13.9 x10^3/uL (4.0-11.0) Red Blood Count 2.96 x10^6/uL (3.50-5.40) Hemoglobin 9.8 g/dL (12.0-15.5) Hematocrit 29.5 % (36.0-47.0) Mean Corpuscular Volume 100 fL (79-100) Mean Corpuscular Hemoglobin 33 pg (25-35) Mean Corpuscular Hemoglobin Concent 33 g/dL (31-37) Red Cell Distribution Width 12.0 % (11.5-14.5) Platelet Count 177 x10^3/uL (140-400) Neutrophils (%) (Auto) 79 % (31-73) Lymphocytes (%) (Auto) 15 % (24-48) Monocytes (%) (Auto) 7 % (0-9) Eosinophils (%) (Auto) 0 % (0-3) Basophils (%) (Auto) 0 % (0-3) Neutrophils # (Auto) 11.0 x10^3/uL (1.8-7.7) Lymphocytes # (Auto) 2.0 x10^3/uL (1.0-4.8) Monocytes # (Auto) 0.9 x10^3/uL (0.0-1.1) Eosinophils # (Auto) 0.0 x10^3/uL (0.0-0.7) Basophils # (Auto) 0.0 x10^3/uL (0.0-0.2) Sodium Level 137 mmol/L (136-145) Potassium Level 4.1 mmol/L (3.5-5.1) Chloride Level 105 mmol/L (98-107) Carbon Dioxide Level 24 mmol/L (21-32) Anion Gap 8 (6-14) Blood Urea Nitrogen 25 mg/dL (7-20) Creatinine 0.9 mg/dL (0.6-1.0) Estimated GFR (Cockcroft-Gault) 73.9 Glucose Level 129 mg/dL (70-99) Calcium Level 8.1 mg/dL (8.5-10.1) Medications Current Medications Dexamethasone Sodium Phosphate (Decadron) 4 mg 1X ONCE IVP Last administered on 10/29/19 18:52; Start 10/29/19 at 16:45; Stop 10/29/19 at 16:46; Status DC Acetaminophen (Tylenol) 500 mg PRN Q6HRS PRN PO MILD PAIN / TEMP Last administered on 11/06/19 16:16; Start 10/29/19 at 17:00 Ondansetron HCl (Zofran) 4 mg PRN Q6HRS PRN IVP NAUSEA/VOMITING Last administered on 11/02/19 13:55; Start 10/29/19 at 17:00 Sodium Chloride 1,000 ml @ 80 mls/hr [id number] IV Last administered on 12/13/19at 02:53; Start 10/29/19 at 17:00 Famotidine (Pepcid Vial) 20 mg QHS IVP Last administered on 11/07/19at 20:23; Start 10/29/19 at 21:00 Hydralazine HCl (Apresoline Inj) 10 mg PRN Q4HRS PRN IVP ELEVATED BP, SEE COMMENTS Last administered on 11/05/19at 03:33; Start 10/29/19 at 17:00 Dexamethasone Sodium Phosphate (Decadron) 4 mg Q6HRS IVP Last administered on 11/06/19at 12:06; Start 10/29/19 at 18:00; Stop 11/06/19 at 14:11; Status DC Gadoterate Meglumine (Dotarem) 14 ml 1X ONCE IVP Last administered on 10/29/19at 17:55; Start 10/29/19 at 17:30; Stop 10/29/19 at 17:40; Status DC Iohexol (Omnipaque 350 Mg/ml) 60 ml 1X ONCE IV Last administered on 10/29/19at 18:46; Start 10/29/19 at 18:30; Stop 10/29/19 at 18:31; Status DC Info (CONTRAST GIVEN -- Rx MONITORING) 1 each PRN DAILY PRN MC SEE COMMENTS; Start 10/29/19 at 18:30; Stop 10/31/19 at 18:29; Status DC Levetiracetam 500 mg/Dextrose 105 ml @ 440 mls/hr Q12HR IV Last administered on 11/06/19 08:31; Start 10/29/19 at 21:00; Stop 11/06/19 at 11:22; Status DC Metoprolol Tartrate (Lopressor) 50 mg DAILY PO ; Start 10/30/19 at 09:00; Status Cancel Hydrochlorothiazide (Microzide) 12.5 mg DAILY PO Last administered on 11/08/19 08:31; Start 10/30/19 at 09:00 Fish Oil (Fish Oil) 1,000 mg DAILY PO Last administered on 11/08/19 08:31; Start 10/30/19 at 09:00 Multivitamins (Thera M Plus) 1 tab DAILY PO Last administered on 11/08/19 08:31; Start 10/30/19 at 09:00 Morphine Sulfate (Morphine Sulfate) 1 mg PRN Q2HR PRN IV PAIN Last administered on 10/30/19at 13:49; Start 10/29/19 at 21:15 Metoprolol Succinate (Toprol Xl) 50 mg DAILY PO Last administered on 11/08/19at 08:32; Start 10/31/19 at 09:00 Losartan Potassium (Cozaar) 100 mg DAILY PO Last administered on 11/08/19at 08:31; Start 10/31/19 at 09:00 Non-Formulary Medication (Multivitamin (Multi Vitamin Daily)) 1 tab DAILY PO ; Start 10/31/19 at 09:00; Status UNV Non-Formulary Medication ([place]-3 Fatty Acids/Fish Oil ([place] 3 Fish Oil Softgel )) 1 each DAILY PO ; Start 10/31/19 at 09:00; Status UNV Ondansetron HCl (Zofran) 4 mg PRN Q6HRS PRN IV NAUSEA/VOMITING; Start 11/04/19 at 07:00; Stop 11/05/19 at 06:59; Status DC Fentanyl Citrate (Fentanyl 2ml Vial) 25 mcg PRN Q5MIN PRN IV MILD PAIN 1-3 Last administered on 11/04/19at 18:31; Start 11/04/19 at 07:00; Stop 11/05/19 at 06:59; Status DC Fentanyl Citrate (Fentanyl 2ml Vial) 50 mcg PRN Q5MIN PRN IV MODERATE TO SEVERE PAIN; Start 11/04/19 at 07:00; Stop 11/05/19 at 06:59; Status DC Morphine Sulfate (Morphine Sulfate) 1 mg PRN Q10MIN PRN IV SEVERE PAIN 7-10; Start 11/04/19 at 07:00; Stop 11/05/19 at 06:59; Status DC Ringer's Solution 1,000 ml @ 30 mls/hr Q24H IV ; Start 11/04/19 at 07:00; Stop 11/04/19 at 18:59; Status DC Lidocaine HCl (Xylocaine-Mpf 1% 2ml Vial) 2 ml PRN 1X PRN ID PRIOR TO IV START; Start 11/04/19 at 07:00; Stop 11/05/19 at 06:59; Status DC Hydromorphone HCl (Dilaudid) 0.5 mg PRN Q10MIN PRN IV SEV PAIN, Second choice; Start 11/04/19 at 07:00; Stop 11/05/19 at 06:59; Status DC Prochlorperazine Edisylate (Compazine) 5 mg PACU PRN PRN IV NAUSEA, MRX1; Start 11/04/19 at 07:00; Stop 11/05/19 at 06:59; Status DC Bacitracin 63884 unit/Sodium Chloride 1,000 ml @ 1,000 mls/hr 1X ONCE IRR Last administered on 11/04/19 13:22; Start 11/04/19 at 06:00; Stop 11/04/19 at 06:59; Status DC Bupivacaine HCl/ Epinephrine Bitart (Sensorcain-Epi 0.5%-1:570644 Mpf) 30 ml 1X ONCE INJ Last administered on 11/04/19 13:22; Start 11/04/19 at 06:30; Stop 11/04/19 at 06:31; Status DC Cefazolin Sodium/ Dextrose 50 ml @ 100 mls/hr 1X PREOP ONCE IV ; Start 11/03/19 at 10:00; Stop 11/03/19 at 10:29; Status Cancel Cefazolin Sodium/ Dextrose 50 ml @ 100 mls/hr 1X PREOP ONCE IV Last administered on 11/04/19at 12:15; Start 11/04/19 at 10:00; Stop 11/04/19 at 10:29; Status DC Gelatin (Gelfoam Size 100) 1 each STK-MED ONCE .ROUTE Last administered on 11/04/19 13:22; Start 11/04/19 at 07:48; Stop 11/04/19 at 07:48; Status DC Ketorolac Tromethamine (Toradol Im) 60 mg STK-MED ONCE .ROUTE ; Start 11/04/19 at 07:48; Stop 11/04/19 at 07:48; Status DC Thrombin 20,000 unit STK-MED ONCE TP Last administered on 11/04/19 13:22; Start 11/04/19 at 07:48; Stop 11/04/19 at 07:48; Status DC Gadoterate Meglumine (Dotarem) 14 ml 1X ONCE IVP Last administered on 11/04/19at 08:15; Start 11/04/19 at 08:15; Stop 11/04/19 at 08:16; Status DC Propofol 20 ml @ As Directed STK-MED ONCE IV ; Start 11/04/19 at 09:19; Stop 11/04/19 at 09:19; Status DC Lidocaine HCl (Lidocaine Pf 2% Vial) 5 ml STK-MED ONCE .ROUTE ; Start 11/04/19 at 09:19; Stop 11/04/19 at 09:19; Status DC Fentanyl Citrate (Fentanyl 2ml Vial) 100 mcg STK-MED ONCE .ROUTE ; Start 11/04/19 at 09:19; Stop 11/04/19 at 09:19; Status DC Rocuronium [place] (Zemuron) 50 mg STK-MED ONCE .ROUTE ; Start 11/04/19 at 09:19; Stop 11/04/19 at 09:19; Status DC Remifentanil HCl (Ultiva) 2 mg STK-MED ONCE IV ; Start 11/04/19 at 09:19; Stop 11/04/19 at 09:19; Status DC Sodium Chloride (SODIUM CHLORIDE 20ml) 20 ml STK-MED ONCE IJ ; Start 11/04/19 at 09:19; Stop 11/04/19 at 09:20; Status DC Dexamethasone Sodium Phosphate (Decadron) 20 mg STK-MED ONCE .ROUTE ; Start 11/04/19 at 12:15; Stop 11/04/19 at 12:16; Status DC Desflurane (Suprane) 90 ml STK-MED ONCE IH ; Start 11/04/19 at 12:15; Stop 11/04/19 at 12:16; Status DC Ondansetron HCl (Zofran) 4 mg STK-MED ONCE .ROUTE ; Start 11/04/19 at 12:42; Stop 11/04/19 at 12:42; Status DC Glycopyrrolate (Robinul) 1 mg STK-MED ONCE .ROUTE ; Start 11/04/19 at 12:42; Stop 11/04/19 at 12:42; Status DC Neostigmine Methylsulfate (Neostigmine Methylsulfate) 5 mg STK-MED ONCE .ROUTE ; Start 11/04/19 at 12:42; Stop 11/04/19 at 12:42; Status DC Mannitol 500 ml @ As Directed STK-MED ONCE IV ; Start 11/04/19 at 12:53; Stop 11/04/19 at 12:53; Status DC Cefazolin Sodium (Ancef) 1 gm STK-MED ONCE .ROUTE ; Start 11/04/19 at 13:19; Stop 11/04/19 at 13:19; Status DC Phenylephrine HCl (PHENYLEPHRINE in 0.9% NACL PF) 1 mg STK-MED ONCE IV ; Start 11/04/19 at 14:18; Stop 11/04/19 at 14:18; Status DC Cellulose (Surgicel Hemostat 4x8) 1 each STK-MED ONCE .ROUTE Last administered on 11/04/19at 14:50; Start 11/04/19 at 14:45; Stop 11/04/19 at 14:46; Status DC Fentanyl Citrate (Fentanyl 2ml Vial) 50 mcg PRN Q2HR PRN IVP PAIN Last administered on 11/05/19at 08:18; Start 11/04/19 at 16:15 Acetaminophen/ Hydrocodone Bitart (Lortab 5/325) 1 tab PRN Q6HRS PRN PO MODERATE PAIN, SEVERE PAIN Last administered on 11/08/19at 02:57; Start 11/05/19 at 10:15 Levetiracetam (Keppra) 500 mg BID PO Last administered on 11/08/19at 08:31; Start 11/06/19 at 21:00 Dexamethasone Sodium Phosphate (Decadron) 2 mg Q6HRS IVP Last administered on 11/08/19at 05:45; Start 11/06/19 at 18:00 Active Scripts Active Reported Multi Vitamin Daily (Multivitamin) 1 Each Tablet 1 Tab PO DAILY 30 Days [place] 3 Fish Oil Softgel ([place]-3 Fatty Acids/Fish Oil) 1 Each Capsule. 1 Each PO DAILY Losartan-Hctz 100-12.5 Mg Tab (Losartan/Hydrochlorothiazide) 1 Each Tablet 1 Tab PO DAILY Toprol XL (Metoprolol Succinate) 50 Mg Tab.er.24h 50 Mg PO DAILY Vitals/I & O Vital Sign - Last 24 Hours 11/07/19 11/07/19 11/07/19 11/07/19 11:00 15:00 19:00 20:00 Temp 98.0 98.0 98.2 98.0 98.0 98.2 Pulse 65 70 61 Resp 16 16 18 B/P (MAP) 129/72 (91) 136/64 (88) 142/57 (85) Pulse Ox 100 99 100 O2 Delivery Room Air Room Air Room Air Room Air 11/07/19 11/08/19 11/08/19 11/08/19 23:00 02:57 03:00 04:00 Temp 98.1 97.8 98.1 97.8 Pulse 56 70 Resp 16 20 18 20 B/P (MAP) 169/71 (103) 105/60 (75) Pulse Ox 98 98 100 98 O2 Delivery Room Air Room Air Room Air Room Air 11/08/19 11/08/19 11/08/19 11/08/19 07:00 08:00 08:31 08:32 Temp 98.0 98.0 Pulse 55 55 55 Resp 18 B/P (MAP) 151/76 (101) 151/76 151/76 Pulse Ox 100 O2 Delivery Room Air Room Air Intake and Output 11/07/19 11/07/19 11/08/19 15:00 23:00 07:00 Intake Total 500 ml 650 ml Output Total 2 ml Balance 498 ml 650 ml TRICIA ROSS MD Nov 08, 2019 10:19
--- NOTE | 2019-11-08 10:23 | PDOC ---
PROGRESS NOTES Subjective Subjective POD #4 up in chair, alert denies headache Objective Objective Vital Signs Date Time Temp Pulse Resp B/P (MAP) Pulse Ox O2 Delivery O2 Flow Rate FiO2 11/08/19 08:32 55 151/76 11/08/19 08:00 Room Air 11/08/19 07:00 98.0 18 100 98.0 11/07/19 08:00 8.0 Intake and Output 11/08/19 07:00 Intake Total 1150 ml Output Total 2 ml Balance 1148 ml Intake Oral 1150 ml Output Urine Total 2 ml # Voids 1 Physical Exam General: Alert, Cooperative, No acute distress, Other (pleasant ) Neuro: Normal speech, Strength at 5/5 X4 ext Skin: Other (dressing C,D,I) Assessment Assessment Problems Medical Problems: (1) Confusion Status: Acute (2) Hyponatremia Status: Acute (3) Intracranial hemorrhage Status: Acute Plan Plan of Care Final path- GBM continue steroids, same dose CT head before dc, ordered for today increase activity as tolerated, PT Comment Review of Relevant I have reviewed the following items ramin (where applicable) has been applied. Labs Laboratory Tests Test 11/06/19 17:00 11/07/19 03:34 Glucose (Fingerstick) 166 mg/dL (70-99) White Blood Count 13.9 x10^3/uL (4.0-11.0) Red Blood Count 2.96 x10^6/uL (3.50-5.40) Hemoglobin 9.8 g/dL (12.0-15.5) Hematocrit 29.5 % (36.0-47.0) Mean Corpuscular Volume 100 fL (79-100) Mean Corpuscular Hemoglobin 33 pg (25-35) Mean Corpuscular Hemoglobin Concent 33 g/dL (31-37) Red Cell Distribution Width 12.0 % (11.5-14.5) Platelet Count 177 x10^3/uL (140-400) Neutrophils (%) (Auto) 79 % (31-73) Lymphocytes (%) (Auto) 15 % (24-48) Monocytes (%) (Auto) 7 % (0-9) Eosinophils (%) (Auto) 0 % (0-3) Basophils (%) (Auto) 0 % (0-3) Neutrophils # (Auto) 11.0 x10^3/uL (1.8-7.7) Lymphocytes # (Auto) 2.0 x10^3/uL (1.0-4.8) Monocytes # (Auto) 0.9 x10^3/uL (0.0-1.1) Eosinophils # (Auto) 0.0 x10^3/uL (0.0-0.7) Basophils # (Auto) 0.0 x10^3/uL (0.0-0.2) Sodium Level 137 mmol/L (136-145) Potassium Level 4.1 mmol/L (3.5-5.1) Chloride Level 105 mmol/L (98-107) Carbon Dioxide Level 24 mmol/L (21-32) Anion Gap 8 (6-14) Blood Urea Nitrogen 25 mg/dL (7-20) Creatinine 0.9 mg/dL (0.6-1.0) Estimated GFR (Cockcroft-Gault) 73.9 Glucose Level 129 mg/dL (70-99) Calcium Level 8.1 mg/dL (8.5-10.1) Medications Current Medications Dexamethasone Sodium Phosphate (Decadron) 4 mg 1X ONCE IVP Last administered on 10/29/19 18:52; Start 10/29/19 at 16:45; Stop 10/29/19 at 16:46; Status DC Acetaminophen (Tylenol) 500 mg PRN Q6HRS PRN PO MILD PAIN / TEMP Last administered on 11/06/19 16:16; Start 10/29/19 at 17:00 Ondansetron HCl (Zofran) 4 mg PRN Q6HRS PRN IVP NAUSEA/VOMITING Last administered on 11/02/19 13:55; Start 10/29/19 at 17:00 Sodium Chloride 1,000 ml @ 80 mls/hr [id number] IV Last administered on 11/08/19 02:53; Start 10/29/19 at 17:00 Famotidine (Pepcid Vial) 20 mg QHS IVP Last administered on 11/07/19 20:23; Start 10/29/19 at 21:00 Hydralazine HCl (Apresoline Inj) 10 mg PRN Q4HRS PRN IVP ELEVATED BP, SEE COMMENTS Last administered on 11/05/19 03:33; Start 10/29/19 at 17:00 Dexamethasone Sodium Phosphate (Decadron) 4 mg Q6HRS IVP Last administered on 11/06/19at 12:06; Start 10/29/19 at 18:00; Stop 11/06/19 at 14:11; Status DC Gadoterate Meglumine (Dotarem) 14 ml 1X ONCE IVP Last administered on 10/29/19at 17:55; Start 10/29/19 at 17:30; Stop 10/29/19 at 17:40; Status DC Iohexol (Omnipaque 350 Mg/ml) 60 ml 1X ONCE IV Last administered on 10/29/19at 18:46; Start 10/29/19 at 18:30; Stop 10/29/19 at 18:31; Status DC Info (CONTRAST GIVEN -- Rx MONITORING) 1 each PRN DAILY PRN MC SEE COMMENTS; Start 10/29/19 at 18:30; Stop 10/31/19 at 18:29; Status DC Levetiracetam 500 mg/Dextrose 105 ml @ 440 mls/hr Q12HR IV Last administered on 11/06/19at 08:31; Start 10/29/19 at 21:00; Stop 11/06/19 at 11:22; Status DC Metoprolol Tartrate (Lopressor) 50 mg DAILY PO ; Start 10/30/19 at 09:00; Status Cancel Hydrochlorothiazide (Microzide) 12.5 mg DAILY PO Last administered on 11/08/19 08:31; Start 10/30/19 at 09:00 Fish Oil (Fish Oil) 1,000 mg DAILY PO Last administered on 11/08/19 08:31; Start 10/30/19 at 09:00 Multivitamins (Thera M Plus) 1 tab DAILY PO Last administered on 11/08/19 08:31; Start 10/30/19 at 09:00 Morphine Sulfate (Morphine Sulfate) 1 mg PRN Q2HR PRN IV PAIN Last administered on 10/30/19 13:49; Start 10/29/19 at 21:15 Metoprolol Succinate (Toprol Xl) 50 mg DAILY PO Last administered on 11/08/19 08:32; Start 10/31/19 at 09:00 Losartan Potassium (Cozaar) 100 mg DAILY PO Last administered on 12/13/19at 08:31; Start 10/31/19 at 09:00 Non-Formulary Medication (Multivitamin (Multi Vitamin Daily)) 1 tab DAILY PO ; Start 10/31/19 at 09:00; Status UNV Non-Formulary Medication ([place]-3 Fatty Acids/Fish Oil ([place] 3 Fish Oil Softgel)) 1 each DAILY PO ; Start 10/31/19 at 09:00; Status UNV Ondansetron HCl (Zofran) 4 mg PRN Q6HRS PRN IV NAUSEA/VOMITING; Start 11/04/19 at 07:00; Stop 11/05/19 at 06:59; Status DC Fentanyl Citrate (Fentanyl 2ml Vial) 25 mcg PRN Q5MIN PRN IV MILD PAIN 1-3 Last administered on 11/04/19at 18:31; Start 11/04/19 at 07:00; Stop 11/05/19 at 0 6:59; Status DC Fentanyl Citrate (Fentanyl 2ml Vial) 50 mcg PRN Q5MIN PRN IV MODERATE TO SEVERE PAIN; Start 11/04/19 at 07:00; Stop 11/05/19 at 06:59; Status DC Morphine Sulfate (Morphine Sulfate) 1 mg PRN Q10MIN PRN IV SEVERE PAIN 7-10; Start 11/04/19 at 07:00; Stop 11/05/19 at 06:59; Status DC Ringer's Solution 1,000 ml @ 30 mls/hr Q24H IV ; Start 11/04/19 at 07:00; Stop 11/04/19 at 18:59; Status DC Lidocaine HCl (Xylocaine-Mpf 1% 2ml Vial) 2 ml PRN 1X PRN ID PRIOR TO IV START; Start 11/04/19 at 07:00; Stop 11/05/19 at 06:59; Status DC Hydromorphone HCl (Dilaudid) 0.5 mg PRN Q10MIN PRN IV SEV PAIN, Second choice; Start 11/04/19 at 07:00; Stop 11/05/19 at 06:59; Status DC Prochlorperazine Edisylate (Compazine) 5 mg PACU PRN PRN IV NAUSEA, MRX1; Start 11/04/19 at 07:00; Stop 11/05/19 at 06:59; Status DC Bacitracin 65259 unit/Sodium Chloride 1,000 ml @ 1,000 mls/hr 1X ONCE IRR Last administered on 11/04/19at 13:22; Start 11/04/19 at 06:00; Stop 11/04/19 at 06:59; Status DC Bupivacaine HCl/ Epinephrine Bitart (Sensorcain-Epi 0.5%-1:477734 Mpf) 30 ml 1X ONCE INJ Last administered on 11/04/19at 13:22; Start 11/04/19 at 06:30; Stop 11/04/19 at 06:31; Status DC Cefazolin Sodium/ Dextrose 50 ml @ 100 mls/hr 1X PREOP ONCE IV ; Start 11/03/19 at 10:00; Stop 11/03/19 at 10:29; Status Cancel Cefazolin Sodium/ Dextrose 50 ml @ 100 mls/hr 1X PREOP ONCE IV Last administe red on 11/04/19at 12:15; Start 11/04/19 at 10:00; Stop 11/04/19 at 10:29; Status DC Gelatin (Gelfoam Size 100) 1 each STK-MED ONCE .ROUTE Last administered on 11/04/19at 13:22; Start 11/04/19 at 07:48; Stop 11/04/19 at 07:48; Status DC Ketorolac Tromethamine (Toradol Im) 60 mg STK-MED ONCE .ROUTE ; Start 11/04/19 at 07:48; Stop 11/04/19 at 07:48; Status DC Thrombin 20,000 unit STK-MED ONCE TP Last administered on 11/04/19at 13:22; Start 11/04/19 at 07:48; Stop 11/04/19 at 07:48; Status DC Gadoterate Meglumine (Dotarem) 14 ml 1X ONCE IVP Last administered on 11/04/19at 08:15; Start 11/04/19 at 08:15; Stop 11/04/19 at 08:16; Status DC Propofol 20 ml @ As Directed STK-MED ONCE IV ; Start 11/04/19 at 09:19; Stop 11/04/19 at 09:19; Status DC Lidocaine HCl (Lidocaine Pf 2% Vial) 5 ml STK-MED ONCE .ROUTE ; Start 11/04/19 at 09:19; Stop 12/9/19 at 09:19; Status DC Fentanyl Citrate (Fentanyl 2ml Vial) 100 mcg STK-MED ONCE .ROUTE ; Start 11/04/19 at 09:19; Stop 11/04/19 at 09:19; Status DC Rocuronium [place] (Zemuron) 50 mg STK-MED ONCE .ROUTE ; Start 11/04/19 at 09:19; Stop 11/04/19 at 09:19; Status DC Remifentanil HCl (Ultiva) 2 mg STK-MED ONCE IV ; Start 11/04/19 at 09:19; Stop 11/04/19 at 09:19; Status DC Sodium Chloride (SODIUM CHLORIDE 20ml) 20 ml STK-MED ONCE IJ ; Start 11/04/19 at 09:19; Stop 11/04/19 at 09:20; Status DC Dexamethasone Sodium Phosphate (Decadron) 20 mg STK-MED ONCE .ROUTE ; Start 11/04/19 at 12:15; Stop 11/04/19 at 12:16; Status DC Desflurane (Suprane) 90 ml STK-MED ONCE IH ; Start 11/04/19 at 12:15; Stop 11/04/19 at 12:16; Status DC Ondansetron HCl (Zofran) 4 mg STK-MED ONCE .ROUTE ; Start 11/04/19 at 12:42; Stop 11/04/19 at 12:42; Status DC Glycopyrrolate (Robinul) 1 mg STK-MED ONCE .ROUTE ; Start 11/04/19 at 12:42; Stop 11/04/19 at 12:42; Status DC Neostigmine Methylsulfate (Neostigmine Methylsulfate) 5 mg STK-MED ONCE .ROUTE ; Start 11/04/19 at 12:42; Stop 11/04/19 at 12:42; Status DC Mannitol 500 ml @ As Directed STK-MED ONCE IV ; Start 11/04/19 at 12:53; Stop 11/04/19 at 12:53; Status DC Cefazolin Sodium (Ancef) 1 gm STK-MED ONCE .ROUTE ; Start 11/04/19 at 13:19; Stop 11/04/19 at 13:19; Status DC Phenylephrine HCl (PHENYLEPHRINE in 0.9% NACL PF) 1 mg STK-MED ONCE IV ; Start 11/04/19 at 14:18; Stop 11/04/19 at 14:18; Status DC Cellulose (Surgicel Hemostat 4x8) 1 each STK-MED ONCE .ROUTE Last administered on 11/04/19 14:50; Start 11/04/19 at 14:45; Stop 11/04/19 at 14:46; Status DC Fentanyl Citrate (Fentanyl 2ml Vial) 50 mcg PRN Q2HR PRN IVP PAIN Last administered on 11/05/19at 08:18; Start 11/04/19 at 16:15 Acetaminophen/ Hydrocodone Bitart (Lortab 5/325) 1 tab PRN Q6HRS PRN PO MODERATE PAIN, SEVERE PAIN Last administered on 11/08/19 02:57; Start 11/05/19 at 10:15 Levetiracetam (Keppra) 500 mg BID PO Last administered on 11/08/19 08:31; Start 11/06/19 at 21:00 Dexamethasone Sodium Phosphate (Decadron) 2 mg Q6HRS IVP Last administered on 01/09/19 05:45; Start 11/06/19 at 18:00 Active Scripts Active Reported Multi Vitamin Daily (Multivitamin) 1 Each Tablet 1 Tab PO DAILY 30 Days [place] 3 Fish Oil Softgel ([place]-3 Fatty Acids/Fish Oil) 1 Each Capsule.dr 1 Each PO DAILY Losartan-Hctz 100-12.5 Mg Tab (Losartan/Hydrochlorothiazide) 1 Each Tablet 1 Tab PO DAILY Toprol XL (Metoprolol Succinate) 50 Mg Tab.er.24h 50 Mg PO DAILY Vitals/I & O Vital Sign - Last 24 Hours 11/07/19 11/07/19 11/07/19 11/07/19 11:00 15:00 19:00 20:00 Temp 98.0 98.0 98.2 98.0 98.0 98.2 Pulse 65 70 61 Resp 16 16 18 B/P (MAP) 129/72 (91) 136/64 (88) 142/57 (85) Pulse Ox 100 99 100 O2 Delivery Room Air Room Air Room Air Room Air 11/07/19 11/08/19 11/08/19 11/08/19 23:00 02:57 03:00 04:00 Temp 98.1 97.8 98.1 97.8 Pulse 56 70 Resp 16 20 18 20 B/P (MAP) 169/71 (103) 105/60 (75) Pulse Ox 98 98 100 98 O2 Delivery Room Air Room Air Room Air Room Air 11/08/19 11/08/19 11/08/19 11/08/19 07:00 08:00 08:31 08:32 Temp 98.0 98.0 Pulse 55 55 55 Resp 18 B/P (MAP) 151/76 (101) 151/76 151/76 Pulse Ox 100 O2 Delivery Room Air Room Air Intake and Output 11/07/19 11/07/19 11/08/19 15:00 23:00 07:00 Intake Total 500 ml 650 ml Output Total 2 ml Balance 498 ml 650 ml JANA MCNAMARA APRN Nov 08, 2019 10:23
[2019-11-08 11:00] VITALS: BP 136/66
--- NOTE | 2019-11-08 13:25 | PDOC ---
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, resolving HTN, controlled History of Present Illness History of Present Illness 11/08/19 Pt seen and examined Pt appears in good spirits and is able to hold a conversation DW pt and pt's sister regarding the pt's care DW RN regarding pt's care Reviewed pt's chart Vitals/I&O Vitals/I&O: Vital Signs Date Time Temp Pulse Resp B/P (MAP) Pulse Ox O2 Delivery O2 Flow Rate FiO2 11/08/19 11:00 98.1 57 18 136/66 (89) 97 Room Air 98.1 11/07/19 08:00 8.0 I & O 11/07/19 11/07/19 11/08/19 15:00 23:00 07:00 Intake Total 500 ml 650 ml Output Total 2 ml Balance 498 ml 650 ml Physical Exam General: Alert, Oriented X3, Cooperative, No acute distress, Other (pleasant ) Heart: Regular rate, Normal S1, Normal S2 Lungs: Clear Abdomen: Normal bowel sounds, Soft, No tenderness, No hepatosplenomegaly, No masses Extremities: No clubbing, No cyanosis, No edema, Normal pulses Skin: No rashes, No significant lesion, Other (dressing C,D,I) Review of Systems Review of Systems: No c/o CP No c/o abd pain Assessment and Plan Assessmemt and Plan Problems Medical Problems: (1) Confusion Status: Acute (2) Hyponatremia Status: Acute (3) Intracranial hemorrhage Status: Acute Assessment 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 PRAVIN ROSENTHAL III DO Nov 08, 2019 13:25
[2019-11-08 15:00] VITALS: BP 144/66
--- NOTE | 2019-11-08 16:00 | NUR ---
SW following. [facility] accepted pt. [facility] RN has faxed clinicals, but did not have home health discharge orders to fax. RN notified. Discharge home health orders will need to be faxed.
--- NOTE | 2019-11-08 17:21 | RAD ---
CT HEAD WO CONTRAST Clinical indications: Status post craniotomy. COMPARISON: October 29, 2019. Technique: Noncontrast axial cross sectional scanning of the head was performed. PQRS compliance Statement One or more of the following individualized dose reduction techniques were utilized for this study: 1. Automated exposure control 2. Adjustment of the mA and/or kV according to patient size 3. Use of iterative reconstruction technique Findings: A craniotomy is now evident. Soft tissue air is seen within the intracranial vault and within the right temporal region which probably is the sylvian fissure. Again seen is hypodensity the right cerebral hemisphere with mass effect. Midline shift does not appear to be as prominent as on the previous study. There is mild hemorrhagic component within the right temporal lobe hypodensity. This is smaller in size. No new focus of hemorrhage or extra-axial fluid collection is seen. Again seen is opacification of the left maxillary sinus. IMPRESSION: Right cerebral hemisphere hemorrhagic mass or infarct. New finding of craniotomy. Midline shift appears less prominent than on the previous study. No increase in hemorrhage or new hemorrhage is evident. Electronically signed by: Rufus Ríos MD (11/08/2019 5:18 PM) [id number]
[2019-11-08 19:00] VITALS: BP 150/64
[2019-11-08] MEDS: FAMOTIDINE 20 MG/2 ML VIAL IVP SCH (20:34)
[2019-11-08 23:04] VITALS: BP 169/76
[2019-11-09] MEDS: IV NORMAL SALINE 1000ML BAG 1,000 ML IV SCH ×3 (00:50→21:30)
[2019-11-09 03:06] VITALS: BP 157/76
[2019-11-09] MEDS: DEXAMETHASONE SOD PHOS 4 MG/ML VIAL IVP SCH (05:04)
[2019-11-09 07:00] VITALS: BP 157/66
[2019-11-09 07:02] LABS: BASO % 0 % (0-3); EOS % 0 % (0-3); HEMATOCRIT 29.8 % (36.0-47.0); HEMOGLOBIN 10.1 g/dL (12.0-15.5); LYMPH # 2.2 x10^3/uL (1.0-4.8); LYMPH % 17 % (24-48); MEAN CORPUSCULAR HEMOGLOBIN 33 pg (25-35); MEAN CORPUSCULAR HGB CONC 34 g/dL (31-37); MEAN CORPUSCULAR VOLUME 99 fL (79-100); MONO # 0.7 x10^3/uL (0.0-1.1); MONO % 6 % (0-9); NEUT # 9.9 x10^3/uL (1.8-7.7); NEUT % 77 % (31-73); PLATELET COUNT 208 x10^3/uL (140-400); RED BLOOD COUNT 3.01 x10^6/uL (3.50-5.40); RED CELL DISTRIBUTION WIDTH 12.4 % (11.5-14.5); WHITE BLOOD COUNT 12.8 x10^3/uL (4.0-11.0)
[2019-11-09 07:04] LABS: CALCIUM 8.4 mg/dL (8.5-10.1); CREATININE 0.9 mg/dL (0.6-1.0); GFR 73.9; POTASSIUM 4.1 mmol/L (3.5-5.1)
[2019-11-09] MEDS: METOPROLOL SUCC 24HR ER 50 MG TAB.ER.24H. PO SCH (08:23)
[2019-11-09] MEDS: OMEGA-3 FATTY ACIDS/FISH OIL 1,000 MG CAPSULE. PO SCH (08:24)
[2019-11-09] MEDS: MULTIVITAMIN with MINERAL TABLET. PO SCH (08:24)
[2019-11-09] MEDS: levETIRAcetam 500 MG TABLET PO SCH ×2 (08:25→21:27)
[2019-11-09] MEDS: hydroCHLOROthiazide 12.5 MG CAPSULE PO SCH (08:25)
[2019-11-09] MEDS: LOSARTAN POTASSIUM 50 MG TABLET. PO SCH (08:25)
[2019-11-09 11:06] VITALS: BP 138/62
--- NOTE | 2019-11-09 11:58 | PDOC ---
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 Tumor necrotic hemorrhage. Cerebral vasogenic edema with midline shift 8 mm. Intermittent recurrent confusional episodes. Complex partial seizure likely. Left temporal field deficits, better. 2 mm anterior communicating artery aneurysm. Metabolic encephalopathy. Headaches x 1-2 weeks. HTN. Plan Decadron taper per neurosurgery. I converted it to oral Continue Keppra 500 mg, switched to oral As per oncology and radiation oncology Home with home health, she does not need 24/7 care, but should not be left alone for more than a few hours at a time Discussed with son Follow-up with neurology as needed. Subjective No complaints, feels comfortable going home Objective Vital Signs Date Time Temp Pulse Resp B/P (MAP) Pulse Ox O2 Delivery O2 Flow Rate FiO2 11/09/19 11:06 97.6 63 18 138/62 (87) 99 Room Air 97.6 Intake and Output 11/09/19 07:00 Intake Total 1250 ml Balance 1250 ml Intake Oral 250 ml IV Total 1000 ml # Voids 4 PHYSICAL EXAM Alert. Oriented to place and person. PERRL. EOMI. CN: Left homonymous hemianopsia much better, no longer has left central facial palsy Muscle tone: normal. Muscle strength: 4/5 DTR: 1+ Plantar reflex: flexor Gait: not examined in bed. Sensory exam: no abnormal findings. No cerebellar signs elicited. Review of Relevant I have reviewed the following items ramin (where applicable) has been applied. Labs Laboratory Tests Test 11/09/19 04:45 White Blood Count 12.8 x10^3/uL (4.0-11.0) Red Blood Count 3.01 x10^6/uL (3.50-5.40) Hemoglobin 10.1 g/dL (12.0-15.5) Hematocrit 29.8 % (36.0-47.0) Mean Corpuscular Volume 99 fL (79-100) Mean Corpuscular Hemoglobin 33 pg (25-35) Mean Corpuscular Hemoglobin Concent 34 g/dL (31-37) Red Cell Distribution Width 12.4 % (11.5-14.5) Platelet Count 208 x10^3/uL (140-400) Neutrophils (%) (Auto) 77 % (31-73) Lymphocytes (%) (Auto) 17 % (24-48) Monocytes (%) (Auto) 6 % (0-9) Eosinophils (%) (Auto) 0 % (0-3) Basophils (%) (Auto) 0 % (0-3) Neutrophils # (Auto) 9.9 x10^3/uL (1.8-7.7) Lymphocytes # (Auto) 2.2 x10^3/uL (1.0-4.8) Monocytes # (Auto) 0.7 x10^3/uL (0.0-1.1) Eosinophils # (Auto) 0.0 x10^3/uL (0.0-0.7) Basophils # (Auto) 0.0 x10^3/uL (0.0-0.2) Sodium Level 137 mmol/L (136-145) Potassium Level 4.1 mmol/L (3.5-5.1) Chloride Level 103 mmol/L (98-107) Carbon Dioxide Level 25 mmol/L (21-32) Anion Gap 9 (6-14) Blood Urea Nitrogen 22 mg/dL (7-20) Creatinine 0.9 mg/dL (0.6-1.0) Estimated GFR (Cockcroft-Gault) 73.9 Glucose Level 127 mg/dL (70-99) Calcium Level 8.4 mg/dL (8.5-10.1) Laboratory Tests Test 11/09/19 04:45 White Blood Count 12.8 x10^3/uL (4.0-11.0) Red Blood Count 3.01 x10^6/uL (3.50-5.40) Hemoglobin 10.1 g/dL (12.0-15.5) Hematocrit 29.8 % (36.0-47.0) Mean Corpuscular Volume 99 fL (79-100) Mean Corpuscular Hemoglobin 33 pg (25-35) Mean Corpuscular Hemoglobin Concent 34 g/dL (31-37) Red Cell Distribution Width 12.4 % (11.5-14.5) Platelet Count 208 x10^3/uL (140-400) Neutrophils (%) (Auto) 77 % (31-73) Lymphocytes (%) (Auto) 17 % (24-48) Monocytes (%) (Auto) 6 % (0-9) Eosinophils (%) (Auto) 0 % (0-3) Basophils (%) (Auto) 0 % (0-3) Neutrophils # (Auto) 9.9 x10^3/uL (1.8-7.7) Lymphocytes # (Auto) 2.2 x10^3/uL (1.0-4.8) Monocytes # (Auto) 0.7 x10^3/uL (0.0-1.1) Eosinophils # (Auto) 0.0 x10^3/uL (0.0-0.7) Basophils # (Auto) 0.0 x10^3/uL (0.0-0.2) Sodium Level 137 mmol/L (136-145) Potassium Level 4.1 mmol/L (3.5-5.1) Chloride Level 103 mmol/L (98-107) Carbon Dioxide Level 25 mmol/L (21-32) Anion Gap 9 (6-14) Blood Urea Nitrogen 22 mg/dL (7-20) Creatinine 0.9 mg/dL (0.6-1.0) Estimated GFR (Cockcroft-Gault) 73.9 Glucose Level 127 mg/dL (70-99) Calcium Level 8.4 mg/dL (8.5-10.1) Medications Current Medications Dexamethasone Sodium Phosphate (Decadron) 4 mg 1X ONCE IVP Last administered on 10/29/19 18:52; Start 10/29/19 at 16:45; Stop 10/29/19 at 16:46; Status DC Acetaminophen (Tylenol) 500 mg PRN Q6HRS PRN PO MILD PAIN / TEMP Last administered on 11/06/19 16:16; Start 10/29/19 at 17:00 Ondansetron HCl (Zofran) 4 mg PRN Q6HRS PRN IVP NAUSEA/VOMITING Last administered on 11/02/19 13:55; Start 10/29/19 at 17:00 Sodium Chloride 1,000 ml @ 80 mls/hr [id number] IV Last administered on 11/09/19 11:07; Start 10/29/19 at 17:00 Famotidine (Pepcid Vial) 20 mg QHS IVP Last administered on 11/08/19 20:34; Start 10/29/19 at 21:00 Hydralazine HCl (Apresoline Inj) 10 mg PRN Q4HRS PRN IVP ELEVATED BP, SEE COMMENTS Last administered on 11/05/19 03:33; Start 10/29/19 at 17:00 Dexamethasone Sodium Phosphate (Decadron) 4 mg Q6HRS IVP Last administered on 11/06/19 12:06; Start 10/29/19 at 18:00; Stop 11/06/19 at 14:11; Status DC Gadoterate Meglumine (Dotarem) 14 ml 1X ONCE IVP Last administered on 10/29/19 17:55; Start 10/29/19 at 17:30; Stop 10/29/19 at 17:40; Status DC Iohexol (Omnipaque 350 Mg/ml) 60 ml 1X ONCE IV Last administered on 10/29/19 18:46; Start 10/29/19 at 18:30; Stop 10/29/19 at 18:31; Status DC Info (CONTRAST GIVEN -- Rx MONITORING) 1 each PRN DAILY PRN MC SEE COMMENTS; Start 10/29/19 at 18:30; Stop 10/31/19 at 18:29; Status DC Levetiracetam 500 mg/Dextrose 105 ml @ 440 mls/hr Q12HR IV Last administered on 11/06/19at 08:31; Start 10/29/19 at 21:00; Stop 11/06/19 at 11:22; Status DC Metoprolol Tartrate (Lopressor) 50 mg DAILY PO ; Start 10/30/19 at 09:00; Status Cancel Hydrochlorothiazide (Microzide) 12.5 mg DAILY PO Last administered on 11/09/19 08:25; Start 10/30/19 at 09:00 Fish Oil (Fish Oil) 1,000 mg DAILY PO Last administered on 11/09/19 08:24; Start 10/30/19 at 09:00 Multivitamins (Thera M Plus) 1 tab DAILY PO Last administered on 11/09/19 08:24; Start 10/30/19 at 09:00 Morphine Sulfate (Morphine Sulfate) 1 mg PRN Q2HR PRN IV PAIN Last administered on 10/30/19 13:49; Start 10/29/19 at 21:15 Metoprolol Succinate (Toprol Xl) 50 mg DAILY PO Last administered on 11/09/19at 08:23; Start 10/31/19 at 09:00 Losartan Potassium (Cozaar) 100 mg DAILY PO Last administered on 11/09/19at 08:25; Start 10/31/19 at 09:00 Non-Formulary Medication (Multivitamin (Multi Vitamin Daily)) 1 tab DAILY PO ; Start 10/31/19 at 09:00; Status UNV Non-Formulary Medication ([place]-3 Fatty Acids/Fish Oil ([place] 3 Fish Oil Softgel)) 1 each DAILY PO ; Start 10/31/19 at 09:00; Status UNV Ondansetron HCl (Zofran) 4 mg PRN Q6HRS PRN IV NAUSEA/VOMITING; Start 11/04/19 at 07:00; Stop 11/05/19 at 06:59; Status DC Fentanyl Citrate (Fentanyl 2ml Vial) 25 mcg PRN Q5MIN PRN IV MILD PAIN 1-3 Last administered on 11/04/19at 18:31; Start 11/04/19 at 07:00; Stop 11/05/19 at 06:59; Status DC Fentanyl Citrate (Fentanyl 2ml Vial) 50 mcg PRN Q5MIN PRN IV MODERATE TO SEVERE PAIN; Start 11/04/19 at 07:00; Stop 11/05/19 at 06:59; Status DC Morphine Sulfate (Morphine Sulfate) 1 mg PRN Q10MIN PRN IV SEVERE PAIN 7-10; Start 11/04/19 at 07:00; Stop 11/05/19 at 06:59; Status DC Ringer's Solution 1,000 ml @ 30 mls/hr Q24H IV ; Start 11/04/19 at 07:00; Stop 11/04/19 at 18:59; Status DC Lidocaine HCl (Xylocaine-Mpf 1% 2ml Vial) 2 ml PRN 1X PRN ID PRIOR TO IV START; Start 11/04/19 at 07:00; Stop 11/05/19 at 06:59; Status DC Hydromorphone HCl (Dilaudid) 0.5 mg PRN Q10MIN PRN IV SEV PAIN, Second choice; Start 11/04/19 at 07:00; Stop 11/05/19 at 06:59; Status DC Prochlorperazine Edisylate (Compazine) 5 mg PACU PRN PRN IV NAUSEA, MRX1; Start 11/04/19 at 07:00; Stop 11/05/19 at 06:59; Status DC Bacitracin 05184 unit/Sodium Chloride 1,000 ml @ 1,000 mls/hr 1X ONCE IRR Last administered on 11/04/19at 13:22; Start 11/04/19 at 06:00; Stop 11/04/19 at 06:59; Status DC Bupivacaine HCl/ Epinephrine Bitart (Sensorcain-Epi 0.5%-1:645198 Mpf) 30 ml 1X ONCE INJ Last administered on 11/04/19at 13:22; Start 11/04/19 at 06:30; Stop 11/04/19 at 06:31; Status DC Cefazolin Sodium/ Dextrose 50 ml @ 100 mls/hr 1X PREOP ONCE IV ; Start at 10:00; Stop 11/03/19 at 10:29; Status Cancel Cefazolin Sodium/ Dextrose 50 ml @ 100 mls/hr 1X PREOP ONCE IV Last admin istered on 11/04/19at 12:15; Start 11/04/19 at 10:00; Stop 11/04/19 at 10:29; Status DC Gelatin (Gelfoam Size 100) 1 each STK-MED ONCE .ROUTE Last administered on 11/04/19at 13:22; Start 11/04/19 at 07:48; Stop 11/04/19 at 07:48; Status DC Ketorolac Tromethamine (Toradol Im) 60 mg STK-MED ONCE .ROUTE ; Start 11/04/19 at 07:48; Stop 11/04/19 at 07:48; Status DC Thrombin 20,000 unit STK-MED ONCE TP Last administered on 11/04/19at 13:22; Start 11/04/19 at 07:48; Stop 11/04/19 at 07:48; Status DC Gadoterate Meglumine (Dotarem) 14 ml 1X ONCE IVP Last administered on 11/04/19at 08:15; Start 11/04/19 at 08:15; Stop 11/04/19 at 08:16; Status DC Propofol 20 ml @ As Directed STK-MED ONCE IV ; Start 11/04/19 at 09:19; Stop 11/04/19 at 09:19; Status DC Lidocaine HCl (Lidocaine Pf 2% Vial) 5 ml STK-MED ONCE .ROUTE ; Start 11/04/19 at 09:19; Stop 11/04/19 at 09:19; Status DC Fentanyl Citrate (Fentanyl 2ml Vial) 100 mcg STK-MED ONCE .ROUTE ; Start 11/04/19 at 09:19; Stop 11/04/19 at 09:19; Status DC Rocuronium [place] (Zemuron) 50 mg STK-MED ONCE .ROUTE ; Start 11/04/19 at 09:19; Stop 11/04/19 at 09:19; Status DC Remifentanil HCl (Ultiva) 2 mg STK-MED ONCE IV ; Start 11/04/19 at 09:19; Stop 11/04/19 at 09:19; Status DC Sodium Chloride (SODIUM CHLORIDE 20ml) 20 ml STK-MED ONCE IJ ; Start 11/04/19 at 09:19; Stop 11/04/19 at 09:20; Status DC Dexamethasone Sodium Phosphate (Decadron) 20 mg STK-MED ONCE .ROUTE ; Start 11/04/19 at 12:15; Stop 11/04/19 at 12:16; Status DC Desflurane (Suprane) 90 ml STK-MED ONCE IH ; Start 11/04/19 at 12:15; Stop 11/04/19 at 12:16; Status DC Ondansetron HCl (Zofran) 4 mg STK-MED ONCE .ROUTE ; Start 11/04/19 at 12:42; Stop 11/04/19 at 12:42; Status DC Glycopyrrolate (Robinul) 1 mg STK-MED ONCE .ROUTE ; Start 11/04/19 at 12:42; Stop 11/04/19 at 12:42; Status DC Neostigmine Methylsulfate (Neostigmine Methylsulfate) 5 mg STK-MED ONCE .ROUTE ; Start 11/04/19 at 12:42; Stop 11/04/19 at 12:42; Status DC Mannitol 500 ml @ As Directed STK-MED ONCE IV ; Start 11/04/19 at 12:53; Stop 11/04/19 at 12:53; Status DC Cefazolin Sodium (Ancef) 1 gm STK-MED ONCE .ROUTE ; Start 11/04/19 at 13:19; Stop 11/04/19 at 13:19; Status DC Phenylephrine HCl (PHENYLEPHRINE in 0.9% NACL PF) 1 mg STK-MED ONCE IV ; Start 11/04/19 at 14:18; Stop 11/04/19 at 14:18; Status DC Cellulose (Surgicel Hemostat 4x8) 1 each STK-MED ONCE .ROUTE Last administered on 11/04/19at 14:50; Start 11/04/19 at 14:45; Stop 11/04/19 at 14:46; Status DC Fentanyl Citrate (Fentanyl 2ml Vial) 50 mcg PRN Q2HR PRN IVP PAIN Last administered on 11/05/19at 08:18; Start 11/04/19 at 16:15 Acetaminophen/ Hydrocodone Bitart (Lortab 5/325) 1 tab PRN Q6HRS PRN PO MODERATE PAIN, SEVERE PAIN Last administered on 11/08/19at 02:57; Start 11/05/19 at 10:15 Levetiracetam (Keppra) 500 mg BID PO Last administered on 11/09/19at 08:25; Start 11/06/19 at 21:00 Dexamethasone Sodium Phosphate (Decadron) 2 mg Q6HRS IVP Last administered on 11/09/19at 05:04; Start 11/06/19 at 18:00 Active Scripts Active Reported Multi Vitamin Daily (Multivitamin) 1 Each Tablet 1 Tab PO DAILY 30 Days [place] 3 Fish Oil Softgel ([place]-3 Fatty Acids/Fish Oil) 1 Each Capsule.dr 1 Each PO DAILY Losartan-Hctz 100-12.5 Mg Tab (Losartan/Hydrochlorothiazide) 1 Each Tablet 1 Tab PO DAILY Toprol XL (Metoprolol Succinate) 50 Mg Tab.er.24h 50 Mg PO DAILY Vitals/I & O Vital Sign - Last 24 Hours 11/08/19 11/08/19 11/08/19 11/08/19 15:00 19:00 19:05 23:04 Temp 97.8 98.4 98.0 97.8 98.4 98.0 Pulse 59 59 59 Resp 18 20 18 B/P (MAP) 144/66 (92) 150/64 (92) 169/76 (107) Pulse Ox 98 99 100 O2 Delivery Room Air Room Air Room Air Room Air 11/09/19 11/09/19 11/09/19 11/09/19 03:06 07:00 08:00 08:23 Temp 97.9 98.1 97.9 98.1 Pulse 58 56 56 Resp 18 18 B/P (MAP) 157/76 (103) 157/66 (96) 157/66 Pulse Ox 100 97 O2 Delivery Room Air Room Air Room Air 11/09/19 11/09/19 08:25 11:06 Temp 97.6 97.6 Pulse 56 63 Resp 18 B/P (MAP) 157/66 138/62 (87) Pulse Ox 99 O2 Delivery Room Air Intake and Output 11/08/19 11/08/19 11/09/19 15:00 23:00 07:00 Intake Total 1250 ml Balance 1250 ml TRICIA ROSS MD Nov 09, 2019 11:58
[2019-11-09] MEDS ORDERED: DEXAMETHASONE SOD PHOS 4 MG/ML VIAL PO SCH (12:00)
[2019-11-09 15:05] VITALS: BP 127/70
--- NOTE | 2019-11-09 15:32 | PDOC ---
PROGRESS NOTES Subjective Subjective awake, alert denies pain Objective Objective Vital Signs Date Time Temp Pulse Resp B/P (MAP) Pulse Ox O2 Delivery O2 Flow Rate FiO2 11/09/19 15:05 97.8 66 18 127/70 (89) 98 Room Air 97.8 11/07/19 08:00 8.0 Intake and Output 11/09/19 07:00 Intake Total 1250 ml Balance 1250 ml Intake Oral 250 ml IV Total 1000 ml # Voids 4 Physical Exam General: Alert, Cooperative, No acute distress Neuro: Normal speech, Strength at 5/5 X4 ext Skin: Other (dressing C,D,I) Assessment Assessment Problems Medical Problems: (1) Confusion Status: Acute (2) Hyponatremia Status: Acute (3) Intracranial hemorrhage Status: Acute Plan Plan of Care CT head reviewed - stable continue steroids at same dose can dc on steroids with HH from NS standpoint Comment Review of Relevant I have reviewed the following items ramin (where applicable) has been applied. Labs Laboratory Tests Test 11/09/19 04:45 White Blood Count 12.8 x10^3/uL (4.0-11.0) Red Blood Count 3.01 x10^6/uL (3.50-5.40) Hemoglobin 10.1 g/dL (12.0-15.5) Hematocrit 29.8 % (36.0-47.0) Mean Corpuscular Volume 99 fL (79-100) Mean Corpuscular Hemoglobin 33 pg (25-35) Mean Corpuscular Hemoglobin Concent 34 g/dL (31-37) Red Cell Distribution Width 12.4 % (11.5-14.5) Platelet Count 208 x10^3/uL (140-400) Neutrophils (%) (Auto) 77 % (31-73) Lymphocytes (%) (Auto) 17 % (24-48) Monocytes (%) (Auto) 6 % (0-9) Eosinophils (%) (Auto) 0 % (0-3) Basophils (%) (Auto) 0 % (0-3) Neutrophils # (Auto) 9.9 x10^3/uL (1.8-7.7) Lymphocytes # (Auto) 2.2 x10^3/uL (1.0-4.8) Monocytes # (Auto) 0.7 x10^3/uL (0.0-1.1) Eosinophils # (Auto) 0.0 x10^3/uL (0.0-0.7) Basophils # (Auto) 0.0 x10^3/uL (0.0-0.2) Sodium Level 137 mmol/L (136-145) Potassium Level 4.1 mmol/L (3.5-5.1) Chloride Level 103 mmol/L (98-107) Carbon Dioxide Level 25 mmol/L (21-32) Anion Gap 9 (6-14) Blood Urea Nitrogen 22 mg/dL (7-20) Creatinine 0.9 mg/dL (0.6-1.0) Estimated GFR (Cockcroft-Gault) 73.9 Glucose Level 127 mg/dL (70-99) Calcium Level 8.4 mg/dL (8.5-10.1) Laboratory Tests Test 11/09/19 04:45 White Blood Count 12.8 x10^3/uL (4.0-11.0) Red Blood Count 3.01 x10^6/uL (3.50-5.40) Hemoglobin 10.1 g/dL (12.0-15.5) Hematocrit 29.8 % (36.0-47.0) Mean Corpuscular Volume 99 fL (79-100) Mean Corpuscular Hemoglobin 33 pg (25-35) Mean Corpuscular Hemoglobin Concent 34 g/dL (31-37) Red Cell Distribution Width 12.4 % (11.5-14.5) Platelet Count 208 x10^3/uL (140-400) Neutrophils (%) (Auto) 77 % (31-73) Lymphocytes (%) (Auto) 17 % (24-48) Monocytes (%) (Auto) 6 % (0-9) Eosinophils (%) (Auto) 0 % (0-3) Basophils (%) (Auto) 0 % (0-3) Neutrophils # (Auto) 9.9 x10^3/uL (1.8-7.7) Lymphocytes # (Auto) 2.2 x10^3/uL (1.0-4.8) Monocytes # (Auto) 0.7 x10^3/uL (0.0-1.1) Eosinophils # (Auto) 0.0 x10^3/uL (0.0-0.7) Basophils # (Auto) 0.0 x10^3/uL (0.0-0.2) Sodium Level 137 mmol/L (136-145) Potassium Level 4.1 mmol/L (3.5-5.1) Chloride Level 103 mmol/L (98-107) Carbon Dioxide Level 25 mmol/L (21-32) Anion Gap 9 (6-14) Blood Urea Nitrogen 22 mg/dL (7-20) Creatinine 0.9 mg/dL (0.6-1.0) Estimated GFR (Cockcroft-Gault) 73.9 Glucose Level 127 mg/dL (70-99) Calcium Level 8.4 mg/dL (8.5-10.1) Medications Current Medications Dexamethasone Sodium Phosphate (Decadron) 4 mg 1X ONCE IVP Last administered on 10/29/19 18:52; Start 10/29/19 at 16:45; Stop 10/29/19 at 16:46; Status DC Acetaminophen (Tylenol) 500 mg PRN Q6HRS PRN PO MILD PAIN / TEMP Last administered on 11/06/19 16:16; Start 10/29/19 at 17:00 Ondansetron HCl (Zofran) 4 mg PRN Q6HRS PRN IVP NAUSEA/VOMITING Last administered on 11/02/19 13:55; Start 10/29/19 at 17:00 Sodium Chloride 1,000 ml @ 80 mls/hr [id number] IV Last administered on 11/09/19 11:07; Start 10/29/19 at 17:00 Famotidine (Pepcid Vial) 20 mg QHS IVP Last administered on 11/08/19 20:34; Start 10/29/19 at 21:00 Hydralazine HCl (Apresoline Inj) 10 mg PRN Q4HRS PRN IVP ELEVATED BP, SEE COMMENTS Last administered on 11/05/19 03:33; Start 10/29/19 at 17:00 Dexamethasone Sodium Phosphate (Decadron) 4 mg Q6HRS IVP Last administered on 11/06/19 12:06; Start 10/29/19 at 18:00; Stop 11/06/19 at 14:11; Status DC Gadoterate Meglumine (Dotarem) 14 ml 1X ONCE IVP Last administered on 12/3/19at 17:55; Start 10/29/19 at 17:30; Stop 10/29/19 at 17:40; Status DC Iohexol (Omnipaque 350 Mg/ml) 60 ml 1X ONCE IV Last administered on 10/29/19 18:46; Start 10/29/19 at 18:30; Stop 10/29/19 at 18:31; Status DC Info (CONTRAST GIVEN -- Rx MONITORING) 1 each PRN DAILY PRN MC SEE COMMENTS; Start 10/29/19 at 18:30; Stop 10/31/19 at 18:29; Status DC Levetiracetam 500 mg/Dextrose 105 ml @ 440 mls/hr Q12HR IV Last administered on 11/06/19at 08:31; Start 10/29/19 at 21:00; Stop 11/06/19 at 11:22; Status DC Metoprolol Tartrate (Lopressor) 50 mg DAILY PO ; Start 10/30/19 at 09:00; Status Cancel Hydrochlorothiazide (Microzide) 12.5 mg DAILY PO Last administered on 11/09/19 08:25; Start 10/30/19 at 09:00 Fish Oil (Fish Oil) 1,000 mg DAILY PO Last administered on 11/09/19 08:24; Start 10/30/19 at 09:00 Multivitamins (Thera M Plus) 1 tab DAILY PO Last administered on 11/09/19 08:24; Start 10/30/19 at 09:00 Morphine Sulfate (Morphine Sulfate) 1 mg PRN Q2HR PRN IV PAIN Last administered on 10/30/19 13:49; Start 10/29/19 at 21:15 Metoprolol Succinate (Toprol Xl) 50 mg DAILY PO Last administered on 11/09/19 08:23; Start 10/31/19 at 09:00 Losartan Potassium (Cozaar) 100 mg DAILY PO Last administered on 11/09/19 08:25; Start 10/31/19 at 09:00 Non-Formulary Medication (Multivitamin (Multi Vitamin Daily)) 1 tab DAILY PO ; Start 10/31/19 at 09:00; Status UNV Non-Formulary Medication ([place]-3 Fatty Acids/Fish Oil ([place] 3 Fish Oil Softgel)) 1 each DAILY PO ; Start 10/31/19 at 09:00; Status UNV Ondansetron HCl (Zofran) 4 mg PRN Q6HRS PRN IV NAUSEA/VOMITING; Start 11/04/19 at 07:00; Stop 11/05/19 at 06:59; Status DC Fentanyl Citrate (Fentanyl 2ml Vial) 25 mcg PRN Q5MIN PRN IV MILD PAIN 1-3 Last administered on 11/04/19at 18:31; Start 11/04/19 at 07:00; Stop 11/05/19 at 06:59; Status DC Fentanyl Citrate (Fentanyl 2ml Vial) 50 mcg PRN Q5MIN PRN IV MODERATE TO SEVERE PAIN; Start 11/04/19 at 07:00; Stop 11/05/19 at 06:59; Status DC Morphine Sulfate (Morphine Sulfate) 1 mg PRN Q10MIN PRN IV SEVERE PAIN 7-10; Start 11/04/19 at 07:00; Stop 11/05/19 at 06:59; Status DC Ringer's Solution 1,000 ml @ 30 mls/hr Q24H IV ; Start 11/04/19 at 07:00; Stop 11/04/19 at 18:59; Status DC Lidocaine HCl (Xylocaine-Mpf 1% 2ml Vial) 2 ml PRN 1X PRN ID PRIOR TO IV START; Start 11/04/19 at 07:00; Stop 11/05/19 at 06:59; Status DC Hydromorphone HCl (Dilaudid) 0.5 mg PRN Q10MIN PRN IV SEV PAIN, Second choice; Start 11/04/19 at 07:00; Stop 11/05/19 at 06:59; Status DC Prochlorperazine Edisylate (Compazine) 5 mg PACU PRN PRN IV NAUSEA, MRX1; Start 11/04/19 at 07:00; Stop 11/05/19 at 06:59; Status DC Bacitracin 88030 unit/Sodium Chloride 1,000 ml @ 1,000 mls/hr 1X ONCE IRR Last administered on 11/04/19at 13:22; Start 11/04/19 at 06:00; Stop 11/04/19 at 06:59; Status DC Bupivacaine HCl/ Epinephrine Bitart (Sensorcain-Epi 0.5%-1:[id number] Mpf) 30 ml 1X ONCE INJ Last administered on 11/04/19at 13:22; Start 11/04/19 at 06:30; Stop 11/04/19 at 06:31; Status DC Cefazolin Sodium/ Dextrose 50 ml @ 100 mls/hr 1X PREOP ONCE IV ; Start 11/03/19 at 10:00; Stop 11/03/19 at 10:29; Status Cancel Cefazolin Sodium/ Dextrose 50 ml @ 100 mls/hr 1X PREOP ONCE IV Last administered on 11/04/19at 12:15; Start 11/04/19 at 10:00; Stop 11/04/19 at 10:29; Status DC Gelatin (Gelfoam Size 100) 1 each STK-MED ONCE .ROUTE Last administered on 11/04/19at 13:22; Start 11/04/19 at 07:48; Stop 11/04/19 at 07:48; Status DC Ketorolac Tromethamine (Toradol Im) 60 mg STK-MED ONCE .ROUTE ; Start 11/04/19 at 07:48; Stop 11/04/19 at 07:48; Status DC Thrombin 20,000 unit STK-MED ONCE TP Last administered on 11/04/19at 13:22; Start 11/04/19 at 07:48; Stop 11/04/19 at 07:48; Status DC Gadoterate Meglumine (Dotarem) 14 ml 1X ONCE IVP Last administered on 11/04/19at 08:15; Start 11/04/19 at 08:15; Stop 11/04/19 at 08:16; Status DC Propofol 20 ml @ As Directed STK-MED ONCE IV ; Start 11/04/19 at 09:19; Stop 11/04/19 at 09:19; Status DC Lidocaine HCl (Lidocaine Pf 2% Vial) 5 ml STK-MED ONCE .ROUTE ; Start 11/04/19 at 09:19; Stop 11/04/19 at 09:19; Status DC Fentanyl Citrate (Fentanyl 2ml Vial) 100 mcg STK-MED ONCE .ROUTE ; Start 11/04/19 at 09:19; Stop 11/04/19 at 09:19; Status DC Rocuronium [place] (Zemuron) 50 mg STK-MED ONCE .ROUTE ; Start 11/04/19 at 09:19; Stop 11/04/19 at 09:19; Status DC Remifentanil HCl (Ultiva) 2 mg STK-MED ONCE IV ; Start 11/04/19 at 09:19; Stop 11/04/19 at 09:19; Status DC Sodium Chloride (SODIUM CHLORIDE 20ml) 20 ml STK-MED ONCE IJ ; Start 11/04/19 at 09:19; Stop 11/04/19 at 09:20; Status DC Dexamethasone Sodium Phosphate (Decadron) 20 mg STK-MED ONCE .ROUTE ; Start 11/04/19 at 12:15; Stop 11/04/19 at 12:16; Status DC Desflurane (Suprane) 90 ml STK-MED ONCE IH ; Start 11/04/19 at 12:15; Stop 11/04/19 at 12:16; Status DC Ondansetron HCl (Zofran) 4 mg STK-MED ONCE .ROUTE ; Start 11/04/19 at 12:42; Stop 11/04/19 at 12:42; Status DC Glycopyrrolate (Robinul) 1 mg STK-MED ONCE .ROUTE ; Start 11/04/19 at 12:42; Stop 11/04/19 at 12:42; Status DC Neostigmine Methylsulfate (Neostigmine Methylsulfate) 5 mg STK-MED ONCE .ROUTE ; Start 11/04/19 at 12:42; Stop 11/04/19 at 12:42; Status DC Mannitol 500 ml @ As Directed STK-MED ONCE IV ; Start 11/04/19 at 12:53; Stop 11/04/19 at 12:53; Status DC Cefazolin Sodium (Ancef) 1 gm STK-MED ONCE .ROUTE ; Start 11/04/19 at 13:19; Stop 11/04/19 at 13:19; Status DC Phenylephrine HCl (PHENYLEPHRINE in 0.9% NACL PF) 1 mg STK-MED ONCE IV ; Start 11/04/19 at 14:18; Stop 11/04/19 at 14:18; Status DC Cellulose (Surgicel Hemostat 4x8) 1 each STK-MED ONCE .ROUTE Last administered on 11/04/19at 14:50; Start 11/04/19 at 14:45; Stop 11/04/19 at 14:46; Status DC Fentanyl Citrate (Fentanyl 2ml Vial) 50 mcg PRN Q2HR PRN IVP PAIN Last administered on 11/05/19at 08:18; Start 11/04/19 at 16:15 Acetaminophen/ Hydrocodone Bitart (Lortab 5/325) 1 tab PRN Q6HRS PRN PO MODERATE PAIN, SEVERE PAIN Last administered on 11/08/19at 02:57; Start 11/05/19 at 10:15 Levetiracetam (Keppra) 500 mg BID PO Last administered on 11/09/19at 08:25; Start 11/06/19 at 21:00 Dexamethasone Sodium Phosphate (Decadron) 2 mg Q6HRS IVP Last administered on 11/09/19at 05:04; Start 11/06/19 at 18:00; Stop 11/09/19 at 11:57; Status DC Dexamethasone Sodium Phosphate (Decadron) 2 mg Q6HRS PO Last administered on 11/09/19at 13:20; Start 11/09/19 at 12:00; Stop 11/09/19 at 14:58; Status DC Dexamethasone (Decadron) 2 mg Q6HRS PO ; Start 11/09/19 at 18:00 Active Scripts Active Reported Multi Vitamin Daily (Multivitamin) 1 Each Tablet 1 Tab PO DAILY 30 Days [place] 3 Fish Oil Softgel ([place]-3 Fatty Acids/Fish Oil) 1 Each Capsule.dr 1 Each PO DAILY Losartan-Hctz 100-12.5 Mg Tab (Losartan/Hydrochlorothiazide) 1 Each Tablet 1 Tab PO DAILY Toprol XL (Metoprolol Succinate) 50 Mg Tab.er.24h 50 Mg PO DAILY Vitals/I & O Vital Sign - Last 24 Hours 11/08/19 11/08/19 11/08/19 11/09/19 19:00 19:05 23:04 03:06 Temp 98.4 98.0 97.9 98.4 98.0 97.9 Pulse 59 59 58 Resp 20 18 18 B/P (MAP) 150/64 (92) 169/76 (107) 157/76 (103) Pulse Ox 99 100 100 O2 Delivery Room Air Room Air Room Air Room Air 11/09/19 11/09/19 11/09/19 11/09/19 07:00 08:00 08:23 08:25 Temp 98.1 98.1 Pulse 56 56 56 Resp 18 B/P (MAP) 157/66 (96) 157/66 157/66 Pulse Ox 97 O2 Delivery Room Air Room Air 11/09/19 11/09/19 11:06 15:05 Temp 97.6 97.8 97.6 97.8 Pulse 63 66 Resp 18 18 B/P (MAP) 138/62 (87) 127/70 (89) Pulse Ox 99 98 O2 Delivery Room Air Room Air Intake and Output 11/08/19 11/08/19 11/09/19 15:00 23:00 07:00 Intake Total 1250 ml Balance 1250 ml CHRISTIE CASILLAS MD Nov 09, 2019 15:32
[2019-11-09] MEDS: DEXAMETHASONE 1 MG TABLET PO SCH (17:11)
[2019-11-09 19:00] VITALS: BP 168/68
--- NOTE | 2019-11-09 20:39 | PDOC ---
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 Started on dexamethasone and prophylactic Keppra for intracranial mass. CT angiogram of the head and neck from 10/29/2019 revealed no intracranial arterial stenosis or occlusion, 2 mm anterior communicating artery aneurysm, poorly seen enhancing right temporal lobe mass. MRI scan from 10/29/2019 with gadolinium revealed an irregular ring enhancing temporal lobe mass measuring approximately 6 x 4 x 4 cm associated with internal hemorrhage extending into the right frontal and basal ganglion regions with some leftward midline shift. S/p debulking 11/04/2019 with frozen section confirming suspected glioblastoma multiforme. Seen by neurology, neurosurgery, hematology/oncology and radiation oncology. 11/05: She is seen in ICU, states she is still "waking up". Eating breakfast. Still having right sided headache. able to follow commands, move extremities. 11/06: Overnight no events. still with decreased strength 4/5, Left homonymous hemianopsia and now with some right periorbital swelling. She is more alert, in better spirits. Still a bit confused, however. BP WNL. 11/07: Transferred to med/surg 11/08:Pt appears in good spirits and is able to hold a conversation. No good memory of surgery or diagnosis. DW pt and pt's sister regarding the pt's care Son Abdullahi is bedside to discuss plan for home with home health and arrangement of outpatient treatment for GBM. CT head 11/08 with improved midline shift. Neurosurgery recs to d/c on steroids. Son is not ready to take her home today Vitals Vitals Vital Signs Date Time Temp Pulse Resp B/P (MAP) Pulse Ox O2 Delivery O2 Flow Rate FiO2 11/09/19 19:00 98.1 58 18 168/68 (101) 98 Room Air 98.1 Physical Exam General: Alert, Cooperative, No acute distress Heart: Regular rate, Normal S1, Normal S2 Lungs: Clear Abdomen: Normal bowel sounds, Soft, No tenderness, No hepatosplenomegaly, No masses Extremities: No clubbing, No cyanosis, No edema, Normal pulses Skin: Other (dressing C,D,I) Labs LABS Laboratory Tests Test 11/09/19 04:45 White Blood Count 12.8 x10^3/uL (4.0-11.0) Red Blood Count 3.01 x10^6/uL (3.50-5.40) Hemoglobin 10.1 g/dL (12.0-15.5) Hematocrit 29.8 % (36.0-47.0) Mean Corpuscular Volume 99 fL (79-100) Mean Corpuscular Hemoglobin 33 pg (25-35) Mean Corpuscular Hemoglobin Concent 34 g/dL (31-37) Red Cell Distribution Width 12.4 % (11.5-14.5) Platelet Count 208 x10^3/uL (140-400) Neutrophils (%) (Auto) 77 % (31-73) Lymphocytes (%) (Auto) 17 % (24-48) Monocytes (%) (Auto) 6 % (0-9) Eosinophils (%) (Auto) 0 % (0-3) Basophils (%) (Auto) 0 % (0-3) Neutrophils # (Auto) 9.9 x10^3/uL (1.8-7.7) Lymphocytes # (Auto) 2.2 x10^3/uL (1.0-4.8) Monocytes # (Auto) 0.7 x10^3/uL (0.0-1.1) Eosinophils # (Auto) 0.0 x10^3/uL (0.0-0.7) Basophils # (Auto) 0.0 x10^3/uL (0.0-0.2) Sodium Level 137 mmol/L (136-145) Potassium Level 4.1 mmol/L (3.5-5.1) Chloride Level 103 mmol/L (98-107) Carbon Dioxide Level 25 mmol/L (21-32) Anion Gap 9 (6-14) Blood Urea Nitrogen 22 mg/dL (7-20) Creatinine 0.9 mg/dL (0.6-1.0) Estimated GFR (Cockcroft-Gault) 73.9 Glucose Level 127 mg/dL (70-99) Calcium Level 8.4 mg/dL (8.5-10.1) Assessment and Plan Assessmemt and Plan Problems Medical Problems: (1) Confusion Status: Acute (2) Hyponatremia Status: Acute (3) Intracranial hemorrhage Status: Acute Comment Review of Relevant I have reviewed the following items ramin (where applicable) has been applied. Labs Laboratory Tests Test 11/09/19 04:45 White Blood Count 12.8 x10^3/uL (4.0-11.0) Red Blood Count 3.01 x10^6/uL (3.50-5.40) Hemoglobin 10.1 g/dL (12.0-15.5) Hematocrit 29.8 % (36.0-47.0) Mean Corpuscular Volume 99 fL (79-100) Mean Corpuscular Hemoglobin 33 pg (25-35) Mean Corpuscular Hemoglobin Concent 34 g/dL (31-37) Red Cell Distribution Width 12.4 % (11.5-14.5) Platelet Count 208 x10^3/uL (140-400) Neutrophils (%) (Auto) 77 % (31-73) Lymphocytes (%) (Auto) 17 % (24-48) Monocytes (%) (Auto) 6 % (0-9) Eosinophils (%) (Auto) 0 % (0-3) Basophils (%) (Auto) 0 % (0-3) Neutrophils # (Auto) 9.9 x10^3/uL (1.8-7.7) Lymphocytes # (Auto) 2.2 x10^3/uL (1.0-4.8) Monocytes # (Auto) 0.7 x10^3/uL (0.0-1.1) Eosinophils # (Auto) 0.0 x10^3/uL (0.0-0.7) Basophils # (Auto) 0.0 x10^3/uL (0.0-0.2) Sodium Level 137 mmol/L (136-145) Potassium Level 4.1 mmol/L (3.5-5.1) Chloride Level 103 mmol/L (98-107) Carbon Dioxide Level 25 mmol/L (21-32) Anion Gap 9 (6-14) Blood Urea Nitrogen 22 mg/dL (7-20) Creatinine 0.9 mg/dL (0.6-1.0) Estimated GFR (Cockcroft-Gault) 73.9 Glucose Level 127 mg/dL (70-99) Calcium Level 8.4 mg/dL (8.5-10.1) Laboratory Tests Test 11/09/19 04:45 White Blood Count 12.8 x10^3/uL (4.0-11.0) Red Blood Count 3.01 x10^6/uL (3.50-5.40) Hemoglobin 10.1 g/dL (12.0-15.5) Hematocrit 29.8 % (36.0-47.0) Mean Corpuscular Volume 99 fL (79-100) Mean Corpuscular Hemoglobin 33 pg (25-35) Mean Corpuscular Hemoglobin Concent 34 g/dL (31-37) Red Cell Distribution Width 12.4 % (11.5-14.5) Platelet Count 208 x10^3/uL (140-400) Neutrophils (%) (Auto) 77 % (31-73) Lymphocytes (%) (Auto) 17 % (24-48) Monocytes (%) (Auto) 6 % (0-9) Eosinophils (%) (Auto) 0 % (0-3) Basophils (%) (Auto) 0 % (0-3) Neutrophils # (Auto) 9.9 x10^3/uL (1.8-7.7) Lymphocytes # (Auto) 2.2 x10^3/uL (1.0-4.8) Monocytes # (Auto) 0.7 x10^3/uL (0.0-1.1) Eosinophils # (Auto) 0.0 x10^3/uL (0.0-0.7) Basophils # (Auto) 0.0 x10^3/uL (0.0-0.2) Sodium Level 137 mmol/L (136-145) Potassium Level 4.1 mmol/L (3.5-5.1) Chloride Level 103 mmol/L (98-107) Carbon Dioxide Level 25 mmol/L (21-32) Anion Gap 9 (6-14) Blood Urea Nitrogen 22 mg/dL (7-20) Creatinine 0.9 mg/dL (0.6-1.0) Estimated GFR (Cockcroft-Gault) 73.9 Glucose Level 127 mg/dL (70-99) Calcium Level 8.4 mg/dL (8.5-10.1) Medications Current Medications Dexamethasone Sodium Phosphate (Decadron) 4 mg 1X ONCE IVP Last administered on 10/29/19at 18:52; Start 10/29/19 at 16:45; Stop 10/29/19 at 16:46; Status DC Acetaminophen (Tylenol) 500 mg PRN Q6HRS PRN PO MILD PAIN / TEMP Last administered on 11/06/19 16:16; Start 10/29/19 at 17:00 Ondansetron HCl (Zofran) 4 mg PRN Q6HRS PRN IVP NAUSEA/VOMITING Last administered on 11/02/19 13:55; Start 10/29/19 at 17:00 Sodium Chloride 1,000 ml @ 80 mls/hr [id number] IV Last administered on 11/09/19 11:07; Start 10/29/19 at 17:00 Famotidine (Pepcid Vial) 20 mg QHS IVP Last administered on 11/08/19at 20:34; Start 10/29/19 at 21:00 Hydralazine HCl (Apresoline Inj) 10 mg PRN Q4HRS PRN IVP ELEVATED BP, SEE COMMENTS Last administered on 11/05/19 03:33; Start 10/29/19 at 17:00 Dexamethasone Sodium Phosphate (Decadron) 4 mg Q6HRS IVP Last administered on 11/06/19 12:06; Start 10/29/19 at 18:00; Stop 11/06/19 at 14:11; Status DC Gadoterate Meglumine (Dotarem) 14 ml 1X ONCE IVP Last administered on 10/29/19 17:55; Start 10/29/19 at 17:30; Stop 10/29/19 at 17:40; Status DC Iohexol (Omnipaque 350 Mg/ml) 60 ml 1X ONCE IV Last administered on 10/29/19 18:46; Start 10/29/19 at 18:30; Stop 10/29/19 at 18:31; Status DC Info (CONTRAST GIVEN -- Rx MONITORING) 1 each PRN DAILY PRN MC SEE COMMENTS; Start 10/29/19 at 18:30; Stop 10/31/19 at 18:29; Status DC Levetiracetam 500 mg/Dextrose 105 ml @ 440 mls/hr Q12HR IV Last administered on 11/06/19 08:31; Start 10/29/19 at 21:00; Stop 11/06/19 at 11:22; Status DC Metoprolol Tartrate (Lopressor) 50 mg DAILY PO ; Start 10/30/19 at 09:00; Status Cancel Hydrochlorothiazide (Microzide) 12.5 mg DAILY PO Last administered on 11/09/19 08:25; Start 10/30/19 at 09:00 Fish Oil (Fish Oil) 1,000 mg DAILY PO Last administered on 11/09/19 08:24; Start 10/30/19 at 09:00 Multivitamins (Thera M Plus) 1 tab DAILY PO Last administered on 11/09/19 08:24; Start 10/30/19 at 09:00 Morphine Sulfate (Morphine Sulfate) 1 mg PRN Q2HR PRN IV PAIN Last administered on 10/30/19at 13:49; Start 10/29/19 at 21:15 Metoprolol Succinate (Toprol Xl) 50 mg DAILY PO Last administered on 11/09/19 08:23; Start 10/31/19 at 09:00 Losartan Potassium (Cozaar) 100 mg DAILY PO Last administered on 11/09/19at 08:25; Start 10/31/19 at 09:00 Non-Formulary Medication (Multivitamin (Multi Vitamin Daily)) 1 tab DAILY PO ; Start 10/31/19 at 09:00; Status UNV Non-Formulary Medication ([place]-3 Fatty Acids/Fish Oil ([place] 3 Fish Oil Softgel)) 1 each DAILY PO ; Start 10/31/19 at 09:00; Status UNV Ondansetron HCl (Zofran) 4 mg PRN Q6HRS PRN IV NAUSEA/VOMITING; Start 11/04/19 at 07:00; Stop 11/05/19 at 06:59; Status DC Fentanyl Citrate (Fentanyl 2ml Vial) 25 mcg PRN Q5MIN PRN IV MILD PAIN 1-3 Last administered on 11/04/19at 18:31; Start 11/04/19 at 07:00; Stop 11/05/19 at 06:59; Status DC Fentanyl Citrate (Fentanyl 2ml Vial) 50 mcg PRN Q5MIN PRN IV MODERATE TO SEVERE PAIN; Start 11/04/19 at 07:00; Stop 11/05/19 at 06:59; Status DC Morphine Sulfate (Morphine Sulfate) 1 mg PRN Q10MIN PRN IV SEVERE PAIN 7-10; Start 11/04/19 at 07:00; Stop 11/05/19 at 06:59; Status DC Ringer's Solution 1,000 ml @ 30 mls/hr Q24H IV ; Start 11/04/19 at 07:00; Stop 11/04/19 at 18:59; Status DC Lidocaine HCl (Xylocaine-Mpf 1% 2ml Vial) 2 ml PRN 1X PRN ID PRIOR TO IV START; Start 11/04/19 at 07:00; Stop 11/05/19 at 06:59; Status DC Hydromorphone HCl (Dilaudid) 0.5 mg PRN Q10MIN PRN IV SEV PAIN, Second choice; Start 11/04/19 at 07:00; Stop 11/05/19 at 06:59; Status DC Prochlorperazine Edisylate (Compazine) 5 mg PACU PRN PRN IV NAUSEA, MRX1; Start 11/04/19 at 07:00; Stop 11/05/19 at 06:59; Status DC Bacitracin 04443 unit/Sodium Chloride 1,000 ml @ 1,000 mls/hr 1X ONCE IRR Last administered on 11/04/19at 13:22; Start 11/04/19 at 06:00; Stop 11/04/19 at 06:59; Status DC Bupivacaine HCl/ Epinephrine Bitart (Sensorcain-Epi 0.5%-1:[id number] Mpf) 30 ml 1X ONCE INJ Last administered on 11/04/19at 13:22; Start 11/04/19 at 06:30; Stop 11/04/19 at 06:31; Status DC Cefazolin Sodium/ Dextrose 50 ml @ 100 mls/hr 1X PREOP ONCE IV ; Start 11/03/19 at 10:00; Stop 11/03/19 at 10:29; Status Cancel Cefazolin Sodium/ Dextrose 50 ml @ 100 mls/hr 1X PREOP ONCE IV Last administered on 11/04/19at 12:15; Start 11/04/19 at 10:00; Stop 11/04/19 at 10:29; Status DC Gelatin (Gelfoam Size 100) 1 each STK-MED ONCE .ROUTE Last administered on 11/04/19at 13:22; Start 11/04/19 at 07:48; Stop 11/04/19 at 07:48; Status DC Ketorolac Tromethamine (Toradol Im) 60 mg STK-MED ONCE .ROUTE ; Start 11/04/19 at 07:48; Stop 11/04/19 at 07:48; Status DC Thrombin 20,000 unit STK-MED ONCE TP Last administered on 11/04/19at 13:22; Start 11/04/19 at 07:48; Stop 11/04/19 at 07:48; Status DC Gadoterate Meglumine (Dotarem) 14 ml 1X ONCE IVP Last administered on 11/04/19at 08:15; Start 11/04/19 at 08:15; Stop 11/04/19 at 08:16; Status DC Propofol 20 ml @ As Directed STK-MED ONCE IV ; Start 11/04/19 at 09:19; Stop 11/04/19 at 09:19; Status DC Lidocaine HCl (Lidocaine Pf 2% Vial) 5 ml STK-MED ONCE .ROUTE ; Start 11/04/19 at 09:19; Stop 11/04/19 at 09:19; Status DC Fentanyl Citrate (Fentanyl 2ml Vial) 100 mcg STK-MED ONCE .ROUTE ; Start 11/04/19 at 09:19; Stop 11/04/19 at 09:19; Status DC Rocuronium [place] (Zemuron) 50 mg STK-MED ONCE .ROUTE ; Start 11/04/19 at 09:19; Stop 11/04/19 at 09:19; Status DC Remifentanil HCl (Ultiva) 2 mg STK-MED ONCE IV ; Start 11/04/19 at 09:19; Stop 11/04/19 at 09:19; Status DC Sodium Chloride (SODIUM CHLORIDE 20ml) 20 ml STK-MED ONCE IJ ; Start 11/04/19 at 09:19; Stop 11/04/19 at 09:20; Status DC Dexamethasone Sodium Phosphate (Decadron) 20 mg STK-MED ONCE .ROUTE ; Start 11/04/19 at 12:15; Stop 11/04/19 at 12:16; Status DC Desflurane (Suprane) 90 ml STK-MED ONCE IH ; Start 11/04/19 at 12:15; Stop 11/04/19 at 12:16; Status DC Ondansetron HCl (Zofran) 4 mg STK-MED ONCE .ROUTE ; Start 11/04/19 at 12:42; Stop 11/04/19 at 12:42; Status DC Glycopyrrolate (Robinul) 1 mg STK-MED ONCE .ROUTE ; Start 11/04/19 at 12:42; Stop 11/04/19 at 12:42; Status DC Neostigmine Methylsulfate (Neostigmine Methylsulfate) 5 mg STK-MED ONCE .ROUTE ; Start 11/04/19 at 12:42; Stop 11/04/19 at 12:42; Status DC Mannitol 500 ml @ As Directed STK-MED ONCE IV ; Start 11/04/19 at 12:53; Stop 11/04/19 at 12:53; Status DC Cefazolin Sodium (Ancef) 1 gm STK-MED ONCE .ROUTE ; Start 11/04/19 at 13:19; Stop 11/04/19 at 13:19; Status DC Phenylephrine HCl (PHENYLEPHRINE in 0.9% NACL PF) 1 mg STK-MED ONCE IV ; Start 11/04/19 at 14:18; Stop 11/04/19 at 14:18; Status DC Cellulose (Surgicel Hemostat 4x8) 1 each STK-MED ONCE .ROUTE Last administered on 11/04/19at 14:50; Start 11/04/19 at 14:45; Stop 11/04/19 at 14:46; Status DC Fentanyl Citrate (Fentanyl 2ml Vial) 50 mcg PRN Q2HR PRN IVP PAIN Last administered on 11/05/19at 08:18; Start 11/04/19 at 16:15 Acetaminophen/ Hydrocodone Bitart (Lortab 5/325) 1 tab PRN Q6HRS PRN PO MODERATE PAIN, SEVERE PAIN Last administered on 11/08/19at 02:57; Start 11/05/19 at 10:15 Levetiracetam (Keppra) 500 mg BID PO Last administered on 11/09/19at 08:25; Start 11/06/19 at 21:00 Dexamethasone Sodium Phosphate (Decadron) 2 mg Q6HRS IVP Last administered on 11/09/19at 05:04; Start 11/06/19 at 18:00; Stop 11/09/19 at 11:57; Status DC Dexamethasone Sodium Phosphate (Decadron) 2 mg Q6HRS PO Last administered on 11/09/19at 13:20; Start 11/09/19 at 12:00; Stop 11/09/19 at 14:58; Status DC Dexamethasone (Decadron) 2 mg Q6HRS PO Last administered on 11/09/19at 17:11; Start 11/09/19 at 18:00 Active Scripts Active Reported Multi Vitamin Daily (Multivitamin) 1 Each Tablet 1 Tab PO DAILY 30 Days [place] 3 Fish Oil Softgel ([place]-3 Fatty Acids/Fish Oil) 1 Each Capsule.dr 1 Each PO DAILY Losartan-Hctz 100-12.5 Mg Tab (Losartan/Hydrochlorothiazide) 1 Each Tablet 1 Tab PO DAILY Toprol XL (Metoprolol Succinate) 50 Mg Tab.er.24h 50 Mg PO DAILY Vitals/I & O Vital Sign - Last 24 Hours 11/08/19 11/09/19 11/09/19 11/09/19 23:04 03:06 07:00 08:00 Temp 98.0 97.9 98.1 98.0 97.9 98.1 Pulse 59 58 56 Resp 18 18 18 B/P (MAP) 169/76 (107) 157/76 (103) 157/66 (96) Pulse Ox 100 100 97 O2 Delivery Room Air Room Air Room Air Room Air 11/09/19 11/09/19 11/09/19 11/09/19 08:23 08:25 11:06 15:05 Temp 97.6 97.8 97.6 97.8 Pulse 56 56 63 66 Resp 18 18 B/P (MAP) 157/66 157/66 138/62 (87) 127/70 (89) Pulse Ox 99 98 O2 Delivery Room Air Room Air 11/09/19 19:00 Temp 98.1 98.1 Pulse 58 Resp 18 B/P (MAP) 168/68 (101) Pulse Ox 98 O2 Delivery Room Air Intake and Output 11/08/19 11/08/19 11/09/19 15:00 23:00 07:00 Intake Total 1250 ml Balance 1250 ml NEAL RED MD Nov 09, 2019 20:39
[2019-11-09] MEDS: FAMOTIDINE 20 MG/2 ML VIAL IVP SCH (21:29)
[2019-11-09 23:00] VITALS: BP 148/69
[2019-11-10 03:00] VITALS: BP 143/59
[2019-11-10] MEDS: DEXAMETHASONE 1 MG TABLET PO SCH ×2 (06:21)
[2019-11-10 06:33] LABS: BASO % 0 % (0-3); EOS % 0 % (0-3); HEMATOCRIT 30.7 % (36.0-47.0); HEMOGLOBIN 10.4 g/dL (12.0-15.5); LYMPH # 2.4 x10^3/uL (1.0-4.8); LYMPH % 17 % (24-48); MEAN CORPUSCULAR HEMOGLOBIN 34 pg (25-35); MEAN CORPUSCULAR HGB CONC 34 g/dL (31-37); MEAN CORPUSCULAR VOLUME 99 fL (79-100); MONO # 0.7 x10^3/uL (0.0-1.1); MONO % 5 % (0-9); NEUT # 11.3 x10^3/uL (1.8-7.7); NEUT % 78 % (31-73); PLATELET COUNT 219 x10^3/uL (140-400); RED CELL DISTRIBUTION WIDTH 12.3 % (11.5-14.5); WHITE BLOOD COUNT 14.5 x10^3/uL (4.0-11.0)
[2019-11-10 06:50] LABS: CALCIUM 8.5 mg/dL (8.5-10.1); GFR 65.4; POTASSIUM 4.3 mmol/L (3.5-5.1)
[2019-11-10 07:00] VITALS: BP 124/68
[2019-11-10] MEDS ORDERED: LEVE500T56 PO (08:46)
[2019-11-10] MEDS ORDERED: HYDR12.575 PO (08:46)
[2019-11-10] MEDS ORDERED: HYDR-2761 PO (08:46)
--- NOTE | 2019-11-10 08:49 | SNU/HH DC ---
DISCHARGE WITH HOME HEALTH DISCHARGE INFORMATION: Discharge Date: Nov 10, 2019 Final Diagnosis: Problems Medical Problems: (1) Confusion Status: Acute (2) Hyponatremia Status: Acute (3) Intracranial hemorrhage Status: Acute Condition on Discharge: Stable CODE STATUS: Code Status: Full HOME HEALTH: Face to Face: I certify this patient is under my care and that I, or a nurse practitioner or physician's sales office assistant working with me, had a face to face encounter that meets the physician face to face encounter requirements with this patient on 11/10/2019. 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 Mcdonnell, Heme/Onc - Dr. Fenton, Rad/Onc - Dr. Lopez TREATMENT/EQUIPMENT ORDERS: Adaptive Equipment Issued: Front wheeled walker CERTIFICATION STATEMENT: Certification Statement: Certification Statement: Based on the above finding, I certify that this patient is confined to the home and needs intermittent shelter care, physical therapy and/or speech therapy, or continues to need occupational therapy.~ This patient is under my care, and I have initiated the establishment of the plan of care.~ This patient will be followed by myself or a community physician who will periodically review the plan of care. Home Meds Active Scripts Dexamethasone (DEXAMETHASONE) 1 Mg Tablet, 2 MG PO Q6HRS for GBM, brain swelling for 30 Days, #240 TAB Prov:NEAL RED MD 11/10/19 Hydrochlorothiazide (HYDROCHLOROTHIAZIDE CAPSULE ) 12.5 Mg Capsule, 12.5 MG PO DAILY for HTN for 30 Days, #30 CAP Prov:NEAL RED MD 11/10/19 Levetiracetam (KEPPRA) 500 Mg Tablet, 500 MG PO BID for Brain mass for 30 Days, #60 TAB 2 Refills Prov:NEAL RED MD 11/10/19 Hydrocodone Bit/Acetaminophen (HYDROCODONE-APAP 5-325 ) 1 Tab Tablet, 1 TAB PO PRN Q6HRS PRN for MODERATE PAIN, SEVERE PAIN for 6 Days, #20 TAB Prov:NEAL RED MD 11/10/19 Reported Medications Multivitamin (MULTI VITAMIN DAILY) 1 Each Tablet, 1 TAB PO DAILY for vitamin for 30 Days, #30 TAB 0 Refills 10/30/19 [place]-3 Fatty Acids/Fish Oil (OMEGA 3 FISH OIL SOFTGEL) 1 Each Capsule.dr, 1 EACH PO DAILY for suppl, CAP 10/30/19 Losartan/Hydrochlorothiazide (LOSARTAN-HCTZ 100-12.5 MG TAB) 1 Each Tablet, 1 TAB PO DAILY for Hypertension, #30 TAB 5 Refills 10/30/19 Metoprolol Succinate (Toprol XL) 50 Mg Tab.er.24h, 50 MG PO DAILY for FOR HYPERTENSION, TAB.SR 10/30/19 NEAL RED MD Nov 10, 2019 08:49
[2019-11-10] MEDS: levETIRAcetam 500 MG TABLET PO SCH (08:54)
[2019-11-10] MEDS: MULTIVITAMIN with MINERAL TABLET. PO SCH (08:54)
[2019-11-10] MEDS ORDERED: DEXA1TAB PO (08:54)
[2019-11-10] MEDS: OMEGA-3 FATTY ACIDS/FISH OIL 1,000 MG CAPSULE. PO SCH (08:54)
[2019-11-10 08:55] VITALS: BP 124/68
[2019-11-10] MEDS: LOSARTAN POTASSIUM 50 MG TABLET. PO SCH (08:55)
[2019-11-10] MEDS: hydroCHLOROthiazide 12.5 MG CAPSULE PO SCH (08:55)
[2019-11-10] MEDS: METOPROLOL SUCC 24HR ER 50 MG TAB.ER.24H. PO SCH (08:55)
--- NOTE | 2019-11-10 09:50 | NUR ---
Pt discharged home with self care. Discharge instructions and prescriptions discussed with grand-daughter and patient. Dressing changed to right side of scalp. Site cleansed with chloraprep, applied non-adherent gauze and op site. IV removed. Discharge orders faxed to [facility]. Pt assisted into wheelchair and was taken to main entrance and secured in vehicle with family.
--- NOTE | 2019-11-10 09:51 | PDOC ---
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 Started on dexamethasone and prophylactic Keppra for intracranial mass. CT angiogram of the head and neck from 10/29/2019 revealed no intracranial arterial stenosis or occlusion, 2 mm anterior communicating artery aneurysm, poorly seen enhancing right temporal lobe mass. MRI scan from 10/29/2019 with gadolinium revealed an irregular ring enhancing temporal lobe mass measuring approximately 6 x 4 x 4 cm associated with internal hemorrhage extending into the right frontal and basal ganglion regions with some leftward midline shift. S/p debulking 11/04/2019 with frozen section confirming suspected glioblastoma multiforme. Seen by neurology, neurosurgery, hematology/oncology and radiation oncology. 11/05: She is seen in ICU, states she is still "waking up". Eating breakfast. Still having right sided headache. able to follow commands, move extremities. 11/06: Overnight no events. still with decreased strength 4/5, Left homonymous hemianopsia and now with some right periorbital swelling. She is more alert, in better spirits. Still a bit confused, however. BP WNL. 11/07: Transferred to med/surg 11/08:Pt appears in good spirits and is able to hold a conversation. No good memory of surgery or diagnosis. DW pt and pt's sister regarding the pt's care 11/09: Son Abdullahi is bedside to discuss plan for home with home health and arrangement of outpatient treatment for GBM. CT head 11/08 with improved midline shift. Neurosurgery recs to d/c on steroids. Son is not ready to take her home today Seen with grand-daughter bedside day of discharge, wishes to get home before the snow. No complaints. Has scripts for 2mg decadron q6hrs, home health, f/u with heme/onc, rad/onc, neurosurgery. Overnight no events. still with decreased strength 4/5, Left homonymous hemian opsia and now with some right periorbital swelling. She is more alert, in better spirits. Still a bit confused, however. BP WNL. S/p craniotomy and debulking on Sunday 11/04 neurology, neurosurgery, oncology, rad/onc consults Problem list - RT temporal lobe mass 5.7 x 4.1 cm concerning for GBM - new dx. Recommended oral temozolamide and radiation therapy. GBM is a terminal diagnosis as currently medical research shows it as recurrent despite treatments ("incurable") Hemorrhagic CVA with brain edema Headaches HTN controlled Complete opacification left maxillary sinus which may be due to mucocele or neoplasm. Cerebral vasogenic edema with midline shift 8 mm. Intermittent recurrent confusional episodes. Complex partial seizure Left temporal field deficits. 2 mm anterior communicating artery aneurysm. 37 min pt exam, chart review, > 50% of time spent with exam, chart review, pt care coordination Vitals Vitals Vital Signs Date Time Temp Pulse Resp B/P (MAP) Pulse Ox O2 Delivery O2 Flow Rate FiO2 11/10/19 08:55 71 124/68 11/10/19 07:52 Room Air 11/10/19 07:00 98.1 16 99 98.1 Physical Exam General: Alert, Cooperative, No acute distress Heart: Regular rate, Normal S1, Normal S2 Lungs: Clear Abdomen: Normal bowel sounds, Soft, No tenderness, No hepatosplenomegaly, No masses Extremities: No clubbing, No cyanosis, No edema, Normal pulses Skin: Other (dressing C,D,I) Labs LABS Laboratory Tests Test 11/10/19 05:25 White Blood Count 14.5 x10^3/uL (4.0-11.0) Red Blood Count 3.10 x10^6/uL (3.50-5.40) Hemoglobin 10.4 g/dL (12.0-15.5) Hematocrit 30.7 % (36.0-47.0) Mean Corpuscular Volume 99 fL (79-100) Mean Corpuscular Hemoglobin 34 pg (25-35) Mean Corpuscular Hemoglobin Concent 34 g/dL (31-37) Red Cell Distribution Width 12.3 % (11.5-14.5) Platelet Count 219 x10^3/uL (140-400) Neutrophils (%) (Auto) 78 % (31-73) Lymphocytes (%) (Auto) 17 % (24-48) Monocytes (%) (Auto) 5 % (0-9) Eosinophils (%) (Auto) 0 % (0-3) Basophils (%) (Auto) 0 % (0-3) Neutrophils # (Auto) 11.3 x10^3/uL (1.8-7.7) Lymphocytes # (Auto) 2.4 x10^3/uL (1.0-4.8) Monocytes # (Auto) 0.7 x10^3/uL (0.0-1.1) Eosinophils # (Auto) 0.0 x10^3/uL (0.0-0.7) Basophils # (Auto) 0.0 x10^3/uL (0.0-0.2) Sodium Level 138 mmol/L (136-145) Potassium Level 4.3 mmol/L (3.5-5.1) Chloride Level 103 mmol/L (98-107) Carbon Dioxide Level 27 mmol/L (21-32) Anion Gap 8 (6-14) Blood Urea Nitrogen 21 mg/dL (7-20) Creatinine 1.0 mg/dL (0.6-1.0) Estimated GFR (Cockcroft-Gault) 65.4 Glucose Level 133 mg/dL (70-99) Calcium Level 8.5 mg/dL (8.5-10.1) Assessment and Plan Assessmemt and Plan Problems Medical Problems: (1) Confusion Status: Acute (2) Hyponatremia Status: Acute (3) Intracranial hemorrhage Status: Acute Comment Review of Relevant I have reviewed the following items ramin (where applicable) has been applied. Labs Laboratory Tests Test 11/09/19 04:45 11/10/19 05:25 White Blood Count 12.8 x10^3/uL (4.0-11.0) 14.5 x10^3/uL (4.0-11.0) Red Blood Count 3.01 x10^6/uL (3.50-5.40) 3.10 x10^6/uL (3.50-5.40) Hemoglobin 10.1 g/dL (12.0-15.5) 10.4 g/dL (12.0-15.5) Hematocrit 29.8 % (36.0-47.0) 30.7 % (36.0-47.0) Mean Corpuscular Volume 99 fL (79-100) 99 fL (79-100) Mean Corpuscular Hemoglobin 33 pg (25-35) 34 pg (25-35) Mean Corpuscular Hemoglobin Concent 34 g/dL (31-37) 34 g/dL (31-37) Red Cell Distribution Width 12.4 % (11.5-14.5) 12.3 % (11.5-14.5) Platelet Count 208 x10^3/uL (140-400) 219 x10^3/uL (140-400) Neutrophils (%) (Auto) 77 % (31-73) 78 % (31-73) Lymphocytes (%) (Auto) 17 % (24-48) 17 % (24-48) Monocytes (%) (Auto) 6 % (0-9) 5 % (0-9) Eosinophils (%) (Auto) 0 % (0-3) 0 % (0-3) Basophils (%) (Auto) 0 % (0-3) 0 % (0-3) Neutrophils # (Auto) 9.9 x10^3/uL (1.8-7.7) 11.3 x10^3/uL (1.8-7.7) Lymphocytes # (Auto) 2.2 x10^3/uL (1.0-4.8) 2.4 x10^3/uL (1.0-4.8) Monocytes # (Auto) 0.7 x10^3/uL (0.0-1.1) 0.7 x10^3/uL (0.0-1.1) Eosinophils # (Auto) 0.0 x10^3/uL (0.0-0.7) 0.0 x10^3/uL (0.0-0.7) Basophils # (Auto) 0.0 x10^3/uL (0.0-0.2) 0.0 x10^3/uL (0.0-0.2) Sodium Level 137 mmol/L (136-145) 138 mmol/L (136-145) Potassium Level 4.1 mmol/L (3.5-5.1) 4.3 mmol/L (3.5-5.1) Chloride Level 103 mmol/L (98-107) 103 mmol/L (98-107) Carbon Dioxide Level 25 mmol/L (21-32) 27 mmol/L (21-32) Anion Gap 9 (6-14) 8 (6-14) Blood Urea Nitrogen 22 mg/dL (7-20) 21 mg/dL (7-20) Creatinine 0.9 mg/dL (0.6-1.0) 1.0 mg/dL (0.6-1.0) Estimated GFR (Cockcroft-Gault) 73.9 65.4 Glucose Level 127 mg/dL (70-99) 133 mg/dL (70-99) Calcium Level 8.4 mg/dL (8.5-10.1) 8.5 mg/dL (8.5-10.1) Laboratory Tests Test 11/10/19 05:25 White Blood Count 14.5 x10^3/uL (4.0-11.0) Red Blood Count 3.10 x10^6/uL (3.50-5.40) Hemoglobin 10.4 g/dL (12.0-15.5) Hematocrit 30.7 % (36.0-47.0) Mean Corpuscular Volume 99 fL (79-100) Mean Corpuscular Hemoglobin 34 pg (25-35) Mean Corpuscular Hemoglobin Concent 34 g/dL (31-37) Red Cell Distribution Width 12.3 % (11.5-14.5) Platelet Count 219 x10^3/uL (140-400) Neutrophils (%) (Auto) 78 % (31-73) Lymphocytes (%) (Auto) 17 % (24-48) Monocytes (%) (Auto) 5 % (0-9) Eosinophils (%) (Auto) 0 % (0-3) Basophils (%) (Auto) 0 % (0-3) Neutrophils # (Auto) 11.3 x10^3/uL (1.8-7.7) Lymphocytes # (Auto) 2.4 x10^3/uL (1.0-4.8) Monocytes # (Auto) 0.7 x10^3/uL (0.0-1.1) Eosinophils # (Auto) 0.0 x10^3/uL (0.0-0.7) Basophils # (Auto) 0.0 x10^3/uL (0.0-0.2) Sodium Level 138 mmol/L (136-145) Potassium Level 4.3 mmol/L (3.5-5.1) Chloride Level 103 mmol/L (98-107) Carbon Dioxide Level 27 mmol/L (21-32) Anion Gap 8 (6-14) Blood Urea Nitrogen 21 mg/dL (7-20) Creatinine 1.0 mg/dL (0.6-1.0) Estimated GFR (Cockcroft-Gault) 65.4 Glucose Level 133 mg/dL (70-99) Calcium Level 8.5 mg/dL (8.5-10.1) Medications Current Medications Dexamethasone Sodium Phosphate (Decadron) 4 mg 1X ONCE IVP Last administered on 10/29/19 18:52; Start 10/29/19 at 16:45; Stop 10/29/19 at 16:46; Status DC Acetaminophen (Tylenol) 500 mg PRN Q6HRS PRN PO MILD PAIN / TEMP Last administered on 11/06/19 16:16; Start 10/29/19 at 17:00 Ondansetron HCl (Zofran) 4 mg PRN Q6HRS PRN IVP NAUSEA/VOMITING Last administered on 11/02/19 13:55; Start 10/29/19 at 17:00 Sodium Chloride 1,000 ml @ 80 mls/hr [id number] IV Last administered on 11/09/19 21:30; Start 10/29/19 at 17:00 Famotidine (Pepcid Vial) 20 mg QHS IVP Last administered on 11/09/19 21:29; Start 10/29/19 at 21:00 Hydralazine HCl (Apresoline Inj) 10 mg PRN Q4HRS PRN IVP ELEVATED BP, SEE COMMENTS Last administered on 11/05/19 03:33; Start 10/29/19 at 17:00 Dexamethasone Sodium Phosphate (Decadron) 4 mg Q6HRS IVP Last administered on 11/06/19 12:06; Start 10/29/19 at 18:00; Stop 11/06/19 at 14:11; Status DC Gadoterate Meglumine (Dotarem) 14 ml 1X ONCE IVP Last administered on 10/29/19 17:55; Start 10/29/19 at 17:30; Stop 10/29/19 at 17:40; Status DC Iohexol (Omnipaque 350 Mg/ml) 60 ml 1X ONCE IV Last administered on 12/3/19at 18:46; Start 10/29/19 at 18:30; Stop 10/29/19 at 18:31; Status DC Info (CONTRAST GIVEN -- Rx MONITORING) 1 each PRN DAILY PRN MC SEE COMMENTS; Start 10/29/19 at 18:30; Stop 10/31/19 at 18:29; Status DC Levetiracetam 500 mg/Dextrose 105 ml @ 440 mls/hr Q12HR IV Last administered on 11/06/19 08:31; Start 10/29/19 at 21:00; Stop 11/06/19 at 11:22; Status DC Metoprolol Tartrate (Lopressor) 50 mg DAILY PO ; Start 10/30/19 at 09:00; Status Cancel Hydrochlorothiazide (Microzide) 12.5 mg DAILY PO Last administered on 10/27 04/14at 08:55; Start 10/30/19 at 09:00 Fish Oil (Fish Oil) 1,000 mg DAILY PO Last administered on 11/10/19 08:54; Start 10/30/19 at 09:00 Multivitamins (Thera M Plus) 1 tab DAILY PO Last administered on 11/10/19 08:54; Start 10/30/19 at 09:00 Morphine Sulfate (Morphine Sulfate) 1 mg PRN Q2HR PRN IV PAIN Last administered on 10/30/19 13:49; Start 10/29/19 at 21:15 Metoprolol Succinate (Toprol Xl) 50 mg DAILY PO Last administered on 11/10/19 08:55; Start 10/31/19 at 09:00 Losartan Potassium (Cozaar) 100 mg DAILY PO Last administered on 11/10/19 08:55; Start 10/31/19 at 09:00 Non-Formulary Medication (Multivitamin (Multi Vitamin Daily)) 1 tab DAILY PO ; Start 10/31/19 at 09:00; Status UNV Non-Formulary Medication ([place]-3 Fatty Acids/Fish Oil ([place] 3 Fish Oil Softgel)) 1 each DAILY PO ; Start 10/31/19 at 09:00; Status UNV Ondansetron HCl (Zofran) 4 mg PRN Q6HRS PRN IV NAUSEA/VOMITING; Start 11/04/19 at 07:00; Stop 11/05/19 at 06:59; Status DC Fentanyl Citrate (Fentanyl 2ml Vial) 25 mcg PRN Q5MIN PRN IV MILD PAIN 1-3 Last administered on 11/04/19at 18:31; Start 11/04/19 at 07:00; Stop 11/05/19 at 06:59; Status DC Fentanyl Citrate (Fentanyl 2ml Vial) 50 mcg PRN Q5MIN PRN IV MODERATE TO SEVERE PAIN; Start 11/04/19 at 07:00; Stop 11/05/19 at 06:59; Status DC Morphine Sulfate (Morphine Sulfate) 1 mg PRN Q10MIN PRN IV SEVERE PAIN 7-10; Start 11/04/19 at 07:00; Stop 11/05/19 at 06:59; Status DC Ringer's Solution 1,000 ml @ 30 mls/hr Q24H IV ; Start 11/04/19 at 07:00; Stop 11/04/19 at 18:59; Status DC Lidocaine HCl (Xylocaine-Mpf 1% 2ml Vial) 2 ml PRN 1X PRN ID PRIOR TO IV START; Start 11/04/19 at 07:00; Stop 11/05/19 at 06:59; Status DC Hydromorphone HCl (Dilaudid) 0.5 mg PRN Q10MIN PRN IV SEV PAIN, Second choice; Start 11/04/19 at 07:00; Stop 11/05/19 at 06:59; Status DC Prochlorperazine Edisylate (Compazine) 5 mg PACU PRN PRN IV NAUSEA, MRX1; Start 11/04/19 at 07:00; Stop 11/05/19 at 06:59; Status DC Bacitracin 18429 unit/Sodium Chloride 1,000 ml @ 1,000 mls/hr 1X ONCE IRR Last administered on 11/04/19at 13:22; Start 11/04/19 at 06:00; Stop 11/04/19 at 06:59; Status DC Bupivacaine HCl/ Epinephrine Bitart (Sensorcain-Epi 0.5%-1:019019 Mpf) 30 ml 1X ONCE INJ Last administered on 11/04/19at 13:22; Start 11/04/19 at 06:30; Stop 11/04/19 at 06:31; Status DC Cefazolin Sodium/ Dextrose 50 ml @ 100 mls/hr 1X PREOP ONCE IV ; Start 11/03/19 at 10:00; Stop 11/03/19 at 10:29; Status Cancel Cefazolin Sodium/ Dextrose 50 ml @ 100 mls/hr 1X PREOP ONCE IV Last administered on 11/04/19at 12:15; Start 11/04/19 at 10:00; Stop 11/04/19 at 10:29; Status DC Gelatin (Gelfoam Size 100) 1 each STK-MED ONCE .ROUTE Last administered on 11/04/19at 13:22; Start 11/04/19 at 07:48; Stop 11/04/19 at 07:48; Status DC Ketorolac Tromethamine (Toradol Im) 60 mg STK-MED ONCE .ROUTE ; Start 11/04/19 at 07:48; Stop 11/04/19 at 07:48; Status DC Thrombin 20,000 unit STK-MED ONCE TP Last administered on 11/04/19at 13:22; Start 11/04/19 at 07:48; Stop 11/04/19 at 07:48; Status DC Gadoterate Meglumine (Dotarem) 14 ml 1X ONCE IVP Last administered on 11/04/19at 08:15; Start 11/04/19 at 08:15; Stop 11/04/19 at 08:16; Status DC Propofol 20 ml @ As Directed STK-MED ONCE IV ; Start 11/04/19 at 09:19; Stop 11/04/19 at 09:19; Status DC Lidocaine HCl (Lidocaine Pf 2% Vial) 5 ml STK-MED ONCE .ROUTE ; Start 11/04/19 at 09:19; Stop 11/04/19 at 09:19; Status DC Fentanyl Citrate (Fentanyl 2ml Vial) 100 mcg STK-MED ONCE .ROUTE ; Start 11/04/19 at 09:19; Stop 11/04/19 at 09:19; Status DC Rocuronium [place] (Zemuron) 50 mg STK-MED ONCE .ROUTE ; Start 11/04/19 at 09:19; Stop 11/04/19 at 09:19; Status DC Remifentanil HCl (Ultiva) 2 mg STK-MED ONCE IV ; Start 11/04/19 at 09:19; Stop 11/04/19 at 09:19; Status DC Sodium Chloride (SODIUM CHLORIDE 20ml) 20 ml STK-MED ONCE IJ ; Start 11/04/19 at 09:19; Stop 11/04/19 at 09:20; Status DC Dexamethasone Sodium Phosphate (Decadron) 20 mg STK-MED ONCE .ROUTE ; Start 11/04/19 at 12:15; Stop 11/04/19 at 12:16; Status DC Desflurane (Suprane) 90 ml STK-MED ONCE IH ; Start 11/04/19 at 12:15; Stop 11/04/19 at 12:16; Status DC Ondansetron HCl (Zofran) 4 mg STK-MED ONCE .ROUTE ; Start 11/04/19 at 12:42; Stop 11/04/19 at 12:42; Status DC Glycopyrrolate (Robinul) 1 mg STK-MED ONCE .ROUTE ; Start 11/04/19 at 12:42; Stop 11/04/19 at 12:42; Status DC Neostigmine Methylsulfate (Neostigmine Methylsulfate) 5 mg STK-MED ONCE .ROUTE ; Start 11/04/19 at 12:42; Stop 11/04/19 at 12:42; Status DC Mannitol 500 ml @ As Directed STK-MED ONCE IV ; Start 11/04/19 at 12:53; Stop 11/04/19 at 12:53; Status DC Cefazolin Sodium (Ancef) 1 gm STK-MED ONCE .ROUTE ; Start 11/04/19 at 13:19; Stop 11/04/19 at 13:19; Status DC Phenylephrine HCl (PHENYLEPHRINE in 0.9% NACL PF) 1 mg STK-MED ONCE IV ; Start 11/04/19 at 14:18; Stop 11/04/19 at 14:18; Status DC Cellulose (Surgicel Hemostat 4x8) 1 each STK-MED ONCE .ROUTE Last administered on 11/04/19at 14:50; Start 11/04/19 at 14:45; Stop 11/04/19 at 14:46; Status DC Fentanyl Citrate (Fentanyl 2ml Vial) 50 mcg PRN Q2HR PRN IVP PAIN Last administered on 11/05/19at 08:18; Start 11/04/19 at 16:15 Acetaminophen/ Hydrocodone Bitart (Lortab 5/325) 1 tab PRN Q6HRS PRN PO MODERATE PAIN, SEVERE PAIN Last administered on 11/08/19at 02:57; Start 11/05/19 at 10:15 Levetiracetam (Keppra) 500 mg BID PO Last administered on 11/10/19at 08:54; Start 11/06/19 at 21:00 Dexamethasone Sodium Phosphate (Decadron) 2 mg Q6HRS IVP Last administered on 11/09/19at 05:04; Start 11/06/19 at 18:00; Stop 11/09/19 at 11:57; Status DC Dexamethasone Sodium Phosphate (Decadron) 2 mg Q6HRS PO Last administered on 11/09/19at 13:20; Start 11/09/19 at 12:00; Stop 11/09/19 at 14:58; Status DC Dexamethasone (Decadron) 2 mg Q6HRS PO Last administered on 11/10/19at 06:21; Start 11/09/19 at 18:00 Active Scripts Active Dexamethasone 1 Mg Tablet 2 Mg PO Q6HRS 30 Days Hydrochlorothiazide Capsule (Hydrochlorothiazide) 12.5 Mg Capsule 12.5 Mg PO DAILY 30 Days Keppra (Levetiracetam) 500 Mg Tablet 500 Mg PO BID 30 Days Hydrocodone-Apap 5-325 (Hydrocodone Bit/Acetaminophen) 1 Tab Tablet 1 Tab PO PRN Q6HRS PRN 6 Days Reported Multi Vitamin Daily (Multivitamin) 1 Each Tablet 1 Tab PO DAILY 30 Days [place] 3 Fish Oil Softgel ([place]-3 Fatty Acids/Fish Oil) 1 Each Capsule. 1 Each PO DAILY Losartan-Hctz 100-12.5 Mg Tab (Losartan/Hydrochlorothiazide) 1 Each Tablet 1 Tab PO DAILY Toprol XL (Metoprolol Succinate) 50 Mg Tab.er.24h 50 Mg PO DAILY Vitals/I & O Vital Sign - Last 24 Hours 11/09/19 11/09/19 11/09/19 11/09/19 11:06 15:05 19:00 19:35 Temp 97.6 97.8 98.1 97.6 97.8 98.1 Pulse 63 66 58 Resp 18 18 18 B/P (MAP) 138/62 (87) 127/70 (89) 168/68 (101) Pulse Ox 99 98 98 O2 Delivery Room Air Room Air Room Air Room Air 1211/10/19 11/10/19 11/10/19 23:00 03:00 07:00 07:52 Temp 97.5 98.0 98.1 97.5 98.0 98.1 Pulse 59 67 71 Resp 18 18 16 B/P (MAP) 148/69 (95) 143/59 (87) 124/68 (86) Pulse Ox 99 96 99 O2 Delivery Room Air Room Air Room Air Room Air 11/10/19 11/10/19 08:55 08:55 Pulse 71 71 B/P (MAP) 124/68 124/68 Intake and Output 11/09/19 11/09/19 11/10/19 15:00 23:00 07:00 Intake Total 200 ml 200 ml 1920 ml Balance 200 ml 200 ml 1920 ml NEAL RED MD Nov 10, 2019 09:51
--- NOTE | 2019-11-10 09:52 | PDOC3 ---
Discharge Summary Visit Information Date of Admission: Oct 29, 2019 Date of Discharge: Nov 10, 2019 Admitting Diagnosis: Intracranial mass Final Diagnosis Problems Medical Problems: (1) Confusion Status: Acute (2) Hyponatremia Status: Acute (3) Intracranial hemorrhage Status: Acute Brief Hospital Course Allergies Allergies Coded Allergies Type Severity Reaction Last Updated Verified No Known Drug Allergies 10/29/19 No Vital Signs Vital Signs Date Time Temp Pulse Resp B/P (MAP) Pulse Ox O2 Delivery O2 Flow Rate FiO2 11/10/19 08:55 71 124/68 11/10/19 07:52 Room Air 11/10/19 07:00 98.1 16 99 98.1 Lab Results Laboratory Tests Test 11/09/19 04:45 11/10/19 05:25 White Blood Count 12.8 x10^3/uL (4.0-11.0) 14.5 x10^3/uL (4.0-11.0) Red Blood Count 3.01 x10^6/uL (3.50-5.40) 3.10 x10^6/uL (3.50-5.40) Hemoglobin 10.1 g/dL (12.0-15.5) 10.4 g/dL (12.0-15.5) Hematocrit 29.8 % (36.0-47.0) 30.7 % (36.0-47.0) Mean Corpuscular Volume 99 fL (79-100) 99 fL (79-100) Mean Corpuscular Hemoglobin 33 pg (25-35) 34 pg (25-35) Mean Corpuscular Hemoglobin Concent 34 g/dL (31-37) 34 g/dL (31-37) Red Cell Distribution Width 12.4 % (11.5-14.5) 12.3 % (11.5-14.5) Platelet Count 208 x10^3/uL (140-400) 219 x10^3/uL (140-400) Neutrophils (%) (Auto) 77 % (31-73) 78 % (31-73) Lymphocytes (%) (Auto) 17 % (24-48) 17 % (24-48) Monocytes (%) (Auto) 6 % (0-9) 5 % (0-9) Eosinophils (%) (Auto) 0 % (0-3) 0 % (0-3) Basophils (%) (Auto) 0 % (0-3) 0 % (0-3) Neutrophils # (Auto) 9.9 x10^3/uL (1.8-7.7) 11.3 x10^3/uL (1.8-7.7) Lymphocytes # (Auto) 2.2 x10^3/uL (1.0-4.8) 2.4 x10^3/uL (1.0-4.8) Monocytes # (Auto) 0.7 x10^3/uL (0.0-1.1) 0.7 x10^3/uL (0.0-1.1) Eosinophils # (Auto) 0.0 x10^3/uL (0.0-0.7) 0.0 x10^3/uL (0.0-0.7) Basophils # (Auto) 0.0 x10^3/uL (0.0-0.2) 0.0 x10^3/uL (0.0-0.2) Sodium Level 137 mmol/L (136-145) 138 mmol/L (136-145) Potassium Level 4.1 mmol/L (3.5-5.1) 4.3 mmol/L (3.5-5.1) Chloride Level 103 mmol/L (98-107) 103 mmol/L (98-107) Carbon Dioxide Level 25 mmol/L (21-32) 27 mmol/L (21-32) Anion Gap 9 (6-14) 8 (6-14) Blood Urea Nitrogen 22 mg/dL (7-20) 21 mg/dL (7-20) Creatinine 0.9 mg/dL (0.6-1.0) 1.0 mg/dL (0.6-1.0) Estimated GFR (Cockcroft-Gault) 73.9 65.4 Glucose Level 127 mg/dL (70-99) 133 mg/dL (70-99) Calcium Level 8.4 mg/dL (8.5-10.1) 8.5 mg/dL (8.5-10.1) Laboratory Tests Test 11/10/19 05:25 White Blood Count 14.5 x10^3/uL (4.0-11.0) Red Blood Count 3.10 x10^6/uL (3.50-5.40) Hemoglobin 10.4 g/dL (12.0-15.5) Hematocrit 30.7 % (36.0-47.0) Mean Corpuscular Volume 99 fL (79-100) Mean Corpuscular Hemoglobin 34 pg (25-35) Mean Corpuscular Hemoglobin Concent 34 g/dL (31-37) Red Cell Distribution Width 12.3 % (11.5-14.5) Platelet Count 219 x10^3/uL (140-400) Neutrophils (%) (Auto) 78 % (31-73) Lymphocytes (%) (Auto) 17 % (24-48) Monocytes (%) (Auto) 5 % (0-9) Eosinophils (%) (Auto) 0 % (0-3) Basophils (%) (Auto) 0 % (0-3) Neutrophils # (Auto) 11.3 x10^3/uL (1.8-7.7) Lymphocytes # (Auto) 2.4 x10^3/uL (1.0-4.8) Monocytes # (Auto) 0.7 x10^3/uL (0.0-1.1) Eosinophils # (Auto) 0.0 x10^3/uL (0.0-0.7) Basophils # (Auto) 0.0 x10^3/uL (0.0-0.2) Sodium Level 138 mmol/L (136-145) Potassium Level 4.3 mmol/L (3.5-5.1) Chloride Level 103 mmol/L (98-107) Carbon Dioxide Level 27 mmol/L (21-32) Anion Gap 8 (6-14) Blood Urea Nitrogen 21 mg/dL (7-20) Creatinine 1.0 mg/dL (0.6-1.0) Estimated GFR (Cockcroft-Gault) 65.4 Glucose Level 133 mg/dL (70-99) Calcium Level 8.5 mg/dL (8.5-10.1) Brief Hospital Course Ms Sargent is a 74yo F w/ PMHx HTN admitted with new onset of headaches, dizziness, slurred speech and confusion. Started on dexamethasone and prophylactic Keppra for intracranial mass. CT angiogram of the head and neck from 10/29/2019 revealed no intracranial arterial stenosis or occlusion, 2 mm anterior communicating artery aneurysm, poorly seen enhancing right temporal lobe mass. MRI scan from 10/29/2019 with gadolinium revealed an irregular ring enhancing temporal lobe mass measuring approximately 6 x 4 x 4 cm associated with internal hemorrhage extending into the right frontal and basal ganglion regions with some leftward midline shift. S/p debulking 11/04/2019 with frozen section confirming suspected glioblastoma multiforme. Seen by neurology, neurosurgery, hematology/oncology and radiation oncology. 11/05: She is seen in ICU, states she is still "waking up". Eating breakfast. Still having right sided headache. able to follow commands, move extremities. 11/06: Overnight no events. still with decreased strength 4/5, Left homonymous hemianopsia and now with some right periorbital swelling. She is more alert, in better spirits. Still a bit confused, however. BP WNL. 11/07: Transferred to med/surg 11/08:Pt appears in good spirits and is able to hold a conversation. No good memory of surgery or diagnosis. DW pt and pt's sister regarding the pt's care 11/09: Son Abdullahi is bedside to discuss plan for home with home health and arrangement of outpatient treatment for GBM. CT head 11/08 with improved midline shift. Neurosurgery recs to d/c on steroids. Son is not ready to take her home today Seen with grand-daughter bedside day of discharge, wishes to get home before the snow. No complaints. Has scripts for 2mg decadron q6hrs, home health, f/u with heme/onc, rad/onc, neurosurgery. Overnight no events. still with decreased strength 4/5, Left homonymous hemianopsia and now with some right periorbital swelling. She is more alert, in better spirits. Still a bit confused, however. BP WNL. S/p craniotomy and debulking on Sunday 11/04 neurology, neurosurgery, oncology, rad/onc consults Problem list - RT temporal lobe mass 5.7 x 4.1 cm concerning for GBM - new dx. Recommended oral temozolamide and radiation therapy. GBM is a terminal diagnosis as currently medical research shows it as recurrent despite treatments ("incurable") Hemorrhagic CVA with brain edema Headaches HTN controlled Complete opacification left maxillary sinus which may be due to mucocele or neoplasm. Cerebral vasogenic edema with midline shift 8 mm. Intermittent recurrent confusional episodes. Complex partial seizure Left temporal field deficits. 2 mm anterior communicating artery aneurysm S/P resection of R temporal lobe glioblatoma on 11/04 37 min pt exam, chart review, > 50% of time spent with exam, chart review, pt care coordination Discharge Information Condition at Discharge: Improved Follow Up: Weeks (1) Disposition/Orders: D/C to Home w/ HH ([facility]) Scheduled Dexamethasone (Dexamethasone) 1 Mg Tablet, 2 MG PO Q6HRS for GBM, brain swelling for 30 Days, #240 Prescribed by: NEAL RED MD on 11/10/19 0854 Hydrochlorothiazide (Hydrochlorothiazide Capsule ) 12.5 Mg Capsule, 12.5 MG PO DAILY for HTN for 30 Days, #30 Prescribed by: NEAL RED MD on 11/10/19 0846 Levetiracetam (Keppra) 500 Mg Tablet, 500 MG PO BID for Brain mass for 30 Days, #60 Ref 2 Prescribed by: NEAL RED MD on 11/10/19 0846 Losartan/Hydrochlorothiazide (Losartan-Hctz 100-12.5 Mg Tab) 1 Each Tablet, 1 TAB PO DAILY for Hypertension, #30 Ref 5 (Reported) Entered as Reported by: LULA LOJA on 10/30/19 1053 Last Action: Converted on 10/30/191338 by LULA LOJA Metoprolol Succinate (Toprol XL) 50 Mg Tab.er.24h, 50 MG PO DAILY for FOR HYPERTENSION, (Reported) Entered as Reported by: LULA LOJA on 10/30/19 1053 Last Action: Continued on 10/30/191338 by LULA LOJA Multivitamin (Multi Vitamin Daily) 1 Each Tablet, 1 TAB PO DAILY for vitamin for 30 Days, #30 Ref 0 (Reported) Entered as Reported by: LULA LOJA on 10/30/198 Last Action: Converted on 10/30/191338 by LULA LOJA [place]-3 Fatty Acids/Fish Oil ([place] 3 Fish Oil Softgel) 1 Each Capsule.dr, 1 EACH PO DAILY for suppl, (Reported) Entered as Reported by: LULA LOJA on 10/30/191337 Last Action: Converted on 10/30/191338 by LULA LOJA Scheduled PRN Hydrocodone Bit/Acetaminophen (Hydrocodone-Apap 5-325 ) 1 Tab Tablet, 1 TAB PO PRN Q6HRS PRN for MODERATE PAIN, SEVERE PAIN for 6 Days, #20 Prescribed by: NEAL RED MD on 11/10/19 0847 NEAL RED MD Nov 10, 2019 09:52
--- NOTE | 2019-11-12 17:49 | OP ---
DATE OF SURGERY: 11/04/2019 PREOPERATIVE DIAGNOSES: Right temporal mass. POSTOPERATIVE DIAGNOSES: Right temporal mass consistent with glioblastoma multiforme on frozen section. OPERATION PERFORMED: Right frontal temporal craniotomy with anterior right temporal lobectomy and debulking of right temporal mass. [employer] REP: Daniela Moore APRN, who assisted with tumor removal. OPERATIVE INDICATIONS: The patient is a very pleasant 74-year-old woman who developed confusion. On imaging studies, she was found to have a large right temporal mass and I recommended a craniotomy. I discussed with her the surgery and risks as well as her family and they wished for me to go ahead. DESCRIPTION OF PROCEDURE: Following general endotracheal anesthesia, the patient was positioned supine on the operating room table. A roll was placed beneath the right shoulder. She was placed in Metcalf pins and positioned with right temporal region uppermost. The [employer] system was initialized. She was clipped, prepped and draped in the standard fashion. I made a reverse question ramin type incision and then reflected the temporalis muscle fascia forward with the skin and secured with self-retaining retractors. I brought in the high speed air drill and placed several soledad holes, removed the bone over the temporal fossa and over the inferior frontal over the lateral frontal fossa and medially and then opened the dura flapping it superiorly and tacking it with 4-0 Nurolon tumor was readily visible on the surface of the brain surface reddish brown in color and I made a small corticotomy with bipolar and removed several specimens for pathologic evaluation. I then brought in the CUSA and began to remove tumor. Working back about 5 cm and then carried my dissection forward and inferiorly towards the superior tip of the temporal fossa and around superiorly did gently removed tumor was able to remove a great deal of tumor as I worked well as a swollen brain began to push back into the void was created. I continued to work and remove the tumor aggressively with the surgery. I felt I safely removed all that I could. I irrigated, hemostasis became excellent. I did coagulate the pial margin. I then tacked the dura and placed Duragen over the craniotomy site. The bone was replaced and secured with microplates. Temporalis fascia was closed with separate layer and the skin was closed in layers with absorbable suture, skin mita. The operation went very well. The patient awakened almost immediately after surgery with fluent speech in excellent strength. CHRISTIE CASILLAS MD DR: SHAYY/tennille JOB#: [id number] / [id number]
== END 2019-11-10 09:55 | disposition home health service (06) | DRG 25 ==
LOC: ER 15:20 → 1 WEST ICU 16:41 → 6 SOUTH 10-30 16:00 → UNDODISIN 11-04 16:54 → 1 WEST ICU 11-04 17:34 → 4 NORTH 11-06 16:38
PROVIDERS: ADMIT Internal Medicine; ATTEND Internal Medicine
PROC: 00B70ZZ Excision of Cerebral Hemisphere, Open Approach (ICD-10-PCS; principal; 2019-11-04 10:30)
DX: C71.2 Malignant neoplasm of temporal lobe (principal); G93.6 Cerebral edema; G93.41 Metabolic encephalopathy; I62.9 Nontraumatic intracranial hemorrhage, unspecified; E87.1 Hypo-osmolality and hyponatremia; G40.209 Localization-related (focal) (partial) symptomatic epilepsy and epileptic syndromes with complex partial seizures, not intractable, without status epilepticus; I10 Essential (primary) hypertension; M06.9 Rheumatoid arthritis, unspecified; E66.9 Obesity, unspecified; Z68.28 Body mass index [BMI] 28.0-28.9, adult; Z79.899 Other long term (current) drug therapy; Z82.49 Family history of ischemic heart disease and other diseases of the circulatory system; Z85.841 Personal history of malignant neoplasm of brain
CPT/HCPCS: 36415; 70450; 70496; 70498; 70552; 70553; 80048; 80053; 81001; 82962; 83880; 84484; 85007; 85025; 85027; 85610; 85730; 88307; 88331; 88341; 88342; 93005; 95816; 96374; 96375; 97168; A7015; A9575; C1713; J0360; J0690; J0696; J1100; J1885; J1953; J2001; J2270; J2370; J2405; J2704; J2710; J3010; J3490; J7030; Q9967; 92610; 97110; 97112; 97116; 97530; 97535; 99291-25; G0378

== ENCOUNTER 2020-02-08 13:00 | Emergency (ER) | payer MEDICARE, OTHER ==
[~2020-02-08] VITALS: Ht 149.9 cm; Wt 62.7 kg
[~2020-02-08 13:00] MED LIST: DEXA1TAB PO; HYDR-2761 PO; HYDR12.575 PO; LEVE500T56 PO; LOSA1TAB25 PO; METO50TA4 PO; MULT-245 PO; OMEG1CAP38 PO
[2020-02-08] MEDS ORDERED: IV NORMAL SALINE 1000ML BAG 1,000 ML IV ONE (13:30)
[2020-02-08 13:40] LABS: BILIRUBIN,URINE NEGATIVE (NEG); CLARITY,URINE CLOUDY; COLOR,URINE YELLOW; PH,URINE 6.5 (<5.0-8.0)
[2020-02-08 13:41] LABS: NITRITE,URINE NEGATIVE (NEG); PROTEIN,URINE NEGATIVE (NEG-TRACE); UROBILINOGEN,URINE 0.2 mg/dL (0.2 mg/dL)
[2020-02-08 13:42] LABS: BARBITURATES NEG (NEG); BENZODIAZEPINES NEG (NEG); CANNABINOIDS NEG (NEG); COCAINE NEG (NEG); METHADONE NEG (NEG); OPIATES NEG (NEG); PHENCYCLIDINE NEG (NEG)
[2020-02-08 13:43] LABS: BACTERIA,URINE FEW /HPF (0-FEW); SQUAMOUS EPITHELIAL CELL,UR MANY /LPF
--- NOTE | 2020-02-08 13:43 | RAD ---
EXAM: Chest, single view. HISTORY: Altered mental status. COMPARISON: None. FINDINGS: A frontal view of the chest is obtained. There is no infiltrate, pleural effusion or pneumothorax. The heart is normal in size. IMPRESSION: No acute pulmonary finding. Electronically signed by: Jana Torres MD (02/08/2020 1:41 PM) [facility] – [place], [place]
[2020-02-08 13:44] LABS: AMORPHOUS SEDIMENT,UR PRESENT /HPF
[2020-02-08 13:46] LABS: BASO % 0 % (0-3); EOS % 0 % (0-3); HEMATOCRIT 31.8 % (36.0-47.0); LYMPH # 0.3 x10^3/uL (1.0-4.8); LYMPH % 17 % (24-48); MEAN CORPUSCULAR HEMOGLOBIN 35 pg (25-35); MEAN CORPUSCULAR HGB CONC 35 g/dL (31-37); MEAN CORPUSCULAR VOLUME 100 fL (79-100); MONO # 0.1 x10^3/uL (0.0-1.1); MONO % 4 % (0-9); NEUT # 1.3 x10^3/uL (1.8-7.7); NEUT % 78 % (31-73); PLATELET COUNT 43 x10^3/uL (140-400); RED CELL DISTRIBUTION WIDTH 14.8 % (11.5-14.5)
[2020-02-08 13:51] LABS: AMPHETAMINE/METHAMPHETAMINE NEG (NEG)
[2020-02-08 13:56] LABS: WHITE BLOOD COUNT 1.7 x10^3/uL (4.0-11.0)
--- NOTE | 2020-02-08 13:56 | RAD ---
EXAM: Head CT without contrast. HISTORY: Altered mental status. TECHNIQUE: Computed tomographic images of the head were obtained without contrast. *One or more of the following individualized dose reduction techniques were utilized for this examination: 1. Automated exposure control. 2. Adjustment of the mA and/or kV according to patient size. 3. Use of iterative reconstruction technique. COMPARISON: 11/08/2019. FINDINGS: There is decreased attenuation within the right middle cerebral artery distribution likely due to encephalomalacia and gliosis, given the presence of overlying craniotomy changes and changes noted on the prior exam. There is no mass effect or midline shift. There is no hydrocephalus. There is near complete opacification of the visualized left maxillary sinus with sinus wall thickening due to chronic sinusitis. This is likely fungal in etiology. The mastoid air cells are clear. IMPRESSION: 1. Suspected encephalomalacia and gliosis within the right middle cerebral artery distribution and overlying craniotomy changes. This is consistent with prior brain mass resection. The possibly of hypodensity in this region due to residual neoplasm is not excluded on this exam. This can be better assessed with an MRI. 2. Note is made that MRI is more sensitive for acute infarction. Electronically signed by: Jana Torres MD (02/08/2020 1:53 PM) [facility] – [place]
[2020-02-08 13:58] LABS: CALCIUM 8.4 mg/dL (8.5-10.1); CREATININE 1.4 mg/dL (0.6-1.0); GFR 44.4; POTASSIUM 4.4 mmol/L (3.5-5.1)
[2020-02-08 14:04] LABS: ALBUMIN 2.4 g/dL (3.4-5.0); ALBUMIN/GLOBULIN RATIO 0.8 (1.0-1.7); MAGNESIUM 1.7 mg/dL (1.8-2.4); TOTAL BILIRUBIN 0.4 mg/dL (0.2-1.0); TOTAL PROTEIN 5.5 g/dL (6.4-8.2)
[2020-02-08 14:11] LABS: CREATINE KINASE 32 U/L (26-192)
[2020-02-08] MEDS ORDERED: cefTRIAXone IV Push 1 GM VIAL. IVP ONE (14:30)
[2020-02-08] MEDS ORDERED: CEPH500T PO (14:45)
--- NOTE | 2020-02-08 14:50 | PHYS DOC ---
Past Medical History Past Medical History: Hypertension, Other Additional Past Medical Histor: BRAIN CA Past Surgical History: No Surgical History Smoking Status: Never Smoker Alcohol Use: None Drug Use: None Adult General Chief Complaint Chief Complaint: ALTERED MENTAL STATUS HPI HPI Patient is a 74 year old female with history of brain cancer currently on radiation treatment last treatment January 30, 2020 who presents to the ED today to be evaluated for altered mental status. Son reports patient has been slightly confused for 1 week. Son reports patient is currently on steroids to help with swelling in her brain. Patient denies any chest pain, shortness of breath, fever. Review of Systems Review of Systems Constitutional: Denies fever or chills [] Eyes: Denies change in visual acuity, redness, or eye pain [] HENT: Denies nasal congestion or sore throat [] Respiratory: Denies cough or shortness of breath [] Cardiovascular: No additional information not addressed in HPI [] GI: Denies abdominal pain, nausea, vomiting, bloody stools or diarrhea [] : Denies dysuria or hematuria [] Musculoskeletal: Denies back pain or joint pain [] Integument: Denies rash or skin lesions [] Neurologic: Reports altered mental status. Denies headache, focal weakness or sensory changes [] All other systems were reviewed and found to be within normal limits, except as documented in this note. Current Medications Current Medications Current Medications Medications (Trade) Dose Ordered Sig/[place] Start Time Stop Time Status Last Admin Dose Admin Ceftriaxone Sodium (Rocephin) 1 gm 1X ONCE 02/08/20 14:30 02/08/20 14:31 DC 02/08/20 14:32 1 GM Sodium Chloride 1,000 ml @ 1,000 mls/hr 1X ONCE 02/08/20 13:30 02/08/20 14:29 DC 02/08/20 13:30 1,000 MLS/HR Allergies Allergies Allergies Coded Allergies Type Severity Reaction Last Updated Verified No Known Drug Allergies 10/29/19 No Physical Exam Physical Exam Constitutional: Well developed, well nourished, no acute distress, non-toxic appearance. [] HENT: Normocephalic, atraumatic, bilateral external ears normal, oropharynx moist, no oral exudates, nose normal. [] Eyes: PERRLA, EOMI, conjunctiva normal, no discharge. [] Neck: Normal range of motion, no tenderness, supple, no stridor. [] Cardiovascular:Heart rate regular rhythm, no murmur [] Lungs & Thorax: Bilateral breath sounds clear to auscultation [] Abdomen: Bowel sounds normal, soft, no tenderness, no masses, no pulsatile masses. [] Skin: Warm, dry, no erythema, no rash. [] Back: No tenderness, no CVA tenderness. [] Extremities: No tenderness, no cyanosis, no clubbing, ROM intact, no edema. [] Neurologic: Darkness on scalp from radiation treatment. Alert and oriented X 2- 3, normal motor function, normal sensory function, no focal deficits noted. Cranial nerves II-XII intact Psychologic: Affect normal, judgement normal, mood normal. [] Current Patient Data Vital Signs Vital Signs Date Time Temp Pulse Resp B/P (MAP) Pulse Ox O2 Delivery O2 Flow Rate FiO2 02/08/20 14:12 86 18 100 02/08/20 13:17 97.6 138/74 (95) Room Air 97.6 Lab Values Laboratory Tests Test 02/08/20 13:00 02/08/20 13:30 Urine Collection Type Unknown Urine Color Yellow Urine Clarity Cloudy Urine pH 6.5 (<5.0-8.0) Urine Specific [place] 1.010 (1.000-1.030) Urine Protein Negative mg/dL (NEG-TRACE) Urine Glucose (UA) 250 mg/dL (NEG) Urine Ketones (Stick) Negative mg/dL (NEG) Urine Blood Negative (NEG) Urine Nitrite Negative (NEG) Urine Bilirubin Negative (NEG) Urine Urobilinogen Dipstick 0.2 mg/dL (0.2 mg/dL) Urine Leukocyte Esterase Moderate (NEG) Urine RBC 1-2 /HPF (0-2) Urine WBC 5-10 /HPF (0-4) Urine Squamous Epithelial Cells Many /LPF Urine Amorphous Sediment Present /HPF Urine Bacteria Few /HPF (0-FEW) Urine Opiates Screen Neg (NEG) Urine Methadone Screen Neg (NEG) Urine Barbiturates Neg (NEG) Urine Phencyclidine Screen Neg (NEG) Urine Amphetamine/Methamphetamine Neg (NEG) Urine Benzodiazepines Screen Neg (NEG) Urine Cocaine Screen Neg (NEG) Urine Cannabinoids Screen Neg (NEG) Urine Ethyl Alcohol Neg (NEG) White Blood Count 1.7 x10^3/uL (4.0-11.0) *L Red Blood Count 3.20 x10^6/uL (3.50-5.40) L Hemoglobin 11.0 g/dL (12.0-15.5) L Hematocrit 31.8 % (36.0-47.0) L Mean Corpuscular Volume 100 fL (79-100) Mean Corpuscular Hemoglobin 35 pg (25-35) Mean Corpuscular Hemoglobin Concent 35 g/dL (31-37) Red Cell Distribution Width 14.8 % (11.5-14.5) H Platelet Count 43 x10^3/uL (140-400) L Neutrophils (%) (Auto) 78 % (31-73) H Lymphocytes (%) (Auto) 17 % (24-48) L Monocytes (%) (Auto) 4 % (0-9) Eosinophils (%) (Auto) 0 % (0-3) Basophils (%) (Auto) 0 % (0-3) Neutrophils # (Auto) 1.3 x10^3/uL (1.8-7.7) L Lymphocytes # (Auto) 0.3 x10^3/uL (1.0-4.8) L Monocytes # (Auto) 0.1 x10^3/uL (0.0-1.1) Eosinophils # (Auto) 0.0 x10^3/uL (0.0-0.7) Basophils # (Auto) 0.0 x10^3/uL (0.0-0.2) Sodium Level 135 mmol/L (136-145) L Potassium Level 4.4 mmol/L (3.5-5.1) Chloride Level 101 mmol/L (98-107) Carbon Dioxide Level 22 mmol/L (21-32) Anion Gap 12 (6-14) Blood Urea Nitrogen 13 mg/dL (7-20) Creatinine 1.4 mg/dL (0.6-1.0) H Estimated GFR (Cockcroft-Gault) 44.4 BUN/Creatinine Ratio 9 (6-20) Glucose Level 168 mg/dL (70-99) H Calcium Level 8.4 mg/dL (8.5-10.1) L Magnesium Level 1.7 mg/dL (1.8-2.4) L Total Bilirubin 0.4 mg/dL (0.2-1.0) Aspartate Amino Transferase (AST) 29 U/L (15-37) Alanine Aminotransferase (ALT) 39 U/L (14-59) Alkaline Phosphatase 33 U/L (46-116) L Creatine Kinase 32 U/L (26-192) Creatine Kinase MB (Mass) 1.9 ng/mL (0.0-3.6) Creatine Kinase MB Relative Index % (0-4) Troponin I Quantitative < 0.017 ng/mL (0.000-0.055) VD-Biy-S-Type Natriuretic Peptide 427 pg/mL (0-449) Total Protein 5.5 g/dL (6.4-8.2) L Albumin 2.4 g/dL (3.4-5.0) L Albumin/Globulin Ratio 0.8 (1.0-1.7) L Thyroid Stimulating Hormone (TSH) 0.558 uIU/mL (0.358-3.74) Laboratory Tests 02/08/20 13:30 Laboratory Tests 02/08/20 13:30 EKG EKG [address] Landeros sinus rhythm HR 91 no STEMI[] Radiology/Procedures Radiology/Procedures []PROCEDURE: PORTABLE CHEST 1V EXAM: Chest, single view. HISTORY: Altered mental status. COMPARISON: None. FINDINGS: A frontal view of the chest is obtained. There is no infiltrate, pleural effusion or pneumothorax. The heart is normal in size. IMPRESSION: No acute pulmonary finding. Electronically signed by: Jana Rizo MD (02/08/2020 1:41 PM) [facility] [place] DICTATED and SIGNED BY: JANA RIZO MD DATE: 02/08/20 1341 PROCEDURE: CT HEAD WO CONTRAST EXAM: Head CT without contrast. HISTORY: Altered mental status. TECHNIQUE: Computed tomographic images of the head were obtained without contrast. *One or more of the following individualized dose reduction techniques were utilized for this examination: 1. Automated exposure control. 2. Adjustment of the mA and/or kV according to patient size. 3. Use of iterative reconstruction technique. COMPARISON: 11/08/2019. FINDINGS: There is decreased attenuation within the right middle cerebral artery distribution likely due to encephalomalacia and gliosis, given the presence of overlying craniotomy changes and changes noted on the prior exam. There is no mass effect or midline shift. There is no hydrocephalus. There is near complete opacification of the visualized left maxillary sinus with sinus wall thickening due to chronic sinusitis. This is likely fungal in etiology. The mastoid air cells are clear. IMPRESSION: 1. Suspected encephalomalacia and gliosis within the right middle cerebral artery distribution and overlying craniotomy changes. This is consistent with prior brain mass resection. The possibly of hypodensity in this region due to residual neoplasm is not excluded on this exam. This can be better assessed with an MRI. 2. Note is made that MRI is more sensitive for acute infarction. Electronically signed by: Jana Rizo MD (02/08/2020 1:53 PM) [facility] [place] DICTATED and SIGNED BY: JANA RIZO MD DATE: 02/08/20 4593 Course & Med Decision Making Course & Med Decision Making Pertinent Labs and Imaging studies reviewed. (See chart for details) This is a 74-year-old female patient currently on treatment for brain cancer who presents to the ED today with complaints of confusion. CBC with a WBC of 1.7, CMP with no acute findings. UA + for UTI. CT of the head with no acute findings. Patient was offered admission, family requested she gets treatment for UTI at home. Given Rocephin in the ED and discharged on cephalexin. Dragon Disclaimer Dragon Disclaimer This electronic medical record was generated, in whole or in part, using a voice recognition dictation system. Departure Departure Impression: Primary Impression: Altered mental status Additional Impression: UTI (urinary tract infection) Disposition: HOME, SELF-CARE Condition: STABLE Referrals: LOLIS HURTADO MD (PCP) follow up with your doctor in 1-2 weeks Patient Instructions: Confusion, Urinary Tract Infection Additional Instructions: Please complete your antibiotics. Please push fluids. Please follow up with your doctors next week Scripts Cephalexin (CEPHALEXIN) 500 Mg Tablet 1 TAB PO BID, #14 TAB Prov: RONEN PREEZ APRN 02/08/20 Problem Qualifiers Primary Impression: Altered mental status Altered mental status type: unspecified Qualified Codes: R41.82 - Altered mental status, unspecified Additional Impression: UTI (urinary tract infection) Urinary tract infection type: site unspecified Hematuria presence: without hematuria Qualified Codes: N39.0 - Urinary tract infection, site not specified RONEN PEREZ APRN Feb 08, 2020 14:50
[2020-02-08 15:12] VITALS: BP 120/78
[2020-02-08 15:43] LABS: % ATYL 1 % (0-0); % BANDS 13 % (0-9); % LYMPHS 22 % (24-48); % MONOS 4 % (0-10); % SEGS 60 % (35-66); ANISOCYTOSIS SLIGHT; PLT ESTIMATE DECREASED (ADEQUATE); POLYCHROMASIA SLIGHT
--- NOTE | 2020-02-08 21:44 | EKG ---
[facility] [address] [place] [address] Test Date: 2020-02-08 Test Time: 13:57:35 Pat Name: JEYSON KIM Department: Room: Gender: F Compressor Battery Pellets: : 1945 Requested By: RONEN PEREZ Order Number: [id number] Reading MD: Measurements Intervals [place] Rate: 91 P: -36 MO: 170 QRS: 4 QRSD: 70 T: -24 QT: 358 QTc: 442 Interpretive Statements SINUS RHYTHM ST & T ABNORMALITY, CONSIDER RECENT INFERIOR MYOCARDIAL OR PERICARDIAL DAMAGE ABNORMAL ECG RI6.01 No previous ECG available for comparison
== END 2020-02-08 15:18 | disposition home or self-care (01) ==
LOC: ER 13:00
DX: R41.82 Altered mental status, unspecified (principal); N39.0 Urinary tract infection, site not specified; I10 Essential (primary) hypertension
CPT/HCPCS: 36415; 70450; 71045; 80053; 80307; 81001; 82553; 83735; 83880; 84443; 84484; 85007; 85025; 93005; 96361; 96374; 99285; J0696; J7030

== ENCOUNTER → 2020-02-20 | Outpatient (CLI) | payer MEDICARE ==
[2020-02-08 15:12] VITALS: BP 120/78
[~2020-02-20] MED LIST changes: +CEPH500T PO; +GADOTERATE 7.5 MMOL/15ML VIAL. IVP ONE
--- NOTE | 2020-02-20 12:12 | RAD ---
BRAIN WO/W CONTRAST History: Follow-up GBM Technique: Multiplanar, multi sequential pre and postcontrast MR imaging was performed of the brain. Comparison: CT February 08, 2020 and November 08, 2019. MRI October. Findings: Interval postoperative changes compared to prior MRI right parietal temporal craniotomy for resection of right temporal lobe mass. Heterogeneous signal abnormality within the resection bed with hyperintense diffusion weighted signal and T2/FLAIR hyperintensity there is peripheral hemorrhage is enhancement surrounding the resection cavity. Decreased mass effect on the right lateral ventricle. Resolved leftward midline shift. Decreased adjacent T2/FLAIR hyperintensity within the right temporal, frontal and parietal lobes. Dilatation of the right temporal horn, likely ex vacuo dilatation. No acute infarct. No hydrocephalus. Mild global brain parenchymal volume loss. Imaged orbits are unremarkable. Complete opacification of the left maxillary sinus with T2 hypointense signal abnormality, can be seen with inspissated secretions or fungal colonization. There is expansion into the left infundibulum. Impression: 1. Postoperative changes right temporal mass resection with heterogeneous signal abnormality and enhancement surrounding the resection cavity, may represent treatment effect or residual tumor. Recommend short-term interval follow-up. 2. Decreased adjacent mass effect and T2/FLAIR hyperintensity compared to preoperative MRI. 3. Left maxillary sinus opacification with expansion of the infundibulum, may represent polyp or mucocele. Findings are similar compared to prior. Direct visualization can further evaluate as clinically indicated. Electronically signed by: Zhao Choudhary DO (02/20/2020 12:09 PM) [id number]
== END ==
LOC: MRI 10:05
PROVIDERS: ATTEND Radiology Radiation Oncology
DX: Z48.89 Encounter for other specified surgical aftercare (principal); C71.9 Malignant neoplasm of brain, unspecified
CPT/HCPCS: 70553; A9575